=== PATIENT | female | born 1930 | race Hispanic/Latino ===

== ENCOUNTER 2016-06-28 11:22 | Emergency (ER) | payer MEDICARE, BC ==
--- NOTE | 2016-06-28 11:47 | ED PDOC ---
Arrival/HPI - General Time Seen by Provider: 06/28/16 11:26 Historian: Patient - History of Present Illness Narrative History of Present Illness (Text): 06/28/16 11:46 Patient is a 86 year old female with a past medical history that includes hypertension, hypothyroidism, CHF, and anxiety who presents to the emergency department for possible UTI. Patient states he saw her urologist yesterday for dysuria who instructed her to come to the ER today if symptoms did not improve. She reports that she feels burning between her vagina and rectum when urinating x 2 days. Patient reports some nausea and generalized fatigue, which she attributes to not eating today. Denies vomiting, fever, chest pain, shortness of breath, or abdominal pain. She is also requesting to see her psychiatrist, but denies homicidal or suicidal ideation. Time/Duration: < week Symptom Onset: Gradual Symptom Course: Unchanged Modifying Factors (Text): None Associated Symptoms (Text): None Past Medical History - Provider Review Nursing Documentation Reviewed: Yes - Infectious Disease Hx of Infectious Diseases: None - Tetanus Immunization Tetanus Immunization: Unknown - Cardiac Hx Cardiac Disorders: Yes Hx Hypertension: Yes - Pulmonary Hx Respiratory Disorders: Yes Hx Pneumonia: Yes - Neurological Hx Neurological Disorder: Yes Hx Vertigo: Yes - HEENT Hx HEENT Disorder: No - Renal Hx Renal Disorder: No - Endocrine/Metabolic Hx Hypothyroidism: Yes - Hematological/Oncological Hx Blood Disorders: No - Integumentary Hx Dermatological Disorder: No - Musculoskeletal/Rheumatological Hx Musculoskeletal Disorders: No - Gastrointestinal Hx Gastrointestinal Disorders: Yes Hx Diverticulitis: Yes Hx Gastroesophageal Reflux: Yes - Genitourinary/Gynecological Hx Genitourinary Disorders: Yes Hx Incontinence: Yes (STRESS) - Psychiatric Hx Psychophysiologic Disorder: Yes Hx Depression: Yes Hx Substance Use: No - Past Surgical History Past Surgical History: Non-Contributing - Surgical History Other/Comment: benign right breast cyst - Anesthesia Hx Anesthesia: No Hx Anesthesia Reactions: No Hx Malignant Hyperthermia: No - Suicidal Assessment Feels Threatened In Home Enviroment: No Family/Social History - Physician Review Nursing Documentation Reviewed: Yes Family/Social History: Unknown Family HX Smoking Status: Former Smoker Hx Alcohol Use: No Hx Substance Use: No Hx Substance Use Treatment: No Allergies/Home Meds Allergies/Adverse Reactions: Allergies ciprofloxacin [From Cipro] Allergy (Verified 06/28/16 11:55) .unknown ciprofloxacin HCl [From Cipro] Allergy (Verified 06/28/16 11:55) .unknown pneumococcal vaccine Allergy (Verified 06/28/16 11:51) RASH sulfamethoxazole [From Bactrim] Allergy (Verified 06/28/16 11:51) RASH trimethoprim [From Bactrim] Allergy (Verified 06/28/16 11:51) RASH nitrofurantoin Adverse Reaction (Verified 06/28/16 11:51) RASH Penicillins Adverse Reaction (Verified 06/28/16 11:51) SWELLING Home Medications: Home Meds Medication Instructions Recorded Confirmed Furosemide [Lasix] 20 mg PO DAILY 07/03/15 06/28/16 Levothyroxine Sodium [Unithroid] 25 mcg PO DAILY 12/05/15 06/28/16 Pantoprazole Sodium [Protonix] 40 mg PO DAILY 12/05/15 06/28/16 ARIPiprazole [Abilify] 0.5 tab PO HS 06/28/16 06/28/16 Metoprolol Tartrate [Lopressor] 50 mg PO DAILY 06/28/16 06/28/16 Spironolactone [Aldactone] 25 mg PO DAILY 06/28/16 06/28/16 Review of Systems - Review of Systems Constitutional: absent: Fevers Eyes: absent: Vision Changes ENT: absent: Hearing Changes Respiratory: absent: SOB, Cough, Sputum, Wheezing Cardiovascular: absent: Chest Pain, Palpitations, Edema, Calf Pain, GERMAIN, Orthopnea, Syncope Gastrointestinal: Nausea. absent: Abdominal Pain, Constipation, Diarrhea, Vomiting Genitourinary Female: Dysuria. absent: Vaginal Bleeding, Vaginal Discharge Musculoskeletal: absent: Back Pain Skin: absent: Rash Neurological: Dizziness (lightheaded) Endocrine: absent: Diaphoresis Hemo/Lymphatic: absent: Adenopathy Psychiatric: absent: Depression Physical Exam Vital Signs Reviewed: Yes Vital Signs Temp Pulse Resp BP Pulse Ox 06/28/16 11:37 97.9 F 71 18 134/54 L 97 Temperature: Afebrile Blood Pressure: Normal Pulse: Regular Respiratory Rate: Normal Appearance: Positive for: Well-Appearing, Non-Toxic, Comfortable Pain Distress: None Mental Status: Positive for: Alert and Oriented X 3 - Systems Exam Head: Present: Atraumatic, Normocephalic Pupils: Present: PERRL Extroacular Muscles: Present: EOMI Conjunctiva: Present: Normal Mouth: Present: Moist Mucous Membranes Neck: Present: Normal Range of Motion Respiratory/Chest: Present: Clear to Auscultation, Good Air Exchange. No: Respiratory Distress, Accessory Muscle Use Cardiovascular: Present: Regular Rate and Rhythm, Normal S1, S2. No: Murmurs Abdomen: Present: Normal Bowel Sounds. No: Tenderness, Distention, Peritoneal Signs Genitourinary/Pelvic Exam: Present: Normal External Genitalia, Other ( chaperoned by Beryl (tech)). No: Vaginal Discharge, Vaginal Lesions, Odor Back: Present: Normal Inspection Upper Extremity: Present: Normal Inspection. No: Cyanosis, Edema Lower Extremity: Present: Edema (Non-pitting lower extremity edema bilaterally) Neurological: Present: GCS=15, CN II-XII Intact, Speech Normal, Other ( ambulates with walker) Skin: Present: Warm, Dry, Normal Color. No: Rashes Psychiatric: Present: Alert, Oriented x 3, Normal Insight, Normal Concentration Medical Decision Making ED Course and Treatment: Impression: 86 year old female presents with dysuria Differential Diagnosis include but are not limited to: UTI vs yeast infection Plan: -- Labs -- Urine culture/UA -- Admission Prior Visits: Notes and results from previous visits were reviewed. Patient last seen in ED on 03/18/16 for shortness of breath and admitted. Progress Notes: EKG shows NSR at 71 BPM with normal intervals, no ST changes. 06/28/16 13:[address] Givens who agrees the patient does not have a UTI and does not need admission. Patient states she feels better but does not understand her dysuria. Patient reports she is tired because she has not been eating. She is requesting to eat. Will PO challenge and reassess. 06/28/16 16:35 Ucx sent. Patient reports that she feels better and wants to go home and will follow-up with Dr. Gonzalez. She reports that she will use the cream prescribed by Dr. Gonzalez. She also reports that she will follow-up with her psychiatrist as an outpatient. 06/28/16 17:08 Dr. Gonzalez saw patient at bedside and agrees with plan - Lab Interpretations Lab Results: 06/28/16 12:10 06/28/16 12:10 Lab Results 06/28/16 12:48: Urine Color Yellow, Urine Appearance Clear, Urine pH 7.0, Ur Specific [place] 1.010, Urine Protein Negative, Urine Glucose (UA) Negative, Urine Ketones Negative, Urine Blood Negative, Urine Nitrate Negative, Urine Bilirubin Negative, Urine Urobilinogen 0.2, Ur Leukocyte Esterase Trace H, Urine RBC Negative, Urine WBC 0 - 2, Ur Epithelial Cells 4 - 5, Urine Bacteria Trace 06/28/16 12:30: Total Creatine Kinase 59, Troponin I < 0.01 06/28/16 12:10: WBC 8.0 D, RBC 3.88, Hgb 11.4 L, Hct 35.3 L, MCV 91.0, MCH 29.4 , MCHC 32.3, RDW 14.9 H, Plt Count 237, MPV 10.6, Gran % 76.1 H, Lymph % (Auto) 14.1 L, [place] % (Auto) 7.8 H, Eos % (Auto) 1.4 L, Baso % (Auto) 0.6, Gran # 6.08 , Lymph # 1.1 L, [place] # 0.6, Eos # 0.1, Baso # 0.05, pO2 59 H, VBG pH 7.35, VBG pCO2 56.0, VBG HCO3 30.9 H, VBG Total CO2 32.6 H, VBG O2 Sat (Calc) 93.2 H, VBG Base Excess 4.1 H, Glucose 129 H, Lactate 1.4, FiO2 21.0, Sodium 136, Potassium 4.9, Chloride 103.0, Carbon Dioxide 29, Anion Gap 14, BUN 25 H, Creatinine 1.5 H , Est GFR ( Amer) 40, Est GFR (Non-Af Amer) 33, Random Glucose 122 H, Calcium 9.4, Phosphorus 4.4, Magnesium 1.8, Total Bilirubin 0.6, AST 24, ALT 24 , Alkaline Phosphatase 107, Total Protein 7.5, Albumin 3.9, Globulin 3.5, Albumin/Globulin Ratio 1.1, Lipase 107 - EKG Interpretation Interpreted by ED Physician: Yes Type: 12 lead EKG - Medication Orders Current Medication Orders: Discontinued Medications Sodium Chloride (Sodium Chloride 0.9%) 500 mls @ 999 mls/hr IV .Q31M STA Stop: 06/28/16 12:28 Last Admin: 06/28/16 13:15 Dose: 999 MLS/HR eMAR Start Stop Document 06/28/16 13:15 SABINO (Rec: 06/28/16 13:16 [id number] Intravenous Solution Start Date 06/28/16 Start Time 13:15 End Date 06/28/16 End time 13:45 Total Infusion Time 30 - Scribe Statement The provider has reviewed the documentation as recorded by the Elvie Galvan Provider Scribe Attestation: All medical record entries made by the Elvie were at my direction and personally dictated by me. I have reviewed the chart and agree that the record accurately reflects my personal performance of the history, physical exam, medical decision making, and the department course for this patient. I have also personally directed, reviewed, and agree with the discharge instructions and disposition. Disposition/Present on Arrival - Present on Arrival Any Indicators Present on Arrival: No History of DVT/PE: No History of Uncontrolled Diabetes: No Urinary Catheter: No History Surgical Site Infection Following: None - Disposition Have Diagnosis and Disposition been Completed?: Yes Diagnosis: Dysuria Disposition: HOME/ ROUTINE Disposition Time: 13:20 Patient Plan: Discharge Patient Problems: Current Active Problems Problem Status Diagnosed Diastolic congestive heart failure Acute Dysuria Acute Shortness of breath Acute Condition: GOOD Additional Instructions: Follow up with Dr. Gonzalez. Urine culture will result in 2 days. Return to ED if condition worsens. Referrals: PCP,NO [Primary Care Provider] - Follow up with primary
[2016-06-28 11:50] VITALS: BP 134/54; PULSE 71; RESP 18; TEMP 97.9; O2SAT 97; BMI 35.5
[2016-06-28] MEDS ORDERED: Sodium Chloride 0.9% 500 ML IV STA (11:58)
[2016-06-28 12:14] LABS: ADD MANUAL DIFF? NO
[2016-06-28 12:17] LABS: BASO # 0.05 K/mm3 (0.0-2.0); BASO % 0.6 % (0.0-3.0); EOS # 0.1 (0.0-0.7); EOS % 1.4 % (1.5-5.0); GRAN # 6.08 (1.4-6.5); GRAN % 76.1 % (50.0-68.0); HEMATOCRIT 35.3 % (36.0-48.0); LYMPH # 1.1 (1.2-3.4); LYMPH % 14.1 % (22.0-35.0); MEAN CORPUSCULAR HEMOGLOBIN 29.4 pg (25.0-35.0); MEAN CORPUSCULAR HGB CONC 32.3 g/dl (31.0-37.0); MEAN PLATELET VOLUME 10.6 fl (7.0-11.0); MONO # 0.6 (0.1-0.6); MONO % 7.8 % (1.0-6.0); PLATELET COUNT 237 10^3/uL (120.0-450.0); RED CELL DISTRIBUTION WIDTH 14.9 % (11.5-14.5)
[2016-06-28 12:30] LABS: ALB/GLOB RATIO 1.1 (1.1-1.8); BILIRUBIN,TOTAL 0.6 mg/dL (0.2-1.3); CALCIUM 9.4 mg/dL (8.4-10.5); MAGNESIUM 1.8 mg/dL (1.7-2.2); PHOSPHOROUS 4.4 mg/dL (2.5-4.5); POTASSIUM 4.9 mmol/L (3.6-5.0); TOTAL PROTEIN 7.5 g/dL (5.8-8.3)
[2016-06-28 12:32] LABS: VENOUS BLOOD GAS BASE EXCESS 4.1 mmol/L (0.0-2.0); VENOUS BLOOD PH 7.35 (7.32-7.43)
[2016-06-28 13:01] LABS: URINE BILIRUBIN NEGATIVE (NEGATIVE); URINE BLOOD NEGATIVE (NEGATIVE); URINE GLUCOSE (UA) NEGATIVE (NEGATIVE); URINE KETONE NEGATIVE (NEGATIVE); URINE LEUKOCYTE ESTERASE TRACE Leu/uL (NEGATIVE); URINE PROTEIN NEGATIVE mg/dL (<30 mg/dL); URINE UROBILINOGEN 0.2 E.U./dL (<1 E.U./dL)
[2016-06-28 13:04] LABS: URINE APPEARANCE CLEAR (CLEAR); URINE COLOR YELLOW (YELLOW)
[2016-06-28 13:14] LABS: URINE BACTERIA TRACE (NEG); URINE RBC NEGATIVE /hpf (0-2); URINE WBC 0 - 2 /hpf (0-6)
[2016-06-28 14:08] LABS: TROPONIN I < 0.01 ng/mL
--- NOTE | 2016-06-28 17:46 | CARD ---
APPROVED REPORT EKG Measurement Heart [id number] <Conclusion> Normal sinus rhythm Normal ECG
== END 2016-06-28 17:14 | disposition home or self-care (01) ==
LOC: ED 11:22
DX: R30.0 Dysuria (principal); I10 Essential (primary) hypertension; Z87.891 Personal history of nicotine dependence
CPT/HCPCS: 80053; 81001; 82550; 82803; 83690; 83735; 84100; 84484; 85025; 87086; 93005; 99283; J7040

== ENCOUNTER 2016-07-10 12:15 | Inpatient (IN) | payer MEDICARE, BC ==
[2016-07-10 12:21] VITALS: BMI 35.9
[2016-07-10] MEDS ORDERED: Sodium Chloride 0.9% 500 ML IV STA (12:39)
--- NOTE | 2016-07-10 12:45 | ED PDOC ---
Arrival/HPI - General Chief Complaint: GI Problem Time Seen by Provider: 07/10/16 12:17 Historian: Patient - History of Present Illness Narrative History of Present Illness (Text): 07/10/16 12:48 Amairani Jama, an 86 year old female, whose past medical history includes hypothyroidism, congestive heart failure, and hypertension, presents to the emergency room complaining of generalized weakness with a feeling of dizziness and nausea for the past hour. Patient reports she had taken Zofran, but it did not help alleviate her symptoms. She also notes she felt weakness about a week ago. Patient states she felt lightheaded/dizziness as if she were about to pass out. Patient states she had shortness of breath but denies any headache, vomiting, diarrhea, abdominal pain, chest pain, cough, fever or any other complaints at this time. Time/Duration: 1 hour Symptom Onset: Sudden Symptom Course: Unchanged Quality: Other (weakness) Activities at Onset: Rest Modifying Factors (Text): Zofran did not alleviate symptoms Context: Home Associated Symptoms (Text): nausea, shortness of breath Past Medical History - Provider Review Nursing Documentation Reviewed: Yes - Infectious Disease Hx of Infectious Diseases: None - Tetanus Immunization Tetanus Immunization: Unknown - Cardiac Hx Cardiac Disorders: Yes Hx Hypertension: Yes - Pulmonary Hx Respiratory Disorders: Yes Hx Pneumonia: Yes - Neurological Hx Neurological Disorder: Yes Hx Vertigo: Yes - HEENT Hx HEENT Disorder: No - Renal Hx Renal Disorder: No - Endocrine/Metabolic Hx Hypothyroidism: Yes - Hematological/Oncological Hx Blood Disorders: No - Integumentary Hx Dermatological Disorder: No - Musculoskeletal/Rheumatological Hx Musculoskeletal Disorders: No - Gastrointestinal Hx Gastrointestinal Disorders: Yes Hx Diverticulitis: Yes Hx Gastroesophageal Reflux: Yes - Genitourinary/Gynecological Hx Genitourinary Disorders: Yes Hx Incontinence: Yes (STRESS) - Psychiatric Hx Psychophysiologic Disorder: Yes Hx Depression: Yes Hx Substance Use: No - Past Surgical History Past Surgical History: Non-Contributing - Surgical History Other/Comment: benign right breast cyst - Anesthesia Hx Anesthesia: No Hx Anesthesia Reactions: No Hx Malignant Hyperthermia: No - Suicidal Assessment Feels Threatened In Home Enviroment: No Family/Social History - Physician Review Nursing Documentation Reviewed: Yes Family/Social History: No Known Family HX Smoking Status: Former Smoker Hx Alcohol Use: No Hx Substance Use: No Hx Substance Use Treatment: No Allergies/Home Meds Allergies/Adverse Reactions: Allergies ciprofloxacin [From Cipro] Allergy (Verified 07/10/16 12:21) .unknown ciprofloxacin HCl [From Cipro] Allergy (Verified 07/10/16 12:21) .unknown pneumococcal vaccine Allergy (Verified 07/10/16 12:21) RASH sulfamethoxazole [From Bactrim] Allergy (Verified 07/10/16 12:21) RASH trimethoprim [From Bactrim] Allergy (Verified 07/10/16 12:21) RASH nitrofurantoin Adverse Reaction (Verified 07/10/16 12:21) RASH Penicillins Adverse Reaction (Verified 07/10/16 12:21) SWELLING Home Medications: Home Meds Medication Instructions Recorded Confirmed Furosemide [Lasix] 20 mg PO DAILY 07/03/15 07/10/16 Levothyroxine Sodium [Unithroid] 25 mcg PO DAILY 12/05/15 07/10/16 Pantoprazole Sodium [Protonix] 40 mg PO DAILY 12/05/15 07/10/16 ARIPiprazole [Abilify] 0.5 tab PO HS 06/28/16 07/10/16 Metoprolol Tartrate [Lopressor] 50 mg PO DAILY 06/28/16 07/10/16 Spironolactone [Aldactone] 25 mg PO DAILY 06/28/16 07/10/16 Review of Systems - Physician Review All systems were reviewed & negative as marked: Yes - Review of Systems Constitutional: Other (generalized weakness). absent: Fevers Respiratory: SOB. absent: Cough Cardiovascular: Other (near syncope). absent: Chest Pain Gastrointestinal: Nausea. absent: Abdominal Pain, Diarrhea, Vomiting Genitourinary Female: absent: Dysuria Neurological: Dizziness. absent: Headache, Focal Weakness, Speech Changes, Facial Droop, Disequilibrium Endocrine: Normal Physical Exam Vital Signs Reviewed: Yes Vital Signs Temp Pulse Resp BP Pulse Ox 07/10/16 12:21 97.9 F 66 16 153/73 H 99 Temperature: Afebrile Blood Pressure: Hypertensive Pulse: Regular Respiratory Rate: Normal Appearance: Positive for: Well-Appearing, Non-Toxic, Comfortable Pain Distress: None Mental Status: Positive for: Alert and Oriented X 3 Finger Stick Blood Glucose: 107 - Systems Exam Head: Present: Atraumatic, Normocephalic Pupils: Present: PERRL Extroacular Muscles: Present: EOMI Conjunctiva: Present: Normal Mouth: Present: Moist Mucous Membranes Pharnyx: Present: Normal. No: ERYTHEMA, EXUDATE Neck: Present: Normal Range of Motion Respiratory/Chest: Present: Clear to Auscultation, Good Air Exchange. No: Respiratory Distress, Accessory Muscle Use Cardiovascular: Present: Regular Rate and Rhythm, Murmurs, Normal S1, S2, Other (grade 2/6 systolic ) Abdomen: Present: Normal Bowel Sounds. No: Tenderness, Distention, Peritoneal Signs Upper Extremity: Present: Normal Inspection. No: Cyanosis, Edema Lower Extremity: Present: Edema (trace) Neurological: Present: GCS=15, CN II-XII Intact, Speech Normal, Motor Func Grossly Intact, Normal Cerebellar Funct Skin: Present: Warm, Dry, Normal Color. No: Rashes Psychiatric: Present: Alert, Oriented x 3, Normal Insight, Normal Concentration Medical Decision Making ED Course and Treatment: 07/10/16 12:42 Impression: 86 year old female with generalized weakness. Differential Diagnosis included but are not limited to: vertigo vs UTI vs electrolyte abnormality vs cardiogenic etiology for near syncope Plan: -- EKG -- CT head without contrast -- Chest xray -- Labs -- IV fluids -- Reassess and disposition Prior Visits: Notes and results from previous visits were reviewed. Patient reported to the emergency room on 06/28/16 for evaluation of weakness and UTI. Progress Notes: EKG: Ordered, reviewed, and independently interpreted the EKG. Rate : 63 BPM Rhythm : NSR Interpretation : Normal intervals, normal axis, No ST/T changes Comparison : No previous EKG for comparison. 07/10/16 14:30 Labs with mild creatinine elevation c/w baseline and potential UTI. Given history, she will need further observation for near syncope on tele. She is Dr. Leroy's patient, so will place on the hospitalist's service. 07/10/16 14:[address] Burt Cast - will place on the hospitalist service on observation on tele and will start on rocephin for UTI (patient unsure of her PCN allergy and is allergic to other abx). - Lab Interpretations Lab Results: 07/10/16 13:15 07/10/16 13:15 Lab Results 07/10/16 13:15: WBC 7.2, RBC 3.92, Hgb 11.5 L, Hct 35.3 L, MCV 90.1, MCH 29.3, MCHC 32.6, RDW 14.4, Plt Count 242, MPV 10.1, Gran % 65.4, Lymph % (Auto) 19.9 L , [place] % (Auto) 9.9 H, Eos % (Auto) 4.2, Baso % (Auto) 0.6, Gran # 4.72, Lymph # 1.4, [place] # 0.7 H, Eos # 0.3, Baso # 0.04, PT 10.8, INR 1.00, APTT 32.6 H, Sodium 137, Potassium 4.5, Chloride 98, Carbon Dioxide 31, Anion Gap 13, BUN 31 H, Creatinine 1.8 H, Est GFR ( Amer) 32, Est GFR (Non-Af Amer) 27, Random Glucose 102, Calcium 9.7, Magnesium 1.8, Total Bilirubin 0.4, AST 34, ALT 28, Alkaline Phosphatase 116, Lactate Dehydrogenase 538, Total Creatine Kinase 63, Troponin I < 0.01, NT-Pro-B Natriuret Pep 341, Total Protein 7.7, Albumin 4.0, Globulin 3.6, Albumin/Globulin Ratio 1.1, Lipase 132 07/10/16 13:00: Urine Color Yellow, Urine Appearance Clear, Urine pH 6.5, Ur Specific [place] 1.010, Urine Protein Negative, Urine Glucose (UA) Negative, Urine Ketones Negative, Urine Blood Negative, Urine Nitrate Negative, Urine Bilirubin Negative, Urine Urobilinogen 0.2, Ur Leukocyte Esterase Trace H, Urine RBC Negative, Urine WBC 2 - 5, Ur Epithelial Cells 4 - 5, Urine Bacteria Few - RAD Interpretation Radiology Orders: 07/10/16 12:36 CHEST TWO VIEWS (PA/LAT) [RAD] Stat 07/10/16 12:38 HEAD W/O CONTRAST [CT] Stat - EKG Interpretation Interpreted by ED Physician: Yes Type: 12 lead EKG - Medication Orders Current Medication Orders: Discontinued Medications Famotidine (Pepcid) 20 mg IVP STAT STA Stop: 07/10/16 12:41 Last Admin: 07/10/16 13:29 Dose: Not Given Non-Admin Reason: Patient Refused Sodium Chloride (Sodium Chloride 0.9%) 500 mls @ 999 mls/hr IV .Q31M STA Stop: 07/10/16 13:09 Last Admin: 07/10/16 13:21 Dose: 999 MLS/HR eMAR Start Stop Document 07/10/16 13:21 SS (Rec: 07/10/16 13:22 SS [id number]) Intravenous Solution Start Date 07/10/16 Start Time 13:22 End Date 07/10/16 End time 13:52 Total Infusion Time 30 Meclizine HCl (Antivert) 12.5 mg PO STAT STA Stop: 07/10/16 12:41 Last Admin: 07/10/16 13:21 Dose: 12.5 MG Ondansetron HCl (Zofran Inj) 4 mg IVP STAT STA Stop: 07/10/16 12:41 Last Admin: 07/10/16 13:29 Dose: Not Given Non-Admin Reason: Patient Refused - Scribe Statement The provider has reviewed the documentation as recorded by the Scribe Jessu Kruger All medical record entries made by the Scribe were at my direction and personally dictated by me. I have reviewed the chart and agree that the record accurately reflects my personal performance of the history, physical exam, medical decision making, and the department course for this patient. I have also personally directed, reviewed, and agree with the discharge instructions and disposition. Disposition/Present on Arrival - Present on Arrival Any Indicators Present on Arrival: No History of DVT/PE: No History of Uncontrolled Diabetes: No Urinary Catheter: No History of Decub. Ulcer: No History Surgical Site Infection Following: None - Disposition Have Diagnosis and Disposition been Completed?: Yes Diagnosis: Near syncope Disposition: HOSPITALIZED Disposition Time: 14:30 Patient Plan: Observation, Telemetry Patient Problems: Current Active Problems Problem Status Diagnosed Diastolic congestive heart failure Acute Near syncope Acute Shortness of breath Acute Condition: FAIR
[2016-07-10 13:16] LABS: ADD MANUAL DIFF? NO
[2016-07-10 13:21] LABS: BASO # 0.04 K/mm3 (0.0-2.0); BASO % 0.6 % (0.0-3.0); EOS # 0.3 (0.0-0.7); EOS % 4.2 % (1.5-5.0); GRAN # 4.72 (1.4-6.5); GRAN % 65.4 % (50.0-68.0); HEMATOCRIT 35.3 % (36.0-48.0); LYMPH # 1.4 (1.2-3.4); LYMPH % 19.9 % (22.0-35.0); MEAN CELL VOLUME 90.1 fL (80.0-105.0); MEAN CORPUSCULAR HEMOGLOBIN 29.3 pg (25.0-35.0); MEAN CORPUSCULAR HGB CONC 32.6 g/dl (31.0-37.0); MEAN PLATELET VOLUME 10.1 fl (7.0-11.0); MONO # 0.7 (0.1-0.6); MONO % 9.9 % (1.0-6.0); PLATELET COUNT 242 10^3/uL (120.0-450.0); RED CELL DISTRIBUTION WIDTH 14.4 % (11.5-14.5); WHITE BLOOD COUNT 7.2 10^3/ul (4.5-11.0)
[2016-07-10 13:28] LABS: PH,URINE 6.5 (4.7-8.0); URINE BILIRUBIN NEGATIVE (NEGATIVE); URINE BLOOD NEGATIVE (NEGATIVE); URINE GLUCOSE (UA) NEGATIVE (NEGATIVE); URINE KETONE NEGATIVE (NEGATIVE); URINE LEUKOCYTE ESTERASE TRACE Leu/uL (NEGATIVE); URINE PROTEIN NEGATIVE mg/dL (<30 mg/dL); URINE UROBILINOGEN 0.2 E.U./dL (<1 E.U./dL)
[2016-07-10 13:31] LABS: ALB/GLOB RATIO 1.1 (1.1-1.8); ALKALINE PHOSPHATASE 116 U/L (38-133); ALT/SGPT 28 U/L (7-56); AST/SGOT 34 U/L (15-39); BILIRUBIN,TOTAL 0.4 mg/dL (0.2-1.3); BLOOD UREA NITROGEN 31 mg/dL (7-21); CALCIUM 9.7 mg/dL (8.4-10.5); CARBON DIOXIDE 31 mmol/L (21-33); CHLORIDE 98 mmol/L (98-107); GFR AFRICAN-AMERICAN 32; GLUCOSE,RANDOM 102 mg/dL (70-110); LIPASE 132 U/L (23-300); MAGNESIUM 1.8 mg/dL (1.7-2.2); POTASSIUM 4.5 mmol/L (3.6-5.0); SODIUM 137 mmol/L (132-148); TOTAL PROTEIN 7.7 g/dL (5.8-8.3)
[2016-07-10 13:31] LABS: URINE APPEARANCE CLEAR (CLEAR); URINE COLOR YELLOW (YELLOW)
[2016-07-10 13:32] LABS: PARTIAL THROMBOPLASTIN TIME 32.6 Seconds (23.7-30.8)
[2016-07-10 13:39] LABS: URINE BACTERIA FEW (NEG); URINE RBC NEGATIVE /hpf (0-2)
[2016-07-10 13:43] LABS: TROPONIN I < 0.01 ng/mL
--- NOTE | 2016-07-10 13:45 | CT ---
PROCEDURE: CT HEAD WITHOUT CONTRAST. HISTORY: DIZZY GENERALIZED WEAKNESS COMPARISON: 07/10/2016 TECHNIQUE: Axial computed tomography images were obtained through the head/brain without intravenous contrast. Radiation dose: Total exam DLP = 655 mGy-cm. This CT exam was performed using one or more of the following dose reduction techniques: Automated exposure control, adjustment of the mA and/or kV according to patient size, and/or use of iterative reconstruction technique. FINDINGS: HEMORRHAGE: No intracranial hemorrhage. BRAIN: No mass effect or edema. No atrophy or chronic microvascular ischemic changes. VENTRICLES: Unremarkable. No hydrocephalus. CALVARIUM: Unremarkable. PARANASAL SINUSES: Unremarkable as visualized. No significant inflammatory changes. MASTOID AIR CELLS: Unremarkable as visualized. No inflammatory changes. OTHER FINDINGS: None. IMPRESSION: No acute findings
[2016-07-10] MEDS ORDERED: cefTRIAXone 1 gm 100 ML IVPB STA (14:38)
--- NOTE | 2016-07-10 14:55 | RAD ---
HISTORY: generalized weakness COMPARISON: 03/17/2016 TECHNIQUE: Chest PA and lateral FINDINGS: LUNGS: No active pulmonary disease. PLEURA: No significant pleural effusion identified. No pneumothorax apparent. CARDIOVASCULAR: Normal. OSSEOUS STRUCTURES: No significant abnormalities. VISUALIZED UPPER ABDOMEN: Normal. OTHER FINDINGS: None. IMPRESSION: No active disease.
--- NOTE | 2016-07-10 15:22 | CP.PCM.HP ---
<JasonMeg - Last Filed: 07/10/16 15:42> History of Present Illness - History of Present Illness History of Present Illness: Amairani Jama, an 86 year old female, whose past medical history includes hypothyroidism, congestive heart failure, and hypertension, presents to the emergency room complaining of generalized weakness with a feeling of dizziness and nausea for the past hour. Patient reports she had taken Zofran, but it did not help alleviate her symptoms. She also notes she felt weakness about a week ago. Patient states she felt lightheaded/dizziness as if she were about to pass out. Patient states she had shortness of breath but denies any syncope, LOC, dysuria, hematuria, abd pain, headache, vomiting, diarrhea, abdominal pain, chest pain, cough, fever or any other complaints at this time. Pt came to ED on 06/28 for similar symptoms and dysuria. Urine cx from then didn't show any growth. PMD: [place] PMH: hypothyroidism, congestive heart failure, and hypertension Cardio: [place]kind All: Cipro, Pneumovac, Pennicillin, Bactrim, nitrofurantoin Med: Lasix, SYnthroid, Abilify, lopressor, Aldactone SS: Lives at home by herself. Daily activity of living functional. Use walker. Present on Admission - Present on Admission Any Indicators Present on Admission: No Review of Systems - Review of Systems Review of Systems: See HPI - Constitutional Constitutional: Fatigue. absent: Anorexia, Chills, Fever - EENT Eyes: absent: Change in Vision - Respiratory Respiratory: absent: Cough, Hemoptysis - Gastrointestinal Gastrointestinal: Belching. absent: Abdominal Pain Past Patient History - Infectious Disease Hx of Infectious Diseases: None - Tetanus Immunizations Tetanus Immunization: Unknown - Past Social History Smoking Status: Former Smoker - CARDIAC Hx Cardiac Disorders: Yes Hx Hypertension: Yes - PULMONARY Hx Respiratory Disorders: Yes Hx Pneumonia: Yes - NEUROLOGICAL Hx Neurological Disorder: Yes Hx Vertigo: Yes - HEENT Hx HEENT Problems: No - RENAL Hx Chronic Kidney Disease: No - ENDOCRINE/METABOLIC Hx Hypothyroidism: Yes - HEMATOLOGICAL/ONCOLOGICAL Hx Blood Disorders: No - INTEGUMENTARY Hx Dermatological Problems: No - MUSCULOSKELETAL/RHEUMATOLOGICAL Hx Musculoskeletal Disorders: No - GASTROINTESTINAL Hx Gastrointestinal Disorders: Yes Hx Diverticulitis: Yes Hx Gastroesophageal Reflux: Yes - GENITOURINARY/GYNECOLOGICAL Hx Genitourinary Disorders: Yes Hx Incontinence: Yes (STRESS) - PSYCHIATRIC Hx Psychophysiologic Disorder: Yes Hx Depression: Yes Hx Substance Use: No - SURGICAL HISTORY Other/Comment: benign right breast cyst - ANESTHESIA Hx Anesthesia: No Hx Anesthesia Reactions: No Hx Malignant Hyperthermia: No Meds Allergies/Adverse Reactions: Allergies Allergy/AdvReac Type Severity Reaction Status Date / Time ciprofloxacin [From Cipro] Allergy .unknown Verified 07/10/16 12:21 ciprofloxacin HCl Allergy .unknown Verified 07/10/16 12:21 [From Cipro] pneumococcal vaccine Allergy RASH Verified 07/10/16 12:21 sulfamethoxazole Allergy RASH Verified 07/10/16 12:21 [From Bactrim] trimethoprim [From Bactrim] Allergy RASH Verified 07/10/16 12:21 nitrofurantoin AdvReac RASH Verified 07/10/16 12:21 Penicillins AdvReac SWELLING Verified 07/10/16 12:21 Physical Exam - Constitutional Appears: No Acute Distress - Head Exam Head Exam: ATRAUMATIC, NORMAL INSPECTION, NORMOCEPHALIC - Eye Exam Eye Exam: EOMI, Normal appearance, PERRL Pupil Exam: NORMAL ACCOMODATION, PERRL - ENT Exam ENT Exam: Mucous Membranes Moist, Normal Exam - Neck Exam Neck exam: Positive for: Normal Inspection - Respiratory Exam Respiratory Exam: Clear to Auscultation Bilateral, NORMAL BREATHING PATTERN - Cardiovascular Exam Cardiovascular Exam: REGULAR RHYTHM - GI/Abdominal Exam GI & Abdominal Exam: Normal Bowel Sounds, Soft. absent: Distended, Firm, Guarding, Hernia, Tenderness - Exam Exam: NORMAL INSPECTION - Extremities Exam Extremities exam: Positive for: full ROM, normal capillary refill, pedal edema, tenderness, pedal pulses present Additional comments: Non pitting. - Back Exam Back exam: NORMAL INSPECTION - Neurological Exam Neurological exam: Alert, CN II-XII Intact, Normal Gait, Oriented x3, Reflexes Normal - Psychiatric Exam Psychiatric exam: Normal Affect, Normal Mood - Skin Skin Exam: Dry, Intact, Normal Color, Warm Results - Vital Signs Recent Vital Signs: Last Vital Signs Temp 97.9 F 07/10/16 12:21 Pulse 66 07/10/16 12:21 Resp 16 07/10/16 12:21 BP 153/73 H 07/10/16 12:21 Pulse Ox 99 07/10/16 12:21 - Labs Result Diagrams: 07/10/16 13:15 07/10/16 13:15 Labs: Laboratory Results - last 24 hr 07/10/16 07/10/16 13:00 13:15 WBC 7.2 RBC 3.92 Hgb 11.5 L Hct 35.3 L MCV 90.1 MCH 29.3 MCHC 32.6 RDW 14.4 Plt Count 242 MPV 10.1 Gran % 65.4 Lymph % (Auto) 19.9 L [place] % (Auto) 9.9 H Eos % (Auto) 4.2 Baso % (Auto) 0.6 Gran # 4.72 Lymph # 1.4 [place] # 0.7 H Eos # 0.3 Baso # 0.04 PT 10.8 INR 1.00 APTT 32.6 H Sodium 137 Potassium 4.5 Chloride 98 Carbon Dioxide 31 Anion Gap 13 BUN 31 H Creatinine 1.8 H Est GFR ( Amer) 32 Est GFR (Non-Af Amer) 27 Random Glucose 102 Calcium 9.7 Magnesium 1.8 Total Bilirubin 0.4 AST 34 ALT 28 Alkaline Phosphatase 116 Lactate Dehydrogenase 538 Total Creatine Kinase 63 Troponin I < 0.01 NT-Pro-B Natriuret Pep 341 Total Protein 7.7 Albumin 4.0 Globulin 3.6 Albumin/Globulin Ratio 1.1 Lipase 132 Urine Color Yellow Urine Appearance Clear Urine pH 6.5 Ur Specific [place] 1.010 Urine Protein Negative Urine Glucose (UA) Negative Urine Ketones Negative Urine Blood Negative Urine Nitrate Negative Urine Bilirubin Negative Urine Urobilinogen 0.2 Ur Leukocyte Esterase Trace H Urine RBC Negative Urine WBC 2 - 5 Ur Epithelial Cells 4 - 5 Urine Bacteria Few Assessment & Plan - Assessment and Plan (Free Text) Assessment: Near syncope likely 2/2 dehydration -D5 1/2NS @100 -HHD -Cardio consult -Orthostatic BP -Urine sodium, Urine Cr -Cr: 1.8 -US carotid -EKG: NSR UTI -UA: trace LE -Rocephin -Urine cx CHF Echo 01/2016: EF 75% mild LVH -Hold lasix Hypothyroidism -Synthroid HTN -Lopressor -Aldactone DW attending <Burt Cast - Last Filed: 07/11/16 17:56> Results - Vital Signs Recent Vital Signs: Last Vital Signs Temp 97.6 F 07/11/16 06:00 Pulse 62 07/11/16 14:00 Resp 19 07/11/16 06:00 BP 142/46 L 07/11/16 09:54 Pulse Ox 97 07/11/16 06:00 - Labs Result Diagrams: 07/11/16 07:00 07/11/16 07:00 Labs: Laboratory Results - last 24 hr 07/11/16 07:00 WBC 7.0 RBC 3.77 Hgb 11.0 L Hct 34.1 L MCV 90.5 MCH 29.2 MCHC 32.3 RDW 14.6 H Plt Count 228 MPV 9.9 Gran % 55.9 Lymph % (Auto) 29.8 [place] % (Auto) 8.3 H Eos % (Auto) 5.4 H Baso % (Auto) 0.6 Gran # 3.91 Lymph # 2.1 [place] # 0.6 Eos # 0.4 Baso # 0.04 Sodium 139 Potassium 4.5 Chloride 104 Carbon Dioxide 27 Anion Gap 13 BUN 27 H Creatinine 1.6 H Est GFR ( Amer) 37 Est GFR (Non-Af Amer) 31 Random Glucose 105 Calcium 8.7 Total Bilirubin 0.4 AST 25 ALT 25 Alkaline Phosphatase 94 Total Protein 6.4 Albumin 3.3 Globulin 3.1 Albumin/Globulin Ratio 1.1 Procalcitonin 0.05 L Attending/Attestation - Attestation I have personally seen and examined this patient.: Yes I have fully participated in the care of the patient.: Yes I have reviewed all pertinent clinical information: Yes Notes (Text): I have seen and examined the patient at bedside. This is 86 year old female with history of hypothyroidism, congestive heart failure, and hypertension who got admitted for evaluation of generalized weakness, dizziness, nausea and dysuria. She states that she has near syncope like episode. Upon reviewing her blood work her creatinine is slightly elevated from baseline. Will observe patient overnight. Clinically she appears slightly dehydrated. Will start IVF. Will check urine culture and start rocephin empirically. Dr Burt Cast
--- NOTE | 2016-07-10 15:35 | CARD ---
APPROVED REPORT EKG Measurement Heart [id number] <Conclusion> Normal sinus rhythm Septal infarct, age undetermined Abnormal ECG
[2016-07-10] MEDS: Dextrose 5%/0.45% NS 1,000 ML IV SCH (17:12)
[2016-07-10] MEDS: Pantoprazole 20 mg EC Tab PO SCH (17:13)
--- NOTE | 2016-07-10 18:58 | US ---
PROCEDURE: Bilateral carotid artery duplex ultrasound HISTORY: Carotid stenosis PHYSICIAN(S): Hernan Delgado MD. TECHNIQUE: Duplex sonography and color-flow Doppler were used to evaluate the carotid bifurcations and limited segments of the vertebral arteries bilaterally. The exam is somewhat limited by tortuous vessels. FINDINGS: There is mild to moderate diffuse heterogeneous echogenic plaque bilaterally. The peak systolic velocity in the proximal right internal carotid artery is 86 cm/sec. This corresponds to a 20 to 39% proximal right ICA stenosis. Normal systolic velocities are noted in the proximal right external carotid artery. There is antegrade flow in the right vertebral artery. The peak systolic velocity in the proximal left internal carotid artery is 92 cm/sec. This corresponds to a 20 to 39% proximal left ICA stenosis. Normal systolic velocities are noted in the proximal left external carotid artery. There is antegrade flow in the dominant left vertebral artery. IMPRESSION: 1. 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 2. Antegrade flow in both vertebral arteries.
[2016-07-11] MEDS: Dextrose 5%/0.45% NS 1,000 ML IV SCH ×2 (04:28→16:58)
[2016-07-11 07:30] LABS: ADD MANUAL DIFF? NO
[2016-07-11 07:34] LABS: BASO # 0.04 K/mm3 (0.0-2.0); BASO % 0.6 % (0.0-3.0); EOS # 0.4 (0.0-0.7); EOS % 5.4 % (1.5-5.0); GRAN # 3.91 (1.4-6.5); GRAN % 55.9 % (50.0-68.0); HEMATOCRIT 34.1 % (36.0-48.0); LYMPH # 2.1 (1.2-3.4); LYMPH % 29.8 % (22.0-35.0); MEAN CELL VOLUME 90.5 fL (80.0-105.0); MEAN CORPUSCULAR HEMOGLOBIN 29.2 pg (25.0-35.0); MEAN CORPUSCULAR HGB CONC 32.3 g/dl (31.0-37.0); MEAN PLATELET VOLUME 9.9 fl (7.0-11.0); MONO # 0.6 (0.1-0.6); MONO % 8.3 % (1.0-6.0); PLATELET COUNT 228 10^3/uL (120.0-450.0); RED CELL DISTRIBUTION WIDTH 14.6 % (11.5-14.5)
[2016-07-11] MEDS: Pantoprazole 20 mg EC Tab PO SCH ×2 (08:31→17:48)
[2016-07-11 08:54] LABS: ALB/GLOB RATIO 1.1 (1.1-1.8); BILIRUBIN,TOTAL 0.4 mg/dL (0.2-1.3); CALCIUM 8.7 mg/dL (8.4-10.5); POTASSIUM 4.5 mmol/L (3.6-5.0); TOTAL PROTEIN 6.4 g/dL (5.8-8.3)
[2016-07-11] MEDS: Levothyroxine 25 MCG TAB PO SCH (09:54)
[2016-07-11] MEDS: cefTRIAXone 1 gm 100 ML IVPB SCH (09:55)
[2016-07-11] MEDS ORDERED: Dextrose 5%/0.45% NS 1,000 ML IV SCH (10:33)
--- NOTE | 2016-07-11 12:42 | CON ---
DATE: 07/11/2016 CHIEF COMPLAINT: Generalized weakness and lightheadedness. HISTORY OF PRESENT ILLNESS: This is an 86-year-old woman with history of hypothyroidism, congestive heart failure, hypertension, who came to the hospital for generalized weakness, feeling of dizziness in terms of lightheadedness and nausea. She says she felt lightheaded as if she was going to pass ou t, but did not. No history of palpitations, no history of confusion or seizure-like episodes. Curre ntly, she had CT head that showed no acute intracranial abnormality. Carotid Doppler showed 20-39% p roximal ICA stenosis. She had elevated BUN and creatinine. Her blood pressures are currently stable . Orthostatic from lying to standing is questionable, but otherwise is stable, following commands, m oving all extremities without any difficulty. PAST MEDICAL HISTORY: Hypothyroidism, congestive heart failure, hypertension. ALLERGIES: ALLERGIC TO CIPRO, PENICILLIN, BACTRIM, NITROFURANTOIN. HOME MEDICATIONS: Lasix, Synthroid, Abilify, Lopressor, Aldactone. SOCIAL HISTORY: Lives by herself. Daily activity limited functionally, uses a walker at home. REVIEW OF SYSTEMS: A 14-point review of systems is negative except the HPI. PHYSICAL EXAMINATION: VITAL SIGNS: Temperature 97.6, pulse rate of 65, blood pressure 142/46, respiratory rate of 19, and oxygen saturation 97% via room air. GENERAL: The patient is sitting up in bed in no acute distress. HEENT: Atraumatic, normocephalic. PERRLA. Extraocular muscles intact. NECK: Supple, no JVD, no adenopathy noted. LUNGS: Clear to auscultation. No adventitious sounds. HEART: S1, S2, normal rate and rhythm. No murmurs, rubs, or gallops. ABDOMEN: Soft, nontender, nondistended. Bowel sounds are present. EXTREMITIES: No clubbing, no cyanosis. Peripheral pulses 2+ felt bilaterally. NEUROLOGIC: The patient is alert, oriented to person, place, month and year. Speech is fluent witho ut any errors. Poor attention span, slowed thought process. Cranial nerves II-XII are intact. MOTOR: Moves all extremities equally. No pronator drift seen. SENSORY: Light touch, pinprick, proprioception, vibration is intact. DTRs are 2+ throughout and 1 a t the ankles. COORDINATION: [id number] intact. GAIT: Deferred for now. LABORATORIES: Sodium is 139, potassium 4.5, chloride 104, carbon dioxide 27, BUN of 27, creatinine 1 .6, random glucose of 105. ASSESSMENT AND PLAN: This is an 86-year-old woman with history of hypertension, history of congestiv e heart failure, hypothyroidism, who felt generalized weakness and lightheadedness. Her lightheadedn ess/near syncope is likely secondary to dehydration with elevated BUN and creatinine. Carotid Dopple r shows no significant hemodynamic stenosis and has partially negative orthostatics. At this time, w e will recommend outpatient physical therapy and hydration. No further neurological workup needed at this time. Continue with current present medical management. Thank you for this consult. We will sign off. Nam Rosales MD cc: [id number] TT: 07/11/2016 12:41:36 Confirmation # [id number] Dictation # [id number] tn
--- NOTE | 2016-07-11 14:02 | CON ---
DATE: 07/11/2016 REQUESTING PHYSICIAN: Dr. Cast. REASON FOR CONSULTATION: Near syncope. HISTORY OF PRESENT ILLNESS: This is an 86-year-old woman known to us with a history of hypertension who presented to the Emergency Room with complaints of weakness. She felt lightheaded, but did not lose consciousness. She is unaware of any palpitations. She has a history of hypertension, hyperlipidemia as well as hypothyroidism and gastroesophageal reflux disease. She has a history of concentric LVH with normal LV systolic function. Stress test performed last February revealed no evidence of ischemia with a normal ejection fraction. MEDICATIONS: At home include Toprol-XL 50 mg daily, Abilify 1 mg daily, Synthroid 25 mcg daily, Protonix 40 mg daily, Lasix 20 mg every other day. ALLERGIES: None. SOCIAL HISTORY: She is a former smoker. She does not drink. She is and lives alone. FAMILY HISTORY: Unremarkable for premature heart disease. REVIEW OF SYSTEMS: A 10 point review of systems is notable mainly for the problems mentioned above. PHYSICAL EXAMINATION: GENERAL: She is an overweight elderly woman. VITAL SIGNS: Blood pressure is 142/46 with a pulse of 66 in sinus, respirations are 14. She is afebrile. NECK: No JVD. CHEST: A few scattered rhonchi. HEART: PMI displaced laterally. No pathologic gallops noted. ABDOMEN: Soft, obese, nontender with bowel sounds present. EXTREMITIES: No edema. SKIN: Warm and dry. PSYCHIATRIC: Normal mood and affect. NEUROLOGIC: Alert and oriented x 3. No gross motor or sensory deficits appreciable. DIAGNOSTIC DATA: Potassium 4.5, BUN and creatinine are 27 and 1.6, hemoglobin and hematocrit 11.2 and 34.1 with a white count 7.0, platelet count 228,000. BNP is 341. Troponin is negative. Urine culture is reportedly negative. IMPRESSION: 1. Near syncope, possibly due to volume depletion. 2. Chronic renal insufficiency, appears unchanged. 3. Hypertension with normal left ventricular function and mild concentric left ventricular hypertrophy, stable at present. RECOMMENDATIONS: Gentle hydration is appropriate. Diuretic therapy will be withheld. She should be gotten out of bed and ambulated as able. From a cardiac standpoint, no other recommendations appear appropriate at this time. We will be happy to follow along as needed. Bud Jack MD cc: Eddie TT: 07/11/2016 14:01:30 Confirmation # [id number] Dictation # [id number] [id number]
--- NOTE | 2016-07-11 17:24 | CP.PCM.PN ---
<Fariha Barboza - Last Filed: 07/11/16 23:45> Subjective - Date & Time of Evaluation Date of Evaluation: 07/11/16 Time of Evaluation: 07:45 - Subjective Subjective: Hospitalist progress note for Dr. Burt Cast Pt s/e at bedside this AM. NAEO. Patient reported improved strength and resolution of her dizziness, but persistent burning sensation in her perineum. Denies fevers, chills, chest pain, SOB, nausea, vomiting. Objective - Vital Signs/Intake and Output Vital Signs (last 24 hours): Temp Pulse Resp BP Pulse Ox 97.6 F 62 19 142/46 L 97 07/11/16 06:00 07/11/16 14:00 07/11/16 06:00 07/11/16 09:54 07/11/16 06:00 Intake and Output: 07/11/16 07/11/16 06:59 18:59 Intake Total 1320 780 Output Total 500 Balance 820 780 - Medications Medications: Current Medications Aripiprazole (Abilify) 5 mg PO HS [facility] Last Admin: 07/10/16 21:48 Dose: 5 mg Aspirin (Aspirin Chewable) 81 mg PO DAILY [facility] Last Admin: 07/11/16 10:49 Dose: 81 mg Atorvastatin Calcium (Lipitor) 10 mg PO DIN [facility] Ceftriaxone Sodium (Rocephin 1 Gram Ivpb) 100 mls @ 100 mls/hr IVPB DAILY [facility] PRN Reason: Protocol Last Admin: 07/11/16 09:55 Dose: 100 mls/hr Dextrose/Sodium Chloride (Dextrose 5%/0.45% Ns 1000 Ml) 1,000 mls @ 100 mls/hr IV .Q10H [facility] Last Admin: 07/11/16 16:58 Dose: 100 mls/hr Levothyroxine Sodium (Synthroid) 25 mcg PO DAILY [facility] Last Admin: 07/11/16 09:54 Dose: 25 mcg Metoprolol Tartrate (Lopressor) 50 mg PO DAILY [facility] Last Admin: 07/11/16 09:54 Dose: 50 mg Pantoprazole Sodium (Protonix Ec Tab) 20 mg PO 0730,1630 [facility] Last Admin: 07/11/16 08:31 Dose: 20 mg Phenazopyridine HCl (Pyridium) 200 mg PO [facility] Stop: 07/13/16 23:59 Last Admin: 07/11/16 13:44 Dose: 200 mg - Labs Labs: 07/11/16 07:00 07/11/16 07:00 PT 10.8 Seconds (9.9-11.8) 07/10/16 13:15 INR 1.00 (0.93-1.08) 07/10/16 13:15 APTT 32.6 Seconds (23.7-30.8) H 07/10/16 13:15 - Constitutional Appears: Well, Non-toxic, No Acute Distress - Head Exam Head Exam: ATRAUMATIC, NORMOCEPHALIC - Eye Exam Eye Exam: EOMI, Normal appearance. absent: Conjunctival injection, Scleral icterus Pupil Exam: PERRL - ENT Exam ENT Exam: Mucous Membranes Moist, Normal Oropharynx - Respiratory Exam Respiratory Exam: Clear to Ausculation Bilateral, NORMAL BREATHING PATTERN. absent: Accessory Muscle Use, Respiratory Distress - Cardiovascular Exam Cardiovascular Exam: RRR, +S1, +S2 - GI/Abdominal Exam GI & Abdominal Exam: Soft. absent: Distended, Tenderness - Rectal Exam Additional comments: normal external exam: no sign of hemorrhoids, fissures, bleeding or drainage - Exam External exam: NORMAL EXTERNAL EXAM - Extremities Exam Extremities Exam: absent: Calf Tenderness, Pedal Edema, Tenderness - Neurological Exam Neurological Exam: Alert, Awake, Oriented x3 - Psychiatric Exam Psychiatric exam: Anxious, Normal Affect - Skin Skin Exam: Dry, Intact, Normal Color, Warm Assessment and Plan - Assessment and Plan (Free Text) Assessment: 86 year old female with PMH including hypothyroidism, congestive heart failure, and hypertension admitted for generalized weakness, dizziness, nausea and dysuria 1. Near syncope likely 2/2 dehydration dizziness improved orthostatic vitals wnl Carotid US: 20-39% stenoses in BL ICA, antegrade vertebral artery flow Plan -HHD -Cardio consult--appreciate recs -neurology consult--appreciate recs -BUN: 31->27 -Cr: 1.8->1.6 -US carotid -EKG: NSR -PT evaluation 2. UTI -UA: trace LE -urine culture negative -Rocephin -Pyridium 3. CHF Echo 01/2016: EF 75% mild LVH -Hold lasix 4. Hypothyroidism -Synthroid 5. HTN -Lopressor Seen and discussed with Dr. Burt Barboza, PGY1 <Burt Cast - Last Filed: 07/16/16 08:59> Objective - Vital Signs/Intake and Output Vital Signs (last 24 hours): Temp Pulse Resp BP Pulse Ox 97.8 F 85 20 166/66 H 95 07/14/16 07:41 07/14/16 10:02 07/14/16 07:41 07/14/16 10:02 07/14/16 07:41 - Labs Labs: 07/14/16 08:00 07/14/16 09:00 PT 10.8 Seconds (9.9-11.8) 07/10/16 13:15 INR 1.00 (0.93-1.08) 07/10/16 13:15 APTT 32.6 Seconds (23.7-30.8) H 07/10/16 13:15 Attending/Attestation - Attestation I have personally seen and examined this patient.: Yes I have fully participated in the care of the patient.: Yes I have reviewed all pertinent clinical information, including history, physical exam and plan: Yes Notes (Text): I have seen and examined the patient at bedside With resident. This is a 86 year old female with history of hypothyroidism, congestive heart failure, and hypertension who got admitted for evaluation of generalized weakness, dizziness , nausea and dysuria. Cardiology and neurology evaluation appreciated. No orthostatic blood pressure changes.Physical therapy evaluation pending. Acute renal failure improving. She complained of urinary symptoms and is currently on rocphin and pyridium. Urine culture pending. Dr Burt Cast
--- NOTE | 2016-07-11 17:43 | CARD ---
APPROVED REPORT EKG Measurement Heart [id number] <Conclusion> Normal sinus rhythm Septal infarct, age undetermined Abnormal ECG
[2016-07-12] MEDS: Dextrose 5%/0.45% NS 1,000 ML IV SCH (00:24)
--- NOTE | 2016-07-12 08:27 | CP.PCM.PN ---
Subjective - Date & Time of Evaluation Date of Evaluation: 07/12/16 Time of Evaluation: 08:00 - Subjective Subjective: Stable on 3R. She feels better No CP, SOB, Dizziness, lightheadedness. V/S noted. PE; Lungs: clear Cor.: S1S2 Abd.: soft Ext.: no edema Neuro.: alert ECG 07/11: RSR at 60, No acute changes Objective - Vital Signs/Intake and Output Vital Signs (last 24 hours): Temp Pulse Resp BP Pulse Ox 97.9 F 67 19 156/66 H 95 07/12/16 00:30 07/12/16 05:14 07/12/16 00:30 07/12/16 00:30 07/12/16 00:30 Intake and Output: 07/12/16 07/12/16 06:59 18:59 Intake Total 480 120 Output Total 200 Balance 280 120 - Medications Medications: Current Medications Aripiprazole (Abilify) 5 mg PO HS [facility] Last Admin: 07/11/16 22:34 Dose: 5 mg Aspirin (Aspirin Chewable) 81 mg PO DAILY [facility] Last Admin: 07/11/16 10:49 Dose: 81 mg Atorvastatin Calcium (Lipitor) 10 mg PO DIN [facility] Last Admin: 07/11/16 17:52 Dose: Not Given Ceftriaxone Sodium (Rocephin 1 Gram Ivpb) 100 mls @ 100 mls/hr IVPB DAILY [facility] PRN Reason: Protocol Last Admin: 07/11/16 09:55 Dose: 100 mls/hr Dextrose/Sodium Chloride (Dextrose 5%/0.45% Ns 1000 Ml) 1,000 mls @ 100 mls/hr IV .Q10H [facility] Last Admin: 07/12/16 00:24 Dose: 100 mls/hr Levothyroxine Sodium (Synthroid) 25 mcg PO DAILY [facility] Last Admin: 07/11/16 09:54 Dose: 25 mcg Metoprolol Tartrate (Lopressor) 50 mg PO DAILY [facility] Last Admin: 07/11/16 09:54 Dose: 50 mg Pantoprazole Sodium (Protonix Ec Tab) 20 mg PO 0730,1630 [facility] Last Admin: 07/11/16 17:48 Dose: 20 mg Phenazopyridine HCl (Pyridium) 200 mg PO PC [facility] Stop: 07/13/16 23:59 Last Admin: 07/11/16 17:49 Dose: 200 mg - Labs Labs: PT 10.8 Seconds (9.9-11.8) 07/10/16 13:15 INR 1.00 (0.93-1.08) 07/10/16 13:15 APTT 32.6 Seconds (23.7-30.8) H 07/10/16 13:15 Assessment and Plan - Assessment and Plan (Free Text) Plan: Assessment: Weak and Lightheaded Spell HBP HLD Hypothyroid GERD CKD CVD with Darren. 20 - 39% ICA stenoses Former Smoker Limited Mobility and Fall Risk Plan: OOB/PT Check postural V/s If ambulatory w/o symptoms, consider D/C later today. Out-pt f/u. Pt. to call if sxs. recur.
[2016-07-12] MEDS: Pantoprazole 20 mg EC Tab PO SCH ×2 (09:31→17:11)
[2016-07-12] MEDS: Levothyroxine 25 MCG TAB PO SCH (09:32)
[2016-07-12] MEDS: cefTRIAXone 1 gm 100 ML IVPB SCH (09:32)
--- NOTE | 2016-07-12 09:43 | CP.PCM.PN ---
<JasonMeg - Last Filed: 07/12/16 16:02> Subjective - Date & Time of Evaluation Date of Evaluation: 07/12/16 Time of Evaluation: 16:02 - Subjective Subjective: Pt s&e. SIMONE. Denies F/C/N/V/D/CP/SOB. Ambulating w PT. Cardio cleared for DC. Objective - Vital Signs/Intake and Output Vital Signs (last 24 hours): Temp Pulse Resp BP Pulse Ox 97.9 F 70 19 177/66 H 95 07/12/16 00:30 07/12/16 09:31 07/12/16 00:30 07/12/16 09:31 07/12/16 00:30 Intake and Output: 07/12/16 07/12/16 06:59 18:59 Intake Total 480 120 Output Total 200 Balance 280 120 - Medications Medications: Current Medications Aripiprazole (Abilify) 5 mg PO HS [facility] Last Admin: 07/11/16 22:34 Dose: 5 mg Aspirin (Aspirin Chewable) 81 mg PO DAILY [facility] Last Admin: 07/12/16 09:30 Dose: 81 mg Atorvastatin Calcium (Lipitor) 10 mg PO DIN [facility] Last Admin: 07/11/16 17:52 Dose: Not Given Ceftriaxone Sodium (Rocephin 1 Gram Ivpb) 100 mls @ 100 mls/hr IVPB DAILY [facility] PRN Reason: Protocol Last Admin: 07/12/16 09:32 Dose: 100 mls/hr Dextrose/Sodium Chloride (Dextrose 5%/0.45% Ns 1000 Ml) 1,000 mls @ 100 mls/hr IV .Q10H [facility] Last Admin: 07/12/16 00:24 Dose: 100 mls/hr Levothyroxine Sodium (Synthroid) 25 mcg PO DAILY [facility] Last Admin: 07/12/16 09:32 Dose: 25 mcg Metoprolol Tartrate (Lopressor) 50 mg PO DAILY [facility] Last Admin: 07/12/16 09:31 Dose: 50 mg Pantoprazole Sodium (Protonix Ec Tab) 20 mg PO 0730,1630 [facility] Last Admin: 07/12/16 09:31 Dose: 20 mg Phenazopyridine HCl (Pyridium) 200 mg PO PC [facility] Stop: 07/13/16 23:59 Last Admin: 07/12/16 09:32 Dose: 200 mg - Labs Labs: PT 10.8 Seconds (9.9-11.8) 07/10/16 13:15 INR 1.00 (0.93-1.08) 07/10/16 13:15 APTT 32.6 Seconds (23.7-30.8) H 07/10/16 13:15 - Constitutional Appears: No Acute Distress - Head Exam Head Exam: ATRAUMATIC, NORMAL INSPECTION, NORMOCEPHALIC - Eye Exam Eye Exam: EOMI, Normal appearance, PERRL Pupil Exam: NORMAL ACCOMODATION, PERRL - ENT Exam ENT Exam: Mucous Membranes Moist, Normal Exam - Neck Exam Neck Exam: Full ROM, Normal Inspection. absent: Lymphadenopathy - Respiratory Exam Respiratory Exam: Clear to Ausculation Bilateral, NORMAL BREATHING PATTERN - Cardiovascular Exam Cardiovascular Exam: REGULAR RHYTHM, +S1, +S2. absent: Murmur - GI/Abdominal Exam GI & Abdominal Exam: Soft, Normal Bowel Sounds. absent: Tenderness - Rectal Exam Rectal Exam: NORMAL INSPECTION - Exam Exam: Circumcision, NORMAL INSPECTION External exam: NORMAL EXTERNAL EXAM Speculum exam: NORMAL SPECULUM EXAM Bimanual exam: NORMAL BIMANUAL EXAM - Extremities Exam Extremities Exam: Full ROM, Normal Capillary Refill, Normal Inspection. absent : Joint Swelling, Pedal Edema - Back Exam Back Exam: NORMAL INSPECTION - Neurological Exam Neurological Exam: Alert, Awake, CN II-XII Intact, Normal Gait, Oriented x3 - Psychiatric Exam Psychiatric exam: Normal Affect, Normal Mood - Skin Skin Exam: Dry, Intact, Normal Color, Warm Assessment and Plan - Assessment and Plan (Free Text) Assessment: 86 year old female with PMH including hypothyroidism, congestive heart failure, and hypertension admitted for generalized weakness, dizziness, nausea and dysuria 1. Near syncope likely 2/2 dehydration dizziness improved orthostatic vitals wnl Carotid US: 20-39% stenoses in BL ICA, antegrade vertebral artery flow Plan -HHD -Cardio consult--Ok to DC if ambulates -neurology consult--appreciate recs -BUN: 31->27->21 -Cr: 1.8->1.6->1.4 -EKG: NSR -PT evaluation 2. UTI -UA: trace LE -urine culture negative -Rocephin -Pyridium 3. CHF Echo 01/2016: EF 75% mild LVH -Hold lasix 4. Hypothyroidism -Synthroid 5. HTN -Lopressor DC to TCU when bed available <Vince Barth - Last Filed: 07/12/16 17:47> Objective - Vital Signs/Intake and Output Vital Signs (last 24 hours): Temp Pulse Resp BP Pulse Ox 97.6 F 77 21 177/66 H 95 07/12/16 08:00 07/12/16 10:00 07/12/16 08:00 07/12/16 09:31 07/12/16 08:00 Intake and Output: 07/12/16 07/12/16 06:59 18:59 Intake Total 480 120 Output Total 200 Balance 280 120 - Medications Medications: Current Medications Aripiprazole (Abilify) 5 mg PO HS [facility] Last Admin: 07/11/16 22:34 Dose: 5 mg Aspirin (Aspirin Chewable) 81 mg PO DAILY [facility] Last Admin: 07/12/16 09:30 Dose: 81 mg Atorvastatin Calcium (Lipitor) 10 mg PO DIN [facility] Last Admin: 07/12/16 17:11 Dose: 10 mg Docusate Sodium (Colace) 100 mg PO DAILY [facility] Last Admin: 07/12/16 13:19 Dose: 100 mg Hydrocortisone (Anusol-Hc) 0 gm ID BID [facility] Last Admin: 07/12/16 17:10 Dose: 1 applic Ceftriaxone Sodium (Rocephin 1 Gram Ivpb) 100 mls @ 100 mls/hr IVPB DAILY [facility] PRN Reason: Protocol Last Admin: 07/12/16 09:32 Dose: 100 mls/hr Dextrose/Sodium Chloride (Dextrose 5%/0.45% Ns 1000 Ml) 1,000 mls @ 100 mls/hr IV .Q10H [facility] Last Admin: 07/12/16 00:24 Dose: 100 mls/hr Levothyroxine Sodium (Synthroid) 25 mcg PO DAILY [facility] Last Admin: 07/12/16 09:32 Dose: 25 mcg Metoprolol Tartrate (Lopressor) 50 mg PO DAILY [facility] Last Admin: 07/12/16 09:31 Dose: 50 mg Pantoprazole Sodium (Protonix Ec Tab) 20 mg PO 0730,1630 [facility] Last Admin: 07/12/16 17:11 Dose: 20 mg Phenazopyridine HCl (Pyridium) 200 mg PO PC [facility] Stop: 07/13/16 23:59 Last Admin: 07/12/16 17:11 Dose: 200 mg - Labs Labs: 07/12/16 10:45 PT 10.8 Seconds (9.9-11.8) 07/10/16 13:15 INR 1.00 (0.93-1.08) 07/10/16 13:15 APTT 32.6 Seconds (23.7-30.8) H 07/10/16 13:15 Assessment and Plan - Assessment and Plan (Free Text) Assessment: attending note; I have seen and examined the patient at bedside With resident. This is a 86 year old female with history of hypothyroidism, congestive heart failure, and hypertension who got admitted for evaluation of generalized weakness, dizziness, nausea and dysuria. Cardiology and neurology evaluation appreciated. No orthostatic blood pressure changes. Physical therapy evaluation appreciated. Recommending TCU versus [facility]. Acute renal failure; resolving. Increase by mouth intake encourage. Lasix on hold. admitted with urinary symptoms; urine culture is negative. On Rocephin. Transferred to TCU. upon discharge the patient will follow-up with PMD and cardiology Dr. Lambert. Attending/Attestation - Attestation I have personally seen and examined this patient.: Yes I have fully participated in the care of the patient.: Yes I have reviewed all pertinent clinical information, including history, physical exam and plan: Yes
[2016-07-12 11:03] LABS: ALB/GLOB RATIO 1.1 (1.1-1.8); BILIRUBIN,TOTAL 0.5 mg/dL (0.2-1.3); CALCIUM 8.8 mg/dL (8.4-10.5); POTASSIUM 4.1 mmol/L (3.6-5.0); TOTAL PROTEIN 6.9 g/dL (5.8-8.3)
[2016-07-12] MEDS: Hydrocortisone 2.5% Rectal Cream(30 gm) PR SCH ×2 (13:16→17:10)
[2016-07-13] MEDS: Dextrose 5%/0.45% NS 1,000 ML IV SCH (01:21)
[2016-07-13 07:12] LABS: ADD MANUAL DIFF? NO
[2016-07-13 07:18] LABS: BASO # 0.05 K/mm3 (0.0-2.0); BASO % 0.6 % (0.0-3.0); EOS # 0.4 (0.0-0.7); EOS % 4.4 % (1.5-5.0); GRAN # 5.57 (1.4-6.5); GRAN % 65.1 % (50.0-68.0); HEMATOCRIT 34.8 % (36.0-48.0); LYMPH # 1.8 (1.2-3.4); LYMPH % 20.6 % (22.0-35.0); MEAN CELL VOLUME 90.4 fL (80.0-105.0); MEAN CORPUSCULAR HEMOGLOBIN 28.8 pg (25.0-35.0); MEAN CORPUSCULAR HGB CONC 31.9 g/dl (31.0-37.0); MEAN PLATELET VOLUME 10.3 fl (7.0-11.0); MONO # 0.8 (0.1-0.6); MONO % 9.3 % (1.0-6.0); PLATELET COUNT 233 10^3/uL (120.0-450.0); RED CELL DISTRIBUTION WIDTH 14.4 % (11.5-14.5); WHITE BLOOD COUNT 8.6 10^3/ul (4.5-11.0)
[2016-07-13 07:51] LABS: BILIRUBIN,TOTAL 0.5 mg/dL (0.2-1.3); CALCIUM 8.9 mg/dL (8.4-10.5); POTASSIUM 4.3 mmol/L (3.6-5.0); TOTAL PROTEIN 6.8 g/dL (5.8-8.3)
--- NOTE | 2016-07-13 08:11 | CP.PCM.PN ---
Subjective - Date & Time of Evaluation Date of Evaluation: 07/13/16 Time of Evaluation: 08:00 - Subjective Subjective: Stable on 3R. She feels better No CP, SOB, Dizziness, lightheadedness. V/S noted. PE; Lungs: clear Cor.: S1S2 Abd.: soft Ext.: no edema Neuro.: alert I/O = 1390/1200 ECG 07/11: RSR at 60, No acute changes Objective - Vital Signs/Intake and Output Vital Signs (last 24 hours): Temp Pulse Resp BP Pulse Ox 97.6 F 71 20 127/65 96 07/12/16 17:00 07/12/16 17:00 07/12/16 17:00 07/12/16 17:00 07/12/16 17:00 Intake and Output: 07/13/16 07/13/16 06:59 18:59 Intake Total 1270 Output Total 1200 Balance 70 - Medications Medications: Current Medications Acetaminophen (Tylenol 325mg Tab) 650 mg PO Q4H PRN PRN Reason: Pain, Mild (1-3) Aripiprazole (Abilify) 5 mg PO HS [facility] Last Admin: 07/12/16 21:44 Dose: 5 mg Aspirin (Aspirin Chewable) 81 mg PO DAILY [facility] Last Admin: 07/12/16 09:30 Dose: 81 mg Atorvastatin Calcium (Lipitor) 10 mg PO DIN [facility] Last Admin: 07/12/16 17:11 Dose: 10 mg Docusate Sodium (Colace) 100 mg PO DAILY [facility] Last Admin: 07/12/16 13:19 Dose: 100 mg Hydrocortisone (Anusol-Hc) 0 gm NV BID [facility] Last Admin: 07/12/16 17:10 Dose: 1 applic Levothyroxine Sodium (Synthroid) 25 mcg PO DAILY [facility] Last Admin: 07/12/16 09:32 Dose: 25 mcg Metoprolol Tartrate (Lopressor) 50 mg PO DAILY [facility] Last Admin: 07/12/16 09:31 Dose: 50 mg Pantoprazole Sodium (Protonix Ec Tab) 20 mg PO 0730,1630 [facility] Last Admin: 07/12/16 17:11 Dose: 20 mg Phenazopyridine HCl (Pyridium) 200 mg PO PC [facility] Stop: 07/13/16 23:59 Last Admin: 07/12/16 17:11 Dose: 200 mg - Labs Labs: 07/13/16 06:45 07/13/16 06:45 PT 10.8 Seconds (9.9-11.8) 07/10/16 13:15 INR 1.00 (0.93-1.08) 07/10/16 13:15 APTT 32.6 Seconds (23.7-30.8) H 07/10/16 13:15 Assessment and Plan - Assessment and Plan (Free Text) Plan: Assessment: Weak and Lightheaded Spell HBP HLD Hypothyroid GERD CKD CVD with Darren. 20 - 39% ICA stenoses Former Smoker Limited Mobility and Fall Risk Plan: OOB/PT Check postural V/s TCU Eval. Out-pt f/u. Pt. to call if sxs. recur.
--- NOTE | 2016-07-13 08:17 | CON ---
DATE: 07/12/2016 PSYCHIATRIC CONSULTATION HISTORY OF PRESENT ILLNESS: The patient is an 86-year-old white female well- known to me for many decades. I follow her in my office every few months. She has a history of schizoaffective disorder. Apparently, she called 911 because she was feeling very dizzy and weak. The patient felt that she was going to pass out. She came to the Emergency Room. In the Emergency Room, she was evaluated and found to have near syncope with dehydration, possible UTI, possible congestive heart failure, hypothyroidism, and hypertension. PAST HISTORY: She had a psychiatric hospitalization many years ago. She has had a history of a somatoform disorder, making her a difficult patient to evaluate. The patient has a history of hypertension and gastroesophageal reflux disease, and hypothyroidism. PERSONAL HISTORY: within the past 2 months after many years of marriage. She has one son, is and lives in [place], [place]. 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 The patient has no history of substance or alcohol abuse. HOME MEDICINES: She has been maintained on Abilify 2 mg at bedtime for many years. When antipsychotic medicine is reduced, she has an increase in disorganized thinking and severe anxiety. The patient's other current medicines - now she is on Abilify 5 mg at bedtime, Anusol, low-dose aspirin, Lipitor, Lopressor, Protonix, Pyridium, Rocephin IV, and Synthroid. LABORATORY DATA: Her white count is 7000. Hemoglobin is 11.0, platelet count 228,000. Her metabolic profile on admission, her BUN was 31, creatinine 1.8. Estimated GFR was 27. Her BUN now is 21, creatinine 1.4. Estimated GFR of 36. The patient was seen in consultation by a neurologist and order expediter, which I reviewed. Tobacco Sizer feels she had near syncope, chronic renal insufficiency , and hypertension with normal left ventricular function with mild left ventricular hypertrophy, stable at present. Advised gentle hydration. REVIEW OF SYSTEMS: She complains of generalized severe weakness, slight abdominal discomfort. Otherwise, 12 point review of systems is noncontributory. PHYSICAL EXAMINATION: VITAL SIGNS: Blood pressure is 177/66, pulse 70, respirations 18 per minute, and afebrile. PSYCHIATRIC MENTAL STATUS: She is awake, alert, slightly depressed, slightly anxious, thinking generally processes well integrated. Recent memory intact. Fund of knowledge average. Recent and remote memory intact. Judgment fair. No psychotic symptoms. Denies suicidal ideation. IMPRESSION: Chronic schizoaffective disorder. Recent of . She has near syncope. History of congestive failure, history of dehydration, history of gastroesophageal reflux disease, and hypothyroidism. PLAN: We will follow you and monitor her mental status. I would continue Abilify 5 mg at bedtime for now. Minesh Faith MD cc: [id number] TT: 07/12/2016 14:54:31 Confirmation # [id number] Dictation # [id number] MTDD
[2016-07-13] MEDS: Hydrocortisone 2.5% Rectal Cream(30 gm) PR SCH ×2 (09:54→17:15)
[2016-07-13] MEDS: Pantoprazole 20 mg EC Tab PO SCH ×2 (09:57→17:16)
[2016-07-13] MEDS: Levothyroxine 25 MCG TAB PO SCH (09:57)
--- NOTE | 2016-07-13 12:18 | CP.PCM.PN ---
<Fariha Barboza - Last Filed: 07/13/16 12:18> Subjective - Date & Time of Evaluation Date of Evaluation: 07/13/16 Time of Evaluation: 07:45 - Subjective Subjective: Hospitalist progress note for Dr. Barth Pt s/e at bedside this AM. NAEO. Patient complains of headache but no other complaints or concerns. Denies nausea, vomiting, dysuria, chest pain, dizziness , SOB, fevers, and chills. Objective - Vital Signs/Intake and Output Vital Signs (last 24 hours): Temp Pulse Resp BP Pulse Ox 97.9 F 67 18 155/57 H 94 L 07/13/16 06:00 07/13/16 09:56 07/13/16 06:00 07/13/16 09:56 07/13/16 06:00 Intake and Output: 07/13/16 07/13/16 06:59 18:59 Intake Total 1270 Output Total 1200 Balance 70 - Medications Medications: Current Medications Acetaminophen (Tylenol 325mg Tab) 650 mg PO Q4H PRN PRN Reason: Pain, Mild (1-3) Last Admin: 07/13/16 08:00 Dose: 650 mg Aripiprazole (Abilify) 5 mg PO HS [facility] Last Admin: 07/12/16 21:44 Dose: 5 mg Aspirin (Aspirin Chewable) 81 mg PO DAILY [facility] Last Admin: 07/13/16 09:54 Dose: 81 mg Atorvastatin Calcium (Lipitor) 10 mg PO DIN [facility] Last Admin: 07/12/16 17:11 Dose: 10 mg Docusate Sodium (Colace) 100 mg PO DAILY [facility] Last Admin: 07/13/16 09:54 Dose: 100 mg Hydrocortisone (Anusol-Hc) 0 gm [place] BID [facility] Last Admin: 07/13/16 09:54 Dose: 1 applic Levothyroxine Sodium (Synthroid) 25 mcg PO DAILY [facility] Last Admin: 07/13/16 09:57 Dose: 25 mcg Metoprolol Tartrate (Lopressor) 50 mg PO DAILY [facility] Last Admin: 07/13/16 09:56 Dose: Not Given Pantoprazole Sodium (Protonix Ec Tab) 20 mg PO 0730,1630 [facility] Last Admin: 07/13/16 09:57 Dose: 20 mg Phenazopyridine HCl (Pyridium) 200 mg PO PC [facility] Stop: 07/13/16 23:59 Last Admin: 07/13/16 09:57 Dose: 200 mg - Labs Labs: 07/13/16 06:45 07/13/16 06:45 PT 10.8 Seconds (9.9-11.8) 07/10/16 13:15 INR 1.00 (0.93-1.08) 07/10/16 13:15 APTT 32.6 Seconds (23.7-30.8) H 07/10/16 13:15 - Constitutional Appears: Well, Non-toxic, No Acute Distress - Head Exam Head Exam: ATRAUMATIC, NORMOCEPHALIC - Eye Exam Eye Exam: Normal appearance. absent: Conjunctival injection, Scleral icterus - ENT Exam ENT Exam: Mucous Membranes Moist, Normal Oropharynx - Respiratory Exam Respiratory Exam: Clear to Ausculation Bilateral, NORMAL BREATHING PATTERN. absent: Accessory Muscle Use, Respiratory Distress - Cardiovascular Exam Cardiovascular Exam: RRR, +S1, +S2. absent: Murmur - GI/Abdominal Exam GI & Abdominal Exam: Soft. absent: Distended, Tenderness - Extremities Exam Extremities Exam: Pedal Edema (1+ non-pitting edema BL). absent: Calf Tenderness, Tenderness - Neurological Exam Neurological Exam: Alert, Awake, Oriented x3 - Psychiatric Exam Psychiatric exam: Normal Affect, Normal Mood - Skin Skin Exam: Dry, Intact, Normal Color, Warm Assessment and Plan - Assessment and Plan (Free Text) Assessment: 86 year old female with PMH including hypothyroidism, congestive heart failure, and hypertension admitted for generalized weakness, dizziness, nausea and dysuria 1. Near syncope likely 2/2 dehydration dizziness improved orthostatic vitals wnl Carotid US: 20-39% stenoses in BL ICA, antegrade vertebral artery flow Tolerating PO intake Plan -HHD -Cardio consult--Ok to DC if ambulates -neurology consult--appreciate recs -BUN: 23 -Cr: 1.3 -EKG: NSR -PT evaluation -D/C fluids 2. UTI -UA: trace LE -urine culture negative plan -D/C Rocephin -Pyridium 3. CHF Echo 01/2016: EF 75% mild LVH -Hold lasix -D/C fluids 4. Hypothyroidism -Synthroid 5. HTN BP well controlled Plan -Lopressor 6. Headache -tylenol PRN for headache DC to TCU for PT for deconditioning tomorrow when bed available Pt seen and examined with Dr. Tab Barboza, PGY1 <Vince Barth - Last Filed: 07/13/16 15:06> Objective - Vital Signs/Intake and Output Vital Signs (last 24 hours): Temp Pulse Resp BP Pulse Ox 97.9 F 67 18 155/57 H 94 L 07/13/16 06:00 07/13/16 09:56 07/13/16 06:00 07/13/16 09:56 07/13/16 06:00 Intake and Output: 07/13/16 07/13/16 06:59 18:59 Intake Total 1270 920 Output Total 1200 Balance 70 920 - Medications Medications: Current Medications Acetaminophen (Tylenol 325mg Tab) 650 mg PO Q4H PRN PRN Reason: Pain, Mild (1-3) Last Admin: 07/13/16 08:00 Dose: 650 mg Aripiprazole (Abilify) 5 mg PO HS [facility] Last Admin: 07/12/16 21:44 Dose: 5 mg Aspirin (Aspirin Chewable) 81 mg PO DAILY [facility] Last Admin: 07/13/16 09:54 Dose: 81 mg Atorvastatin Calcium (Lipitor) 10 mg PO DIN [facility] Last Admin: 07/12/16 17:11 Dose: 10 mg Docusate Sodium (Colace) 100 mg PO DAILY [facility] Last Admin: 07/13/16 09:54 Dose: 100 mg Hydrocortisone (Anusol-Hc) 0 gm [place] BID [facility] Last Admin: 07/13/16 09:54 Dose: 1 applic Levothyroxine Sodium (Synthroid) 25 mcg PO DAILY [facility] Last Admin: 07/13/16 09:57 Dose: 25 mcg Metoprolol Tartrate (Lopressor) 50 mg PO DAILY [facility] Last Admin: 07/13/16 09:56 Dose: Not Given Pantoprazole Sodium (Protonix Ec Tab) 20 mg PO 0730,1630 [facility] Last Admin: 07/13/16 09:57 Dose: 20 mg Phenazopyridine HCl (Pyridium) 200 mg PO PC [facility] Stop: 07/13/16 23:59 Last Admin: 07/13/16 13:39 Dose: 200 mg - Labs Labs: 07/13/16 06:45 07/13/16 06:45 PT 10.8 Seconds (9.9-11.8) 07/10/16 13:15 INR 1.00 (0.93-1.08) 07/10/16 13:15 APTT 32.6 Seconds (23.7-30.8) H 07/10/16 13:15 Assessment and Plan - Assessment and Plan (Free Text) Assessment: attending note; I have seen and examined the patient at bedside With resident. This is a 86 year old female with history of hypothyroidism, congestive heart failure, and hypertension who got admitted for evaluation of generalized weakness, dizziness, nausea and dysuria. Cardiology and neurology evaluation appreciated. No orthostatic blood pressure changes. Physical therapy evaluation appreciated. Recommending TCU versus [facility]. Acute renal failure; resolved. Increase by mouth intake encourage. admitted with urinary symptoms; urine culture is negative. Rocephin stopped. Transferred to TCU tomorrow. upon discharge the patient will follow-up with PMD and cardiology Dr. Lambert. Attending/Attestation - Attestation I have personally seen and examined this patient.: Yes I have fully participated in the care of the patient.: Yes I have reviewed all pertinent clinical information, including history, physical exam and plan: Yes
--- NOTE | 2016-07-13 18:45 | PN ---
DATE: 07/13/2016 HISTORY OF PRESENT ILLNESS: The patient is an 86-year-old female who is currently being treated on t medical surgical floor for near syncope for renal insufficiency and general debility and weakness. She has GERD. 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 She has a long history of psychiatric problems for many years. Recently her after ma ny years of marriage in a long term. CURRENT MENTAL STATUS: Today she is awake, she is alert. She is, however, somewhat despondent. Aff ect is somewhat flat. She is oriented x 3. She recognizes me. Appears depressed, but denies being depressed. CURRENT MEDICATIONS: Include Abilify 5 mg at bedtime, chewable aspirin, Colace, Lipitor, Lopressor, Protonix, Pyridium, and Synthroid. The patient is aware that she will be transferred to transitional care unit. She says she is sleepin g reasonably well, but she feels very weak. CURRENT LABORATORY DATA: Her metabolic profile is normal except for BUN of 23, creatinine 1.3. Bina mated GFR 39. VITAL SIGNS: Her blood pressure is 155/57, pulse 67, respirations 18 per minute. She is afebrile. O2 saturation 94%. IMPRESSION: The patient is weak, debilitated, long history of schizoaffective disorder, falls, near syncope. She has a history of chronic kidney disease, history of cerebrovascular disease. PLAN: I will lower Abilify to 2.5 mg at bedtime. We will get B12, folate and vitamin D levels and w ill continue to monitor mental status. We will follow on transitional care if she is going to be tra nsferred there. Minesh Faith MD cc: [id number] TT: 07/13/2016 18:45:02 Confirmation # [id number] Dictation # [id number] santino
[2016-07-14 07:42] VITALS: RESP 20; TEMP 97.8; O2SAT 95
[2016-07-14] MEDS: Pantoprazole 20 mg EC Tab PO SCH (08:08)
[2016-07-14 09:03] LABS: HEMATOCRIT 33.3 % (36.0-48.0); MEAN CELL VOLUME 90.5 fL (80.0-105.0); MEAN CORPUSCULAR HEMOGLOBIN 29.3 pg (25.0-35.0); MEAN CORPUSCULAR HGB CONC 32.4 g/dl (31.0-37.0); MEAN PLATELET VOLUME 10.4 fl (7.0-11.0); RED CELL DISTRIBUTION WIDTH 14.3 % (11.5-14.5); WHITE BLOOD COUNT 7.6 10^3/ul (4.5-11.0)
[2016-07-14 09:47] LABS: ALB/GLOB RATIO 1.1 (1.1-1.8); BILIRUBIN,TOTAL 0.6 mg/dL (0.2-1.3); CALCIUM 9.3 mg/dL (8.4-10.5); TOTAL PROTEIN 6.8 g/dL (5.8-8.3)
[2016-07-14] MEDS: Hydrocortisone 2.5% Rectal Cream(30 gm) PR SCH (09:58)
[2016-07-14] MEDS: Levothyroxine 25 MCG TAB PO SCH (10:02)
[2016-07-14 10:05] VITALS: BP 166/66; PULSE 85
--- NOTE | 2016-07-14 10:50 | CP.PCM.DIS ---
<Jacqueline Ball - Last Filed: 07/14/16 10:46> Provider - Provider Date of Admission: 07/11/16 15:57 Attending physician: Vince Barth MD Primary care physician: Dr. Barth Consults: Neurology- Dr. Rosales Cardio: Dr. egan Psych: Dr. Faith Time Spent in preparation of Discharge (in minutes): 45 Diagnosis - Discharge Diagnosis (1) Shortness of breath Status: Acute (2) Hypertension Status: Chronic (3) Hypothyroid Status: Chronic (4) CHF (congestive heart failure) Status: Chronic (5) Light-headed Status: Acute Hospital Course - Lab Results Lab Results: Most Recent Lab Values WBC 7.6 10^3/ul (4.5-11.0) 07/14/16 08:00 RBC 3.68 10^6/uL (3.5-6.1) 07/14/16 08:00 Hgb 10.8 gm/dL (12.0-16.0) L 07/14/16 08:00 Hct 33.3 % (36.0-48.0) L 07/14/16 08:00 MCV 90.5 fL (80.0-105.0) 07/14/16 08:00 MCH 29.3 pg (25.0-35.0) 07/14/16 08:00 MCHC 32.4 g/dl (31.0-37.0) 07/14/16 08:00 RDW 14.3 % (11.5-14.5) 07/14/16 08:00 Plt Count 229 10^3/uL (120.0-450.0) 07/14/16 08:00 MPV 10.4 fl (7.0-11.0) 07/14/16 08:00 Gran % 65.1 % (50.0-68.0) 07/13/16 06:45 Lymph % (Auto) 20.6 % (22.0-35.0) L 07/13/16 06:45 [place] % (Auto) 9.3 % (1.0-6.0) H 07/13/16 06:45 Eos % (Auto) 4.4 % (1.5-5.0) 07/13/16 06:45 Baso % (Auto) 0.6 % (0.0-3.0) 07/13/16 06:45 Gran # 5.57 (1.4-6.5) 07/13/16 06:45 Lymph # 1.8 (1.2-3.4) 07/13/16 06:45 [place] # 0.8 (0.1-0.6) H 07/13/16 06:45 Eos # 0.4 (0.0-0.7) 07/13/16 06:45 Baso # 0.05 K/mm3 (0.0-2.0) 07/13/16 06:45 PT 10.8 Seconds (9.9-11.8) 07/10/16 13:15 INR 1.00 (0.93-1.08) 07/10/16 13:15 APTT 32.6 Seconds (23.7-30.8) H 07/10/16 13:15 Sodium 138 mmol/L (132-148) 07/14/16 09:00 Potassium 4.0 mmol/L (3.6-5.0) 07/14/16 09:00 Chloride 103 mmol/L (98-107) 07/14/16 09:00 Carbon Dioxide 24 mmol/L (21-33) 07/14/16 09:00 Anion Gap 15 (10-20) 07/14/16 09:00 BUN 22 mg/dL (7-21) H 07/14/16 09:00 Creatinine 1.3 mg/dL (0.5-1.4) 07/14/16 09:00 Est GFR ( Amer) 47 07/14/16 09:00 Est GFR (Non-Af Amer) 39 07/14/16 09:00 Random Glucose 163 mg/dL (70-110) H 07/14/16 09:00 Calcium 9.3 mg/dL (8.4-10.5) 07/14/16 09:00 Magnesium 1.8 mg/dL (1.7-2.2) 07/10/16 13:15 Total Bilirubin 0.6 mg/dL (0.2-1.3) 07/14/16 09:00 AST 24 U/L (15-39) 07/14/16 09:00 ALT 23 U/L (7-56) 07/14/16 09:00 Alkaline Phosphatase 95 U/L (38-133) 07/14/16 09:00 Lactate Dehydrogenase 538 U/L (333-699) 07/10/16 13:15 Total Creatine Kinase 63 U/L (35-230) 07/10/16 13:15 Troponin I < 0.01 ng/mL 07/10/16 13:15 NT-Pro-B Natriuret Pep 341 pg/mL (0-450) 07/10/16 13:15 Total Protein 6.8 g/dL (5.8-8.3) 07/14/16 09:00 Albumin 3.6 g/dL (3.0-4.8) 07/14/16 09:00 Globulin 3.3 gm/dL 07/14/16 09:00 Albumin/Globulin Ratio 1.1 (1.1-1.8) 07/14/16 09:00 Lipase 132 U/L (23-300) 07/10/16 13:15 Procalcitonin 0.05 NG/ML (0.19-0.49) L 07/11/16 07:00 Urine Color Yellow (YELLOW) 07/10/16 13:00 Urine Appearance Clear (CLEAR) 07/10/16 13:00 Urine pH 6.5 (4.7-8.0) 07/10/16 13:00 Ur Specific [place] 1.010 (1.005-1.035) 07/10/16 13:00 Urine Protein Negative mg/dL (<30 mg/dL) 07/10/16 13:00 Urine Glucose (UA) Negative mg/dL (NEGATIVE) 07/10/16 13:00 Urine Ketones Negative mg/dL (NEGATIVE) 07/10/16 13:00 Urine Blood Negative (NEGATIVE) 07/10/16 13:00 Urine Nitrate Negative (NEGATIVE) 07/10/16 13:00 Urine Bilirubin Negative (NEGATIVE) 07/10/16 13:00 Urine Urobilinogen 0.2 E.U./dL (<1 E.U./dL) 07/10/16 13:00 Ur Leukocyte Esterase Trace [place]/uL (NEGATIVE) H 07/10/16 13:00 Urine RBC Negative /hpf (0-2) 07/10/16 13:00 Urine WBC 2 - 5 /hpf (0-6) 07/10/16 13:00 Ur Epithelial Cells 4 - 5 /hpf (0-5) 07/10/16 13:00 Urine Bacteria Few (NEG) 07/10/16 13:00 - Hospital Course Hospital Course: Amairani Jama, an 86 year old female, whose past medical history includes hypothyroidism, congestive heart failure, and hypertension, presents to the emergency room complaining of generalized weakness with a feeling of dizziness and nausea for the past hour. Patient reports she had taken Zofran, but it did not help alleviate her symptoms. She also notes she felt weakness about a week ago. Patient states she felt lightheaded/dizziness as if she were about to pass out. Patient states she had shortness of breath but denies any syncope, LOC, dysuria, hematuria, abd pain, headache, vomiting, diarrhea, abdominal pain, chest pain, cough, fever or any other complaints at this time. Pt came to ED on 06/28 for similar symptoms and dysuria. Urine cx from then didn't show any growth. On admission, CT of head was negative. EKG showed NSR with questionable septal infarct with underterminant age. Repeat EKG showed no changes. Troponin was negative. CXR on admission showed no active disease. Carotid US showed bilateral proximal ICA stenosis 20-39%. Neurology was consulted and stated that lightheadedness is likely due to dehydration. Cardiology was also consulted and stated dehydration as the culprit for the patient's lightheadedness. Psych was also consulted and stated that patient likely has chronic schizoaffective d/o. Patient was started on Abilify. Patient also c/o of vaginal irritation without any discharge. Patient given one dose of Diflucan. Patient's lightheadedness resolved. Patient is transferred to TCU for further rehabilitation. - Date & Time of H&P Date of H&P: 07/14/16 Time of H&P: 10:50 Discharge Exam - Head Exam Head Exam: ATRAUMATIC, NORMOCEPHALIC - Eye Exam Eye Exam: EOMI Pupil Exam: PERRL - ENT Exam ENT Exam: Mucous Membranes Moist - Respiratory Exam Respiratory Exam: Clear to PA & Lateral. absent: Rales, Rhonchi, Wheezes - Cardiovascular Exam Cardiovascular Exam: REGULAR RHYTHM, +S1, +S2. absent: Diastolic murmur, Gallop , Rubs, Systolic Murmur - GI/Abdominal Exam GI & Abdominal Exam: Normal Bowel Sounds, Soft, Unremarkable. absent: Distended , Firm, Tenderness - Exam Additional comments: no vaginal discharge. Vaginal exam done with Dr. Barth and nurse in room - Neurological Exam Neurological exam: Alert, Oriented x3 - Psychiatric Exam Psychiatric exam: Normal Affect, Normal Mood - Skin Skin Exam: Dry, Intact, Normal Color, Warm Discharge Plan - Follow Up Plan Condition: FAIR Disposition: REHAB FACILITY/REHAB UNIT Instructions: Syncope (DC) Additional Instructions: Discharged to Transitional Care Unit for additional physical therapy. Please use call hernandez for assistance. Thank you for choosing [facility] for your healthcare needs. <Vince Barth - Last Filed: 07/14/16 13:29> Provider - Provider Date of Admission: 07/11/16 15:57 Attending physician: Vince Barth MD Time Spent in preparation of Discharge (in minutes): 35 Hospital Course - Lab Results Lab Results: Most Recent Lab Values WBC 7.6 10^3/ul (4.5-11.0) 07/14/16 08:00 RBC 3.68 10^6/uL (3.5-6.1) 07/14/16 08:00 Hgb 10.8 gm/dL (12.0-16.0) L 07/14/16 08:00 Hct 33.3 % (36.0-48.0) L 07/14/16 08:00 MCV 90.5 fL (80.0-105.0) 07/14/16 08:00 MCH 29.3 pg (25.0-35.0) 07/14/16 08:00 MCHC 32.4 g/dl (31.0-37.0) 07/14/16 08:00 RDW 14.3 % (11.5-14.5) 07/14/16 08:00 Plt Count 229 10^3/uL (120.0-450.0) 07/14/16 08:00 MPV 10.4 fl (7.0-11.0) 07/14/16 08:00 Gran % 65.1 % (50.0-68.0) 07/13/16 06:45 Lymph % (Auto) 20.6 % (22.0-35.0) L 07/13/16 06:45 [place] % (Auto) 9.3 % (1.0-6.0) H 07/13/16 06:45 Eos % (Auto) 4.4 % (1.5-5.0) 07/13/16 06:45 Baso % (Auto) 0.6 % (0.0-3.0) 07/13/16 06:45 Gran # 5.57 (1.4-6.5) 07/13/16 06:45 Lymph # 1.8 (1.2-3.4) 07/13/16 06:45 [place] # 0.8 (0.1-0.6) H 07/13/16 06:45 Eos # 0.4 (0.0-0.7) 07/13/16 06:45 Baso # 0.05 K/mm3 (0.0-2.0) 07/13/16 06:45 PT 10.8 Seconds (9.9-11.8) 07/10/16 13:15 INR 1.00 (0.93-1.08) 07/10/16 13:15 APTT 32.6 Seconds (23.7-30.8) H 07/10/16 13:15 Sodium 138 mmol/L (132-148) 07/14/16 09:00 Potassium 4.0 mmol/L (3.6-5.0) 07/14/16 09:00 Chloride 103 mmol/L (98-107) 07/14/16 09:00 Carbon Dioxide 24 mmol/L (21-33) 07/14/16 09:00 Anion Gap 15 (10-20) 07/14/16 09:00 BUN 22 mg/dL (7-21) H 07/14/16 09:00 Creatinine 1.3 mg/dL (0.5-1.4) 07/14/16 09:00 Est GFR ( Amer) 47 07/14/16 09:00 Est GFR (Non-Af Amer) 39 07/14/16 09:00 Random Glucose 163 mg/dL (70-110) H 07/14/16 09:00 Calcium 9.3 mg/dL (8.4-10.5) 07/14/16 09:00 Magnesium 1.8 mg/dL (1.7-2.2) 07/10/16 13:15 Total Bilirubin 0.6 mg/dL (0.2-1.3) 07/14/16 09:00 AST 24 U/L (15-39) 07/14/16 09:00 ALT 23 U/L (7-56) 07/14/16 09:00 Alkaline Phosphatase 95 U/L (38-133) 07/14/16 09:00 Lactate Dehydrogenase 538 U/L (333-699) 07/10/16 13:15 Total Creatine Kinase 63 U/L (35-230) 07/10/16 13:15 Troponin I < 0.01 ng/mL 07/10/16 13:15 NT-Pro-B Natriuret Pep 341 pg/mL (0-450) 07/10/16 13:15 Total Protein 6.8 g/dL (5.8-8.3) 07/14/16 09:00 Albumin 3.6 g/dL (3.0-4.8) 07/14/16 09:00 Globulin 3.3 gm/dL 07/14/16 09:00 Albumin/Globulin Ratio 1.1 (1.1-1.8) 07/14/16 09:00 Lipase 132 U/L (23-300) 07/10/16 13:15 Vitamin B12 631 pg/mL (239-931) 07/14/16 06:59 25-OH Vitamin D Total 25.8 NG/ML (30.0-100.0) L 07/14/16 06:57 Procalcitonin 0.05 NG/ML (0.19-0.49) L 07/11/16 07:00 Urine Color Yellow (YELLOW) 07/10/16 13:00 Urine Appearance Clear (CLEAR) 07/10/16 13:00 Urine pH 6.5 (4.7-8.0) 07/10/16 13:00 Ur Specific [place] 1.010 (1.005-1.035) 07/10/16 13:00 Urine Protein Negative mg/dL (<30 mg/dL) 07/10/16 13:00 Urine Glucose (UA) Negative mg/dL (NEGATIVE) 07/10/16 13:00 Urine Ketones Negative mg/dL (NEGATIVE) 07/10/16 13:00 Urine Blood Negative (NEGATIVE) 07/10/16 13:00 Urine Nitrate Negative (NEGATIVE) 07/10/16 13:00 Urine Bilirubin Negative (NEGATIVE) 07/10/16 13:00 Urine Urobilinogen 0.2 E.U./dL (<1 E.U./dL) 07/10/16 13:00 Ur Leukocyte Esterase Trace [place]/uL (NEGATIVE) H 07/10/16 13:00 Urine RBC Negative /hpf (0-2) 07/10/16 13:00 Urine WBC 2 - 5 /hpf (0-6) 07/10/16 13:00 Ur Epithelial Cells 4 - 5 /hpf (0-5) 07/10/16 13:00 Urine Bacteria Few (NEG) 07/10/16 13:00 - Hospital Course Hospital Course: attending note; I have seen and examined the patient at bedside With resident. This is a 86 year old female with history of hypothyroidism, congestive heart failure, and hypertension who got admitted for evaluation of generalized weakness, dizziness, nausea and dysuria. currently all symptoms resolved. Cardiology and neurology evaluation appreciated. Physical therapy evaluation appreciated. Recommending TCU versus [facility]. admitted with urinary symptoms; urine culture is negative. Rocephin stopped. vaginal candidiasis; on dose of by mouth Diflucan given. Transferred to TCU today. upon discharge the patient will follow-up with PMD and cardiology Dr. Egan. Diagnosis; Gait instability Hypertension Hypothyroidism
--- NOTE | 2016-07-19 10:50 | PQF RENAL ---
07/19/16 Dr. Barth, Patient came in with dehydration and also had acute renal failure. Was acute renal failure due to the dehydration? Thank you. Clarification of your documentation is requested to better reflect the severity of illness and intensity of treatment of your patient. Indicators present [] Oliguria/anuria [] Edema/weight gain [] Hyponatremia [] Confusion/mental status changes [x] Increased Blood Urea Nitrogen/Creatinine [] Increased Potassium/Decreased potassium [] Anemia (male <13.5, female <12.0) [] Proteinuria [] Metabolic Acidosis OR Alkalosis [x] Hypotension/shock [x] Decreased GFR [] Other: [] Location in the medical record that reflects the above clinical findings: PHYSICIAN'S RESPONSE Based on your medical judgment of the clinical indicators outlined above, are you treating this patient for a known or suspected: [] Acute Renal Failure [] Acute Kidney Injury [] Azotemia/prerenal azotemia [] Chronic kidney disease Stage I [] Stage II [] Stage III [] Stage IV [] [] Other condition/diagnosis:[] [] If Unable to Determine, please check the box, sign and date. Present On Admission (POA) Indicator: [] Present at the time of admission [] Not present at the time of admission [] Clinically Undetermined In responding to this query, please exercise your independent professional judgment. The fact that a question is asked does not imply that any particular answer is desired or expected. Thank you for your clarification on this documentation. If you have any questions please call:[ ] * Thank you, [ ] window assembler Chronic Kidney Disease Stages *[employer]* Stage I GFR >90 Stage II GFR 60-89 Stage III GFR 30-59 Stage IV GFR 15-29 Stage V~~~~~~~~~~ GFR <15~~~~~~~~~~~~~ MTDD
== END 2016-07-14 12:57 | DRG 683 ==
LOC: ED 12:15 → ERH 17:53 → 3RNO 19:22 → OBSVTOIN 07-11 15:57
PROVIDERS: ADMIT Hospitalist; ATTEND Internal Medicine
DX: N17.9 Acute kidney failure, unspecified (principal); I13.0 Hypertensive heart and chronic kidney disease with heart failure and stage 1 through stage 4 chronic kidney disease, or unspecified chronic kidney disease; N39.0 Urinary tract infection, site not specified; K57.92 Diverticulitis of intestine, part unspecified, without perforation or abscess without bleeding; I50.9 Heart failure, unspecified; I65.23 Occlusion and stenosis of bilateral carotid arteries; B37.3 Candidiasis of vulva and vagina; E86.0 Dehydration; F25.9 Schizoaffective disorder, unspecified; E03.9 Hypothyroidism, unspecified; E78.5 Hyperlipidemia, unspecified; F41.9 Anxiety disorder, unspecified; N18.9 Chronic kidney disease, unspecified; N89.8 Other specified noninflammatory disorders of vagina; K21.9 Gastro-esophageal reflux disease without esophagitis; I67.9 Cerebrovascular disease, unspecified; Z79.899 Other long term (current) drug therapy; Z87.01 Personal history of pneumonia (recurrent); Z87.891 Personal history of nicotine dependence; Z91.81 History of falling; Z88.1 Allergy status to other antibiotic agents; Z88.0 Allergy status to penicillin; Z88.2 Allergy status to sulfonamides; Z88.7 Allergy status to serum and vaccine; Z88.8 Allergy status to other drugs, medicaments and biological substances; N39.3 Stress incontinence (female) (male); F32.89 Other specified depressive episodes; R26.81 Unsteadiness on feet; F45.9 Somatoform disorder, unspecified; R53.81 Other malaise; R51 Headache

== ENCOUNTER 2016-07-14 13:08 | Inpatient (IN) | payer OTHER, BC ==
[2016-07-14 16:14] VITALS: BMI 36.5
[2016-07-14] MEDS: Hydrocortisone 2.5% Rectal Cream(30 gm) PR SCH (17:14)
[2016-07-15] MEDS: Levothyroxine 25 MCG TAB PO SCH (05:57)
[2016-07-15] MEDS: Pantoprazole 40 mg EC Tab PO SCH (05:57)
[2016-07-15] MEDS ORDERED: Pantoprazole 20 mg EC Tab PO SCH (06:00)
--- NOTE | 2016-07-15 07:35 | CP.PCM.PN ---
Subjective - Date & Time of Evaluation Date of Evaluation: 07/15/16 Time of Evaluation: 07:00 - Subjective Subjective: Stable on TCU now. She feels OK. No CP, SOB, Dizziness V/S noted PE: Lungs: clear Cor.: S1S2 Abd.: soft Ext.: no edema Neuro.: alert Objective - Vital Signs/Intake and Output Vital Signs (last 24 hours): Temp Pulse Resp BP Pulse Ox 98.1 F 76 18 177/60 H 95 07/14/16 16:05 07/15/16 06:45 07/14/16 16:05 07/15/16 06:45 07/14/16 15:53 - Medications Medications: Current Medications Acetaminophen (Tylenol 325mg Tab) 650 mg PO Q4H PRN; Protocol PRN Reason: Pain, Mild (1-3) Aripiprazole (Abilify) 2.5 mg PO HS GALA PRN Reason: Protocol Last Admin: 07/14/16 21:40 Dose: 2.5 mg Aspirin (Aspirin Chewable) 81 mg PO 0800 GALA PRN Reason: Protocol Atorvastatin Calcium (Lipitor) 10 mg PO HS GALA PRN Reason: Protocol Last Admin: 07/14/16 21:39 Dose: 10 mg Docusate Sodium (Colace) 100 mg PO TID GALA PRN Reason: Protocol Last Admin: 07/14/16 17:13 Dose: Not Given Hydrocortisone (Anusol-Hc) 1 gm DC BID GALA PRN Reason: Protocol Last Admin: 07/14/16 17:14 Dose: 1 applic Levothyroxine Sodium (Synthroid) 25 mcg PO 0600 GALA PRN Reason: Protocol Last Admin: 07/15/16 05:57 Dose: 25 mcg Metoprolol Tartrate (Lopressor) 50 mg PO BID GALA PRN Reason: Protocol Last Admin: 07/15/16 06:45 Dose: 50 mg Pantoprazole Sodium (Protonix Ec Tab) 40 mg PO 0600 GALA PRN Reason: Protocol Last Admin: 07/15/16 05:57 Dose: 40 mg Sertraline HCl (Zoloft) 25 mg PO DAILY GALA PRN Reason: Protocol Assessment and Plan - Assessment and Plan (Free Text) Plan: Assessment: Weakness/lightheadedness HBP HLD GERD CKD CVD: Bilat. 20 - 39% ICA stenoses Former Smoker Limited Mobility and Fall Risk Plan: PT/Rehab efforts Check Postural V/S
[2016-07-15] MEDS: Hydrocortisone 2.5% Rectal Cream(30 gm) PR SCH ×2 (10:31→17:53)
--- NOTE | 2016-07-15 11:08 | CP.PCM.HP ---
<Jacqueline Ball - Last Filed: 07/15/16 11:03> History of Present Illness - History of Present Illness History of Present Illness: cc: transfer to to TCU 86 year old female with past medical history of hypothyroidism, CHF and HTN is transferred to TCU from [facility] floor. Patient was admitted to hospital for near syncopal episode secondary to dehydration. On admission to hospital, CT of head was negative. EKG showed NSR with questionable septal infarct with underterminant age. Repeat EKG showed no changes. Troponin was negative. CXR on admission showed no active disease. Carotid US showed bilateral proximal ICA stenosis 20-39%. Neurology was consulted and stated that lightheadedness is likely due to dehydration. Cardiology was also consulted and stated dehydration as the culprit for the patient's lightheadedness. Psych was also consulted and stated that patient likely has chronic schizoaffective d/o. Patient was started on Abilify. Patient also c/o of vaginal irritation without any discharge. Patient given one dose of Diflucan. Patient's lightheadedness resolved. PMD: [place] PMH: hypothyroidism, congestive heart failure, and hypertension Cardio: Elkind All: Cipro, Pneumovac, Pennicillin, Bactrim, nitrofurantoin Med: Lasix, SYnthroid, Abilify, lopressor, Aldactone SS: Lives at home by herself. Daily activity of living functional. Use walker. Present on Admission - Present on Admission Any Indicators Present on Admission: No Review of Systems - Constitutional Constitutional: absent: Chills, Fever - EENT Eyes: absent: Change in Vision, Other Visual Disturbances Nose/Mouth/Throat: absent: Nasal Congestion, Nasal Discharge - Cardiovascular Cardiovascular: absent: Chest Pain, Dyspnea on Exertion, Edema - Respiratory Respiratory: absent: Cough, Dyspnea, Wheezing - Gastrointestinal Gastrointestinal: absent: Abdominal Pain, Bloating, Constipation, Diarrhea, Nausea, Vomiting - Genitourinary Genitourinary: absent: Dysuria, Urinary Frequency - Musculoskeletal Musculoskeletal: absent: Back Pain, Deformity - Integumentary Integumentary: absent: Lesions, Rash - Psychiatric Psychiatric: absent: Anxiety, Depression Past Patient History - Infectious Disease Hx of Infectious Diseases: None - Tetanus Immunizations Tetanus Immunization: Unknown - Past Social History Smoking Status: Never Smoked - CARDIAC Hx Cardiac Disorders: Yes Hx Congestive Heart Failure: Yes Hx Hypertension: Yes - PULMONARY Hx Respiratory Disorders: Yes Hx Pneumonia: Yes - NEUROLOGICAL Hx Neurological Disorder: Yes Hx Dizziness: Yes (vertigo) - HEENT Hx HEENT Problems: (venetie ira) - RENAL Hx Chronic Kidney Disease: No - ENDOCRINE/METABOLIC Hx Hypothyroidism: Yes - HEMATOLOGICAL/ONCOLOGICAL Hx Anemia: Yes 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unknown Verified 07/14/16 14:10 ciprofloxacin HCl Allergy .unknown Verified 07/14/16 14:10 [From Cipro] pneumococcal vaccine Allergy RASH Verified 07/14/16 14:10 sulfamethoxazole Allergy RASH Verified 07/14/16 14:10 [From Bactrim] trimethoprim [From Bactrim] Allergy RASH Verified 07/14/16 14:10 nitrofurantoin AdvReac RASH Verified 07/14/16 14:10 Penicillins AdvReac SWELLING Verified 07/14/16 14:10 Physical Exam - Constitutional Appears: Non-toxic, No Acute Distress - Head Exam Head Exam: ATRAUMATIC - Eye Exam Eye Exam: EOMI - ENT Exam ENT Exam: Mucous Membranes Moist - Respiratory Exam Respiratory Exam: Clear to Auscultation Bilateral. absent: Rales, Rhonchi, Wheezes - Cardiovascular Exam Cardiovascular Exam: REGULAR RHYTHM, +S1, +S2. absent: Diastolic murmur, Gallop , Rubs, Systolic Murmur - GI/Abdominal Exam GI & Abdominal Exam: Normal Bowel Sounds, Soft. absent: Distended, Firm, Guarding, Hernia, Tenderness - Extremities Exam Extremities exam: Negative for: pedal edema, tenderness - Neurological Exam Neurological exam: Alert, Oriented x3 - Psychiatric Exam Psychiatric exam: Normal Affect, Normal Mood - Skin Skin Exam: Dry, Intact, Normal Color, Warm Results - Vital Signs Recent Vital Signs: Last Vital Signs Temp 98.1 F 07/14/16 16:05 Pulse 76 07/15/16 06:45 Resp 18 07/14/16 16:05 BP 177/60 H 07/15/16 06:45 Pulse Ox 95 07/14/16 15:53 Assessment & Plan - Assessment and Plan (Free Text) Assessment: 86 year old female with PMH including hypothyroidism, congestive heart failure, and hypertension is admitted to TCU for further rehabilitation after hospital admission for near syncopal episode secondary to dehydration. 1. Near syncope likely 2/2 dehydration - Resolved - Cardio consult--Ok to DC if ambulates - Physical therapy 2. HTN - lopressor - aldactone 50 mg po qd 3. CHF - Echo 01/2016: EF 75% mild LVH - aldactone - Asrpirin qd 4. Hypothyroidism -Synthroid 5. Headache -tylenol PRN for headache 6. Schizoaffective disorder - Abilify - Zoloft - Psych consulted Prophylaxis -Protonix Pt seen and examined with Dr. Barth - Date & Time Date: 07/15/16 Time: 11:10 <Vince Barth - Last Filed: 07/15/16 13:45> Results - Vital Signs Recent Vital Signs: Last Vital Signs Temp 98.1 F 07/14/16 16:05 Pulse 76 07/15/16 06:45 Resp 18 07/14/16 16:05 BP 177/60 H 07/15/16 06:45 Pulse Ox 95 07/14/16 15:53 Assessment & Plan - Assessment and Plan (Free Text) Assessment: attending note; I have seen and examined the patient at bedside With resident in TCU. transfer to TCU yesterday for gait training. This is a 86 year old female with history of hypothyroidism, congestive heart failure, and hypertension who got admitted for evaluation of generalized weakness, dizziness, nausea and dysuria. currently all symptoms resolved. Cardiology evaluation appreciated. hypertension; metoprolol dosage increased. Aldactone added. Monitor closely. Continue physical therapy. upon discharge the patient will follow-up with PMD and cardiology Dr. Lambert. Attending/Attestation - Attestation I have personally seen and examined this patient.: Yes I have fully participated in the care of the patient.: Yes I have reviewed all pertinent clinical information: Yes
[2016-07-16] MEDS: Levothyroxine 25 MCG TAB PO SCH (06:23)
[2016-07-16] MEDS: Pantoprazole 40 mg EC Tab PO SCH (06:23)
--- NOTE | 2016-07-16 08:00 | CP.PCM.PN ---
Subjective - Date & Time of Evaluation Date of Evaluation: 07/16/16 Time of Evaluation: 07:00 - Subjective Subjective: Stable on TCU now. She feels OK. No CP, SOB, Dizziness V/S noted PE: Lungs: clear Cor.: S1S2 Abd.: soft Ext.: no edema Neuro.: alert Objective - Vital Signs/Intake and Output Vital Signs (last 24 hours): Temp Pulse Resp BP Pulse Ox 97.9 F 70 18 112/46 L 94 L 07/15/16 16:00 07/15/16 18:12 07/15/16 16:00 07/15/16 18:12 07/15/16 16:00 - Medications Medications: Current Medications Acetaminophen (Tylenol 325mg Tab) 650 mg PO Q4H PRN; Protocol PRN Reason: Pain, Mild (1-3) Aripiprazole (Abilify) 2.5 mg PO HS GALA PRN Reason: Protocol Last Admin: 07/15/16 21:30 Dose: 2.5 mg Aspirin (Aspirin Chewable) 81 mg PO 0800 GALA PRN Reason: Protocol Last Admin: 07/15/16 08:17 Dose: 81 mg Atorvastatin Calcium (Lipitor) 10 mg PO HS GALA PRN Reason: Protocol Last Admin: 07/15/16 21:31 Dose: 10 mg Docusate Sodium (Colace) 100 mg PO TID GALA PRN Reason: Protocol Last Admin: 07/15/16 17:53 Dose: Not Given Hydrocortisone (Anusol-Hc) 1 gm [place] BID GALA PRN Reason: Protocol Last Admin: 07/15/16 17:53 Dose: 1 applic Levothyroxine Sodium (Synthroid) 25 mcg PO 0600 GALA PRN Reason: Protocol Last Admin: 07/16/16 06:23 Dose: 25 mcg Metoprolol Tartrate (Lopressor) 50 mg PO BID GALA PRN Reason: Protocol Last Admin: 07/15/16 18:12 Dose: Not Given Pantoprazole Sodium (Protonix Ec Tab) 40 mg PO 0600 GALA PRN Reason: Protocol Last Admin: 07/16/16 06:23 Dose: 40 mg Sertraline HCl (Zoloft) 25 mg PO DAILY GALA PRN Reason: Protocol Last Admin: 07/15/16 10:30 Dose: 25 mg Spironolactone (Aldactone) 25 mg PO DAILY GALA Last Admin: 07/15/16 12:46 Dose: 25 mg Assessment and Plan - Assessment and Plan (Free Text) Plan: Assessment: Weakness/lightheadedness HBP HLD GERD CKD CVD: Bilat. 20 - 39% ICA stenoses Former Smoker Limited Mobility and Fall Risk Plan: PT/Rehab efforts Check Postural V/S
[2016-07-16] MEDS: Hydrocortisone 2.5% Rectal Cream(30 gm) PR SCH ×2 (09:02→17:15)
--- NOTE | 2016-07-16 19:38 | CON ---
DATE: 07/16/2016 HISTORY OF PRESENT ILLNESS: This is an 86-year-old female with past medical history of hypothyroidis m, CHF, hypertension. Transferred to [facility] from the medical floor. The patient came to hospital with a near syncopal episode. Head CAT scan was negative. Transferred to [facility]. The patient is sitting c omfortably and doing physical therapy. PAST MEDICAL HISTORY: Hypothyroidism, congestive heart failure, hypertension. ALLERGIES: CIPRO, PENICILLIN, BACTRIM, NITROFURANTOIN. MEDICATIONS: Synthroid, Abilify, Lopressor, Aldactone. PHYSICAL EXAMINATION: HEENT: Normocephalic, atraumatic. NECK: Supple. NEUROLOGIC: Alert, awake, oriented x 3. No aphasia. Cranial nerves II through XII were tested. Pu pils reactive. EOMs intact. Visual [place] full. No facial asymmetry. Tongue midline. MOTOR: Moves all the extremities equally. Tone normal. REFLEXES: Deep tendon reflexes 1+. Both plantars are downgoing. SENSORY: Appears intact. CEREBELLAR GAIT: Deferred. IMPRESSION: Syncope. Continue physical therapy. Will follow up. Tom Rosales MD cc: [id number] TT: 07/16/2016 19:37:30 Confirmation # [id number] Dictation # [id number] [email or web address]
[2016-07-17 07:47] LABS: ADD MANUAL DIFF? NO
[2016-07-17 07:54] LABS: BASO # 0.03 K/mm3 (0.0-2.0); BASO % 0.3 % (0.0-3.0); EOS # 0.4 (0.0-0.7); EOS % 4.3 % (1.5-5.0); GRAN # 5.63 (1.4-6.5); GRAN % 65.4 % (50.0-68.0); HEMATOCRIT 32.7 % (36.0-48.0); LYMPH # 1.8 (1.2-3.4); LYMPH % 21.4 % (22.0-35.0); MEAN CELL VOLUME 90.3 fL (80.0-105.0); MEAN CORPUSCULAR HGB CONC 32.1 g/dl (31.0-37.0); MEAN PLATELET VOLUME 10.6 fl (7.0-11.0); MONO # 0.7 (0.1-0.6); MONO % 8.6 % (1.0-6.0); PLATELET COUNT 224 10^3/uL (120.0-450.0); RED CELL DISTRIBUTION WIDTH 14.3 % (11.5-14.5); WHITE BLOOD COUNT 8.6 10^3/ul (4.5-11.0)
--- NOTE | 2016-07-17 08:05 | CON ---
DATE: 07/16/2016 HISTORY OF PRESENT ILLNESS: The patient is an 86-year-old female currently now on the transitional c are unit. She is being treated for debilitation and weakness. She has a history of psychiatric prob lems including schizoaffective disorder and somatoform pain disorder. The patient is currently on th e transitional care unit after being admitted to the medical surgical floor for near syncope and dehy dration. PAST MEDICAL HISTORY: Hypertension, history of congestive heart failure, hypothyroidism and she has a history of chronic kidney disease. PERSONAL HISTORY: She has been a in recent months. She lives alone. She has a son who is mar ried with his family living in [place], [place]. No history of alcohol or substance abuse. The parris martinez has been under psychiatric care for many years, and I have known her for many decades. CURRENT MEDICATIONS: Include Abilify 2.5 mg at bedtime, Aldactone, Anusol, Colace, Lipitor, Lopresso r, Protonix, Synthroid, Zoloft 25 mg p.o. daily. CURRENT LABORATORY DATA: The patient's most recent white count of 7600, hemoglobin 10.8 and platelet count 229,000. Her most recent metabolic profile reveals her sodium, potassium chloride, CO2 and an ion gap were normal. BUN 22, creatinine 1.3, estimated GFR 39. Other abnormal findings included a r andom glucose of 163. She has a total iron level of 12 mcg/dL. She has iron saturation of 4%, which is low. Her vitamin D level is 25.8. Her urinalysis reveals a trace of leukocyte esterase. REVIEW OF SYSTEMS: Complains of general weakness and achiness all over her joints. Otherwise, 12 p oint review of systems noncontributory. PHYSICAL EXAMINATION: VITAL SIGNS: Blood pressure this morning was 128/52, that was her mean. Her sitting blood pressure was 141/53. Pulse 62, afebrile with O2 saturation 97%. PSYCHIATRIC MENTAL STATUS: The patient is awake and alert. She claims that she feels somewhat weak. She is oriented x 3, somewhat depressed. No suicidal ideation or psychotic symptoms at this time. IMPRESSION: Chronic schizoaffective disorder. She has chronic kidney disease, near syncope. She moulton s a history of hypertension, gastroesophageal reflux disease, cerebrovascular disease with mild inter nal carotid artery stenosis, debilitation, and gait dysfunction. PLAN: Continue to monitor her mental status. Will reevaluate soon. Minesh Faith MD cc: [id number] TT: 07/16/2016 21:49:10 Confirmation # [id number] Dictation # [id number] dn
[2016-07-17 08:18] LABS: CALCIUM 9.1 mg/dL (8.4-10.5); POTASSIUM 4.5 mmol/L (3.6-5.0)
[2016-07-17] MEDS: Hydrocortisone 2.5% Rectal Cream(30 gm) PR SCH ×2 (10:33→18:34)
--- NOTE | 2016-07-17 11:09 | CP.PCM.PN ---
<Finesse Awad - Last Filed: 07/17/16 11:03> Subjective - Date & Time of Evaluation Date of Evaluation: 07/17/16 Time of Evaluation: 07:50 - Subjective Subjective: Hospitalist progress note: Pt seen and examined at bedside. No acute events over nihgt. She states that she is currently feeling a little weak but states that she is doing well with PT. no other complaints at this time. Denies any headaches, dizziness, f/c, cp, sob, abd pain, n/v/d or urinary changes. Objective - Vital Signs/Intake and Output Vital Signs (last 24 hours): Temp Pulse Resp BP Pulse Ox 97.6 F 62 18 124/60 97 07/16/16 16:02 07/16/16 16:02 07/16/16 16:02 07/16/16 17:15 07/16/16 16:02 Intake and Output: 07/17/16 07/17/16 06:59 18:59 Intake Total 520 Balance 520 - Medications Medications: Current Medications Acetaminophen (Tylenol 325mg Tab) 650 mg PO Q4H PRN; Protocol PRN Reason: Pain, Mild (1-3) Aripiprazole (Abilify) 2.5 mg PO HS [facility] PRN Reason: Protocol Last Admin: 07/16/16 21:14 Dose: 2.5 mg Aspirin (Aspirin Chewable) 81 mg PO 0800 [facility] PRN Reason: Protocol Last Admin: 07/17/16 07:55 Dose: 81 mg Atorvastatin Calcium (Lipitor) 10 mg PO HS [facility] PRN Reason: Protocol Last Admin: 07/16/16 21:14 Dose: 10 mg Docusate Sodium (Colace) 100 mg PO TID [facility] PRN Reason: Protocol Last Admin: 07/17/16 10:33 Dose: 100 mg Hydrocortisone (Anusol-Hc) 1 gm SD BID [facility] PRN Reason: Protocol Last Admin: 07/17/16 10:33 Dose: 1 applic Levothyroxine Sodium (Synthroid) 25 mcg PO 0600 [facility] PRN Reason: Protocol Last Admin: 07/16/16 06:23 Dose: 25 mcg Metoprolol Tartrate (Lopressor) 50 mg PO BID [facility] PRN Reason: Protocol Last Admin: 07/17/16 10:34 Dose: Not Given Pantoprazole Sodium (Protonix Ec Tab) 40 mg PO 0600 [facility] PRN Reason: Protocol Last Admin: 07/16/16 06:23 Dose: 40 mg Sertraline HCl (Zoloft) 25 mg PO DAILY [facility] PRN Reason: Protocol Last Admin: 07/17/16 10:35 Dose: 25 mg Spironolactone (Aldactone) 25 mg PO DAILY [facility] Last Admin: 07/17/16 10:32 Dose: 25 mg - Labs Labs: 07/17/16 07:00 07/17/16 07:00 - Constitutional Appears: No Acute Distress - Head Exam Head Exam: ATRAUMATIC, NORMAL INSPECTION, NORMOCEPHALIC - Eye Exam Eye Exam: EOMI, Normal appearance, PERRL Pupil Exam: NORMAL ACCOMODATION, PERRL - ENT Exam ENT Exam: Mucous Membranes Moist, Normal Exam - Neck Exam Neck Exam: Full ROM, Normal Inspection. absent: Lymphadenopathy - Respiratory Exam Respiratory Exam: Clear to Ausculation Bilateral, NORMAL BREATHING PATTERN. absent: Rales, Wheezes - Cardiovascular Exam Cardiovascular Exam: REGULAR RHYTHM, RRR, +S1, +S2. absent: Murmur - GI/Abdominal Exam GI & Abdominal Exam: Soft, Normal Bowel Sounds. absent: Distended, Tenderness - Extremities Exam Extremities Exam: Full ROM, Normal Capillary Refill, Normal Inspection. absent : Joint Swelling, Pedal Edema - Back Exam Back Exam: NORMAL INSPECTION - Neurological Exam Neurological Exam: Alert, Awake, Oriented x3 - Psychiatric Exam Psychiatric exam: Normal Affect, Normal Mood - Skin Skin Exam: Abrasion Assessment and Plan - Assessment and Plan (Free Text) Assessment: 86 year old female with PMH including hypothyroidism, congestive heart failure, and hypertension is admitted to TCU for further rehabilitation after hospital admission for near syncopal episode secondary to dehydration. 1. Near syncope 2/2 dehydration - now resolved - Cardio consult--rec PT , checking postural V/S 2. HTN - Cont lopressor, and aldactone 25 mg po qd 3. CHF - Echo 01/2016: EF 75% mild LVH - aldactone - Aspirin 4. Hypothyroidism -Synthroid 5. Schizoaffective disorder - Cont Abilify, and Zoloft - Psych consulted 6. GI Prophylaxis -Protonix Case and plan was seen, reviewed, and discussed in detail with Dr Cast. <Burt Cast - Last Filed: 07/17/16 16:59> Objective - Vital Signs/Intake and Output Vital Signs (last 24 hours): Temp Pulse Resp BP Pulse Ox 98.4 F 71 15 151/60 H 94 L 07/17/16 16:00 07/17/16 16:00 07/17/16 16:00 07/17/16 16:00 07/17/16 16:00 Intake and Output: 07/17/16 07/17/16 06:59 18:59 Intake Total 520 Balance 520 - Medications Medications: Current Medications Acetaminophen (Tylenol 325mg Tab) 650 mg PO Q4H PRN; Protocol PRN Reason: Pain, Mild (1-3) Aripiprazole (Abilify) 2.5 mg PO HS [facility] PRN Reason: Protocol Last Admin: 07/16/16 21:14 Dose: 2.5 mg Aspirin (Aspirin Chewable) 81 mg PO 0800 [facility] PRN Reason: Protocol Last Admin: 07/17/16 07:55 Dose: 81 mg Atorvastatin Calcium (Lipitor) 10 mg PO HS [facility] PRN Reason: Protocol Last Admin: 07/16/16 21:14 Dose: 10 mg Docusate Sodium (Colace) 100 mg PO TID [facility] PRN Reason: Protocol Last Admin: 07/17/16 14:45 Dose: 100 mg Hydrocortisone (Anusol-Hc) 1 gm SD BID [facility] PRN Reason: Protocol Last Admin: 07/17/16 10:33 Dose: 1 applic Levothyroxine Sodium (Synthroid) 25 mcg PO 0600 [facility] PRN Reason: Protocol Last Admin: 07/16/16 06:23 Dose: 25 mcg Metoprolol Tartrate (Lopressor) 50 mg PO BID [facility] PRN Reason: Protocol Last Admin: 07/17/16 10:34 Dose: Not Given Pantoprazole Sodium (Protonix Ec Tab) 40 mg PO 0600 [facility] PRN Reason: Protocol Last Admin: 07/16/16 06:23 Dose: 40 mg Sertraline HCl (Zoloft) 25 mg PO DAILY [facility] PRN Reason: Protocol Last Admin: 07/17/16 10:35 Dose: 25 mg Spironolactone (Aldactone) 25 mg PO DAILY [facility] Last Admin: 07/17/16 10:32 Dose: 25 mg - Labs Labs: 07/17/16 07:00 07/17/16 07:00 Attending/Attestation - Attestation I have personally seen and examined this patient.: Yes I have fully participated in the care of the patient.: Yes I have reviewed all pertinent clinical information, including history, physical exam and plan: Yes Notes (Text): I have seen and examined the patient at bedside with the resident in TCU. Agree with the above note. This is a 86 year old female with history of hypothyroidism, congestive heart failure, and hypertension who got admitted for evaluation of generalized weakness, dizziness, nausea and dysuria which has been resolved. She has been participating in PT and today complains that she felt weak overall after having breakfast. Also requesting to be sent home this week. Patient was explained that its better for her to stay for atleast few days so that she can participate in physical therapy and gets strength training. Upon discharge the patient will follow-up with PMD and cardiology Dr. Lambert. Dr Burt Cast
--- NOTE | 2016-07-17 15:57 | PN ---
DATE: 07/17/2016 The patient is an 86-year-old white female well known to me for many years. Currently being treated on the transitional care unit for debilitation due to recent medical admission for near syncopal epis ode and also for a recent congestive heart failure. Currently her mental status reveals that she is awake, alert, coherent, lucid, oriented x 3, aware of her surroundings. Mood seems more upbeat than previously. She is cooperating well with physical th erapy today. She slept well last night. No adverse effects from any psychotropic medication. CURRENT PSYCHOTROPIC MEDICATIONS: Include Abilify 2.5 mg at bedtime. Aldactone, Anusol suppositorie s, chewable 81 mg aspirin, Lipitor, Protonix and Zoloft 25 mg daily. VITAL SIGNS: Stable. Blood pressure 154/80, pulse 72, respirations 20 per minute, afebrile, O2 satu ration 97%. IMPRESSION: History of schizoaffective disorder, history of hypertension, hyperlipidemia, gastroesop hageal reflux disease, chronic kidney disease, internal carotid artery stenosis, former smoker, debil itation, gait dysfunction. PLAN: Continue above psychotropic medicine. Minesh Faith MD cc: [id number] TT: 07/17/2016 15:57:13 Confirmation # [id number] Dictation # [id number] mn
[2016-07-18] MEDS: Levothyroxine 25 MCG TAB PO SCH (05:55)
[2016-07-18] MEDS: Pantoprazole 40 mg EC Tab PO SCH (05:55)
[2016-07-18] MEDS: Hydrocortisone 2.5% Rectal Cream(30 gm) PR SCH (10:55)
--- NOTE | 2016-07-18 18:02 | PN ---
DATE: 07/18/2016 HISTORY OF PRESENT ILLNESS: The patient is an 86-year-old white female currently being treated on [facility] transitional care unit after having been treated on the medical surgical department. She was treat ed for and evaluated for a syncopal episode, generalized weakness. The patient is currently receivin g physical therapy on the transitional care unit. The patient has a history of hypothyroidism, conge stive heart failure, chronic kidney disease, renal insufficiency. The patient also has a history of schizoaffective disorder which I have treated her for, for many years. CURRENT MEDICATIONS: Include Abilify 2.5 mg at bedtime, Aldactone, 81 mg aspirin, Colace, Lipitor, m etoprolol, Synthroid, and sertraline 25 mg daily. MENTAL STATUS: She is awake, alert, coherent, lucid, oriented x 3. No evidence of any psychotic sym ptoms, suicidal ideation. She complains of still being slightly weak but is eager to go home. Recen t memory is intact. Fund of knowledge is average. VITAL SIGNS: Blood pressure 144/54, pulse 59, respirations 18 per minute, afebrile. O2 saturation 9 5%. IMPRESSION: Status post syncopal episode, dehydration, chronic kidney disease, history of congestive heart failure, history of schizoaffective disorder. PLAN: We will continue to monitor her mental status. We will maintain her on Abilify and sertraline . Minesh Faith MD cc: [id number] TT: 07/18/2016 18:01:54 Confirmation # [id number] Dictation # [id number] [email or web address]
[2016-07-19] MEDS: Pantoprazole 40 mg EC Tab PO SCH ×2 (06:33→07:44)
[2016-07-19] MEDS: Levothyroxine 25 MCG TAB PO SCH ×2 (06:34→07:44)
[2016-07-19] MEDS: Hydrocortisone 2.5% Rectal Cream(30 gm) PR SCH ×3 (07:43→17:01)
[2016-07-19 09:30] LABS: ADD MANUAL DIFF? NO
[2016-07-19 09:34] LABS: BASO # 0.05 K/mm3 (0.0-2.0); BASO % 0.6 % (0.0-3.0); EOS # 0.4 (0.0-0.7); EOS % 4.3 % (1.5-5.0); GRAN # 6.09 (1.4-6.5); GRAN % 67.6 % (50.0-68.0); HEMATOCRIT 34.4 % (36.0-48.0); LYMPH # 1.8 (1.2-3.4); MEAN CELL VOLUME 90.5 fL (80.0-105.0); MEAN CORPUSCULAR HEMOGLOBIN 29.2 pg (25.0-35.0); MEAN CORPUSCULAR HGB CONC 32.3 g/dl (31.0-37.0); MEAN PLATELET VOLUME 10.2 fl (7.0-11.0); MONO # 0.7 (0.1-0.6); MONO % 7.5 % (1.0-6.0); PLATELET COUNT 242 10^3/uL (120.0-450.0); RED CELL DISTRIBUTION WIDTH 14.2 % (11.5-14.5)
[2016-07-19 09:45] LABS: ALB/GLOB RATIO 1.1 (1.1-1.8); BILIRUBIN,TOTAL 0.6 mg/dL (0.2-1.3); CALCIUM 9.4 mg/dL (8.4-10.5); POTASSIUM 4.3 mmol/L (3.6-5.0); TOTAL PROTEIN 7.4 g/dL (5.8-8.3)
--- NOTE | 2016-07-19 12:59 | CP.PCM.PN ---
<Finesse Awad - Last Filed: 07/19/16 12:56> Subjective - Date & Time of Evaluation Date of Evaluation: 07/19/16 Time of Evaluation: 07:00 - Subjective Subjective: Hospitalist progress note: Pt seen and examined at bedside. No acute events over night. She states that she is currently feeling well. No other complaints at this time. Denies any headaches, dizziness, f/c, cp, sob, abd pain, n/v/d or urinary changes. Objective - Vital Signs/Intake and Output Vital Signs (last 24 hours): Temp Pulse Resp BP Pulse Ox 98.3 F 86 18 138/54 L 96 07/19/16 10:00 07/19/16 10:00 07/19/16 10:00 07/19/16 10:00 07/19/16 10:00 - Medications Medications: Current Medications Acetaminophen (Tylenol 325mg Tab) 650 mg PO Q4H PRN; Protocol PRN Reason: Pain, Mild (1-3) Aripiprazole (Abilify) 2.5 mg PO HS [facility] PRN Reason: Protocol Last Admin: 07/18/16 22:21 Dose: 2.5 mg Aspirin (Aspirin Chewable) 81 mg PO 0800 [facility] PRN Reason: Protocol Last Admin: 07/19/16 08:40 Dose: 81 mg Atorvastatin Calcium (Lipitor) 10 mg PO HS [facility] PRN Reason: Protocol Last Admin: 07/18/16 22:21 Dose: 10 mg Docusate Sodium (Colace) 100 mg PO TID [facility] PRN Reason: Protocol Last Admin: 07/19/16 09:54 Dose: 100 mg Hydrocortisone (Anusol-Hc) 1 gm IA BID [facility] PRN Reason: Protocol Last Admin: 07/19/16 11:15 Dose: Not Given Levothyroxine Sodium (Synthroid) 25 mcg PO 0600 [facility] PRN Reason: Protocol Last Admin: 07/19/16 07:44 Dose: Not Given Metoprolol Tartrate (Lopressor) 50 mg PO BID [facility] PRN Reason: Protocol Last Admin: 07/19/16 11:25 Dose: 50 mg Pantoprazole Sodium (Protonix Ec Tab) 40 mg PO 0600 [facility] PRN Reason: Protocol Last Admin: 07/19/16 07:44 Dose: Not Given Sertraline HCl (Zoloft) 25 mg PO DAILY [facility] PRN Reason: Protocol Last Admin: 07/19/16 09:54 Dose: 25 mg Spironolactone (Aldactone) 25 mg PO DAILY [facility] Last Admin: 07/19/16 09:54 Dose: 25 mg - Labs Labs: 07/19/16 09:29 07/19/16 09:29 - Constitutional Appears: No Acute Distress - Head Exam Head Exam: ATRAUMATIC, NORMAL INSPECTION, NORMOCEPHALIC - Eye Exam Eye Exam: EOMI, Normal appearance, PERRL Pupil Exam: NORMAL ACCOMODATION, PERRL - ENT Exam ENT Exam: Mucous Membranes Moist, Normal Exam - Neck Exam Neck Exam: Full ROM, Normal Inspection. absent: Lymphadenopathy - Respiratory Exam Respiratory Exam: Clear to Ausculation Bilateral. absent: Rales, Wheezes - Cardiovascular Exam Cardiovascular Exam: REGULAR RHYTHM, RRR, +S1, +S2 - GI/Abdominal Exam GI & Abdominal Exam: Soft. absent: Distended, Tenderness - Extremities Exam Extremities Exam: Full ROM, Normal Capillary Refill, Normal Inspection. absent : Joint Swelling, Pedal Edema - Back Exam Back Exam: NORMAL INSPECTION - Neurological Exam Neurological Exam: Alert, Awake, Oriented x3 - Psychiatric Exam Psychiatric exam: Normal Affect, Normal Mood - Skin Skin Exam: Dry, Intact, Normal Color, Warm Assessment and Plan - Assessment and Plan (Free Text) Assessment: 86 year old female with PMH including hypothyroidism, congestive heart failure, and hypertension is admitted to TCU for further rehabilitation after hospital admission for near syncopal episode secondary to dehydration now in TCU for rehab. 1. Near syncope 2/2 dehydration - now resolved - Cardio consult--rec PT , checking postural V/S 2. HTN - Cont lopressor, - aldactone 25 mg po qd placed on Hold due to inc in creatinine of 1.8 3. CHF - Echo 01/2016: EF 75% mild LVH - aldactone on hold - Aspirin 4. Hypothyroidism -Synthroid 5. Schizoaffective disorder - Cont Abilify, and Zoloft - Psych consulted 6. GI Prophylaxis -Protonix Dispo- Possible d/c to home tomorrow Case and plan was seen, reviewed, and discussed in detail with Dr Cast. <Burt Cast - Last Filed: 07/19/16 16:55> Objective - Vital Signs/Intake and Output Vital Signs (last 24 hours): Temp Pulse Resp BP Pulse Ox 98 F 62 18 133/61 96 07/19/16 16:00 07/19/16 16:00 07/19/16 16:00 07/19/16 16:00 07/19/16 16:00 - Medications Medications: Current Medications Acetaminophen (Tylenol 325mg Tab) 650 mg PO Q4H PRN; Protocol PRN Reason: Pain, Mild (1-3) Aripiprazole (Abilify) 2.5 mg PO HS [facility] PRN Reason: Protocol Last Admin: 07/18/16 22:21 Dose: 2.5 mg Aspirin (Aspirin Chewable) 81 mg PO 0800 [facility] PRN Reason: Protocol Last Admin: 07/19/16 08:40 Dose: 81 mg Atorvastatin Calcium (Lipitor) 10 mg PO HS [facility] PRN Reason: Protocol Last Admin: 07/18/16 22:21 Dose: 10 mg Docusate Sodium (Colace) 100 mg PO TID [facility] PRN Reason: Protocol Last Admin: 07/19/16 14:05 Dose: Not Given Hydrocortisone (Anusol-Hc) 1 gm IA BID [facility] PRN Reason: Protocol Last Admin: 07/19/16 11:15 Dose: Not Given Levothyroxine Sodium (Synthroid) 25 mcg PO 0600 [facility] PRN Reason: Protocol Last Admin: 07/19/16 07:44 Dose: Not Given Metoprolol Tartrate (Lopressor) 50 mg PO BID [facility] PRN Reason: Protocol Last Admin: 07/19/16 11:25 Dose: 50 mg Pantoprazole Sodium (Protonix Ec Tab) 40 mg PO 0600 [facility] PRN Reason: Protocol Last Admin: 07/19/16 07:44 Dose: Not Given Sertraline HCl (Zoloft) 25 mg PO DAILY [facility] PRN Reason: Protocol Last Admin: 07/19/16 09:54 Dose: 25 mg Spironolactone (Aldactone) 25 mg PO DAILY [facility] Last Admin: 07/19/16 09:54 Dose: 25 mg - Labs Labs: 07/19/16 09:29 07/19/16 09:29 Attending/Attestation - Attestation I have personally seen and examined this patient.: Yes I have fully participated in the care of the patient.: Yes I have reviewed all pertinent clinical information, including history, physical exam and plan: Yes Notes (Text): I have seen and examined the patient at bedside with the resident in TCU. Agree with the above note. This is a 86 year old female with history of hypothyroidism, congestive heart failure, CKD and hypertension who got admitted for evaluation of generalized weakness, dizziness, nausea and dysuria which has been resolved. She has been participating in PT. Denies any complaints today and wants to go home tomorrow. Creatinine noted to be 1.8 today. Will hold aldactone today. Upon discharge the patient will follow-up with PMD , Dr Ivory chemical educator and cardiology Dr. Lambert. Dr Burt Cast
--- NOTE | 2016-07-19 14:32 | PN ---
DATE: 07/19/2016 HISTORY OF PRESENT ILLNESS: The patient is an 86-year-old female, currently being treated on the [facility] care unit due to debilitation secondary to recent medical treatment for near syncope, renal insufficiency, dehydration and congestive heart failure. She also has been under care for many year s for schizoaffective disorder. The patient has recently lost her after 50+ years of marriag e. The patient's mental status reveals she is awake, alert, coherent, lucid, oriented x 3, mildly de pressed, eager for discharge. Discussed the ability to care for herself and eating on a regular basi s so she does not become dehydrated. The patient states she understands this and understands the ser iousness of not keeping up with hydration and adequate nutrition. CURRENT MEDICATIONS: Include Abilify 2.5 mg at bedtime, Aldactone, Anusol-HC, low dose aspirin, Cola ce, Lipitor, Lopressor, Protonix, Synthroid and Zoloft 25 mg daily. The patient is eager for discharge. She has no new laboratory data to report. VITAL SIGNS: Blood pressure is 138/54, pulse is 86, respirations 18 per minute, afebrile. REVIEW OF SYSTEMS: She complains of slight weakness, but no other specific contributory factors in 1 2-point review of systems. IMPRESSION: Status post renal insufficiency, dehydration. The patient has a history of schizoaffect nesha disorder which is stable, recent of . She has hyperlipidemia, history of hypothyroi dism, gait dysfunction. PLAN: Continue to monitor mental status and review psychotropic medicines. Minesh Faith MD cc: [id number] TT: 07/19/2016 14:32:22 Confirmation # [id number] Dictation # [id number] [email or web address]
[2016-07-20] MEDS: Levothyroxine 25 MCG TAB PO SCH (06:16)
[2016-07-20] MEDS: Pantoprazole 40 mg EC Tab PO SCH (06:16)
[2016-07-20 09:34] LABS: ALB/GLOB RATIO 1.2 (1.1-1.8); BILIRUBIN,TOTAL 0.4 mg/dL (0.2-1.3); CALCIUM 9.5 mg/dL (8.4-10.5); POTASSIUM 4.6 mmol/L (3.6-5.0); TOTAL PROTEIN 7.5 g/dL (5.8-8.3)
[2016-07-20] MEDS: Hydrocortisone 2.5% Rectal Cream(30 gm) PR SCH (10:18)
[2016-07-20 10:22] VITALS: BP 138/62; PULSE 82
[2016-07-20 10:54] VITALS: RESP 19; TEMP 97.7; O2SAT 99
--- NOTE | 2016-07-20 13:18 | CP.PCM.DIS ---
<Finesse Awad - Last Filed: 07/20/16 13:12> Provider - Provider Date of Admission: 07/14/16 13:08 Attending physician: Burt Cast MD Consults: Cardiology, psychiatry, neuro Time Spent in preparation of Discharge (in minutes): 45 Hospital Course - Lab Results Lab Results: Most Recent Lab Values WBC 9.0 10^3/ul (4.5-11.0) 07/19/16 09: RBC 3.80 10^6/uL (3.5-6.1) 07/19/16 09:29 Hgb 11.1 gm/dL (12.0-16.0) L 07/19/16 09:29 Hct 34.4 % (36.0-48.0) L 07/19/16 09:29 MCV 90.5 fL (80.0-105.0) 07/19/16 09: MCH 29.2 pg (25.0-35.0) 07/19/16 09: MCHC 32.3 g/dl (31.0-37.0) 07/19/16 09: RDW 14.2 % (11.5-14.5) 07/19/16 09:29 Plt Count 242 10^3/uL (120.0-450.0) 07/19/16 09:29 MPV 10.2 fl (7.0-11.0) 07/19/16 09:29 Gran % 67.6 % (50.0-68.0) 07/19/16 09:29 Lymph % (Auto) 20.0 % (22.0-35.0) L 07/19/16 09:29 [place] % (Auto) 7.5 % (1.0-6.0) H 07/19/16 09:29 Eos % (Auto) 4.3 % (1.5-5.0) 07/19/16 09: Baso % (Auto) 0.6 % (0.0-3.0) 07/19/16 09:29 Gran # 6.09 (1.4-6.5) 07/19/16 09:29 Lymph # 1.8 (1.2-3.4) 07/19/16 09:29 [place] # 0.7 (0.1-0.6) H 07/19/16 09:29 Eos # 0.4 (0.0-0.7) 07/19/16 09:29 Baso # 0.05 K/mm3 (0.0-2.0) 07/19/16 09:29 Sodium 138 mmol/L (132-148) 07/20/16 09:00 Potassium 4.6 mmol/L (3.6-5.0) 07/20/16 09:00 Chloride 104 mmol/L (95-110) 07/20/16 09:00 Carbon Dioxide 21 mmol/L (21-33) 07/20/16 09:00 Anion Gap 18 (10-20) 07/20/16 09:00 BUN 31 mg/dL (7-21) H 07/20/16 09:00 Creatinine 1.7 mg/dL (0.5-1.4) H 07/20/16 09:00 Est GFR ( Amer) 35 07/20/16 09:00 Est GFR (Non-Af Amer) 29 07/20/16 09:00 Random Glucose 121 mg/dL (70-110) H 07/20/16 09:00 Calcium 9.5 mg/dL (8.4-10.5) 07/20/16 09:00 Total Bilirubin 0.4 mg/dL (0.2-1.3) 07/20/16 09:00 AST 25 U/L (15-39) 07/20/16 09:00 ALT 23 U/L (7-56) 07/20/16 09:00 Alkaline Phosphatase 111 U/L (38-133) 07/20/16 09:00 Total Protein 7.5 g/dL (5.8-8.3) 07/20/16 09:00 Albumin 4.1 g/dL (3.0-4.8) 07/20/16 09:00 Globulin 3.5 gm/dL 07/20/16 09:00 Albumin/Globulin Ratio 1.2 (1.1-1.8) 07/20/16 09:00 - Hospital Course Hospital Course: 86 female with pmh of hypothyroidism, CHF and HTN was admitted to hospital for generalized weakness with a feeling of dizziness and nausea x 1 hour. In the ED the basic lab work was done. EKG showed NSR with questionable septal infarct with un determinant age. Repeat EKG showed no changes. Troponin was neg. CXR on admission showed no active disease. CT head was negative. She was admitted for near syncopal episode secondary to dehydration. Carotid US showed bilateral proximal ICA stenosis 20-39%. Neurology was consulted and stated that lightheadedness is likely due to dehydration. Cardiology was also consulted and stated dehydration is likely the cause of patient's lightheadedness. Psych was also consulted and stated that patient likely has chronic schizoaffective d/ o and was started on Abilify. Patient's lightheadedness resolved. She was transferred to the TCU for further rehab and deconditioning. Today pt states that she is dong well. No complaints. Denies any Gil, dizziness, f/c, sob, cp, abd pain, n/v/d, urinary or bm changes. Dx Near syncopy / dehydration / weakness Discharge Exam - Head Exam Head Exam: ATRAUMATIC, NORMAL INSPECTION, NORMOCEPHALIC - Eye Exam Eye Exam: EOMI, Normal appearance, PERRL Pupil Exam: NORMAL ACCOMODATION, PERRL - ENT Exam ENT Exam: Mucous Membranes Moist - Respiratory Exam Respiratory Exam: Clear to PA & Lateral, NORMAL BREATHING PATTERN. absent: Rales, Rhonchi, Wheezes - Cardiovascular Exam Cardiovascular Exam: REGULAR RHYTHM, RRR, +S1, +S2 - GI/Abdominal Exam GI & Abdominal Exam: Soft. absent: Distended, Tenderness - Neurological Exam Neurological exam: Alert, Oriented x3, Reflexes Normal - Psychiatric Exam Psychiatric exam: Normal Affect, Normal Mood - Skin Skin Exam: Dry, Intact, Normal Color, Warm Discharge Plan - Discharge Medications Prescriptions: Nystatin [Mycostatin Oint] 1 unit TP PRN PRN #1 tube PRN Reason: Rash - Follow Up Plan Condition: GOOD Disposition: HOME/ ROUTINE Instructions: Fall Prevention for Older Adults (GEN), Weakness (GEN), Near Syncope (ED) Additional Instructions: Follow up with your primary doctor with in 1 week. Follow up with your cardiology with in the next few weeks. If any of your symptoms re occur return to the closest ED. Please take your medication as prescribed. Referrals: Minesh Faith MD [Staff Provider] - Bud Jack MD [Staff Provider] - Nam Rosales MD [Staff Provider] - <Cast,Irfana B - Last Filed: 07/20/16 15:54> Provider - Provider Date of Admission: 07/14/16 13:08 Attending physician: Burt Cast MD Hospital Course - Lab Results Lab Results: Most Recent Lab Values WBC 9.0 10^3/ul (4.5-11.0) 07/19/16 09:29 RBC 3.80 10^6/uL (3.5-6.1) 07/19/16 09: Hgb 11.1 gm/dL (12.0-16.0) L 07/19/16 09:29 Hct 34.4 % (36.0-48.0) L 07/19/16 09: MCV 90.5 fL (80.0-105.0) 07/19/16 09: MCH 29.2 pg (25.0-35.0) 07/19/16 09: MCHC 32.3 g/dl (31.0-37.0) 07/19/16 09: RDW 14.2 % (11.5-14.5) 07/19/16 09: Plt Count 242 10^3/uL (120.0-450.0) 07/19/16 09: MPV 10.2 fl (7.0-11.0) 07/19/16 09: Gran % 67.6 % (50.0-68.0) 07/19/16 09:29 Lymph % (Auto) 20.0 % (22.0-35.0) L 07/19/16 09:29 [place] % (Auto) 7.5 % (1.0-6.0) H 07/19/16 09:29 Eos % (Auto) 4.3 % (1.5-5.0) 07/19/16 09: Baso % (Auto) 0.6 % (0.0-3.0) 07/19/16 09: Gran # 6.09 (1.4-6.5) 07/19/16 09:29 Lymph # 1.8 (1.2-3.4) 07/19/16 09:29 [place] # 0.7 (0.1-0.6) H 07/19/16 09:29 Eos # 0.4 (0.0-0.7) 07/19/16 09:29 Baso # 0.05 K/mm3 (0.0-2.0) 07/19/16 09:29 Sodium 138 mmol/L (132-148) 07/20/16 09:00 Potassium 4.6 mmol/L (3.6-5.0) 07/20/16 09:00 Chloride 104 mmol/L (95-110) 07/20/16 09:00 Carbon Dioxide 21 mmol/L (21-33) 07/20/16 09:00 Anion Gap 18 (10-20) 07/20/16 09:00 BUN 31 mg/dL (7-21) H 07/20/16 09:00 Creatinine 1.7 mg/dL (0.5-1.4) H 07/20/16 09:00 Est GFR ( Amer) 35 07/20/16 09:00 Est GFR (Non-Af Amer) 29 07/20/16 09:00 Random Glucose 121 mg/dL (70-110) H 07/20/16 09:00 Calcium 9.5 mg/dL (8.4-10.5) 07/20/16 09:00 Total Bilirubin 0.4 mg/dL (0.2-1.3) 07/20/16 09:00 AST 25 U/L (15-39) 07/20/16 09:00 ALT 23 U/L (7-56) 07/20/16 09:00 Alkaline Phosphatase 111 U/L (38-133) 07/20/16 09:00 Total Protein 7.5 g/dL (5.8-8.3) 07/20/16 09:00 Albumin 4.1 g/dL (3.0-4.8) 07/20/16 09:00 Globulin 3.5 gm/dL 07/20/16 09:00 Albumin/Globulin Ratio 1.2 (1.1-1.8) 07/20/16 09:00 Attending/Attestation - Attestation I have personally seen and examined this patient.: Yes I have fully participated in the care of the patient.: Yes I have reviewed all pertinent clinical information, including history, physical exam and plan: Yes Notes (Text): I have seen and examined the patient at bedside with the resident in TCU. Agree with the above note. This is a 86 year old female with history of hypothyroidism, congestive heart failure, CKD and hypertension who got admitted for evaluation of generalized weakness, dizziness, nausea and dysuria which has been resolved. She has been participating in PT. Denies any complaints today and wants to go home tomorrow. Creatinine noted to be 1.[address] Goodson. Plan to discontinue aldactone. Upon discharge the patient will follow-up with PMD , Dr Ivory flow worker and cardiology Dr. Lambert. Dr Burt Cast
== END 2016-07-20 14:24 | disposition home or self-care (01) | DRG 945 ==
LOC: TRCU 13:08
PROVIDERS: ADMIT Internal Medicine; ATTEND Hospitalist
PROC: F07Z9FZ Gait Training/Functional Ambulation Treatment using Assistive, Adaptive, Supportive or Protective Equipment (ICD-10-PCS; principal; 2016-07-16)
PROC: F07L6YZ Therapeutic Exercise Treatment of Musculoskeletal System - Lower Back / Lower Extremity using Other Equipment (ICD-10-PCS; 2016-07-16)
PROC: F07Z8FZ Transfer Training Treatment using Assistive, Adaptive, Supportive or Protective Equipment (ICD-10-PCS; 2016-07-16)
PROC: F08Z1ZZ Dressing Techniques Treatment (ICD-10-PCS; 2016-07-18)
DX: R53.1 Weakness (principal); R53.81 Other malaise; R26.89 Other abnormalities of gait and mobility; E86.0 Dehydration; I13.0 Hypertensive heart and chronic kidney disease with heart failure and stage 1 through stage 4 chronic kidney disease, or unspecified chronic kidney disease; I50.9 Heart failure, unspecified; N18.9 Chronic kidney disease, unspecified; R55 Syncope and collapse; E03.9 Hypothyroidism, unspecified; F25.9 Schizoaffective disorder, unspecified; I65.23 Occlusion and stenosis of bilateral carotid arteries; K21.9 Gastro-esophageal reflux disease without esophagitis; E78.5 Hyperlipidemia, unspecified; Z87.891 Personal history of nicotine dependence; Z88.2 Allergy status to sulfonamides; Z88.0 Allergy status to penicillin

== ENCOUNTER 2016-11-20 14:21 | Inpatient (IN) | payer MEDICARE, BC ==
[2016-11-20 14:44] VITALS: BMI 39.2
--- NOTE | 2016-11-20 15:15 | ED PDOC ---
Arrival/HPI - General Chief Complaint: Dizziness/Lightheaded Time Seen by Provider: 11/20/16 14:29 Historian: Patient - History of Present Illness Narrative History of Present Illness (Text): 11/20/16 15:12 86 yo female with h/o CHF, HTN, CKD, Hypothyroidism presents to the ED c/o weakness and lightheadedness since yesterday. States she's been progressively getting worse and she can barely stand up. She tried to stand up and felt so lightheaded she almost passed out. She denies any fever, chills or bodyaches. No chest pain or shortness of breathe. She went to the [facility] Urgent care center today and they told her could possibly have a UTI but she's not sure if they gave her antibiotics. She was told she also had herpes zoster to her left thigh and prescribed Famcyclovir but she didn't want to take it because it would harm her kidneys she thought. She said she noticed a vesicle x1 on his left leg for several days that is painful to touch. PMD: Dr. Leroy but now goes to Dr. Smith Past Medical History - Provider Review Nursing Documentation Reviewed: Yes - Infectious Disease Hx of Infectious Diseases: None - Tetanus Immunization Tetanus Immunization: Unknown - Cardiac Hx Cardiac Disorders: Yes Hx Congestive Heart Failure: Yes Hx Hypertension: Yes - Pulmonary Hx Respiratory Disorders: Yes Hx Pneumonia: Yes - Neurological Hx Neurological Disorder: Yes Hx Dizziness: Yes (vertigo) - HEENT Hx HEENT Disorder: Yes (cahto) - Renal Hx Renal Disorder: No - Endocrine/Metabolic Hx Hypothyroidism: Yes - Hematological/Oncological Hx Cancer: Yes (basal cell left nicolasa 12/2013) - Integumentary Hx Dermatological Disorder: Yes Hx Basal Cell Carcinoma: Yes - Musculoskeletal/Rheumatological Hx Arthritis: Yes - Gastrointestinal Hx Gastrointestinal Disorders: No - Genitourinary/Gynecological Hx Genitourinary Disorders: Yes Hx Incontinence: Yes (STRESS) - Psychiatric Hx Psychophysiologic Disorder: Yes Hx Anxiety: Yes Hx Depression: Yes Hx Substance Use: No - Past Surgical History Past Surgical History: Non-Contributing - Surgical History Other/Comment: benign right breast cyst - Anesthesia Hx Anesthesia: No Hx Anesthesia Reactions: No Hx Malignant Hyperthermia: No - Suicidal Assessment Feels Threatened In Home Enviroment: No Family/Social History - Physician Review Nursing Documentation Reviewed: Yes Family/Social History: No Known Family HX Smoking Status: Never Smoked Hx Alcohol Use: No Hx Substance Use: No Hx Substance Use Treatment: No Allergies/Home Meds Allergies/Adverse Reactions: Allergies ciprofloxacin [From Cipro] Allergy (Verified 07/14/16 14:10) .unknown ciprofloxacin HCl [From Cipro] Allergy (Verified 07/14/16 14:10) .unknown pneumococcal vaccine Allergy (Verified 07/14/16 14:10) RASH sulfamethoxazole [From Bactrim] Allergy (Verified 07/14/16 14:10) RASH trimethoprim [From Bactrim] Allergy (Verified 07/14/16 14:10) RASH nitrofurantoin Adverse Reaction (Verified 07/14/16 14:10) RASH Penicillins Adverse Reaction (Verified 07/14/16 14:10) SWELLING Home Medications: Home Meds Medication Instructions Recorded Confirmed Levothyroxine Sodium [Unithroid] 25 mcg PO DAILY 12/05/15 11/20/16 Famciclovir [Famvir] 1 tab PO Q8H 11/20/16 11/20/16 Furosemide [Lasix] 1 tab PO DAILY 11/20/16 11/20/16 Metoprolol Succinate [Toprol XL] 1 tab PO DAILY 11/20/16 11/20/16 Review of Systems - Physician Review All systems were reviewed & negative as marked: Yes - Review of Systems Constitutional: Normal. absent: Fevers Eyes: Normal ENT: Normal Respiratory: Normal. absent: SOB Cardiovascular: Normal. absent: Chest Pain Gastrointestinal: Normal Genitourinary Female: Normal Musculoskeletal: Normal Skin: Normal Neurological: Other (weakness, lightheaded) Endocrine: Normal Hemo/Lymphatic: Normal Psychiatric: Normal Physical Exam Vital Signs Reviewed: Yes Vital Signs Temp Pulse Resp BP Pulse Ox 11/20/16 15:59 71 18 138/65 99 11/20/16 14:30 97.9 F 76 19 142/63 99 Temperature: Afebrile Blood Pressure: Normal Pulse: Regular Respiratory Rate: Normal Appearance: Positive for: Well-Appearing, Non-Toxic, Comfortable Pain Distress: None Mental Status: Positive for: Alert and Oriented X 3 - Systems Exam Head: Present: Atraumatic, Normocephalic Pupils: Present: PERRL Extroacular Muscles: Present: EOMI Conjunctiva: Present: Normal Mouth: Present: Moist Mucous Membranes Neck: Present: Normal Range of Motion Respiratory/Chest: Present: Clear to Auscultation, Good Air Exchange. No: Respiratory Distress, Accessory Muscle Use Cardiovascular: Present: Regular Rate and Rhythm, Normal S1, S2. No: Murmurs Abdomen: Present: Normal Bowel Sounds. No: Tenderness, Distention, Peritoneal Signs Back: Present: Normal Inspection Upper Extremity: Present: Normal Inspection. No: Cyanosis, Edema Lower Extremity: Present: Normal Inspection. No: Edema Neurological: Present: GCS=15, CN II-XII Intact, Speech Normal Skin: Present: Warm, Dry, Normal Color, Other (3mm vesicle x1 on left thigh that is tender to touch. No erythema.). No: Rashes Psychiatric: Present: Alert, Oriented x 3, Normal Insight, Normal Concentration Medical Decision Making ED Course and Treatment: 11/20/16 15:18 86 yo female with weakness and lightheadedness r/o ACS vs Electrolyte abnormalities vs UTI/Infection -- Labs -- EKG -- CXR -- Orthostatics -- Finger stick 11/20/16 17:13 Patients labs reviewed. UA negative for UTI, only trace blood. CXR reviewed. Patient having difficulty ambulating. She feel lightheadedness when I stand her up and very weak. I discussed the case with Dr. Sanchez who admit for Dr. Smith and he will take her on his service. - Lab Interpretations Lab Results: 11/20/16 13:50 11/20/16 13:50 Lab Results 11/20/16 15:56: Urine Color Yellow, Urine Appearance Clear, Urine pH 7.5, Ur Specific [place] 1.010, Urine Protein Negative, Urine Glucose (UA) Negative, Urine Ketones Negative, Urine Blood Moderate H, Urine Nitrate Negative, Urine Bilirubin Negative, Urine Urobilinogen 0.2, Ur Leukocyte Esterase Negative, Urine RBC 2 - 5, Urine WBC 0 - 2, Ur Epithelial Cells 0 - 2 11/20/16 13:50: Sodium 137, Potassium 4.9, Chloride 97 L, Carbon Dioxide 31, Anion Gap 14, BUN 27 H, Creatinine 1.5 H, Est GFR ( Amer) 40, Est GFR ( Non-Af Amer) 33, Random Glucose 90, Calcium 9.4, Magnesium 1.9, Total Bilirubin 0.4, AST 40 H, ALT 33, Alkaline Phosphatase 118, Lactate Dehydrogenase 661, Total Creatine Kinase 141, Troponin I < 0.01, NT-Pro-B Natriuret Pep 526 H, Total Protein 7.5, Albumin 4.2, Globulin 3.3, Albumin/Globulin Ratio 1.3 11/20/16 13:50: PT 10.7, INR 0.99, APTT 32.9 H 11/20/16 13:50: WBC 8.3, RBC 3.90, Hgb 11.5 L, Hct 34.8 L, MCV 89.2, MCH 29.5, MCHC 33.0, RDW 14.2, Plt Count 223, MPV 10.0, Gran % 71.5 H, Lymph % (Auto) 19.3 L, [place] % (Auto) 7.4 H, Eos % (Auto) 1.3 L, Baso % (Auto) 0.5, Gran # 5.96 , Lymph # 1.6, [place] # 0.6, Eos # 0.1, Baso # 0.04 - RAD Interpretation Radiology Orders: 11/20/16 15:01 CHEST PORTABLE [RAD] Stat - EKG Interpretation Interpreted by ED Physician: Yes (NSR at 68 bpm with PVCs, no ST elevations, nl intervals) Comparison: Com.w/previous EKG Disposition/Present on Arrival - Present on Arrival Any Indicators Present on Arrival: No History of DVT/PE: No History of Uncontrolled Diabetes: No Urinary Catheter: No History of Decub. Ulcer: No History Surgical Site Infection Following: None - Disposition Have Diagnosis and Disposition been Completed?: Yes Diagnosis: Weakness, Near syncope Disposition: HOSPITALIZED Disposition Time: 17:14 Patient Plan: Observation Condition: FAIR Discharge Instructions (ExitCare): Weakness (ED) Referrals: Padmini Smith MD [Primary Care Provider] - Follow up with primary Forms: [employer] (Tongan)
--- NOTE | 2016-11-20 15:25 | RAD ---
HISTORY: near syncope COMPARISON: 07/10/2016. FINDINGS: LUNGS: The lungs are well inflated. There is left lower lobe atelectasis. No focal consolidation. PLEURA: No significant pleural effusion identified, no pneumothorax apparent. CARDIOVASCULAR: Normal. OSSEOUS STRUCTURES: There is an S-shaped scoliosis in the thoracolumbar spine. VISUALIZED UPPER ABDOMEN: Normal. OTHER FINDINGS: None. IMPRESSION: Left lower lobe atelectasis. No acute findings.
[2016-11-20 16:13] LABS: PH,URINE 7.5 (4.7-8.0); URINE BILIRUBIN NEGATIVE (NEGATIVE); URINE BLOOD MODERATE (NEGATIVE); URINE GLUCOSE (UA) NEGATIVE (NEGATIVE); URINE KETONE NEGATIVE (NEGATIVE); URINE LEUKOCYTE ESTERASE NEGATIVE Leu/uL (NEGATIVE); URINE PROTEIN NEGATIVE mg/dL (<30 mg/dL); URINE UROBILINOGEN 0.2 E.U./dL (<1 E.U./dL)
[2016-11-20 16:14] LABS: URINE APPEARANCE CLEAR (CLEAR); URINE COLOR YELLOW (YELLOW)
[2016-11-20 16:18] LABS: BASO # 0.04 K/mm3 (0.0-2.0); BASO % 0.5 % (0.0-3.0); EOS # 0.1 (0.0-0.7); EOS % 1.3 % (1.5-5.0); GRAN # 5.96 (1.4-6.5); GRAN % 71.5 % (50.0-68.0); HEMATOCRIT 34.8 % (36.0-48.0); LYMPH # 1.6 (1.2-3.4); LYMPH % 19.3 % (22.0-35.0); MEAN CELL VOLUME 89.2 fl (80.0-105.0); MEAN CORPUSCULAR HEMOGLOBIN 29.5 pg (25.0-35.0); MONO # 0.6 (0.1-0.6); MONO % 7.4 % (1.0-6.0); RED CELL DISTRIBUTION WIDTH 14.2 % (11.5-14.5); WHITE BLOOD COUNT 8.3 10^3/ul (4.5-11.0)
[2016-11-20 16:23] LABS: ALB/GLOB RATIO 1.3 (1.1-1.8); ALKALINE PHOSPHATASE 118 U/L (38-133); ALT/SGPT 33 U/L (7-56); AST/SGOT 40 U/L (15-39); BILIRUBIN,TOTAL 0.4 mg/dL (0.2-1.3); BLOOD UREA NITROGEN 27 mg/dL (7-21); CALCIUM 9.4 mg/dL (8.4-10.5); CARBON DIOXIDE 31 mmol/L (21-33); CHLORIDE 97 mmol/L (98-107); GFR AFRICAN-AMERICAN 40; GLUCOSE,RANDOM 90 mg/dL (70-110); MAGNESIUM 1.9 mg/dL (1.7-2.2); POTASSIUM 4.9 mmol/L (3.6-5.0); SODIUM 137 mmol/L (132-148); TOTAL PROTEIN 7.5 g/dL (5.8-8.3)
[2016-11-20 16:25] LABS: URINE EPITHELIAL CELLS 0 - 2 /hpf (0-5); URINE WBC 0 - 2 /hpf (0-6)
[2016-11-20 16:27] LABS: INR 0.99 (0.93-1.08); PARTIAL THROMBOPLASTIN TIME 32.9 Seconds (23.7-30.8)
[2016-11-20 16:36] LABS: TROPONIN I < 0.01 ng/mL
--- NOTE | 2016-11-20 18:52 | CARD ---
APPROVED REPORT EKG Measurement Heart [id number] <Conclusion> Sinus rhythm with frequent premature ventricular complexes Otherwise normal ECG
[2016-11-21] MEDS ORDERED: Acyclovir 500 MG in Sodium Chloride 0.9% 100 ML IV SCH (06:00)
[2016-11-21] MEDS: Levothyroxine 25 MCG TAB PO SCH (08:47)
[2016-11-21] MEDS ORDERED: Sodium Chloride 0.9% 1,000 ML IV SCH (09:45)
[2016-11-21] MEDS: Metoprolol Succinate 50 mg XL Tab PO SCH (10:30)
[2016-11-21] MEDS: Enoxaparin 30 mg Syringe SC SCH (10:50)
[2016-11-21 12:11] LABS: CALCIUM 9.2 mg/dL (8.4-10.5); POTASSIUM 4.7 mmol/L (3.6-5.0)
--- NOTE | 2016-11-21 12:23 | CP.PCM.CON ---
History of Present Illness - History of Present Illness History of Present Illness: 86 year old female with PMH of chronic CHF, HTN, chronic renal failure, hypothyroidism, obesity with BMI 39 came in to [facility] because of weakness and lightheadedness since a day prior to admission, to a point where she felt she was going to pass out. She went to the urgent care center and was told she may have a UTI, as well as possible herpes zoster on the left thigh. She was prescribed antibiotic and antiviral medications but she did not take those. She states that she had the left thigh small vesicular lesion for about a week now and it was larger previously. She self-medicated with Neosporin and bacitracin and she has noticed some improvement. She had not had shingles in the past, and she states that she received the shingles vaccine 4 years ago from her primary care doctor. She also did not note any spread of the lesion and it remained a solitary lesion. She denies fever or chills, no dysuria , no nausea or vomiting, no chest pain, no SOB, no headache or dizziness, no abdominal pain, no diarrhea. Infectious Diseases consult is requested to further evaluate and manage. Review of Systems - Review of Systems All systems: reviewed and no additional remarkable complaints except (as per HPI ) Past Patient History - Infectious Disease Hx of Infectious Diseases: None - Tetanus Immunizations Tetanus Immunization: Unknown - Past Social History Smoking Status: Never Smoked - CARDIAC Hx Cardiac Disorders: Yes Hx Congestive Heart Failure: Yes Hx Hypertension: Yes - PULMONARY Hx Respiratory Disorders: Yes Hx Pneumonia: Yes - NEUROLOGICAL Hx Neurological Disorder: Yes Hx Dizziness: Yes (vertigo) - HEENT Hx HEENT Problems: Yes ([place]) - RENAL Hx Chronic Kidney Disease: No - ENDOCRINE/METABOLIC Hx Endocrine Disorders: Yes Hx Hypothyroidism: Yes - HEMATOLOGICAL/ONCOLOGICAL Hx Blood Disorders: Yes Hx Cancer: Yes (basal cell left nicolas[place] 12/2013) Other/Comment: LEFT THIGH WITH ONE SMALL VESICLE -HERPES ZOSTER 11-20-16 - INTEGUMENTARY Hx Dermatological Problems: Yes Hx Basil Cell: Yes (LEFT ARM 2013) Other/Comment: ONE SMALL VESICLE TO LEFT THIGH-HERPES ZOSTER 11-20-16 - MUSCULOSKELETAL/RHEUMATOLOGICAL Hx Musculoskeletal Disorders: Yes Hx Arthritis: Yes Hx Falls: Yes Hx Unsteady Gait: Yes (WALKER) - GASTROINTESTINAL Hx Gastrointestinal Disorders: Yes (OBESE) - GENITOURINARY/GYNECOLOGICAL Hx Genitourinary Disorders: Yes Hx Incontinence: Yes (STRESS) - PSYCHIATRIC Hx Psychophysiologic Disorder: Yes Hx Anxiety: Yes Hx Depression: Yes Hx Substance Use: No - SURGICAL HISTORY Hx Surgeries: Yes Other/Comment: benign right breast cyst - ANESTHESIA Hx Anesthesia: No Hx Anesthesia Reactions: No Hx Malignant Hyperthermia: No Meds Allergies/Adverse Reactions: Allergies Allergy/AdvReac Type Severity Reaction Status Date / Time ciprofloxacin [From Cipro] Allergy .unknown Verified 11/20/16 20:55 ciprofloxacin HCl Allergy .unknown Verified 11/20/16 20:55 [From Cipro] pneumococcal vaccine Allergy RASH Verified 11/20/16 20:55 sulfamethoxazole Allergy RASH Verified 11/20/16 20:55 [From Bactrim] trimethoprim [From Bactrim] Allergy RASH Verified 11/20/16 20:55 nitrofurantoin AdvReac RASH Verified 11/20/16 20:55 Penicillins AdvReac SWELLING Verified 11/20/16 20:55 - Medications Medications: Current Medications Acetaminophen (Tylenol 325mg Tab) 650 mg PO Q4H PRN PRN Reason: Pain, Mild (1-3) Aripiprazole (Abilify) 2.5 mg PO HS GALA Acyclovir 500 mg/ Sodium (Chloride) 100 mls @ 100 mls/hr IV Q8 GALA PRN Reason: Protocol Stop: 11/28/16 06:01 Last Admin: 11/21/16 06:11 Dose: 100 mls/hr Levothyroxine Sodium (Synthroid) 25 mcg PO ACB GALA Metoprolol Succinate (Toprol Xl) 50 mg PO DAILY GALA Physical Exam - Constitutional Appears: Non-toxic, No Acute Distress - Head Exam Head Exam: NORMAL INSPECTION - ENT Exam ENT Exam: Mucous Membranes Moist - Neck Exam Neck exam: Negative for: Lymphadenopathy, Meningismus - Respiratory Exam Respiratory Exam: Decreased Breath Sounds - Cardiovascular Exam Cardiovascular Exam: +S1, +S2 - GI/Abdominal Exam GI & Abdominal Exam: Soft. absent: Tenderness - Extremities Exam Additional comments: left thigh with one solitary lesion which is papular, no surrounding erythema and no other skin lesion noted in the area; mild tenderness noted, no pus, bleeding or discharge noted Results - Vital Signs Recent Vital Signs: Last Vital Signs Temp 97.9 F 11/20/16 22:48 Pulse 68 11/20/16 22:48 Resp 18 11/20/16 22:48 BP 135/61 11/20/16 22:48 Pulse Ox 99 11/20/16 17:38 - Labs Result Diagrams: 11/20/16 13:50 11/20/16 13:50 Assessment & Plan - Assessment and Plan (Free Text) Plan: Assessment Solitary papular /papulovesicular lesion probably skin and skin structure infection, unlikely Herpes-Zoster chronic CHF HTN chronic renal failure hypothyroidism obesity with BMI 39 Plan Will order Bactroban ointment; will d/c Acyclovir and isolation will monitor clinically
[2016-11-21 16:56] VITALS: O2SAT 99
--- NOTE | 2016-11-21 23:57 | HP ---
DATE OF EVALUATION: 11/21/2016 ADMISSION NOTE HISTORY OF PRESENT ILLNESS: Ms. Bales is an 86-year-old female presented to the ED with extreme fatigue, weakness and inability to walk. She felt lightheaded. Denies any shortness of breath. She has a history of hypertension and congestive cardiac failure. She also has chronic kidney disease. She also reported one single vesicle on the left thigh for several days. Congestive heart failure has been under control with cardiac medications. Renal functions have been stable in recent past. She has also history of vertigo in the past. History of basal cell carcinoma in the past, no evidence of recurrence. PAST MEDICAL HISTORY: Hypertension, CHF, dizziness, chronic kidney disease stage III, history of basal cell carcinoma, anxiety, depression. PAST SURGICAL HISTORY: Right benign breast cyst. FAMILY HISTORY: Noncontributory. PERSONAL HISTORY: Nonsmoker, no history of alcohol abuse. ALLERGIES: PENICILLIN, CIPROFLOXACIN, BACTRIM, NITROFURANTOIN. HOME MEDICATION: Levothyroxine, famciclovir, Lasix, metoprolol. REVIEW OF SYSTEMS: As per HPI. Rest of 12 point review of system reviewed negative. PHYSICAL EXAMINATION GENERAL: Comfortable in bed in no acute distress. VITAL SIGNS: Temperature 97.9, heart rate is 76 per minute, respiratory 19 per minute, blood pressure 140/60, pulse ox is 99% on room air. HEENT: Head atraumatic, normocephalic. Oral mucosa moist. NECK: Supple. CHEST: Air entry present and equal bilateral. No added sound. CARDIOVASCULAR: Exam within normal limits. ABDOMEN: Soft, nontender. No hepatosplenomegaly. EXTREMITIES: No edema. Left thigh small single vesicular lesion present. No edema, no pus discharge. LABORATORY DATA: Hemoglobin 11.5, hematocrit 34.8, platelet count 223, white count 8.3. Sodium 137, potassium 4.9, creatinine 1.5, glucose 90. ASSESSMENT AND PLAN: 1. Near syncope. 2. Mild anemia. 3. Granulocytosis. 4. Hypertension. 5. Chronic kidney disease. 6. Single vesicular lesion, left thigh. PLAN: Admission to the hospital. IV fluid 60 mL an hour, hold Lasix. Mild dehydration. Infectious disease consultation to rule out shingles. Levothyroxine 75 mcg daily. Metoprolol 50 mg daily. Zofran 4 mg IV q. 6 hours p.r.n. Kaci Hawk MD [facility] # [id number]
[2016-11-22] MEDS ORDERED: Pantoprazole 40 mg EC Tab PO SCH (06:00)
--- NOTE | 2016-11-22 06:26 | CP.PCM.PN ---
Subjective - Date & Time of Evaluation Date of Evaluation: 11/22/16 Time of Evaluation: 06:42 - Subjective Subjective: Patient was seen at bedside. Nurse called and told that her BP is 170/58,HR 68/min and she is asymptomatic. She has little heaviness in the head. She has no other complaints. Denies dizziness, chest pain, sob, paraesthesia, weakness. This 86 year old woman was admitted with fatigue , weakness and inability to walk. Has PMH of HTN, CHF, dizziness, CKD stage III, basal cell carcinoma, anxiety, depression. Objective - Vital Signs/Intake and Output Vital Signs (last 24 hours): Temp Pulse Resp BP Pulse Ox 97.6 F 62 18 120/60 99 11/21/16 16:00 11/22/16 02:00 11/21/16 16:00 11/21/16 16:00 11/21/16 16:00 Intake and Output: 11/21/16 11/22/16 18:59 06:59 Intake Total 800 660 Output Total 200 600 Balance 600 60 - Medications Medications: Current Medications Acetaminophen (Tylenol 325mg Tab) 650 mg PO Q4H PRN PRN Reason: Pain, Mild (1-3) Aripiprazole (Abilify) 2.5 mg PO HS [facility] Last Admin: 11/21/16 21:13 Dose: 2.5 mg Enoxaparin Sodium (Lovenox) 30 mg SC DAILY [facility] PRN Reason: Protocol Last Admin: 11/21/16 10:50 Dose: 30 mg Furosemide (Lasix) 20 mg PO DAILY [facility] Last Admin: 11/21/16 10:55 Dose: 20 mg Levothyroxine Sodium (Synthroid) 25 mcg PO ACB [facility] Last Admin: 11/21/16 08:47 Dose: 25 mcg Metoprolol Succinate (Toprol Xl) 50 mg PO DAILY [facility] Last Admin: 11/21/16 10:30 Dose: 50 mg Mupirocin (Bactroban Ointment) 0 gm TOP BID [facility] Ondansetron HCl (Zofran Inj) 4 mg IVP Q6H PRN PRN Reason: Nausea/Vomiting Pantoprazole Sodium (Protonix Ec Tab) 40 mg PO 0600 [facility] - Labs Labs: 11/21/16 11:30 PT 10.7 Seconds (9.9-11.8) 11/20/16 13:50 INR 0.99 (0.93-1.08) 11/20/16 13:50 APTT 32.9 Seconds (23.7-30.8) H 11/20/16 13:50 - Constitutional Appears: Well, No Acute Distress - Head Exam Head Exam: ATRAUMATIC, NORMAL INSPECTION, NORMOCEPHALIC - Eye Exam Eye Exam: Normal appearance - ENT Exam ENT Exam: Normal External Ear Exam - Neck Exam Neck Exam: Normal Inspection - Respiratory Exam Respiratory Exam: NORMAL BREATHING PATTERN - Cardiovascular Exam Cardiovascular Exam: absent: JVD - GI/Abdominal Exam GI & Abdominal Exam: absent: Distended - Rectal Exam Rectal Exam: Deferred - Exam Additional comments: Deferred. - Extremities Exam Extremities Exam: Normal Inspection - Back Exam Back Exam: NORMAL INSPECTION - Neurological Exam Neurological Exam: Alert, Awake - Psychiatric Exam Psychiatric exam: Normal Affect, Normal Mood - Skin Skin Exam: Normal Color Assessment and Plan - Assessment and Plan (Free Text) Assessment: Elevated blood pressure reading. Hypertension. CHF. Dizziness. CKD stage III Anxiety. Depression. Plan: Give lasix 20 mg PO now instead of giving it at 10:00 AM. Lopressor 50 mg po now instead of at 10 AM. Continue present management.
[2016-11-22] MEDS: Metoprolol Succinate 50 mg XL Tab PO SCH ×2 (06:36→10:58)
[2016-11-22 06:39] VITALS: BP 170/58; PULSE 67
[2016-11-22 07:44] LABS: BASO # 0.04 K/mm3 (0.0-2.0); BASO % 0.5 % (0.0-3.0); EOS # 0.2 (0.0-0.7); EOS % 2.8 % (1.5-5.0); GRAN # 4.79 (1.4-6.5); GRAN % 63.2 % (50.0-68.0); HEMATOCRIT 33.7 % (36.0-48.0); LYMPH # 1.9 (1.2-3.4); LYMPH % 25.2 % (22.0-35.0); MEAN CELL VOLUME 90.6 fl (80.0-105.0); MEAN CORPUSCULAR HEMOGLOBIN 28.5 pg (25.0-35.0); MEAN CORPUSCULAR HGB CONC 31.5 g/dl (31.0-37.0); MEAN PLATELET VOLUME 10.6 fl (7.0-11.0); MONO # 0.6 (0.1-0.6); MONO % 8.3 % (1.0-6.0); RED CELL DISTRIBUTION WIDTH 14.4 % (11.5-14.5); WHITE BLOOD COUNT 7.6 10^3/ul (4.5-11.0)
[2016-11-22 07:55] LABS: ALB/GLOB RATIO 1.3 (1.1-1.8); BILIRUBIN,TOTAL 0.3 mg/dL (0.2-1.3); POTASSIUM 4.2 mmol/L (3.6-5.0); TOTAL PROTEIN 6.2 g/dL (5.8-8.3)
[2016-11-22 08:01] LABS: IRON 31 ug/dL (45-180)
--- NOTE | 2016-11-22 08:09 | CON ---
DATE: PSYCHIATRIC CONSULTATION HISTORY OF PRESENT ILLNESS: The patient is an 86-year-old female who came to the emergency room due to extreme difficulty walking, she still extremely weak, she has gone to a local clinic who thought she might have herpes zoster. The patient has been on psychiatric care for several decades, I found her every few months in my office. She has been on treated with low dose of Abilify 2 mg per day at that time. She also has a history of somatization. PAST MEDICAL HISTORY: Includes; chronic kidney disease, she also has history of morbid obesity, she has hypothyroidism, and history of hypertension. Many years ago had Psychiatric hospitamizion for Schizoaffective disorder. PERSONAL HISTORY: She has been a for the last year and a half. She has been and lived with her for many years prior to being living in a alf. She has one son with whom she has close contact and his family. The patient has had numerous friends over the years. She was in a condominium in [place]. The patient has no history of alcohol or substance abuse. REVIEW OF SYSTEMS: The patient is extremely oblique, she claims with extreme difficulty walking and she points to a one recent "rash" on her left leg. She also complains of joint pain in her knees. Rest of 12-point review noncontributory. PHYSICAL EXAMINATION: VITAL SIGNS: Blood pressure 157/56, pulse 68, afebrile, respirations 19 per minute. Afebrile. PSYCHIATRIC: Mental status: She is awake, alert, and coherent. Mood is euthymic. She has no hallucinations or other psychotic symptoms. Her memory and insight were all intact. She is oriented x3. Seems that she is very happy to see me. Denies any suicidal ideation, or any evidence of extreme anxiety or depression. CURRENT LABORATORY DATA: White count is 8300, hemoglobin is 12.5, platelet count 223,000. Metabolic profile on admission; sodium 137, potassium 4.9, chloride 97, CO2 of 31, anion gap of 10, BUN 27, creatinine 1.5, estimated GFR 33, calcium 9.4, magnesium and total bilirubin were normal. AST 40, ALT 33, alkaline phosphatase, LDH, total creatine kinase were all normal. Troponin 1 level is less than 0.01, BNP of 526, albumin and globulin are normal. Urinalysis with a moderate amount of blood; however negative for urinary leukocyte esterase. CURRENT MEDICATIONS: Include Lovenox 30 mg daily, Protonix, Synthroid, Toprol 50 mg daily, and also she is prescribed Abilify 2.5 mg at bedtime, and Bactroban ointment topical t.i.d. IMPRESSION: The patient has schizoaffective disorder, she has chronic kidney disease, she has gait dysfunction, obesity, hypothyroidism, and history of hypertension. PLAN: We will continue with Abilify 2.5 mg at bedtime. We will continue to monitor mental status and we will follow as an outpatient. Minesh Faith MD MTDD
[2016-11-22 08:31] VITALS: RESP 20; TEMP 97.9
[2016-11-22] MEDS: Levothyroxine 25 MCG TAB PO SCH (08:40)
[2016-11-22] MEDS: Enoxaparin 30 mg Syringe SC SCH (10:00)
--- NOTE | 2016-11-28 23:24 | DS ---
DATE OF DISCHARGE: 11/22/2016 DISCHARGE DIAGNOSES: 1. Shingles, left thigh, ruled out. 2. Weakness. 3. Syncope. 4. Fatigue. 5. Severe iron deficiency. 6. Coronary artery disease. 7. History of congestive heart failure. 8. Hypertension. HOSPITAL COURSE: The patient was admitted for suspicion of shingles on the left thigh. She also has extreme fatigue and weakness. ID consult was sought. She did not have shingles that was a single papillary lesion, which was very nonspecific. She was evaluated for fatigue, found to have severe iron deficiency. She received 1 dose of IV iron 200 mg during hospitalization. She is being discharged in stable condition. PHYSICAL EXAMINATION ON DISCHARGE: GENERAL: Comfortable in bed in no acute distress. VITAL SIGNS: Temperature 98.7, heart rate is 80 per minute, respiratory 20 per minute, pulse ox 98% on room air. HEENT: Normal. CHEST: Air entry present equal bilateral. No added sound. CARDIOVASCULAR: S1 and S2 normal. No murmur and no gallop. ABDOMEN: Soft, nontender. No hepatosplenomegaly. EXTREMITIES: No edema. Left thigh shingles, no vesicular lesion present, not consistent with herpes, no surrounding erythema. CONDITION ON DISCHARGE: Stable. DISCHARGE DISPOSITION: Home. DISCHARGE MEDICATIONS: Continue home medications. Tylenol 650 q. 4 hours p.r.n., Lasix 20 mg daily, Synthroid 25 mcg daily, Toprol 50 mg daily, Protonix 40 mg daily. She will be scheduled for IV iron as outpatient. Time spent in preparing discharge and coordinating care 50 minutes. Kaci Hawk MD
== END 2016-11-22 13:47 | disposition home or self-care (01) | DRG 312 ==
LOC: ED 14:21 → ERH 17:08 → 3RSO 22:56 → OBSVTOIN 11-21 15:40 → INTOOBSV 11-22 10:15 → OBSVTOIN 11-22 10:15
PROVIDERS: ADMIT Internal Medicine Nephrology; ATTEND Internal Medicine Nephrology
DX: R55 Syncope and collapse (principal); E86.0 Dehydration; I13.0 Hypertensive heart and chronic kidney disease with heart failure and stage 1 through stage 4 chronic kidney disease, or unspecified chronic kidney disease; N18.3 Chronic kidney disease, stage 3 (moderate); I50.9 Heart failure, unspecified; D64.9 Anemia, unspecified; F41.9 Anxiety disorder, unspecified; F32.9 Major depressive disorder, single episode, unspecified; F25.9 Schizoaffective disorder, unspecified; E03.9 Hypothyroidism, unspecified; R26.2 Difficulty in walking, not elsewhere classified; R42 Dizziness and giddiness; E66.9 Obesity, unspecified; Z68.39 Body mass index [BMI] 39.0-39.9, adult; Z85.828 Personal history of other malignant neoplasm of skin; Z88.0 Allergy status to penicillin; Z88.2 Allergy status to sulfonamides

== ENCOUNTER 2016-12-07 14:31 | Inpatient (IN) | payer MEDICARE, BC ==
[2016-12-07 14:36] VITALS: BMI 37.8
[2016-12-07] MEDS ORDERED: Sodium Chloride 0.9% 500 ML IV STA (15:26)
--- NOTE | 2016-12-07 15:37 | ED PDOC ---
Arrival/HPI - General Chief Complaint: Dizziness/Lightheaded Time Seen by Provider: 12/07/16 14:54 Historian: Patient - History of Present Illness Narrative History of Present Illness (Text): 12/07/16 15:41 86 yo female with h/o CHF, HTN, CKD, Hypothyroidism presents to the ED c/o several day h/o generalized weakness, lightheadedness, nausea and abdominal bloating, despite having a normal bowel today. Patient states that she was newly diagnosed with anemia and is getting iron infusions, last was 4 days ago. Otherwise: (-) dizziness, (-) headache, (-) chest pain, (-) SOB, (-) abdominal pain, (-) back pain, (-) rash, (-) URI symptoms, (-) vomiting, (-) diarrhea, (- ) fever, (-) melena, (-) hematochezia. Has no history of prior abdominal surgery. PMD Black Past Medical History - Provider Review Nursing Documentation Reviewed: Yes - Infectious Disease Hx of Infectious Diseases: None - Tetanus Immunization Tetanus Immunization: Unknown - Reproductive Menopause: Yes - Cardiac Hx Cardiac Disorders: Yes Hx Congestive Heart Failure: Yes Hx Hypertension: Yes - Pulmonary Hx Respiratory Disorders: Yes Hx Pneumonia: Yes - Neurological Hx Neurological Disorder: Yes Hx Dizziness: Yes (vertigo) - HEENT Hx HEENT Disorder: Yes (venetie ira) - Renal Hx Renal Disorder: No - Endocrine/Metabolic Hx Hypothyroidism: Yes - Hematological/Oncological Hx Blood Disorders: Yes Hx Cancer: Yes (basal cell left nicolasa 12/2013) Other/Comment: LEFT THIGH WITH ONE SMALL VESICLE -HERPES ZOSTER 11-20-16 - Integumentary Hx Dermatological Disorder: Yes Hx Basal Cell Carcinoma: Yes (LEFT ARM 2013) Other/Comment: ONE SMALL VESICLE TO LEFT THIGH-HERPES ZOSTER 11-20-16 - Musculoskeletal/Rheumatological Hx Arthritis: Yes - Gastrointestinal Hx Gastrointestinal Disorders: Yes (OBESE) - Genitourinary/Gynecological Hx Genitourinary Disorders: Yes Hx Incontinence: Yes (STRESS) - Psychiatric Hx Psychophysiologic Disorder: Yes Hx Anxiety: Yes Hx Depression: Yes Hx Substance Use: No - Past Surgical History Past Surgical History: Non-Contributing - Surgical History Other/Comment: benign right breast cyst - Anesthesia Hx Anesthesia: No Hx Anesthesia Reactions: No Hx Malignant Hyperthermia: No - Suicidal Assessment Feels Threatened In Home Enviroment: No Family/Social History - Physician Review Nursing Documentation Reviewed: Yes Family/Social History: No Known Family HX Smoking Status: Never Smoked Hx Alcohol Use: No Hx Substance Use: No Hx Substance Use Treatment: No Allergies/Home Meds Allergies/Adverse Reactions: Allergies ciprofloxacin [From Cipro] Allergy (Verified 11/20/16 20:55) .unknown ciprofloxacin HCl [From Cipro] Allergy (Verified 11/20/16 20:55) .unknown pneumococcal vaccine Allergy (Verified 11/20/16 20:55) RASH sulfamethoxazole [From Bactrim] Allergy (Verified 11/20/16 20:55) RASH trimethoprim [From Bactrim] Allergy (Verified 11/20/16 20:55) RASH nitrofurantoin Adverse Reaction (Verified 11/20/16 20:55) RASH Penicillins Adverse Reaction (Verified 11/20/16 20:55) SWELLING Home Medications: Home Meds Medication Instructions Recorded Confirmed Levothyroxine Sodium [Unithroid] 25 mcg PO DAILY 12/05/15 12/07/16 Furosemide [Lasix] 1 tab PO DAILY 11/20/16 12/07/16 Metoprolol Succinate [Toprol XL] 1 tab PO DAILY 11/20/16 12/07/16 Review of Systems - Review of Systems Constitutional: Normal, Fatigue. absent: Weight Change, Fevers Respiratory: Normal. absent: SOB, Cough, Sputum Cardiovascular: Normal. absent: Chest Pain, Palpitations, Edema Gastrointestinal: Normal, Nausea. absent: Abdominal Pain, Stool Changes, Vomiting, Appetite Changes Musculoskeletal: Normal. absent: Arthralgias, Back Pain, Neck Pain Skin: Normal, Skin Lesions (prior skin lesion in the L thigh). absent: Rash, Pruritis Neurological: Normal. absent: Headache, Dizziness, Focal Weakness Physical Exam - Physical Exam Narrative Physical Exam (Text): 12/07/16 15:39 GENERAL APPEARANCE: Patient is awake, alert, oriented x 3, in no acute distress. SKIN: Warm, dry; (-) cyanosis. EYES: (-) conjunctival pallor, (-) scleral icterus. ENMT: Mucous membranes dry. NECK: (-) tenderness, (-) stiffness, (-) lymphadenopathy. CHEST AND RESPIRATORY: (-) rales, (-) rhonchi, (-) wheezes; breath sounds equal bilaterally. HEART AND CARDIOVASCULAR: (-) irregularity; (-) murmur, (-) gallop. ABDOMEN AND GI: (-) distention. Bowel sounds active; (-) tenderness (-) guarding, (-) rebound, (-) palpable masses, (-) CVA tenderness. GENITALIA : normal, (-) rashes, (-) d/c. RECTAL : (-) tenderness, (+) brown colored stool, (-) hemorrhoids, (-) stool impaction, guiaic (-). Female EMT, Beryl, was present during the entire exam. EXTREMITIES: (-) deformity, (-) edema, (+) distal pulses. NEURO AND PSYCH: Mental status as above; (-) focal findings. Vital Signs Temp Pulse Resp BP Pulse Ox 12/07/16 19:25 60 18 147/117 H 98 12/07/16 14:31 97.8 F 63 18 185/82 H 99 Medical Decision Making ED Course and Treatment: 12/07/16 15:32 86 yo female with h/o CHF, HTN, CKD, Hypothyroidism presents to the ED c/o generalized weakness, lightheadedness, nausea and abdominal bloating. Previous medical records reviewed, patient was recently kept for observation on 11/21/16 for weakness and near syncope. Plan: -- Labs -- IV fluids -- Urinalysis -- EKG -- CXR -- AXR -- Pepcid / Zofran -- Reassess and disposition EKG: SR w/ occasional PVCs at 70 bpm, (-) acute ST changes, as read by GASTON CXR: NAD, as read by GASTON AXR : no air fluid levels, however images are underpenetrated, as read by GASTON Orthostatics : sitting BP 159/63 P 78 standing BP 156/63 P 63 Lab results reviewed : hgb is stable at 11.2, BUN is 29, possible dehydration as creat is wnl, BNP is stable at 518, compared to prior labs, UA is negative for infection. On re-evaluation, patient reports that she feels well, denies any headache, dizziness, CP, SOB, nausea or abdominal pain. Diagnostic results d/w the patient in great detail. Patient states that she is hungry and thirsty, given cracker and juice. Repeat exam is unchanged, lungs clear, cardiac RRR, abdomen remains soft, no distention, no tenderness, repeat neuro shows no focal findings. Patient tolerated juice and crackers in the ED, still states that she feels well and has no other complaints at this time. Patient attempted to get up and out of bed, had little assistance and attempted to walk in the ED with her walker, however was only able to take a few steps. She states that she feels too weak to stand and feels lightheaded, but not dizzy with no vertigo. She further adds that she lives alone and uses her walker at home to move around. Call placed to Dr. Phillips and case was discussed in great detail. Considering her recent admission for weakness and near syncope, current complaints and the fact that the patient lives alone, decision was made to admit the patient for PT evaluation and possible fall risk. Patient notified of plan for admission to the hospital, which she agrees with. - Lab Interpretations Lab Results: 12/07/16 15:40 12/07/16 15:40 Lab Results 12/07/16 16:30: Urine Color Yellow, Urine Appearance Clear, Urine pH 8.0, Ur Specific [place] 1.010, Urine Protein Negative, Urine Glucose (UA) Negative, Urine Ketones Negative, Urine Blood Negative, Urine Nitrate Negative, Urine Bilirubin Negative, Urine Urobilinogen 0.2, Ur Leukocyte Esterase Negative 12/07/16 15:40: TSH 3rd Generation 2.52 12/07/16 15:40: Sodium 135, Potassium 4.6, Chloride 98, Carbon Dioxide 29, Anion Gap 13, BUN 29 H, Creatinine 1.2, Est GFR ( Amer) 52, Est GFR (Non- Af Amer) 43, Random Glucose 94, Calcium 9.4, Total Bilirubin 0.6, AST 31, ALT 27 , Alkaline Phosphatase 112, Troponin I < 0.01, NT-Pro-B Natriuret Pep 518 H, Total Protein 7.3, Albumin 4.0, Globulin 3.2, Albumin/Globulin Ratio 1.3, Lipase 92 12/07/16 15:40: WBC 8.7, RBC 3.85, Hgb 11.2 L, Hct 34.7 L, MCV 90.1, MCH 29.1, MCHC 32.3, RDW 14.6 H, Plt Count 227, MPV 10.7, Gran % 69.0 H, Lymph % (Auto) 21.9 L, Drew % (Auto) 7.2 H, Eos % (Auto) 1.6, Baso % (Auto) 0.3, Gran # 5.97, Lymph # 1.9, Drew # 0.6, Eos # 0.1, Baso # 0.03 I have reviewed the lab results: Yes - RAD Interpretation Radiology Orders: 12/07/16 15:26 ABD 2 VIEWS (FLAT/UP OR DECUB) [RAD] Stat 12/07/16 15:28 CHEST TWO VIEWS (PA/LAT) [RAD] Stat - Medication Orders Current Medication Orders: Discontinued Medications Aripiprazole (Abilify) 2.5 mg PO HS [facility] Last Admin: 12/07/16 22:59 Dose: 2.5 mg Re-Assess: Reassess Psych Meds Document 12/07/16 23:59 SD (Rec: 12/08/16 06:45 SD [id number]) Reassess Psych Med Effective Famotidine (Pepcid) 20 mg IVP STAT [facility] Stop: 12/07/16 15:27 Last Admin: 12/07/16 16:10 Dose: 20 mg Furosemide (Lasix) 20 mg PO DAILY [facility] Last Admin: 12/08/16 09:19 Dose: 20 mg Sodium Chloride (Sodium Chloride 0.9%) 500 mls @ 1,000 mls/hr IV .Q30M [facility] Stop: 12/07/16 15:55 Last Admin: 12/07/16 16:10 Dose: 1,000 mls/hr Levothyroxine Sodium (Synthroid) 25 mcg PO DAILY [facility] Last Admin: 12/08/16 09:19 Dose: 25 mcg Metoprolol Succinate (Toprol Xl) 50 mg PO DAILY [facility] Last Admin: 12/08/16 09:20 Dose: 50 mg Ondansetron HCl (Zofran Inj) 4 mg IVP STAT [facility] Stop: 12/07/16 15:27 Last Admin: 12/07/16 16:10 Dose: 4 mg Pantoprazole Sodium (Protonix Ec Tab) 40 mg PO 0600 [facility] Last Admin: 12/08/16 06:45 Dose: 40 mg - PA / INSURANCE CLAIMS SPECIALIST / Resident Statement /DO has reviewed & agrees with the documentation as recorded. Disposition/Present on Arrival - Present on Arrival Any Indicators Present on Arrival: No History of DVT/PE: No History of Uncontrolled Diabetes: No Urinary Catheter: No History of Decub. Ulcer: No History Surgical Site Infection Following: None - Disposition Have Diagnosis and Disposition been Completed?: Yes Diagnosis: Weakness, Light-headed Disposition: HOSPITALIZED Disposition Time: 19:00 Patient Plan: Admission Condition: STABLE
[2016-12-07 16:08] LABS: BASO # 0.03 K/mm3 (0.0-2.0); BASO % 0.3 % (0.0-3.0); EOS # 0.1 (0.0-0.7); EOS % 1.6 % (1.5-5.0); GRAN # 5.97 (1.4-6.5); HEMATOCRIT 34.7 % (36.0-48.0); LYMPH # 1.9 (1.2-3.4); LYMPH % 21.9 % (22.0-35.0); MEAN CELL VOLUME 90.1 fl (80.0-105.0); MEAN CORPUSCULAR HEMOGLOBIN 29.1 pg (25.0-35.0); MEAN CORPUSCULAR HGB CONC 32.3 g/dl (31.0-37.0); MEAN PLATELET VOLUME 10.7 fl (7.0-11.0); MONO # 0.6 (0.1-0.6); MONO % 7.2 % (1.0-6.0); RED CELL DISTRIBUTION WIDTH 14.6 % (11.5-14.5); WHITE BLOOD COUNT 8.7 10^3/ul (4.5-11.0)
[2016-12-07 16:19] LABS: ALB/GLOB RATIO 1.3 (1.1-1.8); ALKALINE PHOSPHATASE 112 U/L (38-126); ALT/SGPT 27 U/L (7-56); AST/SGOT 31 U/L (14-36); BILIRUBIN,TOTAL 0.6 mg/dL (0.2-1.3); BLOOD UREA NITROGEN 29 mg/dL (7-21); CALCIUM 9.4 mg/dL (8.4-10.5); CARBON DIOXIDE 29 mmol/L (21-33); CHLORIDE 98 mmol/L (95-110); GFR AFRICAN-AMERICAN 52; GLUCOSE,RANDOM 94 mg/dL (70-110); LIPASE 92 U/L (23-300); POTASSIUM 4.6 mmol/L (3.6-5.0); SODIUM 135 mmol/L (132-148); TOTAL PROTEIN 7.3 g/dL (5.8-8.3)
[2016-12-07 16:46] LABS: URINE BILIRUBIN NEGATIVE (NEGATIVE); URINE BLOOD NEGATIVE (NEGATIVE); URINE GLUCOSE (UA) NEGATIVE (NEGATIVE); URINE KETONE NEGATIVE (NEGATIVE); URINE LEUKOCYTE ESTERASE NEGATIVE Leu/uL (NEGATIVE); URINE PROTEIN NEGATIVE mg/dL (<30 mg/dL); URINE UROBILINOGEN 0.2 E.U./dL (<1 E.U./dL)
[2016-12-07 16:48] LABS: TROPONIN I < 0.01 ng/mL
[2016-12-07 16:48] LABS: URINE APPEARANCE CLEAR (CLEAR); URINE COLOR YELLOW (YELLOW)
[2016-12-08 00:45] VITALS: RESP 20
[2016-12-08] MEDS ORDERED: Pantoprazole 40 mg EC Tab PO SCH (06:00)
[2016-12-08 09:12] VITALS: BP 143/75; TEMP 97.9; O2SAT 96
[2016-12-08] MEDS ORDERED: Levothyroxine 25 MCG TAB PO SCH (10:00)
[2016-12-08] MEDS ORDERED: Metoprolol Succinate 50 mg XL Tab PO SCH (10:00)
--- NOTE | 2016-12-08 13:23 | CARD ---
APPROVED REPORT EKG Measurement Heart [id number] <Conclusion> Sinus rhythm with occasional premature ventricular complexes Otherwise normal ECG
[2016-12-08 14:21] VITALS: PULSE 62
--- NOTE | 2016-12-08 17:15 | RAD ---
HISTORY: nausea, bloating COMPARISON: Comparison chest 11/20/2016 TECHNIQUE: Chest PA and lateral FINDINGS: LUNGS: Poor inspiration with low lung volumes and mild crowded bronchovascular markings. Central pulmonary vasculature appears slightly congested which may also be due to poor inspiration however mild chronic compensated pulmonary edema/ CHF not excluded. PLEURA: No significant pleural effusion identified. No pneumothorax apparent. CARDIOVASCULAR: Cardiomegaly. OSSEOUS STRUCTURES: Multilevel degenerative spondylosis. Moderate levoscoliosis centered in the mid thoracic region. VISUALIZED UPPER ABDOMEN: Normal. OTHER FINDINGS: None. IMPRESSION: Poor inspiration with low lung volumes and mild crowded bronchovascular markings. Central pulmonary vasculature appears slightly congested which may also be due to poor inspiration however mild chronic compensated pulmonary edema/ CHF not excluded.
--- NOTE | 2016-12-09 01:53 | HP ---
HISTORY OF PRESENT ILLNESS: The patient is 86 years old, patient of Dr. Phillips. She came to emergency room because of feeling weak, drained, lightheaded and felt light dizzy. The patient lives by herself, she got scared, she called ambulance and she was brought to emergency room. The patient states she was recently admitted and was told she is anemic. She is getting IV iron by Dr. Hawk, and she is scheduled to have infusion on this coming Saturday. Denies any nausea or vomiting. No diarrhea. PAST MEDICAL HISTORY: Significant for: 1. Hypertension. 2. Hypothyroidism. 3. Chronic kidney disease. 4. Chronic dizziness. 5. History of basal cell carcinoma. 6. Anxiety disorder. SURGICAL HISTORY: Significant for right breast benign cyst that she has biopsy done and never got any other treatment. FAMILY HISTORY: Not contributory. PERSONAL HISTORY: She is single, lives by herself. She denies smoking, drinking or alcohol use. ALLERGIES: SHE IS ALLERGIC TO: 1. PENICILLIN. 2. CIPRO. 3. BACTRIM. 4. NITROFURANTOIN. MEDICATION AT HOME: The patient is on Protonix 40 daily, Lasix 40 mg daily, metoprolol 50 mg daily, levothyroxine 25 mcg daily, Abilify 2.5 at bedtime. REVIEW OF SYSTEMS: The patient has generalized weakness. By the time I saw the patient, she was feeling well. The patient still probably has blood pressure high; that is why, she was not feeling well. She was feeling dizzy and lightheaded and currently, she feels well and she wants to go home. PHYSICAL EXAMINATION GENERAL: She is awake, alert, oriented, communicative and answers appropriately. VITAL SIGNS: She is afebrile, pulse 62, respirations 20, blood pressure 143/75. LUNGS: Bilateral good air flow. No rhonchi or crackle. HEART: S1 and S2 audible. No murmur. ABDOMEN: Soft, nontender. No rebound. No guarding. NEUROLOGICALLY: She is awake and alert, communicative. LABORATORY EXAM: WBC is 8.7, hemoglobin 11.2, hematocrit 34.7, platelet 227. Chemistry: Sodium 135, potassium 4.6, chloride 98, CO2 of 29, BUN 29, creatinine 1.2. Blood sugar of 94. Urinalysis is unremarkable. ASSESSMENT: 1. Uncontrolled hypertension. 2. Dizziness and lightheaded along with generalized weakness. 3. Hypothyroidism. 4. History of depression. 5. Iron-deficiency anemia. PLAN: The patient is clinically stable, will be discharged home today. She will follow with Dr. Hawk on coming Saturday. Kayli Corona MD
--- NOTE | 2016-12-09 11:03 | RAD ---
HISTORY: nausea, bloating COMPARISON: No prior. FINDINGS: BOWEL: Limited study likely due to some combination of large body habitus as well as underpenetration however possibility of ascites cannot be excluded. There appears be a paucity of bowel gas as well. No gross free air seen under the diaphragmatic surfaces BONES: Degenerative spondylosis of the visualized lower thoracic and lumbar spine with moderate levoscoliosis centered at the mid thoracic region. OTHER FINDINGS: Heart appears enlarged. IMPRESSION: Limited study. No evidence of free air seen under the diaphragmatic surfaces. There is a relative paucity of bowel gas however no evidence to suggest acute mechanical bowel obstruction. .
== END 2016-12-08 14:26 | disposition home or self-care (01) | DRG 149 ==
LOC: ED 14:31 → ERH 19:23 → 3RNO 21:23
PROVIDERS: ADMIT Internal Medicine Nephrology; ATTEND Internal Medicine Nephrology
DX: R42 Dizziness and giddiness (principal); I13.0 Hypertensive heart and chronic kidney disease with heart failure and stage 1 through stage 4 chronic kidney disease, or unspecified chronic kidney disease; I50.9 Heart failure, unspecified; R55 Syncope and collapse; E03.9 Hypothyroidism, unspecified; D50.9 Iron deficiency anemia, unspecified; N18.9 Chronic kidney disease, unspecified; Z85.828 Personal history of other malignant neoplasm of skin; Z87.01 Personal history of pneumonia (recurrent); Z86.19 Personal history of other infectious and parasitic diseases; M19.90 Unspecified osteoarthritis, unspecified site; N39.3 Stress incontinence (female) (male); E66.9 Obesity, unspecified; F41.9 Anxiety disorder, unspecified; F32.89 Other specified depressive episodes; Z88.1 Allergy status to other antibiotic agents; Z88.3 Allergy status to other anti-infective agents; Z88.0 Allergy status to penicillin; Z88.2 Allergy status to sulfonamides; Z88.7 Allergy status to serum and vaccine; Z68.37 Body mass index [BMI] 37.0-37.9, adult

== ENCOUNTER 2017-05-18 11:24 | Emergency (ER) | payer MEDICARE, BC ==
[2017-05-18 11:29] VITALS: BMI 39.2
[2017-05-18 11:31] VITALS: BP 150/76; PULSE 72; RESP 18; O2SAT 95
[2017-05-18 11:34] VITALS: TEMP 97.8
--- NOTE | 2017-05-18 12:28 | RAD ---
PROCEDURE: Left Wrist Radiographs. HISTORY: injury, pain COMPARISON: None. FINDINGS: BONES: There is no acute displaced fracture or bone destruction. Bone alignment is normal. There is diffuse bone demineralization. JOINTS: Normal. No dislocation. SOFT TISSUES: Normal. OTHER FINDINGS: None. IMPRESSION: No acute fracture or dislocation.
--- NOTE | 2017-05-18 12:29 | RAD ---
PROCEDURE: Left Hand Radiographs. HISTORY: injury, pain COMPARISON: None. FINDINGS: BONES: There is no acute displaced fracture or bone destruction. Bone alignment is normal. There is diffuse bone demineralization. 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 There is moderate degenerative osteoarthritis in the scaphotrapezium joint. There is mild degenerative osteoarthrosis in the interphalangeal joints. SOFT TISSUES: Normal. OTHER FINDINGS: None. IMPRESSION: No acute fracture or dislocation.
--- NOTE | 2017-05-18 12:33 | ED PDOC ---
Arrival/HPI - General Chief Complaint: Finger,Hand,&Wrist Time Seen by Provider: 05/18/17 11:58 Historian: Patient, Family - History of Present Illness Narrative History of Present Illness (Text): 05/18/17 12:24 87yr old female presents today with left hand and wrist pain s/p injury yesterday. pt states a book fell onto her left hand/wrist yesterday. pt states she has pain along the palm worse with movement. pt c/o pain with rom of wrist into the hand. denies numbness, weakness, tingling in the extremity. pt states she took tylenol for pain. no fever/chills. denies any other complaints. Past Medical History - Provider Review Nursing Documentation Reviewed: Yes - Travel History Have you recently traveled outside [place] w/in the past 3 mons?: No - Infectious Disease Hx of Infectious Diseases: None - Tetanus Immunization Tetanus Immunization: Unknown - Cardiac Hx Cardiac Disorders: Yes Hx Congestive Heart Failure: Yes Hx Hypertension: Yes - Pulmonary Hx Respiratory Disorders: Yes Hx Pneumonia: Yes - Neurological Hx Neurological Disorder: Yes Hx Dizziness: Yes (vertigo) - HEENT Hx HEENT Disorder: Yes ([place]) - Renal Hx Renal Disorder: No - Endocrine/Metabolic Hx Hypothyroidism: Yes - Hematological/Oncological Hx Blood Disorders: Yes Hx Cancer: Yes (basal cell left [place]olas[place] 12/2013) Other/Comment: LEFT THIGH WITH ONE SMALL VESICLE -HERPES ZOSTER 11-20-16 - Integumentary Hx Dermatological Disorder: Yes Hx Basal Cell Carcinoma: Yes (LEFT ARM 2013) Other/Comment: ONE SMALL VESICLE TO LEFT THIGH-HERPES ZOSTER 11-20-16 - Musculoskeletal/Rheumatological Hx Arthritis: Yes - Gastrointestinal Hx Gastrointestinal Disorders: Yes (OBESE) - Genitourinary/Gynecological Hx Genitourinary Disorders: Yes Hx Incontinence: Yes (STRESS) - Psychiatric Hx Psychophysiologic Disorder: Yes Hx Anxiety: Yes Hx Depression: Yes Hx Substance Use: No - Past Surgical History Past Surgical History: Non-Contributing - Surgical History Other/Comment: benign right breast cyst - Anesthesia Hx Anesthesia: No Hx Anesthesia Reactions: No Hx Malignant Hyperthermia: No - Suicidal Assessment Feels Threatened In Home Enviroment: No Family/Social History - Physician Review Nursing Documentation Reviewed: Yes Family/Social History: Unknown Family HX Smoking Status: Never Smoked Hx Alcohol Use: No Hx Substance Use: No Hx Substance Use Treatment: No Allergies/Home Meds Allergies/Adverse Reactions: Allergies ciprofloxacin [From Cipro] Allergy (Verified 05/18/17 11:29) .unknown ciprofloxacin HCl [From Cipro] Allergy (Verified 05/18/17 11:29) RASH pneumococcal vaccine Allergy (Verified 05/18/17 11:29) RASH sulfamethoxazole [From Bactrim] Allergy (Verified 05/18/17 11:29) RASH trimethoprim [From Bactrim] Allergy (Verified 05/18/17 11:29) RASH nitrofurantoin Adverse Reaction (Verified 05/18/17 11:29) RASH Penicillins Adverse Reaction (Verified 05/18/17 11:29) SWELLING Home Medications: Home Meds Medication Instructions Recorded Confirmed Levothyroxine Sodium [Unithroid] 25 mcg PO DAILY 12/05/15 05/18/17 Furosemide [Lasix] 20 mg PO DAILY 11/20/16 05/18/17 Metoprolol Succinate [Toprol XL] 50 mg PO DAILY 11/20/16 05/18/17 ARIPiprazole [Abilify] 2.5 mg PO QOTHERDAY 01/01/17 05/18/17 Review of Systems - Review of Systems Constitutional: absent: Fatigue, Fevers Respiratory: absent: SOB, Cough Cardiovascular: absent: Chest Pain, Palpitations Gastrointestinal: absent: Abdominal Pain, Nausea, Vomiting Musculoskeletal: Arthralgias Skin: absent: Rash, Pruritis Neurological: absent: Headache, Dizziness Physical Exam Vital Signs Reviewed: Yes Vital Signs Temp Pulse Resp BP Pulse Ox 05/18/17 11:31 97.8 F 72 18 150/76 95 05/18/17 11:30 73 F L 72 18 150/76 95 Temperature: Afebrile Blood Pressure: Normal Pulse: Regular Respiratory Rate: Normal Appearance: Positive for: Well-Appearing, Non-Toxic, Comfortable Pain Distress: None Mental Status: Positive for: Alert and Oriented X 3 - Systems Exam Head: Present: Atraumatic Neck: Present: Normal Range of Motion Respiratory/Chest: Present: Clear to Auscultation, Good Air Exchange. No: Respiratory Distress, Accessory Muscle Use Cardiovascular: Present: Regular Rate and Rhythm, Normal S1, S2. No: Murmurs Upper Extremity: Present: Normal ROM, NORMAL PULSES, Tenderness (left wrist; + ttp over volar aspect of proximal palm, + edema, no erythema; + ttp volar aspect of wrist; no snuff box tenderness. ), Swelling, Neurovascularly Intact, Capillary Refill < 2s. No: Erythema, Deformity Neurological: Present: GCS=15, Speech Normal Skin: Present: Warm, Dry, Normal Color Psychiatric: Present: Alert, Oriented x 3 Medical Decision Making ED Course and Treatment: 05/18/17 12:47 Patient nontoxic well-appearing in no distress with stable vital signs X-rays of the left hand: no fracture xrays of the left wrist; no fracture as read by the radiologist. tylenol PO Patient placed in velcro volar splint case discussed with dr. bonilla; he will see the patient in the office on saturday; pt is to call the office to schedule appointment for saturday. copy of xrays given to patient. I discussed all results with patient and her son. pt was advised to followup with the orthopedist for the next 2 days. Return if symptoms worsen persist or new symptoms develop Impression: wrist injury, hand injury tylenol every 4 hours as needed for pain Rest, ice, compression, elevation Followup with the orthopedist within the next 2 days; call dr. bonilla on saturday at 10am to schedule appointment for saturday. Followup with primary care physician within the next 2 days Return if any other concerning symptoms develop - RAD Interpretation Radiology Orders: 05/18/17 11:58 HAND LEFT 3 VIEWS ROUTINE [RAD] Stat WRIST, LEFT 3 VIEWS [RAD] Stat Disposition/Present on Arrival - Present on Arrival Any Indicators Present on Arrival: No History of DVT/PE: No History of Uncontrolled Diabetes: No Urinary Catheter: No History of Decub. Ulcer: No History Surgical Site Infection Following: None - Disposition Have Diagnosis and Disposition been Completed?: Yes Diagnosis: Wrist pain, Hand pain Disposition: HOME/ ROUTINE Disposition Time: 12:51 Patient Plan: Discharge Condition: GOOD Discharge Instructions (ExitCare): Common Wrist Injuries (DC) Additional Instructions: tylenol every 4 hours as needed for pain Rest, ice, compression, elevation Use wrist splint Followup with the orthopedist within the next 2 days; call dr. bonilla on saturday at 10am to schedule appointment for saturday. Followup with primary care physician within the next 2 days Return if any other concerning symptoms develop Referrals: Padmini Smith MD [Primary Care Provider] - Follow up with primary Pastor Bonilla, [Staff Provider] - Follow up with primary
== END 2017-05-18 13:01 | disposition home or self-care (01) ==
LOC: ED 11:24
DX: M25.532 Pain in left wrist (principal); M79.642 Pain in left hand

== ENCOUNTER 2017-06-01 00:17 | Inpatient (IN) | payer MEDICARE, BC ==
[2017-06-01 00:17] VITALS: BMI 39.2
--- NOTE | 2017-06-01 01:20 | ED PDOC ---
Arrival/HPI - General Historian: Patient - History of Present Illness Time/Duration: Prior to Arrival, 1-3 hours Symptom Onset: Sudden Symptom Course: Improving <Riley Kinney - Last Filed: 06/01/17 05:38> <Robert Diallo DO - Last Filed: 06/01/17 06:25> - General Chief Complaint: Shortness Of Breath Time Seen by Provider: 06/01/17 00:39 - History of Present Illness Narrative History of Present Illness (Text): 06/01/17 01:15 86F w/ pmhx significant for CHF, HTN, CKD, Hypothyroidism presents to [facility] [place] ED w/ shortness of breath for 1 day. Patient has wakes up in the middle of the night trying to catch her breath. Patient also states occasional dizziness at rest. Admits to drinking minimal fluids throughout the day; states she is thirsty. Of note: patient gets iron infusions at Dr. Eason's office. Did not go over the last week and a half. BL LE swelling present, says it is less swelling than normal Currently denies: Fevers, chills, chest pain, Nausea, vomiting, diarrhea, changes in bowel/bladder habits, headaches, changes in vision, numbness/ tingling in extremities (Riley Kinney) Past Medical History - Provider Review Nursing Documentation Reviewed: Yes - Travel History Have you recently traveled outside [place] w/in the past 3 mons?: No - Past History Past History: Non-Contributing - Infectious Disease Hx of Infectious Diseases: None - Tetanus Immunization Tetanus Immunization: Unknown - Cardiac Hx Cardiac Disorders: Yes Hx Congestive Heart Failure: Yes Hx Hypertension: Yes - Pulmonary Hx Respiratory Disorders: Yes Hx Pneumonia: Yes - Neurological Hx Neurological Disorder: Yes Hx Dizziness: Yes (vertigo) - HEENT Hx HEENT Disorder: Yes ([place]) - Renal Hx Renal Disorder: No - Endocrine/Metabolic Hx Hypothyroidism: Yes - Hematological/Oncological Hx Blood Disorders: Yes Hx Cancer: Yes (basal cell left [place]olas[place] 12/2013) Other/Comment: LEFT THIGH WITH ONE SMALL VESICLE -HERPES ZOSTER 11-20-16 - Integumentary Hx Dermatological Disorder: Yes Hx Basal Cell Carcinoma: Yes (LEFT ARM 2013) Other/Comment: ONE SMALL VESICLE TO LEFT THIGH-HERPES ZOSTER 11-20-16 - Musculoskeletal/Rheumatological Hx Arthritis: Yes - Gastrointestinal Hx Gastrointestinal Disorders: Yes (OBESE) - Genitourinary/Gynecological Hx Genitourinary Disorders: Yes Hx Incontinence: Yes (STRESS) - Psychiatric Hx Psychophysiologic Disorder: Yes Hx Anxiety: Yes Hx Depression: Yes Hx Substance Use: No - Past Surgical History Past Surgical History: Non-Contributing - Surgical History Other/Comment: benign right breast cyst - Anesthesia Hx Anesthesia: No Hx Anesthesia Reactions: No Hx Malignant Hyperthermia: No - Suicidal Assessment Feels Threatened In Home Enviroment: No <Riley Kinney - Last Filed: 06/01/17 05:38> Family/Social History - Physician Review Nursing Documentation Reviewed: Yes Family/Social History: Other (non-contributory) Smoking Status: Never Smoked Hx Alcohol Use: No Hx Substance Use: No Hx Substance Use Treatment: No <Riley Kinney - Last Filed: 06/01/17 05:38> Allergies/Home Meds <Riley Kinney - Last Filed: 06/01/17 05:38> <Robert Diallo DO - Last Filed: 06/01/17 06:25> Allergies/Adverse Reactions: Allergies ciprofloxacin [From Cipro] Allergy (Verified 05/18/17 11:29) .unknown ciprofloxacin HCl [From Cipro] Allergy (Verified 05/18/17 11:29) RASH pneumococcal vaccine Allergy (Verified 05/18/17 11:29) RASH sulfamethoxazole [From Bactrim] Allergy (Verified 05/18/17 11:29) RASH trimethoprim [From Bactrim] Allergy (Verified 05/18/17 11:29) RASH nitrofurantoin Adverse Reaction (Verified 05/18/17 11:29) RASH Penicillins Adverse Reaction (Verified 05/18/17 11:29) SWELLING Home Medications: Home Meds Medication Instructions Recorded Confirmed Levothyroxine Sodium [Unithroid] 25 mcg PO DAILY 12/05/15 06/01/17 Furosemide [Lasix] 20 mg PO DAILY 11/20/16 06/01/17 Metoprolol Succinate [Toprol XL] 50 mg PO DAILY 11/20/16 06/01/17 ARIPiprazole [Abilify] 2.5 mg PO QOTHERDAY 01/01/17 06/01/17 Review of Systems - Physician Review All systems were reviewed & negative as marked: Yes - Review of Systems Constitutional: Fatigue. absent: Weight Change, Fevers, Night Sweats Eyes: absent: Vision Changes, Photophobia, Eye Pain ENT: absent: Hearing Changes, Tinnitus Respiratory: SOB. absent: Cough, Sputum, Wheezing Cardiovascular: Edema. absent: Chest Pain, Palpitations, Calf Pain Gastrointestinal: absent: Abdominal Pain, Stool Changes, Constipation Genitourinary Female: absent: Dysuria, Frequency, Hematuria Musculoskeletal: absent: Arthralgias, Back Pain, Neck Pain Skin: absent: Rash, Pruritis, Skin Lesions Neurological: Dizziness. absent: Headache, Focal Weakness Psychiatric: Anxiety <Riley Kinney - Last Filed: 06/01/17 05:38> Physical Exam Vital Signs Reviewed: Yes Temperature: Afebrile Blood Pressure: Hypertensive Pulse: Regular Respiratory Rate: Normal Appearance: Positive for: Well-Appearing, Non-Toxic, Comfortable Pain Distress: None Mental Status: Positive for: Alert and Oriented X 3 - Systems Exam Head: Present: Atraumatic Pupils: Present: PERRL Extroacular Muscles: Present: EOMI Conjunctiva: Present: Normal Mouth: Present: Moist Mucous Membranes Respiratory/Chest: Present: Clear to Auscultation, Good Air Exchange, Rales (LLL ). No: Respiratory Distress, Accessory Muscle Use Cardiovascular: Present: Regular Rate and Rhythm, Normal S1, S2. No: Murmurs Abdomen: No: Tenderness, Distention, Peritoneal Signs Upper Extremity: Present: Normal Inspection, NORMAL PULSES. No: Edema Lower Extremity: Present: Edema. No: Normal Inspection, CALF TENDERNESS Neurological: Present: GCS=15, Speech Normal Skin: Present: Warm, Normal Color Psychiatric: Present: Alert, Oriented x 3 <Riley Kinney - Last Filed: 06/01/17 05:38> Vital Signs Temp Pulse Resp BP Pulse Ox 06/01/17 04:09 183/80 H 06/01/17 04:00 82 17 183/83 H 97 06/01/17 00:33 98.2 F 86 18 187/94 H 99 06/01/17 00:17 20 Medical Decision Making - RAD Interpretation News Specialist: ED Physician - EKG Interpretation Type: 12 lead EKG Comparison: Different from prev. EKG <Riley Kinney - Last Filed: 06/01/17 05:38> <Robert Diallo DO - Last Filed: 06/01/17 06:25> ED Course and Treatment: 06/01/17 01:24 - CBC/CMP/BNP/Mag - Cardiac enzymes - CXR/EKG - UA Trop and BNP elevated 0.28 1000 respectively - will start on Aspirin and Lovenox - Lasix (Riley Kinney) - Lab Interpretations Narrative Lab Interpretation (Text): 06/01/17 02:55 Trop-I 0.28 Pro-BNP- 1000 (Riley Kinney) Lab Results: 06/01/17 02:00 06/01/17 02:00 Lab Results 06/01/17 02:00: Sodium 138, Potassium 4.4, Chloride 102, Carbon Dioxide 30, Anion Gap 11, BUN 37 H, Creatinine 1.2, Est GFR ( Amer) 52, Est GFR (Non- Af Amer) 43, Random Glucose 106, Calcium 9.8, Magnesium 2.0, Total Bilirubin 0.5 , AST 32, ALT 30, Alkaline Phosphatase 101, Lactate Dehydrogenase 605, Total Creatine Kinase 88, Troponin I 0.28 H* D, NT-Pro-B Natriuret Pep 1040 H, Total Protein 7.2, Albumin 3.9, Globulin 3.3, Albumin/Globulin Ratio 1.2 06/01/17 02:00: WBC 7.8, RBC 3.83, Hgb 11.5 L, Hct 35.4 L, MCV 92.4, MCH 30.0, MCHC 32.5, RDW 13.7, Plt Count 202, MPV 10.3, Gran % 66.4, Lymph % (Auto) 21.7 L , C[place] % (Auto) 8.0 H, Eos % (Auto) 3.5, Baso % (Auto) 0.4, Gran # 5.17, Lymph # (Auto) 1.7, Cuming # (Auto) 0.6, Eos # (Auto) 0.3, Baso # (Auto) 0.03 - RAD Interpretation Narrative RAD Interpretations (Text): 06/01/17 05:38 CXR- Cardiomegaly, slight increase in fluid pulm congestion (Riley Kinney) Radiology Orders: 06/01/17 01:08 CHEST PORTABLE [RAD] Stat - EKG Interpretation EKG Interpretation (Text): 06/01/17 03:08 NSR w/ one PVC Septal infarct (Riley Kinney) - Medication Orders Current Medication Orders: Discontinued Medications Aspirin (Aspirin) 325 mg PO STAT STA Stop: 06/01/17 03:03 Last Admin: 06/01/17 03:35 Dose: 325 mg Enoxaparin Sodium (Lovenox) 90 mg SC STAT STA PRN Reason: Protocol Stop: 06/01/17 03:03 Last Admin: 06/01/17 03:35 Dose: 90 mg Subcutaneous Administrations Document 06/01/17 03:35 IT (Rec: 06/01/17 03:35 IT [id number]) Injection Site MAR Injection Site Right Abdomen Charges for Administration # of Subcutaneous Administrations 1 Furosemide (Lasix) 40 mg IVP STAT STA Stop: 06/01/17 03:55 Last Admin: 06/01/17 04:09 Dose: 40 mg MAR Blood Pressure Document 06/01/17 04:09 IT (Rec: 06/01/17 04:10 IT [id number]) Blood Pressure Blood Pressure (100/60-150/90) 183/80 IVP Administration Document 06/01/17 04:09 IT (Rec: 06/01/17 04:10 IT [id number]) Charges for Administration # of IVP Administrations 1 - PA / COVERING MACHINE OPERATOR / Resident Statement DONY has reviewed & agrees with the documentation as recorded. DONY has examined the patient and agrees with the treatment plan. <Riley Kinney - Last Filed: 06/01/17 05:38> - PA / COVERING MACHINE OPERATOR / Resident Statement DONY has reviewed & agrees with the documentation as recorded. DONY has examined the patient and agrees with the treatment plan. <Robert Diallo DO - Last Filed: 06/01/17 06:25> Disposition/Present on Arrival - Present on Arrival Any Indicators Present on Arrival: No History of DVT/PE: No History of Uncontrolled Diabetes: No Urinary Catheter: No History of Decub. Ulcer: No History Surgical Site Infection Following: None - Disposition Have Diagnosis and Disposition been Completed?: Yes Disposition Time: 03:15 Patient Plan: Telemetry <Riley Kinney - Last Filed: 06/01/17 05:38> - Disposition Disposition Time: 02:50 <Robert Diallo DO - Last Filed: 06/01/17 06:25> - Disposition Diagnosis: NSTEMI (non-ST elevated myocardial infarction), CHF (congestive heart failure) Disposition: HOSPITALIZED Patient Problems: Current Active Problems Problem Status Onset CHF (congestive heart failure) Chronic NSTEMI (non-ST elevated myocardial infarction) Acute Condition: FAIR
[2017-06-01 02:09] LABS: BASO # 0.03 K/mm3 (0.0-2.0); BASO % 0.4 % (0.0-3.0); EOS # 0.3 (0.0-0.7); EOS % 3.5 % (1.5-5.0); GRAN # 5.17 (1.4-6.5); GRAN % 66.4 % (50.0-68.0); HEMOGLOBIN 11.5 g/dL (12.0-16.0); LYMPH # 1.7 (1.2-3.4); LYMPH % 21.7 % (22.0-35.0); MEAN CELL VOLUME 92.4 fl (80.0-105.0); MEAN CORPUSCULAR HGB CONC 32.5 g/dl (31.0-37.0); MEAN PLATELET VOLUME 10.3 fl (7.0-11.0); MONO # 0.6 (0.1-0.6); RBC 3.83 10^6/uL (3.5-6.1); RED CELL DISTRIBUTION WIDTH 13.7 % (11.5-14.5); WHITE BLOOD COUNT 7.8 10^3/ul (4.5-11.0)
[2017-06-01 02:24] LABS: ALB/GLOB RATIO 1.2 (1.1-1.8); ALBUMIN 3.9 g/dL (3.0-4.8); CALCIUM 9.8 mg/dL (8.4-10.5)
[2017-06-01 02:43] LABS: TROPONIN I 0.28 ng/mL
[2017-06-01] MEDS ORDERED: Enoxaparin 100 mg Syringe SC STA (03:02)
[2017-06-01] MEDS: Levothyroxine 25 MCG TAB PO SCH (07:57)
[2017-06-01] MEDS: Pantoprazole 40 mg EC Tab PO SCH (07:57)
--- NOTE | 2017-06-01 09:55 | RAD ---
HISTORY: Shortness of breath. COMPARISON: 12/07/2016 FINDINGS: LUNGS: Pulmonary vascular congestion without focal infiltrate. PLEURA: No significant pleural effusion identified, no pneumothorax apparent. CARDIOVASCULAR: Cardiomegaly/mild CHF. OSSEOUS STRUCTURES: No significant abnormalities. VISUALIZED UPPER ABDOMEN: Normal. OTHER FINDINGS: None. IMPRESSION: Cardiomegaly, CHF similar findings identified 12/07/2016.
--- NOTE | 2017-06-01 10:36 | CON ---
DATE: 06/01/2017 REQUESTING PHYSICIAN: Wil Phillips MD. REASON FOR CONSULTATION: Dyspnea, dizziness. HISTORY: This is an 87-year-old woman, known to me from outpatient evaluation as well as multiple prior admissions for dizziness, who presented to the emergency room with complaints of increasing dyspnea, nasal congestion and lightheadedness. She states that she felt fairly lightheaded on and off for several days. She was seen by Dr. Smith, who advised that she reduce her diuretic dose to every other day dosing for now. She became somewhat short of breath and noted nasal congestion yesterday, became concerned, called the emergency room squad. She was brought to the emergency room and admitted. She denied any chest pain. Initial troponin was borderline elevated and the BMP was elevated as well. She has a history of chronic vertigo as well as hypertension, hyperlipidemia. Prior echocardiograms have revealed concentric LVH with normal LV systolic function. Her last stress test in 2015 revealed no evidence of ischemia with a normal ejection fraction. Her past history is notable also for chronic obesity, hypothyroidism and gastroesophageal reflux disease. CURRENT MEDICATIONS: Include Abilify 2.5 mg b.i.d., Lasix 20 mg every other day, Protonix 40 mg daily, Synthroid 25 mcg daily and Toprol-XL 50 mg daily. ALLERGIES: SHE HAS REPORTEDLY HAD A REACTION TO CIPROFLOXACIN AND PNEUMOCOCCAL VACCINE IN THE PAST. SHE HAS ALSO HAD REACTIONS TO SULFAS AND PENICILLIN. SOCIAL HISTORY: She does not smoke or drink. She is . Lives alone. FAMILY HISTORY: Both parents are from age-related illness. There is no family history of premature heart disease. Ten-point review of systems is notable mainly for the problems as above. PHYSICAL EXAMINATION: GENERAL: She is a very elderly woman, who appears somewhat anxious, but otherwise in no distress. VITAL SIGNS: Her blood pressure is 160/96 with pulse of 76 and sinus, respirations are 16. She is afebrile. HEENT: Head normocephalic, atraumatic. NECK: Supple. No JVD noted. CHEST: Bilateral scattered rhonchi heard. Diminished breath sounds are noted at the bases. HEART: Reveals the PMI to be displaced laterally with a soft systolic murmur at the left sternal border. ABDOMEN: Soft, obese, nontender. Normoactive bowel sounds. EXTREMITIES: Bilateral lip edema is present. SKIN: Warm and dry. PSYCHIATRIC: Mild anxiety, otherwise normal mood and affect. NEUROLOGIC: Alert and oriented x3. No gross motor or sensory is appreciable. DIAGNOSTIC DATA: Chest x-ray reveals a borderline cardiac silhouette enlargement with mildly increased perihilar vascular markings. Potassium is 4.4, BUN and creatinine 37 and 1.2. Hemoglobin and hematocrit 11.5 and 35.4 with a white count of 7.8, platelet count is 202,000. Troponin is 0.28 with a BNP of 1040. Electrocardiogram reveals sinus rhythm with PVC and nonspecific ST-T abnormalities. IMPRESSION: 1. Dyspnea, may be secondary to mildly decompensated congestive heart failure, likely acute diastolic. 2. Elevated troponin in the absence of acute EKG changes or chest pain. Clinical significance is unclear. 3. Dizziness, appears chronic. 4. Rest of problems as noted. RECOMMENDATIONS: Her current medications will continue for now. Aspirin therapy will be added as well. Additional antihypertensive therapy may be necessary. An echocardiogram will be obtained to evaluate for wall motion abnormalities. Serial enzymes and electrocardiogram will be planned as well. In general, conservative management appears most appropriate while she has evidence of further decompensation. Thank you for this consultation. We will be happy to follow her through the hospital course. Bud Jack MD
[2017-06-01] MEDS: Metoprolol Succinate 50 mg XL Tab PO SCH (11:12)
--- NOTE | 2017-06-01 16:49 | CARD ---
APPROVED REPORT EKG Measurement Heart [id number] <Conclusion> Sinus rhythm with occasional premature ventricular complexes Septal infarct, age undetermined Abnormal ECG
--- NOTE | 2017-06-01 20:15 | HP ---
DATE OF EXAM: 06/01/2017 HISTORY OF PRESENT ILLNESS: Ms. Jama is an 87-year-old female, presented to the ED with left-sided chest pain and shortness of breath. she has history of hypertension, congestive cardiac failure, chronic kidney disease, also history of iron deficiency anemia, status post IV iron infusion last year. She also has history of bilateral leg swelling. She also felt weak and dizzy. No fever. No chills. No rigors. Blood pressure controlled on current medication. She has hypothyroidism. Thyroid functions have been in normal range. PAST MEDICAL HISTORY: Hypertension, hypothyroidism, congestive cardiac failure, chronic kidney disease, history of vertigo, history of basal cell carcinoma in left arm, history of herpes, arthritis, osteoarthritis. PAST SURGICAL HISTORY: Benign right breast cyst excision. FAMILY HISTORY: Noncontributory. ALLERGIES: ALLERGIC TO CIPROFLOXACIN, PNEUMOCOCCAL VACCINE, SULFA, PENICILLIN. HOME MEDICATION: Synthroid 25 mcg daily, metoprolol 50 mg daily, Abilify 2.5 mg every other day. REVIEW OF SYSTEMS: As per HPI. Rest of 12-point review of systems reviewed negative. PHYSICAL EXAMINATION: GENERAL: Comfortable in bed, in no acute distress. VITAL SIGNS: Temperature is 98.7, heart rate 86 per minute, respiratory rate 20 per minute, blood pressure 180/90, . HEENT: Normal. NECK: No lymphadenopathy. CHEST: Air entry present and equal bilateral. No added sounds. CARDIOVASCULAR: S1, S2 normal. No murmur. No gallop. ABDOMEN: Soft, nontender. No hepatosplenomegaly. EXTREMITIES: No edema. SKIN: No petechia. No rash. SPINE: Nontender. LABORATORY DATA: White count 7.8, hemoglobin 11.5, hematocrit 35.4, platelet count 202. Sodium 138, potassium 4.4, BUN 37, creatinine 1.2, glucose 106. Troponin elevated at 0.28, BNP elevated at 1040. Chest x-ray showed cardiomegaly, slight pulmonary congestion. EKG normal sinus rhythm with occasional PVC, old septal infarct. ASSESSMENT: 1. Congestive heart failure. 2. Non-ST segment elevation myocardial infarction. 3. History of iron deficiency anemia. 4. Hypothyroidism. 5. Hypertension. PLAN: She will be admitted to tele-monitoring. Received IV Lasix in the ER. We will continue beta-trino 50 mg Toprol daily, Synthroid 25 mcg daily, aspirin 81 mg daily, Abilify 1 mg p.o. at bedtime, Protonix 40 mg daily. Cardiology consultation with Dr. Jack requested. Hemoglobin and hematocrit have been stable. Renal function normal. We will monitor serial troponin levels. Echocardiogram ordered. Kaci Hawk MD [email or web address]
--- NOTE | 2017-06-02 05:27 | CARD ---
APPROVED REPORT EXAM: Two-dimensional and M-mode echocardiogram with Doppler and color Doppler. INDICATION 2D DIMENSIONS IVSd1.3 (0.7-1.1cm)LVDd4.3 (3.9-5.9cm) PWd1.2 (0.7-1.1cm)LVDs2.6 (2.5-4.0cm) FS (%) 38.7 %LVEF (%)69.3 (>50%) M-Mode DIMENSIONS Left Atrium (MM)4.00 (2.5-4.0cm)Aortic Root2.40 (2.2-3.7cm) Aortic Cusp Exc.1.60 (1.5-2.0cm) Aortic Valve AoV Peak Ycckakns592.0cm/Ronen Peak GR.13mmHgAI P 1/2 [id number] Mitral Valve MV E Tkyvuotr34.7cm/sMV A Xfouexin473.0cm/sE/A ratio0.8 TDI Lateral E' Peak V6.88cm/sMedial E' Peak V4.92cm/sE/Lateral E'14.2 E/Medial E'19.9 Tricuspid Valve TR Peak Sukhrqxk420hq/sRAP [id number] Peak Gr.35mmHg [id number] LEFT VENTRICLE The left ventricle is normal size. There is mild concentric left ventricular hypertrophy. The left ventricular function is normal. The left ventricular ejection fraction is within the normal range. There is normal LV segmental wall motion. RIGHT VENTRICLE The right ventricle is normal size. The right ventricular systolic function is normal. ATRIA The left atrium is mildly dilated. The interatrial septum is intact with no evidence for an atrial septal defect. AORTIC VALVE The aortic valve is mildly sclerotic. There is mild aortic regurgitation. There is no aortic valvular stenosis. MITRAL VALVE Mitral annular calcification is mild. Mitral regurgitation is mild. TRICUSPID VALVE The tricuspid valve is normal in structure. There is mild tricuspid regurgitation. PULMONIC VALVE The pulmonary valve is normal in structure. GREAT VESSELS The aortic root is normal in size. The IVC is normal in size and collapses >50% with inspiration. PERICARDIAL EFFUSION There is no pleural effusion. There is no pericardial effusion. <Conclusion> Dilated LA. Normal LV size and systolic function. Mild concentric LVH. Mild MR and TR. Mild AI.
[2017-06-02] MEDS: Levothyroxine 25 MCG TAB PO SCH (05:50)
[2017-06-02] MEDS: Pantoprazole 40 mg EC Tab PO SCH (05:50)
[2017-06-02] MEDS: Metoprolol Succinate 50 mg XL Tab PO SCH ×2 (05:51→09:30)
[2017-06-02] MEDS ORDERED: Levothyroxine 25 MCG TAB PO SCH (06:00)
[2017-06-02] MEDS ORDERED: Pantoprazole 40 mg EC Tab PO SCH (06:00)
--- NOTE | 2017-06-02 08:55 | PN ---
DATE: 06/02/2017 SUBJECTIVE: This patient is seen lying in bed on Telemetry. She states she feels better. She denies any chest pain and dizziness is improved. Her blood pressure has been elevated. Troponin was elevated as well with repeat pending. Her current medications include Abilify 1 mg at bedtime, aspirin once daily, Lasix 20 mg daily, Protonix 40 mg daily, Synthroid, and metoprolol XL 50 mg daily. OBJECTIVE GENERAL: She is a very elderly woman who appears comfortable at present time. VITAL SIGNS: Blood pressure is 186/86 with a pulse of 66 and sinus respirations 14. She is afebrile. HEENT: No JVD. CHEST: Clear to auscultation and percussion. HEART: PMI displaced laterally with soft systolic murmur at left sternal border. ABDOMEN: Soft, nontender. Normoactive bowel sounds. EXTREMITIES: Trace ankle edema. DIAGNOSTIC DATA: Echocardiogram was performed revealing a dilated left atrium with normal LV size, systolic function, mild concentric LVH. Mild mitral, tricuspid and aortic insufficiency are noted. Morning blood work is pending. Troponin range from 0.28 to 0.27 to 0.22, repeat is pending this morning. IMPRESSION 1. Dyspnea likely secondary to mildly decompensated diastolic heart failure. 2. Elevated troponin, repeat pending. 3. Chronic vertigo. 4. Hypertension, poorly controlled. 5. History of anxiety. RECOMMENDATIONS: Clonidine as-needed will be added for blood pressure control. Followup troponin is pending. Repeat electrocardiogram is reviewed this morning as well. The rest for medications should continue unchanged. If her troponin curves suggest acute injury, further evaluation with stress testing would be reasonable at this time. We will continue to follow and make further recommendations as appropriate. Bud Jack MD
[2017-06-02] MEDS ORDERED: ARIPIPRAZOLE 2 MG PO SCH (22:00)
[2017-06-02] MEDS: ARIPIPRAZOLE 2 MG PO SCH (22:30)
--- NOTE | 2017-06-02 23:03 | CARD ---
APPROVED REPORT EKG Measurement Heart [id number] <Conclusion> Normal sinus rhythm Septal infarct, age undetermined Abnormal ECG
--- NOTE | 2017-06-02 23:23 | PN ---
DATE: 06/02/2017 SUBJECTIVE: She is comfortable in bed, in no acute distress. Denies any chest pain. No shortness of breath. No dizziness. She is very anxious about being in the hospital. She stated that she lives alone by herself and she needs services of visiting nurse at home. She is afraid that she might fall in the house and nobody might ever knew. She sees Dr. Faith as an outpatient, but she is requesting a consult with Dr. Faith because of anxiety. She claims her anxiety is out of control and might cause her further problems when she goes back home. She was evaluated by Cardiology, Dr. Jack, for elevated troponin. Currently, conservative management is recommended. Echocardiogram pending. REVIEW OF SYSTEMS: As per HPI. Rest of 12-point review of systems reviewed and negative. OBJECTIVE: GENERAL: Comfortable in bed, in no acute distress. VITAL SIGNS: Blood pressure 180/80, heart rate 66 per minute, respiratory rate per minute, pulse ox is 98% on room air. HEENT: Normal. Oral mucosa moist. NECK: No lymphadenopathy. CHEST: Air entry present and equal bilaterally. No added sounds. CARDIOVASCULAR: S1 and S2 normal. No murmur, no gallop. ABDOMEN: Soft, nontender. No hepatosplenomegaly. EXTREMITIES: 1+ edema. CENTRAL NERVOUS SYSTEM: Alert and oriented x3. No focal sensory or motor deficit. SKIN: No petechiae. No rash. LABORATORY DATA: Repeat troponin declining, 0.27, 0.22 and 0.13. White count 7.8, hemoglobin 11.5, hematocrit 35.4, platelets 202. Creatinine 1.2. MEDICATIONS: Xanax 0.25 q. 6 hours p.r.n., aspirin 81 mg daily, Catapres 0.1 mg p.o. q. 6 hours p.r.n., Lasix 20 mg daily, Synthroid 25 mcg daily, Cozaar 50 mg daily, metoprolol 50 mg p.o. daily, Protonix 40 mg daily. ASSESSMENT AND PLAN: 1. Non-ST elevation myocardial infarction. 2. Congestive heart failure. 3. Hypertension. 4. Anxiety. 5. Iron-deficiency anemia. She is very anxious today. I suggested Xanax to her, which she agreed. We will try Xanax p.r.n. 0.25 mg q. 6 p.r.n. for anxiety. We will get Dr. Faith's consult from the Psych. Dr. Jack's note reviewed. Troponin declining. Echocardiogram pending. Catapres added to the blood pressure medication for elevated blood pressure. Hemoglobin and hematocrit stable. Renal function within normal limits. Electrolytes normal. Encourage out of bed ambulation. We will consult [employer] to assist the home care needs. Kaci Hawk MD
[2017-06-03] MEDS: Pantoprazole 40 mg EC Tab PO SCH (05:51)
[2017-06-03] MEDS: Levothyroxine 25 MCG TAB PO SCH (05:51)
--- NOTE | 2017-06-03 08:51 | CP.PCM.PN ---
Subjective - Date & Time of Evaluation Date of Evaluation: 06/03/17 Time of Evaluation: 07:00 - Subjective Subjective: Stable on 2R. She feels better but weak. No amb. yet. No CP or SOB at rest V/S noted. RSR PE: Lungs: clear Cor.: S1S2 Abd.: soft Ext. trace edema Neuro.: alert I/O= 1080/750 Labs noted: trops. 0.28, 0.27, 0.22, 0.13 ECG 06/02: RSR, ASMI, old, No acute changes Echo: NL LV with mild LVH, Mild AI, MR, TR Objective - Vital Signs/Intake and Output Vital Signs (last 24 hours): Temp Pulse Resp BP Pulse Ox 97.9 F 75 20 163/64 H 95 06/03/17 06:00 06/03/17 06:00 06/03/17 06:00 06/03/17 06:00 06/03/17 06:00 Intake and Output: 06/03/17 06/03/17 06:59 18:59 Intake Total 300 Output Total 400 Balance -100 - Medications Medications: Current Medications Alprazolam (Xanax) 0.25 mg PO Q6 PRN; Protocol PRN Reason: Anxiety Stop: 06/09/17 18:01 Last Admin: 06/02/17 13:07 Dose: 0.25 mg Aspirin (Ecotrin) 81 mg PO DAILY [facility] Last Admin: 06/02/17 09:24 Dose: 81 mg Clonidine HCl (Catapres) 0.1 mg PO Q6H PRN PRN Reason: Other Enoxaparin Sodium (Lovenox) 40 mg SC DAILY [facility] PRN Reason: Protocol Furosemide (Lasix) 20 mg PO DAILY [facility] Last Admin: 06/02/17 09:24 Dose: 20 mg Home Med (Home Med) 1 unit PO HS [facility] Last Admin: 06/02/17 22:30 Dose: 1 unit Levothyroxine Sodium (Synthroid) 25 mcg PO 0600 [facility] Last Admin: 06/03/17 05:51 Dose: 25 mcg Losartan Potassium (Cozaar) 50 mg PO DAILY [facility] Last Admin: 06/02/17 09:23 Dose: 50 mg Metoprolol Succinate (Toprol Xl) 50 mg PO DAILY [facility] Last Admin: 06/02/17 09:30 Dose: Not Given Pantoprazole Sodium (Protonix Ec Tab) 40 mg PO 0600 [facility] Last Admin: 06/03/17 05:51 Dose: 40 mg Assessment and Plan - Assessment and Plan (Free Text) Assessment: Dyspnea + trops, doubt acute [place] HBP Hypothyroidism OA Anxiety H/O breast cyst Vertigo GERD Plan: OOB/PT/Rehab TCU Evaluation Continue current cardiac meds. If recurrent symptoms: consider out-pt nuclear stress testing.
[2017-06-03] MEDS ORDERED: Enoxaparin 40 mg Syringe SC SCH (10:00)
[2017-06-03] MEDS: Metoprolol Succinate 50 mg XL Tab PO SCH (10:13)
--- NOTE | 2017-06-03 10:50 | PN ---
DATE: SUBJECTIVE: The patient has no complaints of any chest pain, no shortness of breath, no headaches. PHYSICAL EXAMINATION VITAL SIGNS: Temperature is 98.5, pulse of 80, blood pressure is 137/61, respirations 20. GENERAL: The patient is lying in bed, flat, comfortable. HEENT: No oral lesion. Anicteric sclerae. Moist mucosa. NECK: No JVD, adenopathy, or thyromegaly. CARDIOVASCULAR: S1 and S2, regular. No murmurs, rubs, or gallops. LUNGS: Clear to auscultation bilaterally. No wheeze, rales, or rhonchi. ABDOMEN: Bowel sounds are positive. Soft, nontender and nondistended. EXTREMITIES: No cyanosis, clubbing or edema. DATA: Echo shows dilated left atrium, normal LV size and systolic function. ASSESSMENT 1. Acute congestive heart failure secondary to history of diastolic dysfunction. 2. Vertigo. 3. Hypertension. 4. Anxiety. 5. Non-ST elevation myocardial infarction. PLAN: The patient is currently comfortable. She is on losartan for hypertension. The patient is on Lasix for her congestive heart failure. She is on Synthroid for hypothyroidism. She is receiving Xanax for her anxiety. She is on a heart-healthy diet. her discharge plan. I will get Physical Therapy to evaluate the patient as well as . Wil Phillips MD
[2017-06-03] MEDS: ARIPIPRAZOLE 2 MG PO SCH (21:32)
[2017-06-04] MEDS: Levothyroxine 25 MCG TAB PO SCH (05:11)
[2017-06-04] MEDS: Pantoprazole 40 mg EC Tab PO SCH (05:11)
[2017-06-04 06:13] VITALS: O2SAT 93
--- NOTE | 2017-06-04 08:59 | CP.PCM.PN ---
Subjective - Date & Time of Evaluation Date of Evaluation: 06/04/17 Time of Evaluation: 07:00 - Subjective Subjective: Stable on 2R. She feels better but weak. Not much amb. yet, just to the BR. No CP or SOB at rest V/S noted. RSR PE: Lungs: clear Cor.: S1S2 Abd.: soft Ext. trace edema Neuro.: alert Labs 06/01, noted: trops. 0.28, 0.27, 0.22, 0.13 ECG 06/02: RSR, ASMI, old, No acute changes Echo: NL LV with mild LVH, Mild AI, MR, TR Objective - Vital Signs/Intake and Output Vital Signs (last 24 hours): Temp Pulse Resp BP Pulse Ox 98.0 F 77 20 141/66 93 L 06/04/17 06:00 06/04/17 06:00 06/04/17 06:00 06/04/17 06:00 06/04/17 06:00 Intake and Output: 06/04/17 06/04/17 06:59 18:59 Intake Total 240 Balance 240 - Medications Medications: Current Medications Alprazolam (Xanax) 0.25 mg PO Q6 PRN; Protocol PRN Reason: Anxiety Stop: 06/09/17 18:01 Last Admin: 06/02/17 13:07 Dose: 0.25 mg Aspirin (Ecotrin) 81 mg PO DAILY [facility] Last Admin: 06/03/17 10:11 Dose: 81 mg Clonidine HCl (Catapres) 0.1 mg PO Q6H PRN PRN Reason: Other Enoxaparin Sodium (Lovenox) 30 mg SC DAILY [facility] PRN Reason: Protocol Furosemide (Lasix) 20 mg PO DAILY [facility] Last Admin: 06/03/17 10:13 Dose: 20 mg Home Med (Home Med) 1 unit PO HS [facility] Last Admin: 06/03/17 21:32 Dose: 1 unit Levothyroxine Sodium (Synthroid) 25 mcg PO 0600 [facility] Last Admin: 06/04/17 05:11 Dose: 25 mcg Losartan Potassium (Cozaar) 50 mg PO DAILY [facility] Last Admin: 06/03/17 10:11 Dose: 50 mg Metoprolol Succinate (Toprol Xl) 50 mg PO DAILY [facility] Last Admin: 06/03/17 10:13 Dose: 50 mg Pantoprazole Sodium (Protonix Ec Tab) 40 mg PO 0600 [facility] Last Admin: 06/04/17 05:11 Dose: 40 mg Assessment and Plan - Assessment and Plan (Free Text) Assessment: Dyspnea CHF/DD + trops, doubt acute [place] HBP Hypothyroidism OA Anxiety H/O breast cyst Vertigo GERD Plan: OOB/PT/Rehab TCU Evaluation Continue current cardiac meds. If recurrent symptoms: consider out-pt nuclear stress testing.
[2017-06-04] MEDS: Metoprolol Succinate 50 mg XL Tab PO SCH (09:16)
[2017-06-04] MEDS ORDERED: Enoxaparin 30 mg Syringe SC SCH (10:00)
[2017-06-04 18:15] VITALS: BP 128/60; PULSE 62; RESP 16; TEMP 98.7
--- NOTE | 2017-06-04 22:37 | CON ---
DATE: 06/04/2017 REQUESTING PHYSICIAN: Wil Phillips MD. REASON FOR CONSULTATION: I have been asked to see this 87-year-old female who was admitted to the hospital on 06/01/2017 for shortness of breath, left-sided chest pain, and congestive heart failure. The patient states that she has felt better since her hospitalization and after receiving diuretics. She currently denies any shortness of breath or chest pain. I have been asked to see this patient for GERD. The patient has had chronic GERD in the past, on pantoprazole. She admits to occasional eructation and belching. She denies any constipation or rectal bleeding. PAST MEDICAL HISTORY: Notable for congestive heart failure, chronic kidney disease, hypothyroidism, hypertension, DJD, vertigo, chronic anemia, and localized anal cancer. PAST SURGICAL HISTORY: Notable for: 1. Removal of right breast lesion. 2. Excision of anal cancer. SOCIAL HISTORY: She denies cigarette smoking or alcohol use. FAMILY HISTORY: Noncontributory. ALLERGIES: SHE IS ALLERGIC TO CIPROFLOXACIN, SULFA, PNEUMOCOCCAL VACCINE, PENICILLIN. REVIEW OF SYSTEMS: A 14-point review of systems is notable for shortness of breath, chest pain, and GERD. MEDICATIONS AT HOME: Include Synthroid 25 mcg once a day, metoprolol 50 mg once a day, Abilify 2.5 mg every other day, and pantoprazole 40 mg once a day. PHYSICAL EXAMINATION: GENERAL: Elderly female lying in bed, in no acute distress. VITAL SIGNS: Reveal temperature of 98, blood pressure 152/63, heart rate of 75. HEENT: Reveals sclerae to be white. Conjunctivae pink. NECK: Supple. CHEST: Reveals scattered rhonchi throughout of both lung [place]. HEART: Reveals regular rate and rhythm. ABDOMEN: Soft, nontender. No mass. EXTREMITIES: Show no edema. LABORATORY DATA: Reveals white blood cell count 7.8, hemoglobin 11.5. Chemistries reveal BUN 37, creatinine 1.2. Troponin is elevated at 0.28. BNP is 1040. AST, ALT, and alkaline phosphatase were all normal. IMPRESSION: 1. Congestive heart failure. 2. Chronic renal insufficiency. 3. Gastroesophageal reflux disease. 4. Chronic anemia. RECOMMENDATIONS: 1. We will continue pantoprazole. 2. We will follow the patient up as an outpatient for an elective endoscopy once her congestive heart failure has resolved. Bj Mckee MD
--- NOTE | 2017-06-05 02:02 | CON ---
DATE: HISTORY OF PRESENT ILLNESS: An 87-year-old pleasant woman seen at bedside complaining of bilateral lower leg swelling as well as painful elongated fungal nail plates, which she is unable to take care. PAST MEDICAL HISTORY: Patient's medical history is significant for hypothyroidism, gastroesophageal reflux disease, morbid obesity and peripheral arterial disease. ALLERGIES: PATIENT IS ALLERGIC TO CIPRO, SULFA AND PENICILLIN WELL THE PNEUMOCOCCAL VACCINE. CURRENT MEDICATIONS: Include Toprol, Synthroid, Lasix, Abilify and Protonix. SOCIAL HISTORY: Patient is . Lives alone. She has no history of alcohol abuse or illicit drug use and never used tobacco products. FAMILY HISTORY: Unremarkable. OBJECTIVE: VITAL SIGNS: Temperature 98.6, pulse rate of 76, blood pressure 168/62, respiratory rate of 18. EXTREMITIES: Nonpalpable posterior tibial pulse and weakly palpable dorsalis pedis pulse noted bilaterally. +2 nonpitting lower extremity edema. Both lower extremities present with thin, shiny, discolored skin. There are no interdigital macerations. All nail plates are noted to be elongated, discolored, dystrophic with severe subungual fungal debris. Patient is able to detect 5.07 g monofilament wire testing bilaterally. There are no open lesions noted on either of her legs. There are no clinical signs of acute bacterial infection. Patient has hyperkeratotic lesions at the IPJ, plantarly, of both great toes. LABORATORY DATA: Laboratory findings reveal white count of 7.8, hemoglobin 11.5, hematocrit of 35.4, platelet count of 202. ASSESSMENT: Peripheral arterial disease, painful onychomycosis, painful hyperkeratosis. PLAN: Patient was educated on the pedal risks associated with peripheral vascular disease and pedal soft treatment. Excisional debridement was performed on all nail plates and hyperkeratotic lesions. Patient was instructed that light compression stockings would help with her lower extremity edema. Patient was told to follow up at the office every 3 months for at-risk routine foot care. Patient will be seen and followed as needed. Ho Ball DPM
--- NOTE | 2017-06-05 05:21 | CON ---
PSYCHIATRIC CONSULTATION DATE: HISTORY OF PRESENT ILLNESS: Patient is an 87-year-old white female, who came to the emergency room with severe shortness of breath and chest discomfort. I reviewed the chart, spoke with the patient at length. Patient is also feeling quite weak. She has been under psychiatric care with me for many years. Patient has a history of schizoaffective disorder. PAST MEDICAL HISTORY: Also includes hypertension, hypothyroidism, osteoarthritis, obesity, GERD, chronic kidney disease. Patient had psychiatric hospitalization many years ago for acute psychosis. PERSONAL HISTORY: She lives alone. She has one son. She has been for the past year and a half. She has many friend support and family support. CURRENT LABORATORY DATA: She had an echocardiogram that showed mild atrial insufficiency, mitral regurgitation and tricuspid regurgitation with mild LVH. Her laboratory data showed a white count of 7800, hemoglobin 11.5. Her metabolic profile on admission was essentially normal except for a BUN of 37,creatinine 1.2, estimated GFR 43, elevated troponin level ranging from 0.13 to 0.28, BNP of 1040. Patient had a most recent electrocardiogram revealing normal sinus rhythm with a possible septal infarct. Patient had a chest x-ray which revealed cardiomegaly and mild congestive heart failure. CURRENT MEDICATIONS: Include Catapres, Cozaar, Ecotrin. She is on home medication which is aripiprazole 2 mg p.o. at bedtime. She is also taking Lasix, Lovenox, Protonix, levothyroxine, Toprol-XL, Xanax 0.25 mg q. 6 h. p.r.n. for anxiety. Patient had a consultation from a head athletic trainer/strength coach who points out to congestive heart failure and doubts acute [place]. REVIEW OF SYSTEMS: She complains of extreme weakness to her legs. She complains of weight gain and slight shortness of breath. Other 12-point review noncontributory. PHYSICAL EXAMINATION: VITAL SIGNS: Blood pressure 128/60, pulse 62, respirations 16 per minute. She is afebrile. PSYCHIATRIC: Mental status: She is awake, alert, coherent, oriented x3. Affect is slightly flat, but otherwise no cognitive impairment. Recent and remote memory intact. No hallucinations, depression, or suicidal ideation. IMPRESSION: Patient has acute-onset congestive heart failure. She has chronic kidney disease, chronic schizoaffective disorder in remission. She has a history of hypertension. She has a history of hypothyroidism. PLAN: I would continue currently Abilify 1 mg at bedtime with Xanax 0.25 mg q. 6 h. p.r.n. for anxiety, and we will reevaluate p.r.n. Minesh Faith MD
--- NOTE | 2017-06-05 15:19 | DS ---
HISTORY OF PRESENT ILLNESS: Patient is an 87-year-old female who came into the hospital with complaints of shortness of breath. The patient states that her breathing is better. She has no complaints of any headaches or dizziness. She had acute CHF that was secondary to diastolic dysfunction that is now better and improved. She is going to the transitional care unit for rehab. PHYSICAL EXAMINATION: VITAL SIGNS: Temperature is 98.6, pulse of 76, blood pressure 168/62, respirations 18. GENERAL: The patient is lying in bed, flat, comfortable. HEENT: No oral lesion. Anicteric sclerae. Moist mucosa. NECK: No JVD, adenopathy, or thyromegaly. CARDIOVASCULAR: S1 and S2, regular. No murmurs, rubs, or gallops. LUNGS: Clear to auscultation bilaterally. No wheeze, rales, or rhonchi. ABDOMEN: Bowel sounds are positive, soft, nontender and nondistended. EXTREMITIES: No cyanosis, clubbing, or edema. ASSESSMENT: 1. Acute congestive heart failure secondary to diastolic dysfunction. 2. Vertigo. 3. Hypertension. 4. Anxiety. 5. Non-ST elevation myocardial infarction. PLAN: The patient is currently comfortable. She is going to continue with her diuretic therapy. She has been followed by Dr. Lambert. The patient is on aspirin. She is on losartan Synthroid for hypothyroidism. She is on Xanax as needed. She is on heart-healthy diet. . Wil Phillips MD
== END 2017-06-04 20:31 | DRG 280 ==
LOC: ED 00:17 → ERH 03:03 → 2RNO 04:36
PROVIDERS: ADMIT Internal Medicine Nephrology; ATTEND Internal Medicine Nephrology
PROC: 0HBRXZZ Excision of Toe Nail, External Approach (ICD-10-PCS; principal; 2017-06-04)
PROC: 0HBRXZZ Excision of Toe Nail, External Approach (ICD-10-PCS; 2017-06-04)
DX: I21.4 Non-ST elevation (NSTEMI) myocardial infarction (principal); I50.33 Acute on chronic diastolic (congestive) heart failure; I13.0 Hypertensive heart and chronic kidney disease with heart failure and stage 1 through stage 4 chronic kidney disease, or unspecified chronic kidney disease; N18.9 Chronic kidney disease, unspecified; F25.9 Schizoaffective disorder, unspecified; D50.9 Iron deficiency anemia, unspecified; E03.9 Hypothyroidism, unspecified; F41.9 Anxiety disorder, unspecified; R42 Dizziness and giddiness; K21.9 Gastro-esophageal reflux disease without esophagitis; I73.9 Peripheral vascular disease, unspecified; B35.1 Tinea unguium; L85.9 Epidermal thickening, unspecified; M19.90 Unspecified osteoarthritis, unspecified site; E66.01 Morbid (severe) obesity due to excess calories; Z85.048 Personal history of other malignant neoplasm of rectum, rectosigmoid junction, and anus; Z68.39 Body mass index [BMI] 39.0-39.9, adult; Z88.7 Allergy status to serum and vaccine; Z88.1 Allergy status to other antibiotic agents; Z88.2 Allergy status to sulfonamides; Z88.0 Allergy status to penicillin

== ENCOUNTER 2017-06-04 19:53 | Inpatient (IN) | payer OTHER, BC ==
[2017-06-04 20:37] VITALS: BMI 37.8
[2017-06-04] MEDS ORDERED: Home Med 1 UNIT PO SCH (22:00)
[2017-06-04] MEDS: ARIPIPRAZOLE 2 MG PO SCH (22:14)
[2017-06-05] MEDS ORDERED: Influenza Vaccine 60 mcg/0.5 mL SYR (4YR UP) IM ONE (01:13)
[2017-06-05] MEDS: Enoxaparin 30 mg Syringe SC SCH (05:38)
[2017-06-05] MEDS: Levothyroxine 25 MCG TAB PO SCH (05:38)
[2017-06-05] MEDS: Pantoprazole 40 mg EC Tab PO SCH (05:38)
[2017-06-05] MEDS: Metoprolol Succinate 50 mg XL Tab PO SCH (08:02)
[2017-06-05] MEDS ORDERED: Enoxaparin 30 mg Syringe SC SCH (10:00)
[2017-06-05] MEDS: ARIPIPRAZOLE 2 MG PO SCH (21:44)
--- NOTE | 2017-06-05 23:20 | PN ---
DATE: 06/05/2017 SUBJECTIVE: The patient is seen sitting in a chair in Transitional Care Unit. She states she felt some anxiety and dyspnea earlier today. She did some ambulation yesterday and appears to have better mobility. She denies any chest pain at present. CURRENT MEDICATIONS: Include clonidine p.r.n., Cozaar, Ecotrin, Lasix 20 mg daily, Lovenox, Protonix, Synthroid, Toprol-XL. OBJECTIVE: GENERAL: She is a very elderly woman, who appears comfortable at rest. VITAL SIGNS: Her blood pressure 132/60 with pulse of 72, respirations are 14. HEENT: No JVD. CHEST: Few scattered rhonchi. HEART: PMI in normal position. Soft systolic murmur is heard in the lower left sternal border. ABDOMEN: Soft, obese, nontender. Normoactive bowel sounds. EXTREMITIES: No edema. DIAGNOSTIC DATA: No blood work pending from this morning. IMPRESSION: 1. Recent dyspnea, possible mildly decompensated congestive heart failure, diastolic, clinically improved. 2. Anxiety disorder. 3. Unsteady gait. RECOMMENDATIONS: Current medications should continue. If she has recurrent chest pain, an outpatient stress test will be planned; however, medical therapy appears most reasonable at this time. She was encouraged to increase her activity and participation in rehabilitation here. We will be happy to follow as needed. Bud Jack MD
--- NOTE | 2017-06-06 01:17 | PN ---
DATE: 06/05/2017 SUBJECTIVE: The patient has no complaints of any chest pain, no shortness of breath, no headaches, no dizziness. PHYSICAL EXAMINATION VITAL SIGNS: Temperature is 98 , pulse is 76, blood pressure is 133/57, respirations 18. GENERAL: The patient is lying in bed, flat, comfortable. HEENT: No oral lesion. Anicteric sclerae. Moist mucosa. NECK: No JVD, adenopathy, or thyromegaly. CARDIOVASCULAR: S1 and S2, regular. No murmurs, rubs, or gallops. LUNGS: Clear to auscultation bilaterally. No wheeze, rales, or rhonchi. ABDOMEN: Bowel sounds are positive, soft, nontender and nondistended. EXTREMITIES: No cyanosis, clubbing or edema. ASSESSMENT: 1. Acute congestive heart failure secondary to systolic dysfunction, resolved. 2. Vertigo, improved. 3. Hypertension. 4. Anxiety. 5. Non-ST elevation, resolved. PLAN: The patient is currently comfortable. She is on clonidine for her hypertension. She is going to continue losartan for hypertension. The patient is on Lasix daily. She is on Lovenox for DVT prophylaxis. She is on Synthroid for hypothyroidism. The patient is on Xanax as needed. She is on a heart-healthy diet. Wil Phillips MD
[2017-06-06] MEDS: Pantoprazole 40 mg EC Tab PO SCH (05:33)
[2017-06-06] MEDS: Levothyroxine 25 MCG TAB PO SCH (05:33)
[2017-06-06] MEDS: Enoxaparin 30 mg Syringe SC SCH (05:33)
[2017-06-06] MEDS: Metoprolol Succinate 50 mg XL Tab PO SCH (08:31)
--- NOTE | 2017-06-06 16:53 | PN ---
DATE: 06/06/2017 SUBJECTIVE: The patient has no complaints of any chest pain. No shortness of breath. No headaches or dizziness. PHYSICAL EXAMINATION: VITAL SIGNS: Temperature is 97.8, pulse is 72, blood pressure is 139/67, respirations 18. GENERAL: The patient is lying in bed, flat, comfortable. HEENT: No oral lesion. Anicteric sclerae. Moist mucosa. NECK: No JVD, adenopathy, or thyromegaly. CARDIOVASCULAR: S1 and S2, regular. No murmurs, rubs, or gallops. LUNGS: Clear to auscultation bilaterally. No wheeze, rales, or rhonchi. ABDOMEN: Bowel sounds are positive, soft, nontender and nondistended. EXTREMITIES: No cyanosis, clubbing or edema. ASSESSMENT: 1. Acute congestive heart failure secondary to systolic dysfunction, resolved. 2. Hypertension. 3. Anxiety. 4. Kvd-DJ-waxvsfsff myocardial infarction. PLAN: The patient is currently comfortable. She is going to be on losartan for hypertension. The patient is on aspirin daily. She is going to be continued on her Lovenox. She is on Synthroid for hypothyroidism. She is on Xanax for anxiety. She is on a heart-healthy diet. She is doing well with physical therapy, ambulating. She is being followed by Cardiology. Wil Phillips MD
[2017-06-06] MEDS: ARIPIPRAZOLE 2 MG PO SCH (21:47)
[2017-06-07] MEDS: Levothyroxine 25 MCG TAB PO SCH (05:27)
[2017-06-07] MEDS: Pantoprazole 40 mg EC Tab PO SCH (05:27)
[2017-06-07] MEDS: Enoxaparin 30 mg Syringe SC SCH (05:27)
[2017-06-07] MEDS: Metoprolol Succinate 50 mg XL Tab PO SCH (08:22)
[2017-06-07] MEDS: ARIPIPRAZOLE 2 MG PO SCH (21:23)
[2017-06-08] MEDS: Levothyroxine 25 MCG TAB PO SCH (05:48)
[2017-06-08] MEDS: Enoxaparin 30 mg Syringe SC SCH (05:48)
[2017-06-08] MEDS: Pantoprazole 40 mg EC Tab PO SCH (05:48)
[2017-06-08] MEDS: Metoprolol Succinate 50 mg XL Tab PO SCH (08:29)
[2017-06-08] MEDS: ARIPIPRAZOLE 2 MG PO SCH (21:38)
[2017-06-09] MEDS ORDERED: Benzocaine/Menthol (Cepacol) Lozenge MT PRN (02:18)
[2017-06-09] MEDS: Levothyroxine 25 MCG TAB PO SCH (06:25)
[2017-06-09] MEDS: Pantoprazole 40 mg EC Tab PO SCH (06:25)
[2017-06-09] MEDS: Enoxaparin 30 mg Syringe SC SCH (06:25)
[2017-06-09] MEDS: Metoprolol Succinate 50 mg XL Tab PO SCH (08:09)
[2017-06-09] MEDS: Promethazine 6.25 MG/5 ML CUP PO PRN ×2 (17:17→21:12)
--- NOTE | 2017-06-09 17:43 | PN ---
DATE: 06/09/2017 SUBJECTIVE: The patient has no complaints of any chest pain. No shortness of breath. No headaches. PHYSICAL EXAMINATION: VITAL SIGNS: Temperature is 97.4, pulse of 80, blood pressure 144/58, respirations 18. GENERAL: The patient is lying in bed, flat, comfortable. HEENT: No oral lesion. Anicteric sclerae. Moist mucosa. NECK: No JVD, adenopathy, or thyromegaly. CARDIOVASCULAR: S1 and S2, regular. No murmurs, rubs, or gallops. LUNGS: Clear to auscultation bilaterally. No wheeze, rales, or rhonchi. ABDOMEN: Bowel sounds are positive, soft, nontender and nondistended. EXTREMITIES: No cyanosis, clubbing or edema. ASSESSMENT: 1. Acute congestive heart failure secondary to systolic dysfunction. 2. Hypertension. 3. Anxiety. 4. Lje-IX-ttolsoenu myocardial infarction. 5. Gait dysfunction. PLAN: The patient is currently comfortable. She is on clonidine for hypertension. I will discontinue as that is p.r.n. Patient is on losartan for hypertension. She is on Lovenox for DVT prophylaxis. She is ambulating well. I will discontinue that. She is on Synthroid for hypothyroidism. She is on Xanax as needed. She is on heart-healthy diet. Wil Phillips MD
[2017-06-09] MEDS: ARIPIPRAZOLE 2 MG PO SCH (21:12)
[2017-06-10] MEDS: Promethazine 6.25 MG/5 ML CUP PO PRN ×3 (01:15→14:21)
[2017-06-10] MEDS: Levothyroxine 25 MCG TAB PO SCH (05:02)
[2017-06-10] MEDS: Pantoprazole 40 mg EC Tab PO SCH (05:02)
[2017-06-10] MEDS: Metoprolol Succinate 50 mg XL Tab PO SCH (08:44)
[2017-06-10 18:13] VITALS: O2SAT 95
[2017-06-10] MEDS: ARIPIPRAZOLE 2 MG PO SCH (21:14)
[2017-06-11] MEDS: Levothyroxine 25 MCG TAB PO SCH (05:45)
[2017-06-11] MEDS: Pantoprazole 40 mg EC Tab PO SCH (05:45)
[2017-06-11] MEDS: Promethazine 6.25 MG/5 ML CUP PO PRN (05:46)
[2017-06-11] MEDS: Metoprolol Succinate 50 mg XL Tab PO SCH (07:55)
[2017-06-11 09:42] VITALS: BP 113/54
[2017-06-11 13:19] VITALS: PULSE 76; RESP 20; TEMP 98.1
--- NOTE | 2017-06-11 19:03 | PN ---
SUBJECTIVE: This is an 87-year-old female who had come to the Transitional Care Unit for rehabilitation. She was having difficulty in ambulating, walking as well as she did before. The patient initially came into the hospital because of the acute CHF. The patient is seen by Cardiology. She currently feels well. She has no complaints of any chest pain. No shortness of breath. No headaches. No dizziness. PHYSICAL EXAMINATION: VITAL SIGNS: Temperature is 97.9, pulse is 68, blood pressure is 124/50, respirations 18, O2 saturation 95%. GENERAL: The patient is lying in bed, flat, comfortable. HEENT: No oral lesion. Anicteric sclerae. Moist mucosa. NECK: No JVD, adenopathy, or thyromegaly. CARDIOVASCULAR: S1 and S2, regular. No murmurs, rubs, or gallops. LUNGS: Clear to auscultation bilaterally. No wheeze, rales, or rhonchi. ABDOMEN: Bowel sounds are positive, soft, nontender and nondistended. EXTREMITIES: No cyanosis, clubbing or edema. ASSESSMENT: 1. Acute congestive heart failure secondary to systolic dysfunction. 2. Hypertension. 3. Anxiety. 4. Ouq-GW-ujhwlttcz myocardial infarction. 5. Gait dysfunction. PLAN: The patient is currently on Cozaar which at this point we will continue. She is on aspirin daily. She is on Lasix. She is going to continue with Synthroid for hypothyroidism. She is on Xanax as needed. She is on a heart-healthy diet. Wil Phillips MD
== END 2017-06-11 14:29 | disposition home or self-care (01) | DRG 280 ==
LOC: TRCU 19:53
PROVIDERS: ADMIT Internal Medicine Nephrology; ATTEND Internal Medicine Nephrology
PROC: F07Z9FZ Gait Training/Functional Ambulation Treatment using Assistive, Adaptive, Supportive or Protective Equipment (ICD-10-PCS; principal; 2017-06-05)
PROC: F07M6ZZ Therapeutic Exercise Treatment of Musculoskeletal System - Whole Body (ICD-10-PCS; 2017-06-05)
PROC: F08Z1ZZ Dressing Techniques Treatment (ICD-10-PCS; 2017-06-05)
PROC: F08Z2ZZ Grooming/Personal Hygiene Treatment (ICD-10-PCS; 2017-06-05)
PROC: F08Z0ZZ Bathing/Showering Techniques Treatment (ICD-10-PCS; 2017-06-05)
PROC: F08Z4ZZ Home Management Treatment (ICD-10-PCS; 2017-06-05)
DX: I21.4 Non-ST elevation (NSTEMI) myocardial infarction (principal); I50.21 Acute systolic (congestive) heart failure; I13.0 Hypertensive heart and chronic kidney disease with heart failure and stage 1 through stage 4 chronic kidney disease, or unspecified chronic kidney disease; N18.9 Chronic kidney disease, unspecified; F41.9 Anxiety disorder, unspecified; E03.9 Hypothyroidism, unspecified; D50.9 Iron deficiency anemia, unspecified; Z85.828 Personal history of other malignant neoplasm of skin; M19.90 Unspecified osteoarthritis, unspecified site; Z88.1 Allergy status to other antibiotic agents; Z88.0 Allergy status to penicillin; Z88.2 Allergy status to sulfonamides; Z88.7 Allergy status to serum and vaccine; R26.81 Unsteadiness on feet; R42 Dizziness and giddiness; Z79.82 Long term (current) use of aspirin

== ENCOUNTER 2017-07-09 04:17 | Inpatient (IN) | payer MEDICARE, BC ==
[2017-07-09] MEDS ORDERED: Albuterol 0.083% Inhal Sol (2.5 mg/3 mL) UD INH STA (04:30)
--- NOTE | 2017-07-09 04:54 | ED PDOC ---
Arrival/HPI - General Chief Complaint: Shortness Of Breath Time Seen by Provider: 07/09/17 04:29 Historian: Patient - History of Present Illness Narrative History of Present Illness (Text): 07/09/17 04:48 87 year old female, whose past medical history includes CHF, Hypertension, CKD, and Hypothyroidism, presents to the emergency department complaining of waking up and not be able to breath 1- 1 1/2 hours ago. Patient states she took a water pill which did not work. Patient denies any fever, chills, chest pain, abdominal pain, nausea, vomiting, diarrhea, urinary symptoms, back pain, neck pain, headache, dizziness, or any other complaints. Time/Duration: 1-3 hours Symptom Onset: Sudden Symptom Course: Unchanged Activities at Onset: Light Context: Home Past Medical History - Provider Review Nursing Documentation Reviewed: Yes - Past History Past History: Non-Contributing - Infectious Disease Hx of Infectious Diseases: None - Tetanus Immunization Tetanus Immunization: Unknown - Cardiac Hx Cardiac Disorders: Yes Hx Congestive Heart Failure: Yes Hx Hypertension: Yes - Pulmonary Hx Respiratory Disorders: Yes Hx Pneumonia: Yes - Neurological Hx Neurological Disorder: Yes Hx Dizziness: Yes (vertigo) - HEENT Hx [place] Disorder: [place] - Renal Hx Renal Disorder: No - Endocrine/Metabolic Hx Hypothyroidism: Yes - Hematological/Oncological Hx Blood Disorders: Yes Hx Cancer: Yes (basal cell left [place] 12/2013) Other/Comment: LEFT THIGH WITH ONE SMALL VESICLE -HERPES ZOSTER 11-20-16 - Integumentary Hx Dermatological Disorder: Yes Hx Basal Cell Carcinoma: Yes (LEFT ARM 2013) Other/Comment: ONE SMALL VESICLE TO LEFT THIGH-HERPES ZOSTER 11-20-16 - Musculoskeletal/Rheumatological Hx Falls: No - Gastrointestinal Hx Gastrointestinal Disorders: Yes ([place]) - Genitourinary/Gynecological Hx Genitourinary Disorders: Yes - Psychiatric Hx Psychophysiologic Disorder: Yes Hx Anxiety: Yes Hx Depression: Yes Hx Substance Use: No - Past Surgical History Past Surgical History: Non-Contributing - Surgical History Other/Comment: benign right breast cyst - Anesthesia Hx Anesthesia: No Hx Anesthesia Reactions: No Hx Malignant Hyperthermia: No - Suicidal Assessment Feels Threatened In Home Enviroment: No Family/Social History - Physician Review Nursing Documentation Reviewed: Yes Family/Social History: No Known Family HX Smoking Status: Never Smoked Hx Alcohol Use: No Hx Substance Use: No Hx Substance Use Treatment: No Allergies/Home Meds Allergies/Adverse Reactions: Allergies ciprofloxacin [From Cipro] Allergy (Verified 07/09/17 04:27) .unknown ciprofloxacin HCl [From Cipro] Allergy (Verified 07/09/17 04:27) RASH pneumococcal vaccine Allergy (Verified 07/09/17 04:27) RASH sulfamethoxazole [From Bactrim] Allergy (Verified 07/09/17 04:27) RASH trimethoprim [From Bactrim] Allergy (Verified 07/09/17 04:27) RASH nitrofurantoin Adverse Reaction (Verified 07/09/17 04:27) RASH Penicillins Adverse Reaction (Verified 07/09/17 04:27) SWELLING Home Medications: Home Meds Medication Instructions Recorded Confirmed Levothyroxine Sodium [Unithroid] 25 mcg PO DAILY 12/05/15 06/04/17 Furosemide [Lasix] 20 mg PO DAILY 11/20/16 06/04/17 Metoprolol Succinate [Toprol XL] 50 mg PO DAILY 11/20/16 06/04/17 ARIPiprazole [Abilify] 1 mg PO HS 01/01/17 06/04/17 Review of Systems - Physician Review All systems were reviewed & negative as marked: Yes - Review of Systems Constitutional: absent: Fevers, Other (Chills) Respiratory: SOB Cardiovascular: absent: Chest Pain Gastrointestinal: absent: Abdominal Pain, Diarrhea, Nausea, Vomiting Genitourinary Female: absent: Dysuria, Frequency, Hematuria Musculoskeletal: absent: Back Pain, Neck Pain Neurological: absent: Headache, Dizziness Physical Exam Vital Signs Reviewed: Yes Vital Signs BP 07/09/17 06:20 158/105 H Appearance: Positive for: Well-Appearing Pain Distress: None Mental Status: Positive for: Alert and Oriented X 3 - Systems Exam Head: Present: Atraumatic, Normocephalic Pupils: Present: PERRL Extroacular Muscles: Present: EOMI Conjunctiva: Present: Normal Mouth: Present: Moist Mucous Membranes Neck: Present: JVD Respiratory/Chest: Present: Rales (Ralse bilaterally ). No: Respiratory Distress, Accessory Muscle Use Cardiovascular: Present: Regular Rate and Rhythm, Normal S1, S2. No: Murmurs Abdomen: No: Tenderness, Distention, Peritoneal Signs Back: Present: Normal Inspection Upper Extremity: Present: Normal Inspection. No: Cyanosis, Edema Lower Extremity: Present: Edema (Pitting edema bialterally ) Neurological: Present: GCS=15, CN II-XII Intact, Speech Normal Skin: Present: Warm, Dry, Normal Color. No: Rashes Psychiatric: Present: Alert, Oriented x 3, Normal Insight, Normal Concentration Medical Decision Making ED Course and Treatment: 07/09/17 04:58 Impression: 87 year old female presents complaining of shortness of breath 1 - 1 1/2 hours ago. Plan: -- VBG -- Labs -- Chest X-Ray -- EKG -- Albuterol -- Blood Culture, Urine Culture -- Urinalysis -- Reassess and disposition Prior Visits: Notes and results from previous visits were reviewed. On 06/01/17 patient came in complaining of shortness of breath that began 1 hour ago. Patient was discharged admitted. Progress Notes: 07/09/17 06:07 CXR Impression: As read by me, CHF 07/09/17 06:[address] Fortune who is aware and agrees with the plan. Accepts patient into his service with Consult Dr. Bud Jack 07/09/17 06:10 EKG: Ordered, reviewed, and independently interpreted the EKG. Rate : 72 BPM Rhythm : NSR Interpretation : Old septal infarct Comparison : No previous EKG for comparison. - Lab Interpretations Lab Results: 07/09/17 04:42 07/09/17 04:42 Lab Results 07/09/17 04:42: Sodium 140, Chloride 99, Potassium 4.3, Carbon Dioxide 30, Anion Gap 15, BUN 37 H, Creatinine 1.3 H, Est GFR ( Amer) 47, Est GFR ( Non-Af Amer) 39, Random Glucose 110, Calcium 9.8, Total Bilirubin 0.3, AST 27, ALT 26, Alkaline Phosphatase 122, Lactate Dehydrogenase 561, Total Creatine Kinase 60, Troponin I < 0.01 D, Total Protein 7.5, Albumin 4.3, Globulin 3.2, Albumin/Globulin Ratio 1.3 07/09/17 04:42: pO2 114 H, VBG pH 7.41, VBG pCO2 51.0, VBG HCO3 32.3 H, VBG Total CO2 33.9 H, VBG O2 Sat (Calc) 99.4 H, VBG Base Excess 6.3 H, VBG Potassium 4.3, Sodium 137.0, Chloride 103.0, Glucose 111 H, Lactate 0.9, FiO2 21.0, Venous Blood Potassium 4.3 07/09/17 04:42: PT 11.8, INR 1.03 07/09/17 04:42: WBC 9.7 D, RBC 4.09, Hgb 11.8 L, Hct 36.8, MCV 90.0, MCH 28.9, MCHC 32.1, RDW 14.0, Plt Count 208, MPV 10.7, Gran % 68.3 H, Lymph % (Auto) 19.4 L, [place] % (Auto) 7.8 H, Eos % (Auto) 4.2, Baso % (Auto) 0.3, Gran # 6.63 H , Lymph # (Auto) 1.9, [place] # (Auto) 0.8 H, Eos # (Auto) 0.4, Baso # (Auto) 0.03 I have reviewed the lab results: Yes - RAD Interpretation Radiology Orders: 07/09/17 04:30 CHEST PORTABLE [RAD] Stat - EKG Interpretation Interpreted by ED Physician: Yes Type: 12 lead EKG - Medication Orders Current Medication Orders: Levothyroxine Sodium (Synthroid) 25 mcg PO 0600 GALA Metoprolol Succinate (Toprol Xl) 50 mg PO DAILY GALA Discontinued Medications Albuterol Sulfate (Albuterol 0.083% Inhal Archana (2.5 Mg/3 Ml) Ud) 7.5 mg INH STAT STA Stop: 07/09/17 04:31 Last Admin: 07/09/17 06:18 Dose: 7.5 mg Furosemide (Lasix) 40 mg IVP STAT STA Stop: 07/09/17 05:31 Last Admin: 07/09/17 06:20 Dose: 40 mg MAR Blood Pressure Document 07/09/17 06:20 SS (Rec: 07/09/17 06:21 SS [id number] Blood Pressure Blood Pressure (100/60-150/90) 158/105 IVP Administration Document 07/09/17 06:20 SS (Rec: 07/09/17 06:21 SS [id number] Charges for Administration # of IVP Administrations 1 - Scribe Statement The provider has reviewed the documentation as recorded by the Elvie Cates Provider Scribe Attestation: All medical record entries made by the Scribe were at my direction and personally dictated by me. I have reviewed the chart and agree that the record accurately reflects my personal performance of the history, physical exam, medical decision making, and the department course for this patient. I have also personally directed, reviewed, and agree with the discharge instructions and disposition. Disposition/Present on Arrival - Present on Arrival History of DVT/PE: No History of Uncontrolled Diabetes: No Urinary Catheter: No History of Decub. Ulcer: No History Surgical Site Infection Following: None - Disposition
[2017-07-09 05:15] LABS: BASO # 0.03 K/mm3 (0.0-2.0); BASO % 0.3 % (0.0-3.0); EOS # 0.4 (0.0-0.7); EOS % 4.2 % (1.5-5.0); GRAN # 6.63 (1.4-6.5); GRAN % 68.3 % (50.0-68.0); HEMOGLOBIN 11.8 g/dL (12.0-16.0); LYMPH # 1.9 (1.2-3.4); LYMPH % 19.4 % (22.0-35.0); MEAN CORPUSCULAR HEMOGLOBIN 28.9 pg (25.0-35.0); MEAN CORPUSCULAR HGB CONC 32.1 g/dl (31.0-37.0); MEAN PLATELET VOLUME 10.7 fl (7.0-11.0); MONO # 0.8 (0.1-0.6); MONO % 7.8 % (1.0-6.0); RBC 4.09 10^6/uL (3.5-6.1); WHITE BLOOD COUNT 9.7 10^3/ul (4.5-11.0)
[2017-07-09 05:22] LABS: ALB/GLOB RATIO 1.3 (1.1-1.8); ALBUMIN 4.3 g/dL (3.0-4.8); ALT/SGPT 26 U/L (7-56); AST/SGOT 27 U/L (14-36); BLOOD UREA NITROGEN 37 mg/dL (7-21); CALCIUM 9.8 mg/dL (8.4-10.5); GFR AFRICAN-AMERICAN 47; GFR NON-AFRICAN AMERICAN 39
[2017-07-09 05:34] LABS: TROPONIN I < 0.01 ng/mL
[2017-07-09 05:49] LABS: VENOUS BLOOD GAS BASE EXCESS 6.3 mmol/L (0.0-2.0); VENOUS BLOOD GAS PO2 114 mm/Hg (30-55); VENOUS BLOOD PH 7.41 (7.32-7.43)
[2017-07-09 05:55] LABS: INR 1.03 (0.93-1.08); PROTHROMBIN TIME 11.8 SECONDS (9.4-12.5)
[2017-07-09 06:25] LABS: PH,URINE 7.5 (4.7-8.0); URINE BILIRUBIN NEGATIVE (NEGATIVE); URINE BLOOD NEGATIVE (NEGATIVE); URINE GLUCOSE (UA) NEGATIVE (NEGATIVE); URINE LEUKOCYTE ESTERASE TRACE Leu/uL (NEGATIVE); URINE PROTEIN NEGATIVE mg/dL (<30 mg/dL); URINE UROBILINOGEN 0.2 E.U./dL (<1 E.U./dL)
[2017-07-09 06:26] LABS: URINE APPEARANCE CLEAR (CLEAR); URINE COLOR YELLOW (YELLOW)
[2017-07-09 06:47] LABS: URINE EPITHELIAL CELLS 0 - 2 /hpf (0-5); URINE RBC 0 - 2 /hpf (0-2); URINE WBC 0 - 2 /hpf (0-6)
[2017-07-09] MEDS: Levothyroxine 25 MCG TAB PO SCH (07:25)
--- NOTE | 2017-07-09 08:36 | RAD ---
HISTORY: Dyspnea COMPARISON: 06/01/2017. FINDINGS: LUNGS: The lungs are well inflated and clear. PLEURA: No significant pleural effusion identified, no pneumothorax apparent. CARDIOVASCULAR: Normal. OSSEOUS STRUCTURES: No significant abnormalities. VISUALIZED UPPER ABDOMEN: Normal. OTHER FINDINGS: None. IMPRESSION: No active pulmonary disease.
[2017-07-09] MEDS: Metoprolol Succinate 50 mg XL Tab PO SCH (10:03)
--- NOTE | 2017-07-09 12:21 | CP.PCM.HP ---
<Satish Mayes - Last Filed: 07/09/17 12:27> History of Present Illness - History of Present Illness History of Present Illness: History and physical for Dr. Phillips 87 year old female with past medical history of HTN, hyperthyroidism, CHF, CKD, and osteoarthritis presents with 3 day history of shortness of breath. Patient admits to orthopnea over the last several days. She spoke to her production supply equipment tender who recommended she double the amount of Lasix she was using at home. Patient states this did not help. This morning patient woke up from her sleep due to her shortness of breath. At this time, she decided to come to the hospital for her symptoms. Patient also admits to small rash under her left breast. Denies chest pain, nausea, vomiting, diarrhea, fever, chills, dysuria, changes in vision, changes in hearing. PMH: hypothyroidism, congestive heart failure, and hypertension Allergies: Ciprofloaxcin, Pneumovac, Pennicillin, Bactrim, nitrofurantoin Meds: Reviewed, as per MAR Social hx: Denies alcohol, tobacco, or illicit drug use Family hx: Noncontributory Present on Admission - Present on Admission Any Indicators Present on Admission: No Review of Systems - Review of Systems Review of Systems: 12 point ROS as per HPI, otherwise negative Past Patient History - Infectious Disease Hx of Infectious Diseases: None - Tetanus Immunizations Tetanus Immunization: Unknown - Past Social History Smoking Status: Never Smoked - CARDIAC Hx Cardiac Disorders: Yes Hx Congestive Heart Failure: Yes Hx Hypertension: Yes - PULMONARY Hx Respiratory Disorders: Yes Hx Pneumonia: Yes - NEUROLOGICAL Hx Neurological Disorder: Yes Hx Dizziness: Yes (vertigo) - HEENT Hx HEENT Problems: Yes ([place]) - RENAL Hx Chronic Kidney Disease: No - ENDOCRINE/METABOLIC Hx Hypothyroidism: Yes - HEMATOLOGICAL/ONCOLOGICAL Hx Blood Disorders: Yes Hx Cancer: Yes (basal cell left [place] 12/2013) Other/Comment: LEFT THIGH WITH ONE SMALL VESICLE -HERPES ZOSTER 11-20-16 - INTEGUMENTARY Hx Dermatological Problems: Yes Hx Basil Cell: Yes (LEFT ARM 2013) Other/Comment: ONE SMALL VESICLE TO LEFT THIGH-HERPES ZOSTER 11-20-16 - MUSCULOSKELETAL/RHEUMATOLOGICAL Hx Falls: No - GASTROINTESTINAL Hx Gastrointestinal Disorders: Yes ([place]) - GENITOURINARY/GYNECOLOGICAL Hx Genitourinary Disorders: Yes - PSYCHIATRIC Hx Psychophysiologic Disorder: Yes Hx Anxiety: Yes Hx Depression: Yes Hx Substance Use: No - SURGICAL HISTORY Other/Comment: benign right breast cyst - ANESTHESIA Hx Anesthesia: No Hx Anesthesia Reactions: No Hx Malignant Hyperthermia: No Meds Allergies/Adverse Reactions: Allergies Allergy/AdvReac Type Severity Reaction Status Date / Time ciprofloxacin [From Cipro] Allergy .unknown Verified 07/09/17 04:27 ciprofloxacin HCl Allergy RASH Verified 07/09/17 04:27 [From Cipro] pneumococcal vaccine Allergy RASH Verified 07/09/17 04:27 sulfamethoxazole Allergy RASH Verified 07/09/17 04:27 [From Bactrim] trimethoprim [From Bactrim] Allergy RASH Verified 07/09/17 04:27 nitrofurantoin AdvReac RASH Verified 07/09/17 04:27 Penicillins AdvReac SWELLING Verified 07/09/17 04:27 Physical Exam - Constitutional Appears: Non-toxic, No Acute Distress - Head Exam Head Exam: ATRAUMATIC, NORMAL INSPECTION, NORMOCEPHALIC - ENT Exam ENT Exam: Mucous Membranes Moist, Normal Exam - Respiratory Exam Respiratory Exam: Rales (b/l lower lung [place]), NORMAL BREATHING PATTERN. absent: Rhonchi, Wheezes - Cardiovascular Exam Cardiovascular Exam: RRR, +S1, +S2 Additional comments: rash under left breast - GI/Abdominal Exam GI & Abdominal Exam: Normal Bowel Sounds, Soft. absent: Tenderness - Extremities Exam Extremities exam: Positive for: pedal edema. Negative for: calf tenderness - Neurological Exam Neurological exam: Alert, CN II-XII Intact, Oriented x3 - Psychiatric Exam Psychiatric exam: Normal Affect, Normal Mood - Skin Skin Exam: Intact, Normal Color, Warm Results - Vital Signs Recent Vital Signs: Last Vital Signs Temp 97 F L 07/09/17 09:05 Pulse 75 07/09/17 10:03 Resp 20 07/09/17 09:05 BP 144/57 L 07/09/17 10:03 Pulse Ox 97 07/09/17 09:05 - Labs Result Diagrams: 07/09/17 04:42 07/09/17 04:42 Labs: Laboratory Results - last 24 hr 07/09/17 06:14 Urine Color Yellow Urine Appearance Clear Urine pH 7.5 Ur Specific [place] 1.010 Urine Protein Negative Urine Glucose (UA) Negative Urine Ketones Negative Urine Blood Negative Urine Nitrate Negative Urine Bilirubin Negative Urine Urobilinogen 0.2 Ur Leukocyte Esterase Trace H Urine RBC 0 - 2 Urine WBC 0 - 2 Ur Epithelial Cells 0 - 2 Assessment & Plan - Assessment and Plan (Free Text) Plan: 1. CHF exacerbation 2. ELIZABETH 3. Intertrigo 4. CKD 5. Hypothyroidism 6. Hypertension 7. Obesity 87 year old female presenting with CHF exacerbation. Patient was started on IV diuretics as per cardiology. Will increase daily Lasix in addition to extra dose of lasix today. Patient will be continued on home medications of Toprol and Levothyroxine. Patient will have troponins trended and BNP ordered as per cardiology. Will obtain physical therapy evaluation for patient. Will add Nystatin for fungal infection of left breast. Continue to monitor labs daily. Patient will be reevaluated in AM. Sugey, PGY-2 <Wil Phillips S - Last Filed: 07/09/17 19:35> Results - Vital Signs Recent Vital Signs: Last Vital Signs Temp 97 F L 07/09/17 13:32 Pulse 96 H 07/09/17 13:32 Resp 20 07/09/17 13:32 BP 138/56 L 07/09/17 18:24 Pulse Ox 97 07/09/17 09:05 - Labs Result Diagrams: 07/09/17 04:42 07/09/17 04:42 Labs: Laboratory Results - last 24 hr 07/09/17 06:14 Urine Color Yellow Urine Appearance Clear Urine pH 7.5 Ur Specific [place] 1.010 Urine Protein Negative Urine Glucose (UA) Negative Urine Ketones Negative Urine Blood Negative Urine Nitrate Negative Urine Bilirubin Negative Urine Urobilinogen 0.2 Ur Leukocyte Esterase Trace H Urine RBC 0 - 2 Urine WBC 0 - 2 Ur Epithelial Cells 0 - 2 Assessment & Plan - Assessment and Plan (Free Text) Plan: Pt seen and examined. Reviewed the note of the medical scientific officer. Labs reviewed. Meds reviewed.CHF is due to diastolic dysfunction. Will give IV Lasix. pt with CKD. May not have ELIZABETH. Will get cardiology evaluation.
[2017-07-09] MEDS: Nystatin-Triamcinolone Cream(30 gm) TOP SCH ×2 (14:17→18:36)
[2017-07-09 14:23] VITALS: BMI 38.1
--- NOTE | 2017-07-09 16:09 | CON ---
DATE: 07/09/2017 INDICATIONS: Shortness of breath. 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 There was no chest pain. There was orthopnea. There was no syncope, presyncope, lightheadedness, dizziness, palpitations. There is chronic edema. There was no fever, chills, cough, sputum production, hemoptysis, abdominal pain, nausea, vomiting, diarrhea, constipation, or melena. PAST MEDICAL HISTORY: Notable for prior admissions for shortness of breath. She has hypertension, hyperlipidemia. Echocardiography in May revealed normal left ventricular function with mild concentric LVH, mild mitral regurgitation, tricuspid regurgitation and aortic insufficiency. ADDITIONAL PAST MEDICAL HISTORY: Includes hypothyroidism, obesity, GERD, and vertigo. MEDICATIONS: At the time of admission included Abilify, Lasix, Phenergan, Protonix, metoprolol, levothyroxine. ALLERGIES: SHE NOTES ALLERGIES TO SEVERAL MEDICATIONS INCLUDING CIPRO, BACTRIM, NITROFURANTOIN, PENICILLIN. SOCIAL HISTORY: She lives at home. She is ambulatory. She does not smoke. She does not drink. She is a retired teacher. REVIEW OF SYSTEMS: Ten-point review of systems, otherwise unremarkable. FAMILY HISTORY: Unremarkable. PHYSICAL EXAMINATION: GENERAL: She is a well-developed woman, lying on a stretcher in the emergency room, in no acute distress. VITAL SIGNS: Notable for sinus rhythm. Blood pressure 158/105, respirations 20, O2 sat 97% on nasal cannula. HEENT: Reveals no neck vein distention, thyromegaly, carotid bruits. Mucous membranes moist. Conjunctivae pink. NECK: Supple. LUNGS: Lung [place], scattered rhonchi. HEART: Reveals normal first and second heart sounds. There is a soft systolic murmur along the left sternal border. ABDOMEN: Soft. Bowel sounds present. No mass, organomegaly, tenderness, rebound or guarding. No CVA tenderness. No palpable abdominal aortic aneurysm. EXTREMITIES: Reveal no cyanosis or clubbing. There was chronic nonpitting edema of lower extremities. NEUROLOGIC: Awake, alert, and oriented. PSYCHIATRIC: Normal as to mood and affect. SKIN: Warm and dry. No rash or cellulitis. LABORATORY DATA AND IMAGING: Chest x-ray is a portable study, it is not red yet. It is unremarkable to my interpretation. EKG is not available. Apparently, atrial sinus rhythm with an old anteroseptal myocardial infarction, I will review it in the system. White count, normal; platelet count, normal. Hemoglobin 11.8, hematocrit 36.8. PT/INR unremarkable. Blood gases are noted. Electrolytes: BUN and creatinine unremarkable. BUN 37, creatinine 1.3. LFTs unremarkable. CK is 60. Troponin is less than 0.01. Urinalysis is unremarkable. IMPRESSION: Amairani Jama is an 87-year-old woman with admissions for shortness of breath in the past admitted now shortness of breath during the night, which got worse. There was no chest pain. She is hypertensive. PLAN: I will review her EKG. She got a dose of IV Lasix. She feels more comfortable. I will continue metoprolol and Synthroid. Albuterol is ordered. She will be on telemetry. She could be out of bed to chair. We will monitor her I's and O's and check stool for occult blood. I will review her old records and echocardiogram. I will repeat troponin level and EKG in the morning. I will follow along with you. I will make additional recommendations based on her clinical course. Bradford Lambert MD MTDD
[2017-07-09] MEDS ORDERED: Albuterol-Ipratrop 3 mg / 0.5 (3 ml) UD IH PRN (21:05)
--- NOTE | 2017-07-09 21:33 | CARD ---
APPROVED REPORT EKG Measurement Heart [id number] <Conclusion> Normal sinus rhythm Septal infarct, age undetermined Abnormal ECG
[2017-07-10] MEDS: Levothyroxine 25 MCG TAB PO SCH (05:25)
[2017-07-10 07:18] LABS: BLOOD UREA NITROGEN 38 mg/dL (7-21); CALCIUM 9.3 mg/dL (8.4-10.5); GFR AFRICAN-AMERICAN 40; GFR NON-AFRICAN AMERICAN 33
[2017-07-10 07:21] LABS: TROPONIN I < 0.01 ng/mL
[2017-07-10] MEDS: Albuterol-Ipratrop 3 mg / 0.5 (3 ml) UD IH SCH ×2 (07:51→20:18)
[2017-07-10] MEDS: Metoprolol Succinate 50 mg XL Tab PO SCH (09:22)
[2017-07-10] MEDS: Nystatin-Triamcinolone Cream(30 gm) TOP SCH ×2 (09:24→18:07)
--- NOTE | 2017-07-10 09:54 | PQF RENAL ---
This form is a permanent part of the medical record Dr. Mayes, You completed H&P on this patient noting CKD and ELIZABETH as diagnoses. CKD requires more specificity. Please specify stage of CKD present in this patient. Also ELIZABETH listed as a diagnosis in H&P but attending notes "may not have ELIZABETH". please clarify. Patient has CKD, stage 3. She also is at baseline creatinine, with no ELIZABETH. Clarification of your documentation is requested to better reflect the severity of illness and intensity of treatment of your patient. Indicators present [] Oliguria/anuria [] Edema/weight gain [] Hyponatremia [] Confusion/mental status changes [] Increased Blood Urea Nitrogen/Creatinine [] Increased Potassium/Decreased potassium [] Anemia (male <13.5, female <12.0) [] Proteinuria [] Metabolic Acidosis OR Alkalosis [] Hypotension/shock [] Decreased GFR [] Other: [] Location in the medical record that reflects the above clinical findings: PHYSICIAN'S RESPONSE Based on your medical judgment of the clinical indicators outlined above, are you treating this patient for a known or suspected: [] Acute Renal Failure [] Acute Kidney Injury [] Azotemia/prerenal azotemia [] Chronic kidney disease Stage I [] Stage II [] Stage III [] Stage IV [] [] Other condition/diagnosis:[] [] If Unable to Determine, please check the box, sign and date. Present On Admission (POA) Indicator: [] Present at the time of admission [] Not present at the time of admission [] Clinically Undetermined In responding to this query, please exercise your independent professional judgment. The fact that a question is asked does not imply that any particular answer is desired or expected. Thank you for your clarification on this documentation. If you have any questions please call:[ ] * Thank you, [ ]Manuel Roman [facility] #[id number] (please call me if you have any questions) internet ecommerce specialist Chronic Kidney Disease Stages *[employer]* Stage I GFR >90 Stage II GFR 60-89 Stage III GFR 30-59 Stage IV GFR 15-29 Stage V~~~~~~~~~~ GFR <15~~~~~~~~~~~~~ MTDD
[2017-07-10] MEDS ORDERED: Enoxaparin 30 mg Syringe SC SCH (10:00)
--- NOTE | 2017-07-10 10:24 | CP.PCM.PN ---
<Satish Mayes - Last Filed: 07/10/17 10:16> Subjective - Date & Time of Evaluation Date of Evaluation: 07/10/17 Time of Evaluation: 10:17 - Subjective Subjective: Patient seen and examined at bedside. Patient states breathing improved from previous day. Patient also notes improvement in lower extremity edema. Denies chest pain, shortness of breath, nausea, vomiting, diarrhea, fever, chills. Objective - Vital Signs/Intake and Output Vital Signs (last 24 hours): Temp Pulse Resp BP Pulse Ox 97.5 F L 65 20 147/62 99 07/10/17 08:37 07/10/17 09:22 07/10/17 08:37 07/10/17 09:29 07/10/17 08:37 Intake and Output: 07/10/17 07/10/17 06:59 18:59 Intake Total 660 Balance 660 - Medications Medications: Current Medications Albuterol/Ipratropium (Duoneb 3 Mg/0.5 Mg (3 Ml) Ud) 3 ml IH Q6 PRN PRN Reason: Shortness of Breath Last Admin: 07/09/17 21:30 Dose: 3 ml Albuterol/Ipratropium (Duoneb 3 Mg/0.5 Mg (3 Ml) Ud) 3 ml IH BIDRESP [facility] Last Admin: 07/10/17 07:51 Dose: 3 ml Alprazolam (Xanax) 0.25 mg PO BID PRN; Protocol PRN Reason: Anxiety Stop: 07/17/17 10:01 Last Admin: 07/10/17 09:36 Dose: 0.25 mg Enoxaparin Sodium (Lovenox) 30 mg SC DAILY [facility] PRN Reason: Protocol Last Admin: 07/10/17 09:21 Dose: 30 mg Furosemide (Lasix) 40 mg IVP DAILY [facility] Last Admin: 07/10/17 09:29 Dose: 20 mg Home Med (Home Med) 0 unit PO HS [facility] Levothyroxine Sodium (Synthroid) 25 mcg PO 0600 [facility] Last Admin: 07/10/17 05:25 Dose: 25 mcg Metoprolol Succinate (Toprol Xl) 50 mg PO DAILY [facility] Last Admin: 07/10/17 09:22 Dose: 50 mg Nystatin/Triamcinolone Acetonide (Nystatin/Triamcinolone Cream) 1 ea TOP BID [facility] Last Admin: 07/10/17 09:24 Dose: 1 appful - Labs Labs: 07/10/17 06:40 PT 11.8 SECONDS (9.4-12.5) 07/09/17 04:42 INR 1.03 (0.93-1.08) 07/09/17 04:42 - Constitutional Appears: Non-toxic, No Acute Distress - Head Exam Head Exam: ATRAUMATIC, NORMAL INSPECTION, NORMOCEPHALIC - ENT Exam ENT Exam: Mucous Membranes Moist - Respiratory Exam Respiratory Exam: Clear to Ausculation Bilateral, NORMAL BREATHING PATTERN. absent: Rales, Rhonchi, Wheezes - Cardiovascular Exam Cardiovascular Exam: RRR, +S1, +S2 - GI/Abdominal Exam GI & Abdominal Exam: Soft, Normal Bowel Sounds. absent: Tenderness - Extremities Exam Extremities Exam: Pedal Edema (Trace b/l) - Neurological Exam Neurological Exam: Alert, Awake, Oriented x3 - Psychiatric Exam Psychiatric exam: Normal Affect, Normal Mood - Skin Skin Exam: Intact, Normal Color, Warm Assessment and Plan - Assessment and Plan (Free Text) Plan: 1. CHF exacerbation secondary to diastolic dysfunction 2. Intertrigo under left breast 3. CKD, stage 3 4. Hypothyroidism 5. Hypertension 6. Obesity Patient is improving with CHF exacerbation secondary to diastolic dysfunction. Patient will continue on IV lasix at this time. Will continue to aim for overall negative fluid balance. Patient will also have Xanax added prn for anxiety. She remains with stable creatinine at this time. She will continue with Nystatin topically for rash under left breast. Patient will continue current medications and be evaluated for TCU. Sugey, PGY-2 <Wil Phillips S - Last Filed: 07/10/17 13:47> Objective - Vital Signs/Intake and Output Vital Signs (last 24 hours): Temp Pulse Resp BP Pulse Ox 97.5 F L 65 20 147/62 99 07/10/17 08:37 07/10/17 09:22 07/10/17 08:37 07/10/17 09:29 07/10/17 08:37 Intake and Output: 07/10/17 07/10/17 06:59 18:59 Intake Total 660 240 Balance 660 240 - Medications Medications: Current Medications Albuterol/Ipratropium (Duoneb 3 Mg/0.5 Mg (3 Ml) Ud) 3 ml IH Q6 PRN PRN Reason: Shortness of Breath Last Admin: 07/09/17 21:30 Dose: 3 ml Albuterol/Ipratropium (Duoneb 3 Mg/0.5 Mg (3 Ml) Ud) 3 ml IH BIDRESP [facility] Last Admin: 07/10/17 07:51 Dose: 3 ml Alprazolam (Xanax) 0.25 mg PO BID PRN; Protocol PRN Reason: Anxiety Stop: 07/17/17 10:01 Last Admin: 07/10/17 09:36 Dose: 0.25 mg Enoxaparin Sodium (Lovenox) 30 mg SC DAILY [facility] PRN Reason: Protocol Last Admin: 07/10/17 09:21 Dose: 30 mg Furosemide (Lasix) 40 mg IVP DAILY [facility] Last Admin: 07/10/17 09:29 Dose: 20 mg Home Med (Home Med) 0 unit PO HS [facility] Levothyroxine Sodium (Synthroid) 25 mcg PO 0600 [facility] Last Admin: 07/10/17 05:25 Dose: 25 mcg Metoprolol Succinate (Toprol Xl) 50 mg PO DAILY [facility] Last Admin: 07/10/17 09:22 Dose: 50 mg Nystatin/Triamcinolone Acetonide (Nystatin/Triamcinolone Cream) 1 ea TOP BID [facility] Last Admin: 07/10/17 09:24 Dose: 1 appful - Labs Labs: 07/10/17 06:40 PT 11.8 SECONDS (9.4-12.5) 07/09/17 04:42 INR 1.03 (0.93-1.08) 07/09/17 04:42 Assessment and Plan - Assessment and Plan (Free Text) Plan: Pt seen and examined by me. The note was reviewed and I agree with it. Labs and medications were reviewed my me. The pt states she is feeling better. Will continue with IV lasix. She was put on Duoneb treatments as well for her SOB. She is interested in going to TCU. I will get an evaluation done.
--- NOTE | 2017-07-10 12:37 | CON ---
DATE: 07/10/2017 PULMONARY CONSULTATION REASON FOR CONSULTATION: Shortness of breath. REFERRING PHYSICIAN: Wil Phillips MD HISTORY OF PRESENT ILLNESS: The patient is an 87-year-old female, with past medical history significant for hypertension, congestive heart failure, chronic kidney disease, thyroid disease, osteoarthritis, who presented to [facility] yesterday with increasing shortness of breath at rest, and dyspnea on exertion upon awakening. The patient stated that she awoke approximately 3:00 a.m. Soon after, she became very short of breath. The patient also stated to a mild cough. In the emergency room, the patient was diagnosed with mild congestive heart failure. She was thus admitted for additional evaluation. Again, as above, the patient did awake from sleep yesterday with acute shortness of breath. She was particularly short of breath when lying flat (positive orthopnea). Fortunately, she appears much improved this morning, and is quite comfortable. The patient does state to a mild cough with no sputum production. There is no history of chest pain, coughing up of blood, or chest pain - made worse with deep respirations. There is no history of temperatures, chills or infectious exposure. There is no history of night sweats, weight loss or appetite change prior to the above events. There is no history of leg or calf pains. However, the patient does state that her legs have been more swollen over the past 3 days. No history of syncope or diaphoresis. No history of recent travel or trauma. REVIEW OF SYSTEMS: No history of nausea, vomiting or diarrhea. No acute urinary symptoms. No new neurologic or musculoskeletal complaints. Rest of the review of systems is negative. ALLERGIES: CIPROFLOXACIN, BACTRIM, PENICILLINS AND NITROFURANTOIN. SOCIAL HISTORY: Negative for tobacco and negative for alcohol. FAMILY HISTORY: No inheritable diseases. HOME MEDICATIONS: Include pantoprazole, Toprol, levothyroxine, Lasix, Abilify. PHYSICAL EXAMINATION GENERAL: The patient appears comfortable this morning. She is not short of breath at rest. VITAL SIGNS: Temperature is 97.5, pulse 65, respirations 18, blood pressure 147/62. Oxygen saturation on nasal cannula is 99%. HEENT: Normocephalic and atraumatic. No JVD. CARDIOVASCULAR: Systolic ejection murmur at the lower left sternal border. Positive S3 gallop. LUNGS: Minimal crackles at the bases. Minimal bilateral rhonchi. No wheezing. EXTREMITIES: Positive for edema. No cyanosis, no clubbing. Calves are nontender to palpation. GI: Abdomen is soft, nontender and nondistended. Bowel sounds are positive. SKIN: No acute rash. NEUROLOGIC: Limited at the present time. PERTINENT LABORATORY DATA: Chest x-ray was done yesterday and reviewed. There is a mild increase in pulmonary vascular congestion. CBC: White count 9.7, hemoglobin 11.8, hematocrit 36.8, platelets of 208,000. Complete metabolic profile: Chloride 97, carbon dioxide 35, BUN 38, creatinine 1.5. Rest of the metabolic profile is within normal limits. IMPRESSION: 1. Acute mild congestive heart failure. 2. Acute mild bronchitis. 3. Chronic kidney disease. 4. Mild anemia. PLAN: I did discuss the case with the patient at length. I have also reviewed the chart at length. Apparently, upon awakening yesterday at approximately 3:00 a.m. in the morning, the patient experienced shortness of breath. As above, she was particularly short of breath when lying flat (positive orthopnea). In addition, she also presented with a mild cough. In the emergency room, she was noted to be in mild congestive heart failure and thus admitted. I did review the chest x-ray as above. The chest x-ray does show some mild pulmonary vascular congestion. The patient has been seen by Cardiology. Input by Dr. Lambert is noted. The patient is on Lasix. On physical exam, there is mild bronchospasm noted. However, there is no significant alveolar-arterial gradient. I will continue with the current nebulizer treatments for now. The patient does state to feeling much better this morning and is clinically improved. Additional pulmonary intervention will be based on the clinical status of the patient. I will discuss the above with Dr. Phillips. Thank you very much for this pulmonary consultation. German Lombardi MD MTDAlycia
--- NOTE | 2017-07-10 13:43 | PN ---
DATE: 07/10/2017 SUBJECTIVE: The patient is seen sitting in chair on remote telemetry. She is comfortable at the present time. She states that she feels slightly jittery following a bronchodilator treatment. Her dyspnea is improved. CURRENT MEDICATIONS: Include DuoNeb inhaler, Lasix 40 mg IV daily, Lovenox, Synthroid, Toprol-XL 50 mg daily and Xanax p.r.n. OBJECTIVE: GENERAL: She is a very elderly woman, appears comfortable at the present time. VITAL SIGNS: Her blood pressure is 146/60 with a pulse of 66 and sinus, respirations are 16. She is afebrile. HEENT: No JVD. CHEST: Bilateral scattered rhonchi heard. HEART: PMI displaced laterally with systolic murmur at the left sternal border. ABDOMEN: Soft, nontender and normoactive bowel sounds. EXTREMITIES: No edema. DIAGNOSTIC DATA: Potassium 3.9, BUN and creatinine 30 and 1.5. Troponin is negative. IMPRESSION: 1. Mildly decompensated congestive heart failure, [id number], predominantly diastolic, clinically improved. 2. Chronic obstructive pulmonary disease exacerbation. RECOMMENDATIONS: Her current medications can continue for now. Lasix can be switched to oral administration in the morning. Sodium and fluid restriction were advised. Continue beta-trino therapy is advised as well. We will be happy to follow along as needed. Bud Jack MD
[2017-07-10 20:38] VITALS: TEMP 97.6
[2017-07-10] MEDS ORDERED: ARIPIPRAZOLE 2 MG PO SCH (22:00)
[2017-07-10] MEDS ORDERED: ARIPIPRAZOLE PO SCH (22:00)
--- NOTE | 2017-07-10 22:23 | CARD ---
APPROVED REPORT EKG Measurement Heart [id number] <Conclusion> Normal sinus rhythm Septal infarct, age undetermined Abnormal ECG
[2017-07-11] MEDS: Levothyroxine 25 MCG TAB PO SCH (06:38)
[2017-07-11] MEDS: Albuterol-Ipratrop 3 mg / 0.5 (3 ml) UD IH SCH (07:54)
--- NOTE | 2017-07-11 08:09 | CP.PCM.PN ---
Subjective - Date & Time of Evaluation Date of Evaluation: 07/11/17 Time of Evaluation: 07:00 - Subjective Subjective: Stable on 3R. She feels better. No CP or SOB. V/S noted. PE: Lungs: clear Cor.: S1S2 Abd.: soft Ext.: no edema Neuro.: alert Labs 07/10 noted: Cr.= 1.5, K+= 3.9 Urine: + GPC BC X2 NG at 48 hrs. ECG 07/10: RSR, septal infarct. No change Objective - Vital Signs/Intake and Output Vital Signs (last 24 hours): Temp Pulse Resp BP Pulse Ox 97.6 F 65 20 123/54 L 98 07/10/17 21:00 07/11/17 06:00 07/10/17 21:00 07/10/17 21:00 07/10/17 21:00 Intake and Output: 07/11/17 07/11/17 06:59 18:59 Intake Total 480 Balance 480 - Medications Medications: Current Medications Albuterol/Ipratropium (Duoneb 3 Mg/0.5 Mg (3 Ml) Ud) 3 ml IH Q6 PRN PRN Reason: Shortness of Breath Last Admin: 07/09/17 21:30 Dose: 3 ml Albuterol/Ipratropium (Duoneb 3 Mg/0.5 Mg (3 Ml) Ud) 3 ml IH BIDRESP [facility] Last Admin: 07/11/17 07:54 Dose: Not Given Alprazolam (Xanax) 0.25 mg PO BID PRN; Protocol PRN Reason: Anxiety Stop: 07/17/17 10:01 Last Admin: 07/10/17 09:36 Dose: 0.25 mg Enoxaparin Sodium (Lovenox) 30 mg SC DAILY [facility] PRN Reason: Protocol Last Admin: 07/10/17 09:21 Dose: 30 mg Furosemide (Lasix) 40 mg IVP DAILY [facility] Last Admin: 07/10/17 09:29 Dose: 20 mg Home Med (Home Med) 0.5 unit PO HS [facility] Last Admin: 07/10/17 21:44 Dose: 0.5 unit Levothyroxine Sodium (Synthroid) 25 mcg PO 0600 [facility] Last Admin: 07/11/17 06:38 Dose: 25 mcg Metoprolol Succinate (Toprol Xl) 50 mg PO DAILY [facility] Last Admin: 07/10/17 09:22 Dose: 50 mg Nystatin/Triamcinolone Acetonide (Nystatin/Triamcinolone Cream) 1 ea TOP BID [facility] Last Admin: 07/10/17 18:07 Dose: Not Given - Labs Labs: 07/10/17 06:40 PT 11.8 SECONDS (9.4-12.5) 07/09/17 04:42 INR 1.03 (0.93-1.08) 07/09/17 04:42 Assessment and Plan - Assessment and Plan (Free Text) Assessment: Dyspnea HBP HLD Hypothyroidism GERD Vertigo Echo: Nl LV, Mild AI, MR and TR Plan: OOB ad andrew Home soon with out-pt f/u. Lasix 40 daily and metoprolol 50 daily.
--- NOTE | 2017-07-11 08:40 | PN ---
DATE: 07/11/2017 PULMONARY NOTE SUBJECTIVE: The patient appears very comfortable this morning. She is not short of breath at rest. PHYSICAL EXAMINATION: VITAL SIGNS: Temperature is 97.6, pulse 65, respirations 18, last blood pressure recorded 123/54. Oxygen saturation on room air is 98%. HEENT: Normocephalic, atraumatic. NECK: No JVD. CARDIOVASCULAR: Systolic ejection murmur at the lower left sternal border. Questionable S3 gallop. LUNGS: Less crackles at the bases. No rhonchi or wheezing this morning. EXTREMITIES: Less edema. No cyanosis, no clubbing. Calves are nontender to palpation. GI: Abdomen is soft, nontender, nondistended. Bowel sounds are positive. SKIN: No acute rash. NEUROLOGIC: Exam limited at the present time. IMPRESSION: 1. Acute mild congestive heart failure. 2. Acute mild bronchitis. 3. Chronic kidney disease. 4. Mild anemia. PLAN: Patient appears very comfortable this morning. She is not short of breath at rest. She does state to feeling much better overall. I did discuss the case with the night nurse at length. The night nurse stated that the patient had a very good night. On physical exam, there is certainly less bronchospasm noted. In addition, the oxygen saturation on room air is now 98%. I will continue with the current pulmonary medications for now. I would continue with the treatment for congestive heart failure as per Cardiology. Input by Dr. Jack is noted. The patient remains on intravenous Lasix. The clinical status of the patient is certainly improved-compared to the initial presentation. I will discuss the above with Dr. Phillips. German Lombardi MD [email or web address]
[2017-07-11 08:42] VITALS: BP 132/51; PULSE 72; RESP 18; O2SAT 100
--- NOTE | 2017-07-11 12:43 | CP.PCM.DIS ---
<Satish Mayes - Last Filed: 07/11/17 12:39> Provider - Provider Date of Admission: 07/09/17 06:00 Attending physician: Wil Phillips MD Primary care physician: Padmini Smith MD Consults: Cardio - Petra Lombardi Time Spent in preparation of Discharge (in minutes): 45 Diagnosis - Discharge Diagnosis (1) Diastolic congestive heart failure Status: Chronic (2) Shortness of breath Status: Resolved (3) Hypertension Status: Chronic (4) Hypothyroid Status: Chronic Hospital Course - Lab Results Lab Results: Micro Results 07/09/17 06:14 Urine,Clean Catch Urine Culture - Final Gram Positive Cocci Most Recent Lab Values WBC 9.7 10^3/ul (4.5-11.0) D 07/09/17 04:42 RBC 4.09 10^6/uL (3.5-6.1) 07/09/17 04:42 Hgb 11.8 g/dL (12.0-16.0) L 07/09/17 04:42 Hct 36.8 % (36.0-48.0) 07/09/17 04:42 MCV 90.0 fl (80.0-105.0) 07/09/17 04:42 MCH 28.9 pg (25.0-35.0) 07/09/17 04:42 MCHC 32.1 g/dl (31.0-37.0) 07/09/17 04:42 RDW 14.0 % (11.5-14.5) 07/09/17 04:42 Plt Count 208 10^3/uL (120.0-450.0) 07/09/17 04:42 MPV 10.7 fl (7.0-11.0) 07/09/17 04:42 Gran % 68.3 % (50.0-68.0) H 07/09/17 04:42 Lymph % (Auto) 19.4 % (22.0-35.0) L 07/09/17 04:42 [place] % (Auto) 7.8 % (1.0-6.0) H 07/09/17 04:42 Eos % (Auto) 4.2 % (1.5-5.0) 07/09/17 04:42 Baso % (Auto) 0.3 % (0.0-3.0) 07/09/17 04:42 Gran # 6.63 (1.4-6.5) H 07/09/17 04:42 Lymph # (Auto) 1.9 (1.2-3.4) 07/09/17 04:42 [place] # (Auto) 0.8 (0.1-0.6) H 07/09/17 04:42 Eos # (Auto) 0.4 (0.0-0.7) 07/09/17 04:42 Baso # (Auto) 0.03 K/mm3 (0.0-2.0) 07/09/17 04:42 PT 11.8 SECONDS (9.4-12.5) 07/09/17 04:42 INR 1.03 (0.93-1.08) 07/09/17 04:42 pO2 114 mm/Hg (30-55) H 07/09/17 04:42 VBG pH 7.41 (7.32-7.43) 07/09/17 04:42 VBG pCO2 51.0 (40-60) 07/09/17 04:42 VBG HCO3 32.3 mmol/l (21-28) H 07/09/17 04:42 VBG Total CO2 33.9 mmol.L (22-28) H 07/09/17 04:42 VBG O2 Sat (Calc) 99.4 % (40-65) H 07/09/17 04:42 VBG Base Excess 6.3 mmol/L (0.0-2.0) H 07/09/17 04:42 VBG Potassium 4.3 mmol/L (3.6-5.2) 07/09/17 04:42 Sodium 137.0 mmol/L (132-148) 07/09/17 04:42 Chloride 103.0 mmol/L (98-107) 07/09/17 04:42 Glucose 111 mg/dl (65-105) H 07/09/17 04:42 Lactate 0.9 mmol/L (0.7-2.1) 07/09/17 04:42 FiO2 21.0 % 07/09/17 04:42 Sodium 141 mmol/L (132-148) 07/10/17 06:40 Potassium 3.9 mmol/L (3.6-5.0) 07/10/17 06:40 Chloride 97 mmol/L (98-107) L 07/10/17 06:40 Carbon Dioxide 35 mmol/L (21-33) H 07/10/17 06:40 Anion Gap 12 (10-20) 07/10/17 06:40 BUN 38 mg/dL (7-21) H 07/10/17 06:40 Creatinine 1.5 mg/dl (0.7-1.2) H 07/10/17 06:40 Est GFR ( Amer) 40 07/10/17 06:40 Est GFR (Non-Af Amer) 33 07/10/17 06:40 Random Glucose 90 mg/dL (70-110) 07/10/17 06:40 Calcium 9.3 mg/dL (8.4-10.5) 07/10/17 06:40 Total Bilirubin 0.3 mg/dL (0.2-1.3) 07/09/17 04:42 AST 27 U/L (14-36) 07/09/17 04:42 ALT 26 U/L (7-56) 07/09/17 04:42 Alkaline Phosphatase 122 U/L (38-126) 07/09/17 04:42 Lactate Dehydrogenase 561 U/L (333-699) 07/09/17 04:42 Total Creatine Kinase 60 U/L (35-230) 07/09/17 04:42 Troponin I < 0.01 ng/mL 07/10/17 06:40 Total Protein 7.5 g/dL (5.8-8.3) 07/09/17 04:42 Albumin 4.3 g/dL (3.0-4.8) 07/09/17 04:42 Globulin 3.2 gm/dL 07/09/17 04:42 Albumin/Globulin Ratio 1.3 (1.1-1.8) 07/09/17 04:42 Venous Blood Potassium 4.3 mmol/L (3.6-5.2) 07/09/17 04:42 Urine Color Yellow (YELLOW) 07/09/17 06:14 Urine Appearance Clear (CLEAR) 07/09/17 06:14 Urine pH 7.5 (4.7-8.0) 07/09/17 06:14 Ur Specific [place] 1.010 (1.005-1.035) 07/09/17 06:14 Urine Protein Negative mg/dL (<30 mg/dL) 07/09/17 06:14 Urine Glucose (UA) Negative mg/dL (NEGATIVE) 07/09/17 06:14 Urine Ketones Negative mg/dL (NEGATIVE) 07/09/17 06:14 Urine Blood Negative (NEGATIVE) 07/09/17 06:14 Urine Nitrate Negative (NEGATIVE) 07/09/17 06:14 Urine Bilirubin Negative (NEGATIVE) 07/09/17 06:14 Urine Urobilinogen 0.2 E.U./dL (<1 E.U./dL) 07/09/17 06:14 Ur Leukocyte Esterase Trace Idania/uL (NEGATIVE) H 07/09/17 06:14 Urine RBC 0 - 2 /hpf (0-2) 07/09/17 06:14 Urine WBC 0 - 2 /hpf (0-6) 07/09/17 06:14 Ur Epithelial Cells 0 - 2 /hpf (0-5) 07/09/17 06:14 - Hospital Course Hospital Course: 87 year old female with past medical history of HTN, hyperthyroidism, CHF, CKD, and osteoarthritis admitted with CHF exacerbation secondary to diastolic heart failure. Patient was diuresed with IV lasix 40 mg daily. Patient's respiratory status improved each day. Patient seen by physical therapy who recommended home with services. Upon discharge, patient was told to double her home dose of Lasix to 40 mg daily. Patient will follow up with PMD within the next week. Discharge Exam - Head Exam Head Exam: ATRAUMATIC, NORMAL INSPECTION, NORMOCEPHALIC - ENT Exam ENT Exam: Mucous Membranes Moist, Normal Exam - Respiratory Exam Respiratory Exam: NORMAL BREATHING PATTERN, UNREMARKABLE - Cardiovascular Exam Cardiovascular Exam: RRR, +S1, +S2 - GI/Abdominal Exam GI & Abdominal Exam: Normal Bowel Sounds, Soft. absent: Tenderness - Extremities Exam Extremities exam: pedal edema (Trace b/l) - Neurological Exam Neurological exam: Alert, CN II-XII Intact, Oriented x3 - Psychiatric Exam Psychiatric exam: Normal Affect, Normal Mood - Skin Skin Exam: Intact, Normal Color, Warm Discharge Plan - Follow Up Plan Condition: GOOD Disposition: HOME/ ROUTINE Instructions: Heart Failure, Adult (DC), Anxiety, Adult (DC) Additional Instructions: PATIENT TO FOLLOW UP WITH PRIMARY CARE PHYSICIAN IN ONE WEEK. TAKE ALL MEDICATIONS PRESCRIBED. ANY NEW ONSET OF SYMPTOMS SUCH SHORTNESS OF BREATH, FEVER, CHEST PAIN, BLEEDING, REPORT BACK TO THE ER IMMEDIATELY. Referrals: Padmini Smith MD [Primary Care Provider] - <Wil Phillips - Last Filed: 07/11/17 17:07> Provider - Provider Date of Admission: 07/09/17 06:00 Attending physician: Wil Phillisp MD Primary care physician: Padmini Smith MD Hospital Course - Lab Results Lab Results: Micro Results 07/09/17 06:14 Urine,Clean Catch Urine Culture - Final Gram Positive Cocci Most Recent Lab Values WBC 9.7 10^3/ul (4.5-11.0) D 07/09/17 04:42 RBC 4.09 10^6/uL (3.5-6.1) 07/09/17 04:42 Hgb 11.8 g/dL (12.0-16.0) L 07/09/17 04:42 Hct 36.8 % (36.0-48.0) 07/09/17 04:42 MCV 90.0 fl (80.0-105.0) 07/09/17 04:42 MCH 28.9 pg (25.0-35.0) 07/09/17 04:42 MCHC 32.1 g/dl (31.0-37.0) 07/09/17 04:42 RDW 14.0 % (11.5-14.5) 07/09/17 04:42 Plt Count 208 10^3/uL (120.0-450.0) 07/09/17 04:42 MPV 10.7 fl (7.0-11.0) 07/09/17 04:42 Gran % 68.3 % (50.0-68.0) H 07/09/17 04:42 Lymph % (Auto) 19.4 % (22.0-35.0) L 07/09/17 04:42 [place]imes % (Auto) 7.8 % (1.0-6.0) H 07/09/17 04:42 Eos % (Auto) 4.2 % (1.5-5.0) 07/09/17 04:42 Baso % (Auto) 0.3 % (0.0-3.0) 07/09/17 04:42 Gran # 6.63 (1.4-6.5) H 07/09/17 04:42 Lymph # (Auto) 1.9 (1.2-3.4) 07/09/17 04:42 [place] # (Auto) 0.8 (0.1-0.6) H 07/09/17 04:42 Eos # (Auto) 0.4 (0.0-0.7) 07/09/17 04:42 Baso # (Auto) 0.03 K/mm3 (0.0-2.0) 07/09/17 04:42 PT 11.8 SECONDS (9.4-12.5) 07/09/17 04:42 INR 1.03 (0.93-1.08) 07/09/17 04:42 pO2 114 mm/Hg (30-55) H 07/09/17 04:42 VBG pH 7.41 (7.32-7.43) 07/09/17 04:42 VBG pCO2 51.0 (40-60) 07/09/17 04:42 VBG HCO3 32.3 mmol/l (21-28) H 07/09/17 04:42 VBG Total CO2 33.9 mmol.L (22-28) H 07/09/17 04:42 VBG O2 Sat (Calc) 99.4 % (40-65) H 07/09/17 04:42 VBG Base Excess 6.3 mmol/L (0.0-2.0) H 07/09/17 04:42 VBG Potassium 4.3 mmol/L (3.6-5.2) 07/09/17 04:42 Sodium 137.0 mmol/L (132-148) 07/09/17 04:42 Chloride 103.0 mmol/L (98-107) 07/09/17 04:42 Glucose 111 mg/dl (65-105) H 07/09/17 04:42 Lactate 0.9 mmol/L (0.7-2.1) 07/09/17 04:42 FiO2 21.0 % 07/09/17 04:42 Sodium 141 mmol/L (132-148) 07/10/17 06:40 Potassium 3.9 mmol/L (3.6-5.0) 07/10/17 06:40 Chloride 97 mmol/L (98-107) L 07/10/17 06:40 Carbon Dioxide 35 mmol/L (21-33) H 07/10/17 06:40 Anion Gap 12 (10-20) 07/10/17 06:40 BUN 38 mg/dL (7-21) H 07/10/17 06:40 Creatinine 1.5 mg/dl (0.7-1.2) H 07/10/17 06:40 Est GFR ( Amer) 40 07/10/17 06:40 Est GFR (Non-Af Amer) 33 07/10/17 06:40 Random Glucose 90 mg/dL (70-110) 07/10/17 06:40 Calcium 9.3 mg/dL (8.4-10.5) 07/10/17 06:40 Total Bilirubin 0.3 mg/dL (0.2-1.3) 07/09/17 04:42 AST 27 U/L (14-36) 07/09/17 04:42 ALT 26 U/L (7-56) 07/09/17 04:42 Alkaline Phosphatase 122 U/L (38-126) 07/09/17 04:42 Lactate Dehydrogenase 561 U/L (333-699) 07/09/17 04:42 Total Creatine Kinase 60 U/L (35-230) 07/09/17 04:42 Troponin I < 0.01 ng/mL 07/10/17 06:40 Total Protein 7.5 g/dL (5.8-8.3) 07/09/17 04:42 Albumin 4.3 g/dL (3.0-4.8) 07/09/17 04:42 Globulin 3.2 gm/dL 07/09/17 04:42 Albumin/Globulin Ratio 1.3 (1.1-1.8) 07/09/17 04:42 Venous Blood Potassium 4.3 mmol/L (3.6-5.2) 07/09/17 04:42 Urine Color Yellow (YELLOW) 07/09/17 06:14 Urine Appearance Clear (CLEAR) 07/09/17 06:14 Urine pH 7.5 (4.7-8.0) 07/09/17 06:14 Ur Specific [place] 1.010 (1.005-1.035) 07/09/17 06:14 Urine Protein Negative mg/dL (<30 mg/dL) 07/09/17 06:14 Urine Glucose (UA) Negative mg/dL (NEGATIVE) 07/09/17 06:14 Urine Ketones Negative mg/dL (NEGATIVE) 07/09/17 06:14 Urine Blood Negative (NEGATIVE) 07/09/17 06:14 Urine Nitrate Negative (NEGATIVE) 07/09/17 06:14 Urine Bilirubin Negative (NEGATIVE) 07/09/17 06:14 Urine Urobilinogen 0.2 E.U./dL (<1 E.U./dL) 07/09/17 06:14 Ur Leukocyte Esterase Trace Idania/uL (NEGATIVE) H 07/09/17 06:14 Urine RBC 0 - 2 /hpf (0-2) 07/09/17 06:14 Urine WBC 0 - 2 /hpf (0-6) 07/09/17 06:14 Ur Epithelial Cells 0 - 2 /hpf (0-5) 07/09/17 06:14 - Hospital Course Hospital Course: Pt was seen as examined. The note of the [facility] has been reviewed. Labs reviewed. Medications have been reviewed. Pt to be discharged home.
--- NOTE | 2017-07-11 15:59 | IP.NPCORE ---
Heart Failure Core Measure - Heart Failure Ejection Fraction: 40 % or Greater ELIZABET Inhibitor Prescribed: No Contraindication/Reason for not providing: ef greater that 40% Beta-Ana Prescribed: Metoprolol Succinate Angiotensin II Receptor Ana Prescribed: No Contraindication/Reason for not providing: not indicated, diastolic chf AnticoagulationTherapy for Atrial Fibrillation/Atrialflutter: No Contraindication/Reason for not providing: no afib Aldosterone Antagonist Prescribed: No Contraindication/Reason for not providing: not systolic chf Hydralazine Nitrate Prescribed: No Contraindication/Reason for not providing: receiving lasix at home Implantable Cardioverter Defibrillator Therapy: No Contraindication/Reason for not providing: ef greater than 40% Cardiac Resynchronization Therapy Prescribed: No Contraindication/Reason for not providing: not indicated for diastolic chf - Follow up Will be discharged to: Home Follow Up Date (must be within 7 days from discharge): 07/15/17 Follow Up Time: 09:00
== END 2017-07-11 08:23 | disposition home health service (06) | DRG 291 ==
LOC: ED 04:17 → ERH 06:00 → 3RSO 09:24
PROVIDERS: ADMIT Internal Medicine Nephrology; ATTEND Internal Medicine Nephrology
DX: I13.0 Hypertensive heart and chronic kidney disease with heart failure and stage 1 through stage 4 chronic kidney disease, or unspecified chronic kidney disease (principal); I50.33 Acute on chronic diastolic (congestive) heart failure; J44.1 Chronic obstructive pulmonary disease with (acute) exacerbation; N18.3 Chronic kidney disease, stage 3 (moderate); L30.4 Erythema intertrigo; I08.3 Combined rheumatic disorders of mitral, aortic and tricuspid valves; K21.9 Gastro-esophageal reflux disease without esophagitis; E03.9 Hypothyroidism, unspecified; R42 Dizziness and giddiness; D64.9 Anemia, unspecified; M19.90 Unspecified osteoarthritis, unspecified site; F41.9 Anxiety disorder, unspecified; E78.5 Hyperlipidemia, unspecified; E66.9 Obesity, unspecified; Z68.38 Body mass index [BMI] 38.0-38.9, adult; I25.2 Old myocardial infarction; Z85.828 Personal history of other malignant neoplasm of skin

== ENCOUNTER 2017-07-15 07:49 | Inpatient (IN) | payer MEDICARE, BC ==
[2017-07-15 07:49] VITALS: BMI 38.1
--- NOTE | 2017-07-15 08:23 | ED PDOC ---
Arrival/HPI - General Chief Complaint: Dizziness/Lightheaded Time Seen by Provider: 07/15/17 07:52 Historian: Patient - History of Present Illness Narrative History of Present Illness (Text): you were treated in the ED today for hx of HTN, CKD, OA, CHF with recent discharged for CHF 07/11/17 and now having difficulty breathing with dizziness/ lightheadedness but otherwise without any nausea/vomiting/headache/chest pain/ abdomen pain/numbness/tingling/loss of limb function/pain with urination/travel/ prior blood clots/cancer. 07/15/17 08:20 Time/Duration: 24 hours Symptom Onset: Gradual Symptom Course: Unchanged Quality: Other (no pain) Activities at Onset: Rest Context: Sitting Past Medical History - Provider Review Nursing Documentation Reviewed: Yes - Travel History Have you recently traveled outside [place] w/in the past 3 mons?: No - Past History Past History: Non-Contributing - Infectious Disease Hx of Infectious Diseases: None - Tetanus Immunization Tetanus Immunization: Unknown - Cardiac Hx Cardiac Disorders: Yes Hx Congestive Heart Failure: Yes Hx Hypertension: Yes - Pulmonary Hx Respiratory Disorders: Yes Hx Pneumonia: Yes - Neurological Hx Neurological Disorder: Yes Hx Dizziness: Yes (vertigo) - HEENT Hx HEENT Disorder: Yes ([place]) - Renal Hx Renal Disorder: No - Endocrine/Metabolic Hx Hypothyroidism: Yes - Hematological/Oncological Hx Blood Disorders: Yes Hx Cancer: Yes (basal cell left [place] 12/2013) Other/Comment: LEFT THIGH WITH ONE SMALL VESICLE -HERPES ZOSTER 11-20-16 - Integumentary Hx Dermatological Disorder: Yes Hx Basal Cell Carcinoma: Yes (LEFT ARM 2013) Other/Comment: ONE SMALL VESICLE TO LEFT THIGH-HERPES ZOSTER 11-20-16 - Musculoskeletal/Rheumatological Hx Falls: No - Gastrointestinal Hx Gastrointestinal Disorders: Yes (OBESE) - Genitourinary/Gynecological Hx Genitourinary Disorders: Yes - Psychiatric Hx Psychophysiologic Disorder: Yes Hx Anxiety: Yes Hx Depression: Yes Hx Substance Use: No - Past Surgical History Past Surgical History: Non-Contributing - Surgical History Other/Comment: benign right breast cyst - Anesthesia Hx Anesthesia: No Hx Anesthesia Reactions: No Hx Malignant Hyperthermia: No - Suicidal Assessment Feels Threatened In Home Enviroment: No Family/Social History - Physician Review Nursing Documentation Reviewed: Yes Family/Social History: No Known Family HX Smoking Status: Never Smoked Hx Alcohol Use: No Hx Substance Use: No Hx Substance Use Treatment: No Allergies/Home Meds Allergies/Adverse Reactions: Allergies ciprofloxacin [From Cipro] Allergy (Verified 07/09/17 04:27) .unknown ciprofloxacin HCl [From Cipro] Allergy (Verified 07/09/17 04:27) RASH pneumococcal vaccine Allergy (Verified 07/09/17 04:27) RASH sulfamethoxazole [From Bactrim] Allergy (Verified 07/09/17 04:27) RASH trimethoprim [From Bactrim] Allergy (Verified 07/09/17 04:27) RASH nitrofurantoin Adverse Reaction (Verified 07/09/17 04:27) RASH Penicillins Adverse Reaction (Verified 07/09/17 04:27) SWELLING Home Medications: Home Meds Medication Instructions Recorded Confirmed Levothyroxine Sodium [Unithroid] 25 mcg PO DAILY 12/05/15 07/15/17 Furosemide [Lasix] 20 mg PO DAILY 11/20/16 07/15/17 ARIPiprazole [Abilify] 1 mg PO HS 01/01/17 07/15/17 Review of Systems - Review of Systems Constitutional: Normal Eyes: Normal ENT: Normal Respiratory: SOB Cardiovascular: Normal Gastrointestinal: Normal Genitourinary Female: Normal Musculoskeletal: Normal Skin: Normal Neurological: Dizziness Endocrine: Normal Hemo/Lymphatic: Normal Psychiatric: Normal Physical Exam Vital Signs Reviewed: Yes Vital Signs Pulse Resp BP Pulse Ox 07/15/17 10:12 16 131/54 L 99 07/15/17 08:07 165/69 H 07/15/17 08:02 64 18 100 Temperature: Afebrile Blood Pressure: Hypertensive Pulse: Regular Respiratory Rate: Normal Appearance: Positive for: Well-Appearing, Non-Toxic, Comfortable Pain Distress: None Mental Status: Positive for: Alert and Oriented X 3 - Systems Exam Head: Present: Atraumatic, Normocephalic Pupils: Present: PERRL Extroacular Muscles: Present: EOMI Conjunctiva: Present: Normal Ears: Present: Normal Mouth: Present: Moist Mucous Membranes Pharnyx: Present: Normal Nose (External): Present: Atraumatic Nose (Internal): Present: Normal Inspection Neck: Present: Normal Range of Motion Respiratory/Chest: Present: Clear to Auscultation, Good Air Exchange Cardiovascular: Present: Regular Rate and Rhythm Abdomen: No: Tenderness, Distention, Normal Bowel Sounds, Peritoneal Signs, Rebound, Guarding, McBurney's Point Tender, Rovsing's Sign Present, Hernias, Feeding Tubes, Ostomy Tubes, Mass/Organomegaly, Scars, Other Back: Present: Normal Inspection Upper Extremity: Present: Normal Inspection Lower Extremity: Present: Edema, Other (no b/l calf tenderness and otherwise warm/sensation/pink) Neurological: Present: GCS=15, CN II-XII Intact, Speech Normal, Motor Func Grossly Intact Skin: Present: Warm, Normal Color Psychiatric: Present: Alert, Oriented x 3, Normal Insight, Normal Concentration Medical Decision Making ED Course and Treatment: ou were treated in the ED today for hx of HTN, CKD, OA, CHF with recent discharged for CHF 07/11/17 and now having difficulty breathing with dizziness/ lightheadedness but otherwise without any nausea/vomiting/headache/chest pain/ abdomen pain/numbness/tingling/loss of limb function/pain with urination/travel/ prior blood clots/cancer. You were otherwise breathing easily, talking easily, good strength/sensation, walking easily, clear lungs, no abdomen tenderness, mild lower extremity edema without calf tenderness and otherwise warm/sensation/ pink positive, no fever temp 97.8, stable heart rate 64, stable breathing rate 18, excellent oxygen level 100% room air, elevated blood pressure 165/69 which we recommend repeat in 2-3 days primary care office to determine further treatment, you have blood tests no infection count 8, stable blood level hemoglobin 12/platelets 215, stable chemistry, mildly elevated bun 55 slightly increased from prior 38, mildly elevated creatinine 1.6 similar to prior 1.5, elevated Liver Alklaline Phosphatase 131, elevated magnesium 2.3, heart blood test 0.02, heart failure test 346 in range, urine test trace leukocytes and no clear sign of infection as you have no pain with urination, radiology chest xray no active disease, CT head no acute, ECG normal sinus rhythm, observation done in the ED with improvement. Report Date : 07/15/2017 09:25:24 Procedure: Chest xray Dictator : Pastor Ruggiero MD IMPRESSION: No active disease. CT head no acute. 07/15/17 11:07 d/w Dr. Phillips and will admit for observation for sob. Reassessment Condition: Re-examined, Improved - Lab Interpretations Lab Results: 07/15/17 08:20 07/15/17 08:20 Lab Results 07/15/17 08:20: Sodium 140, Potassium 4.5, Chloride 97 L, Carbon Dioxide 31, Anion Gap 16, BUN 55 H, Creatinine 1.6 H, Est GFR ( Amer) 37, Est GFR ( Non-Af Amer) 31, Random Glucose 91, Calcium 9.8, Magnesium 2.3 H, Total Bilirubin 0.3, AST 33, ALT 30, Alkaline Phosphatase 131 H, Lactate Dehydrogenase 684, Total Creatine Kinase 58, Troponin I 0.02 D, NT-Pro-B Natriuret Pep 346, Total Protein 7.5, Albumin 4.4, Globulin 3.1, Albumin/ Globulin Ratio 1.4 07/15/17 08:20: Urine Color Yellow, Urine Appearance Clear, Urine pH 7.0, Ur Specific [place] 1.010, Urine Protein Negative, Urine Glucose (UA) Negative, Urine Ketones Negative, Urine Blood Negative, Urine Nitrate Negative, Urine Bilirubin Negative, Urine Urobilinogen 0.2, Ur Leukocyte Esterase Small H, Urine RBC 0 - 2, Urine WBC 5 - 10, Ur Epithelial Cells 6 - 8, Amorphous Sediment Few, Urine Bacteria Mod 07/15/17 08:20: PT 12.0, INR 1.04, APTT 31.9 07/15/17 08:20: WBC 8.5, RBC 4.11, Hgb 12.0, Hct 36.8, MCV 89.5, MCH 29.2, MCHC 32.6, RDW 13.8, Plt Count 215, MPV 10.7, Gran % 60.2, Lymph % (Auto) 24.6, [place] % (Auto) 10.0 H, Eos % (Auto) 4.7, Baso % (Auto) 0.5, Gran # 5.11, Lymph # (Auto ) 2.1, [place] # (Auto) 0.9 H, Eos # (Auto) 0.4, Baso # (Auto) 0.04 I have reviewed the lab results: Yes - RAD Interpretation Radiology Orders: 07/15/17 08:06 CHEST PORTABLE [RAD] Stat 07/15/17 10:27 HEAD W/O CONTRAST [CT] Stat Utility Lineman: ED Physician - Medication Orders Current Medication Orders: Furosemide (Lasix) 40 mg PO BID [facility] Home Med (Home Med) 0 unit PO HS [facility] Levothyroxine Sodium (Synthroid) 25 mcg PO DAILY [facility] Metoprolol Succinate (Toprol Xl) 50 mg PO DAILY [facility] Pantoprazole Sodium (Protonix Ec Tab) 40 mg PO 0600 [facility] Disposition/Present on Arrival - Present on Arrival Any Indicators Present on Arrival: No History of DVT/PE: No History of Uncontrolled Diabetes: No Urinary Catheter: No History of Decub. Ulcer: No History Surgical Site Infection Following: None - Disposition Have Diagnosis and Disposition been Completed?: Yes Diagnosis: SOB (shortness of breath), Dizziness Disposition: HOSPITALIZED Disposition Time: 11:08 Patient Plan: Observation Condition: IMPROVED Forms: [employer] (Korean)
[2017-07-15 08:43] LABS: URINE BILIRUBIN NEGATIVE (NEGATIVE); URINE BLOOD NEGATIVE (NEGATIVE); URINE GLUCOSE (UA) NEGATIVE (NEGATIVE); URINE LEUKOCYTE ESTERASE SMALL Leu/uL (NEGATIVE); URINE PROTEIN NEGATIVE mg/dL (<30 mg/dL); URINE UROBILINOGEN 0.2 E.U./dL (<1 E.U./dL)
[2017-07-15 08:44] LABS: BASO # 0.04 K/mm3 (0.0-2.0); BASO % 0.5 % (0.0-3.0); EOS # 0.4 (0.0-0.7); EOS % 4.7 % (1.5-5.0); GRAN # 5.11 (1.4-6.5); GRAN % 60.2 % (50.0-68.0); LYMPH # 2.1 (1.2-3.4); LYMPH % 24.6 % (22.0-35.0); MEAN CELL VOLUME 89.5 fl (80.0-105.0); MEAN CORPUSCULAR HEMOGLOBIN 29.2 pg (25.0-35.0); MEAN CORPUSCULAR HGB CONC 32.6 g/dl (31.0-37.0); MEAN PLATELET VOLUME 10.7 fl (7.0-11.0); MONO # 0.9 (0.1-0.6); RBC 4.11 10^6/uL (3.5-6.1); RED CELL DISTRIBUTION WIDTH 13.8 % (11.5-14.5); URINE APPEARANCE CLEAR (CLEAR); URINE COLOR YELLOW (YELLOW); WHITE BLOOD COUNT 8.5 10^3/ul (4.5-11.0)
[2017-07-15 08:51] LABS: INR 1.04 (0.93-1.08); PARTIAL THROMBOPLASTIN TIME 31.9 Seconds (25.1-36.5)
[2017-07-15 09:02] LABS: ALB/GLOB RATIO 1.4 (1.1-1.8); ALBUMIN 4.4 g/dL (3.0-4.8); CALCIUM 9.8 mg/dL (8.4-10.5); TROPONIN I 0.02 ng/mL
[2017-07-15 09:04] LABS: URINE RBC 0 - 2 /hpf (0-2)
[2017-07-15 09:05] LABS: URINE AMORPHOUS SEDIMENT FEW; URINE BACTERIA MOD (NEG)
--- NOTE | 2017-07-15 09:26 | RAD ---
HISTORY: 87yoF, sob COMPARISON: 07/09/2017 FINDINGS: LUNGS: No active pulmonary disease. PLEURA: No significant pleural effusion identified, no pneumothorax apparent. CARDIOVASCULAR: Normal. OSSEOUS STRUCTURES: Scoliosis in the upper thoracic spine convex to the left VISUALIZED UPPER ABDOMEN: Normal. OTHER FINDINGS: None. IMPRESSION: No active disease.
--- NOTE | 2017-07-15 11:04 | CT ---
PROCEDURE: CT HEAD WITHOUT CONTRAST. HISTORY: 87yoF dizziness. COMPARISON: None available. TECHNIQUE: Axial computed tomography images were obtained through the head/brain without intravenous contrast. Radiation dose: Total exam DLP = 881 mGy-cm. This CT exam was performed using one or more of the following dose reduction techniques: Automated exposure control, adjustment of the mA and/or kV according to patient size, and/or use of iterative reconstruction technique. FINDINGS: HEMORRHAGE: No intracranial hemorrhage. BRAIN: No mass effect or edema. No atrophy or chronic microvascular ischemic changes. VENTRICLES: Unremarkable. No hydrocephalus. CALVARIUM: Unremarkable. PARANASAL SINUSES: Unremarkable as visualized. No significant inflammatory changes. MASTOID AIR CELLS: Unremarkable as visualized. No inflammatory changes. OTHER FINDINGS: None. IMPRESSION: No acute findings
--- NOTE | 2017-07-15 11:31 | CARD ---
APPROVED REPORT EKG Measurement Heart [id number] <Conclusion> Normal sinus rhythm Septal infarct, age undetermined Abnormal ECG
[2017-07-15] MEDS: Levothyroxine 25 MCG TAB PO SCH (12:48)
[2017-07-15] MEDS: Metoprolol Succinate 50 mg XL Tab PO SCH (12:48)
[2017-07-15] MEDS: ARIPIPRAZOLE 2 MG PO SCH (22:01)
[2017-07-16] MEDS: Pantoprazole 40 mg EC Tab PO SCH (05:23)
[2017-07-16] MEDS: Levothyroxine 25 MCG TAB PO SCH (11:14)
[2017-07-16] MEDS: Metoprolol Succinate 50 mg XL Tab PO SCH (11:14)
--- NOTE | 2017-07-16 14:41 | HP ---
HISTORY OF PRESENT ILLNESS: This is an 87-year-old female, who is coming to the hospital, complaining of dizziness. She says that she felt like she may pass out. She denies any chest pain. She states that she did have some mild shortness of breath. She denies any weakness in the arms or the legs. No abdominal pain or back pain. No dysuria or frequency. No nocturia. REVIEW OF SYSTEMS: All other review of symptoms are within normal limits except what was mentioned. ALLERGIES: TO CIPRO PNEUMONIA, BACTRIM, NITROFURANTOIN AND PENICILLIN. MEDICATIONS: Levothyroxine, Lasix, Abilify. PAST MEDICAL HISTORY: Hypothyroidism, CHF secondary to diastolic dysfunction, hypertension. SOCIAL HISTORY: She denies smoking, drinking alcohol. FAMILY HISTORY: Noncontributory. PHYSICAL EXAMINATION: VITAL SIGNS: Temperature is 97.5, pulse of 62, blood pressure 125/65, respirations 19, O2 saturation 99%. Height is 4 feet 11, weight is 184 pounds. GENERAL: The patient lying in bed, uncomfortable, and in no acute distress. HEENT: Atraumatic and normocephalic. Anicteric sclerae. Moist mucosa. [place] conjunctivae. No oral lesions. NECK: No JVD, anterior and posterior adenopathy, thyromegaly, or bruits. CARDIOVASCULAR: S1 and S2 regular. No murmur, rubs, or gallop. LUNGS: Clear to auscultation bilaterally. No wheezes, rales, or rhonchi. ABDOMEN: Bowel sounds are positive. Soft, nontender and nondistended. No hepatosplenomegaly. No rebound and no guarding. EXTREMITIES: No cyanosis, clubbing, or edema. NEUROLOGIC: No facial asymmetry. Tongue is midline. No uvula deviation. Power is 5/5 upper extremity and lower extremity. Sensation intact in upper extremity and lower extremity. PSYCHIATRIC: She is awake, alert and oriented x3. No anxiety or depression. She has normal affect. GENITOURINARY: No CVA tenderness. VASCULAR: 2+ pulses in the carotid pulses and pedal pulses. SKIN: No erythema or nodules SPINE: Shows normal curvature. LABORATORY DATA: Have been reviewed. White count of 8.5, hemoglobin 12. INR is 1.0. Sodium 140, potassium is 4.5, creatinine is 1.6. Urine shows blood is negative, nitrites negative, bilirubin is negative. Chest x-ray done, shows no active disease. Head CT done, shows no active disease. ASSESSMENT: 1. Dizziness. 2. Congestive heart failure secondary to diastolic dysfunction, stable, chronic. 3. Chronic kidney disease, stage 3. 4. Hypothyroidism. 5. Hypertension. 6. Obesity with a body mass index of 37. PLAN: The patient is currently comfortable. She is admitted to the hospital because of dizziness. She gets short of breath when she exerts herself, I think she is deconditioned. She was offered rehab on her last admission, but she refused. She is agreeable to go to TCU if she is accepted. Her EKG shows sinus rhythm. The patient has a normal chest x-ray. Her proBNP is normal at 346. I do not believe that she has acute CHF. She is going to continue with Lasix twice a day. She is on Synthroid for hypothyroidism. She is on metoprolol. This will be continued as well. She is going to be on a heart-healthy diet. The patient is going to be seen by Dr. Lambert. She is going to get physical therapy as well. If she gets accepted to the Transitional Care Unit, she will be discharged there. Wil Phillips MD
--- NOTE | 2017-07-16 19:27 | CON ---
DATE: 07/16/2017 INDICATIONS: Shortness of breath. HISTORY OF PRESENT ILLNESS: This is an 87-year-old woman, known to me, admitted through the emergency room yesterday because of increased shortness of breath and dizziness which occurred during the day yesterday. The symptoms have improved this morning, she is resting comfortably in bed without dizziness or vertigo. There is no chest pain or shortness of breath. There was no orthopnea, PND, syncope, palpitations, edema, claudication, fever, chills, cough, sputum production, hemoptysis, abdominal pain, nausea, vomiting, diarrhea, constipation, or melena. PAST MEDICAL HISTORY: Notable for recent admission to [facility] for shortness of breath. She underwent evaluation. An echocardiogram revealed normal LV function. There was mild AI, MR and TR on that study. There is a history of hypertension, hyperlipidemia, hypothyroidism, GERD and vertigo. There is no history of rheumatic fever, myocardial infarction, angina, stroke, TIA or gout. MEDICATIONS AT THE TIME OF ADMISSION: Include Abilify, Lasix, Protonix, metoprolol, and thyroid replacement. ALLERGIES: SHE NOTES ALLERGIES TO CIPRO, PNEUMOCOCCAL VACCINE, BACTRIM, NITROFURANTOIN, PENICILLIN. SOCIAL HISTORY: She lives at home. She is ambulatory with limited mobility. She does not smoke. She does not drink. FAMILY HISTORY: Noncontributory. REVIEW OF SYSTEMS: A 10-point review of systems otherwise unremarkable except as noted above. PHYSICAL EXAMINATION GENERAL: She is a well-developed elderly woman, lying in bed on telemetry, in no acute distress. VITAL SIGNS: Notable for sinus rhythm 56 to 71 beats per minute, she is afebrile, blood pressure 145/65, respirations 16 to 19, and O2 sat 96% to 99% on room air. HEENT: Reveals no neck vein distention, thyromegaly or carotid bruits. Mucus membranes are moist. Conjunctivae are pink. NECK: Supple. LUNG: Lung [place], scattered rhonchi, no wheezing. HEART: Revealed normal first and second heart sounds. There is a soft systolic murmur along the left sternal border. ABDOMEN: Soft. Bowel sounds present. No mass, organomegaly, tenderness, rebound, guarding, CVA tenderness. No palpable abdominal aortic aneurysm. EXTREMITIES: Revealed no cyanosis, clubbing, or edema. NEUROLOGIC: Awake, alert, and oriented. SKIN: Warm and dry. No rash or cellulitis. LABORATORY AND IMAGING: Chest x-ray reveals no active disease. CT scan of the head reveals no acute findings. EKG demonstrates regular sinus rhythm at 64 beats per minute, septal infarct, no change from previous EKG. CBC is unremarkable. PT, INR, and PTT unremarkable. Electrolytes unremarkable. BUN 55, creatinine 1.6, magnesium 2.3, LFTs unremarkable, CK 58, troponin 0.02, BNP 346. Urinalysis is noted. IMPRESSION AND PLAN: Amairani Jama is an 87-year-old woman admitted with shortness of breath, dizziness and weakness, symptoms similar to her prior admission about a month ago. She is on telemetry. She is getting Lasix, Protonix, Synthroid and metoprolol. She can be out of bed to chair. She is getting physical therapy. micro[employer] services supervisor should evaluate her with regard to her home situation. TCU evaluation is underway. We will check postural vital signs. She can be out of bed to chair. I will review her prior echocardiogram. I will follow along with you. I will make additional recommendations based on her clinical course. Overall conservative course of cardiac care is anticipated. Bradford Lambert MD MTDAlycia
[2017-07-16] MEDS: ARIPIPRAZOLE 2 MG PO SCH (22:35)
[2017-07-17] MEDS: Pantoprazole 40 mg EC Tab PO SCH (06:10)
--- NOTE | 2017-07-17 09:32 | PN ---
DATE: 07/17/2017 SUBJECTIVE: The patient has no complaints of any chest pain. No shortness of breath. She says her breathing is a bit better. PHYSICAL EXAMINATION: VITAL SIGNS: Temperature is 98.1, pulse of 67, blood pressure 132/51, respirations 20. GENERAL: The patient is lying in bed, flat, comfortable. HEENT: No oral lesion. Anicteric sclerae. Moist mucosa. NECK: No JVD, adenopathy, or thyromegaly. CARDIOVASCULAR: S1 and S2, regular. No murmurs, rubs, or gallops. LUNGS: Clear to auscultation bilaterally. No wheeze, rales, or rhonchi. ABDOMEN: Bowel sounds are positive, soft, nontender and nondistended. EXTREMITIES: No cyanosis, clubbing or edema. ASSESSMENT: 1. Dizziness, improved. 2. Congestive heart failure secondary to diastolic dysfunction, stable. 3. Chronic kidney disease stage 3. 4. Hypothyroidism. 5. Hypertension. 6. Obesity with a body mass index of 37. PLAN: The patient continues to be on Lasix twice a day. She is on Protonix. She is on Synthroid for hypothyroidism. She is on a heart-healthy diet. She was seen by Physical Therapy. The patient was deemed not a candidate for skilled physical therapy and should be discharged home. Wil Phillips MD
[2017-07-17] MEDS: Metoprolol Succinate 50 mg XL Tab PO SCH (09:53)
[2017-07-17] MEDS: Levothyroxine 25 MCG TAB PO SCH (09:54)
[2017-07-17 09:56] VITALS: BP 150/70; PULSE 63
[2017-07-17 13:15] VITALS: RESP 18; TEMP 97.4; O2SAT 96
--- NOTE | 2017-07-17 22:12 | PN ---
DATE: 07/17/2017 SUBJECTIVE: The patient is feeling somewhat better. She is seen on telemetry. She denies any chest pain. She has had no dizziness this morning. No significant dysrhythmias have been noted on the monitor. CURRENT MEDICATIONS: Include Lasix 40 mg b.i.d., Protonix 40 mg daily, Synthroid 25 mcg daily, and metoprolol 50 mg daily. OBJECTIVE: GENERAL: She is a very elderly woman who appears comfortable at the present time. VITAL SIGNS: Blood pressure is 150/70 with a pulse of 62 and sinus, respirations are 16. She is afebrile. HEENT: No JVD. CHEST: Few scattered rhonchi. HEART: PMI displaced laterally with systolic murmur in left sternal border. ABDOMEN: Soft, nontender with normoactive bowel sounds. EXTREMITIES: No edema. DIAGNOSTIC DATA: No blood work pending from this morning. IMPRESSION: 1. Dizziness, clinically improved, etiology uncertain. 2. Chronic diastolic congestive heart failure, stable at present. 3. Chronic renal insufficiency. 4. History of hypertension. 5. Obesity. RECOMMENDATIONS: Current medications should continue for now. Room fall precautions were reviewed. Outpatient followup will be arranged. Bud Jack MD
== END 2017-07-17 14:18 | disposition home health service (06) | DRG 149 ==
LOC: ED 07:49 → ERH 11:09 → 3RSO 14:02 → OBSVTOIN 07-16 20:30
PROVIDERS: ADMIT Internal Medicine Nephrology; ATTEND Internal Medicine Nephrology
DX: R42 Dizziness and giddiness (principal); I13.0 Hypertensive heart and chronic kidney disease with heart failure and stage 1 through stage 4 chronic kidney disease, or unspecified chronic kidney disease; I50.32 Chronic diastolic (congestive) heart failure; N18.3 Chronic kidney disease, stage 3 (moderate); K21.9 Gastro-esophageal reflux disease without esophagitis; R06.02 Shortness of breath; E03.9 Hypothyroidism, unspecified; E78.5 Hyperlipidemia, unspecified; E66.9 Obesity, unspecified; Z68.37 Body mass index [BMI] 37.0-37.9, adult; Z85.828 Personal history of other malignant neoplasm of skin; Z88.2 Allergy status to sulfonamides; Z88.0 Allergy status to penicillin

== ENCOUNTER 2017-09-10 05:18 | Emergency (ER) | payer MEDICARE, BC ==
[2017-09-10 05:25] VITALS: RESP 18
[2017-09-10 05:31] VITALS: BMI 37.3
--- NOTE | 2017-09-10 06:03 | ED PDOC ---
Arrival/HPI - General Historian: Patient - History of Present Illness Time/Duration: < week Symptom Onset: Gradual Symptom Course: Unchanged Quality: Burning <Gigi Magdaleno - Last Filed: 09/10/17 05:59> <Reji Black - Last Filed: 09/10/17 06:11> - General Chief Complaint: Abnormal Skin Integrity Time Seen by Provider: 09/10/17 05:26 - History of Present Illness Narrative History of Present Illness (Text): 09/10/17 05:59 Patient is an 87 yo F with PMH of HTN, CKD, OA, CHF, and Fe-def anemia presents to the ED due to yeast infection and nausea. Patient states that her rash is itchy and is under her breasts, pannus, groin and vaginal folds. Patient saw her deposition reporter who gave her an rx for Diflucan and topical ketoconazole. Patient used those therpaies for 3 days, but stated that it did not get better. Patient also states that she feels nauseous after taking the Diflucan and does not want to take it anymore even though she only has one more dose. Patient denies CP, SOB, n/v/d, abdominal pain, fever, chills, TOLBERT, or dizziness. PMD: Black (Gigi Magdaleno) Past Medical History - Provider Review Nursing Documentation Reviewed: Yes - Past History Past History: Non-Contributing - Infectious Disease Hx of Infectious Diseases: None - Tetanus Immunization Tetanus Immunization: Unknown - Cardiac Hx Cardiac Disorders: Yes Hx Congestive Heart Failure: Yes Hx Hypertension: Yes - Pulmonary Hx Respiratory Disorders: No - Neurological Hx Neurological Disorder: Yes - HEENT Hx HEENT Disorder: Yes Other/Comment: hard of hearing - Renal Hx Renal Disorder: Yes - Endocrine/Metabolic Hx Hypothyroidism: Yes - Hematological/Oncological Hx Blood Disorders: No - Integumentary Hx Dermatological Disorder: Yes Hx Basal Cell Carcinoma: Yes Other/Comment: herpes zoster - Musculoskeletal/Rheumatological Hx Musculoskeletal Disorders: Yes Hx Falls: Yes (tripped on sidewalk 30 yrs ago, arthritis) Hx Osteoarthritis: Yes - Gastrointestinal Hx Gastrointestinal Disorders: No - Genitourinary/Gynecological Hx Genitourinary Disorders: No - Psychiatric Hx Psychophysiologic Disorder: Yes Hx Anxiety: Yes Hx Depression: Yes Hx Substance Use: No - Past Surgical History Past Surgical History: Non-Contributing - Surgical History Other/Comment: breast lump - calcification benign, hemorrhoids - Anesthesia Hx Anesthesia: No Hx Anesthesia Reactions: No Hx Malignant Hyperthermia: No - Suicidal Assessment Feels Threatened In Home Enviroment: No <Gigi Magdaleno - Last Filed: 09/10/17 05:59> Family/Social History - Physician Review Nursing Documentation Reviewed: Yes Family/Social History: No Known Family HX Smoking Status: Former Smoker Hx Alcohol Use: No Hx Substance Use: No Hx Substance Use Treatment: No <Gigi Magdaleno - Last Filed: 09/10/17 05:59> Allergies/Home Meds <Gigi Magdaleno - Last Filed: 09/10/17 05:59> <Reji Black - Last Filed: 09/10/17 06:11> Allergies/Adverse Reactions: Allergies ciprofloxacin [From Cipro] Allergy (Verified 09/10/17 05:35) .unknown ciprofloxacin HCl [From Cipro] Allergy (Verified 09/10/17 05:35) RASH pneumococcal vaccine Allergy (Verified 09/10/17 05:35) RASH sulfamethoxazole [From Bactrim] Allergy (Verified 09/10/17 05:35) RASH trimethoprim [From Bactrim] Allergy (Verified 09/10/17 05:35) RASH nitrofurantoin Adverse Reaction (Verified 09/10/17 05:35) RASH Penicillins Adverse Reaction (Verified 09/10/17 05:35) SWELLING Home Medications: Home Meds Medication Instructions Recorded Confirmed ARIPiprazole [Abilify] 1 mg PO HS 01/01/17 09/10/17 Fluconazole [Diflucan] 150 mg PO DAILY 09/10/17 09/10/17 Ketoconazole 2% Cr [Nizoral] 15 applic TOP BID 09/10/17 09/10/17 Review of Systems - Physician Review All systems were reviewed & negative as marked: Yes (12 point ROS reviewed and is negative other than what is stated in HPI.) <Gigi Magdaleno - Last Filed: 09/10/17 05:59> Physical Exam Vital Signs Reviewed: Yes Temperature: Afebrile Blood Pressure: Normal Pulse: Regular Respiratory Rate: Normal Appearance: Positive for: Non-Toxic Pain Distress: None Mental Status: Positive for: Alert and Oriented X 3 - Systems Exam Head: Present: Atraumatic, Normocephalic Pupils: Present: PERRL Extroacular Muscles: Present: EOMI Conjunctiva: Present: Normal Mouth: Present: Moist Mucous Membranes Neck: Present: Normal Range of Motion Respiratory/Chest: Present: Clear to Auscultation, Good Air Exchange. No: Respiratory Distress, Accessory Muscle Use Cardiovascular: Present: Regular Rate and Rhythm, Normal S1, S2. No: Murmurs Abdomen: No: Tenderness, Distention, Peritoneal Signs Back: Present: Normal Inspection Upper Extremity: Present: Normal Inspection. No: Cyanosis, Edema Lower Extremity: Present: Normal Inspection. No: Edema Neurological: Present: GCS=15, CN II-XII Intact, Speech Normal Skin: Present: Warm, Rashes (under b/l breasts, under skin pannus, b/l groins, vaginal folds), Normal Color. No: Dry (moist in skin folds) Psychiatric: Present: Alert, Oriented x 3, Normal Insight, Normal Concentration <Gigi Magdaleno - Last Filed: 09/10/17 05:59> Vital Signs Temp Pulse Resp BP Pulse Ox 09/10/17 05:27 182/72 H 09/10/17 05:24 97.7 F 79 18 165/105 H 96 Medical Decision Making <Gigi Magdaleno - Last Filed: 09/10/17 05:59> <Reji Black - Last Filed: 09/10/17 06:11> ED Course and Treatment: 09/10/17 06:05 87 yo F presents with yeast infection and nausea Plan: - Nystatin cream - Reglan - Discontinue Diflucan - Recommend d/c Ketoconazole if using nystatin cream - Discharge - Advise follow up with PMD (Gigi Magdaleno) Impression: Pt seen and evaluated with medical policy specialist. Pt, whose past medical history includes hypertension, chronic kidney disease, osteoarthitis, CHF, and anemia, presented for yeast infection under her breast, pannus, groin, and vagina. Pt also complaining of nausea after taking Diflucan. Aware and agree with HPI, clinical findings, plan, and management. Plan: -- Reglan -- Reassess and disposition (Reji Black) - Medication Orders Current Medication Orders: Discontinued Medications Metoclopramide HCl (Reglan) 10 mg PO STAT STA Stop: 09/10/17 05:47 Last Admin: 09/10/17 05:58 Dose: 10 mg - PA / BOX FEEDER / Resident Statement / has reviewed & agrees with the documentation as recorded. / has examined the patient and agrees with the treatment plan. <Reji Black - Last Filed: 09/10/17 06:11> Disposition/Present on Arrival - Present on Arrival Any Indicators Present on Arrival: No History of DVT/PE: No History of Uncontrolled Diabetes: No Urinary Catheter: No History of Decub. Ulcer: No History Surgical Site Infection Following: None - Disposition Have Diagnosis and Disposition been Completed?: Yes Disposition Time: 06:07 Patient Plan: Discharge <Obinna MagdalenoGigi - Last Filed: 09/10/17 05:59> <Reji Black - Last Filed: 09/10/17 06:11> - Disposition Diagnosis: Yeast infection Disposition: HOME/ ROUTINE Condition: STABLE Discharge Instructions (ExitCare): Yeast Infection (DC) Additional Instructions: 1. Apply Nystatin cream to rash three times a day 2. Keep affected areas clean and dry 3. Do not use Ketoconazole cream if using Nystatin 4. Use Reglan as needed for nausea every 6 hours 5. Follow up with your primary doctor within 1 week GONSALO DEMARCO, thank you for letting us take care of you today. Your provider was Reji Black MD and you were treated for medical clearance. The emergency medical care you received today was directed at your acute symptoms. If you were prescribed any medication, please fill it and take as directed. It may take several days for your symptoms to resolve. Return to the Emergency Department if your symptoms worsen, do not improve, or if you have any other problems. Please contact your doctor or call one of the physicians/clinics you have been referred to that are listed on the Patient Visit Information form that is included in your discharge packet. Bring any paperwork you were given at discharge with you along with any medications you are taking to your follow up visit. Our treatment cannot replace ongoing medical care by a primary care provider outside of the emergency department. Thank you for allowing the [facility] team to be part of your care today. Prescriptions: Metoclopramide HCl [Reglan] 10 mg PO Q6H PRN #15 tablet PRN Reason: Nausea/Vomiting Nystatin [Nystatin Cream] 1 appl TP TID #1 tube Forms: [employer] ([place]ish)
[2017-09-10 06:15] VITALS: BP 188/7; PULSE 75; TEMP 98.1; O2SAT 97
== END 2017-09-10 06:15 | disposition home or self-care (01) ==
LOC: ED 05:18
DX: B37.9 Candidiasis, unspecified (principal)

== ENCOUNTER 2017-10-05 08:32 | Inpatient (IN) | payer MEDICARE, BC ==
--- NOTE | 2017-10-05 08:36 | EDPD ---
HPI Stroke - General Time Seen by Provider: 10/05/17 08:36 Historian: Patient, Caregiver, EMS - History of Present Illness Narrative History of Present Illness (Free Text): 10/05/17 08:40 Patient is an 87 yo female, past medical history of diabetes, presents to the Emergency Department after green energy marketing analyst found that "she was too weak to get out of the bed" at approximately 8 am. Modular Home Crew Member states that prior to this the patient "was fine" and "walked herself to the bathroom" and "everything was fine". Patient reportedly took a vaginal suppository while in the bathroom and symptoms started. EMS personnel states that when patient was initially evaluated she "was very weak" but "as we were transporting her she began to have difficulty speaking". Patient expresses that she feels short of breath and that she is having some difficulty speaking and "talk to my aide". She reports numbness to her hands and feet. States she has "broken out in a rash" but this was prior to this morning. rTPA Inclusion/Exclusion - Refusal of Treatment Patient Refused Treatment: Yes - Inclusion Criteria for Altepase Patient is 18 years or Older: Yes The Clinical Diagnosis of Ischemic Stroke That is Causing a Potentially Disabling Neurological Deficit: Yes Time of Onset is Well Established to be Less Than 270 Minute Before Treatment Would Begin: Yes Risk/Benefit Discussed With Patient/Family Member Present: Yes - Exclusion Criteria for Altepase Uncontrolled Hypertension at Time of Treatment (Systolic BP above 185 or Diastolic BP above 110 mmHg): Yes - Warning to TPA With Conditions Following Conditions Weighed Against Anticipated Benefit: Yes Condition: Rapid Improvement, Age Greater Than 75 years Past Medical History - Past History Past History: Non-Contributing - Infectious Disease Hx of Infectious Diseases: None - Tetanus Immunization Tetanus Immunization: Unknown - Cardiac Hx Cardiac Disorders: Yes Hx Congestive Heart Failure: Yes Hx Hypertension: Yes - Pulmonary Hx Respiratory Disorders: No - Neurological Hx Neurological Disorder: Yes - HEENT Hx HEENT Disorder: Yes Other/Comment: hard of hearing - Renal Hx Renal Disorder: Yes - Endocrine/Metabolic Hx Hypothyroidism: Yes - Hematological/Oncological Hx Blood Disorders: No - Integumentary Hx Dermatological Disorder: Yes Hx Basal Cell Carcinoma: Yes Other/Comment: herpes zoster - Musculoskeletal/Rheumatological Hx Musculoskeletal Disorders: Yes Hx Falls: Yes (tripped on sidewalk 30 yrs ago, arthritis) Hx Osteoarthritis: Yes - Gastrointestinal Hx Gastrointestinal Disorders: No - Genitourinary/Gynecological Hx Genitourinary Disorders: No - Psychiatric Hx Psychophysiologic Disorder: Yes Hx Anxiety: Yes Hx Depression: Yes Hx Substance Use: No - Past Surgical History Past Surgical History: Non-Contributing - Surgical History Other/Comment: breast lump - calcification benign, hemorrhoids - Anesthesia Hx Anesthesia: No Hx Anesthesia Reactions: No Hx Malignant Hyperthermia: No - Suicidal Assessment Feels Threatened In Home Enviroment: No Family/Social History - Family/Social History Family History: Other Allergies/Home Meds Allergies/Adverse Reactions: Allergies ciprofloxacin [From Cipro] Allergy (Verified 10/05/17 08:39) .unknown ciprofloxacin HCl [From Cipro] Allergy (Verified 10/05/17 08:39) RASH pneumococcal vaccine Allergy (Verified 10/05/17 08:39) RASH sulfamethoxazole [From Bactrim] Allergy (Verified 10/05/17 08:39) RASH trimethoprim [From Bactrim] Allergy (Verified 10/05/17 08:39) RASH nitrofurantoin Adverse Reaction (Verified 10/05/17 08:39) RASH Penicillins Adverse Reaction (Verified 10/05/17 08:39) SWELLING Home Medications: Home Meds Medication Instructions Recorded Confirmed ARIPiprazole [Abilify] 2 mg PO HS 01/01/17 10/05/17 ALPRAZolam [Xanax] 0.125 mg PO BID 10/05/17 10/05/17 Clotrimazole/Betamethasone 0 gm TOP BID 10/05/17 10/05/17 [Lotrisone] Furosemide [Lasix] 20 mg PO BID 10/05/17 10/05/17 Terconazole 80 mg VG HS 10/05/17 10/05/17 Review of Systems - Review of Systems Systems not reviewed;Unavailable: Acuity of Condition Constitutional: absent: Fatigue ENT: absent: Sore Throat Respiratory: SOB. absent: Cough Cardiovascular: absent: Chest Pain Gastrointestinal: absent: Abdominal Pain Neurological: Speech Changes. absent: Headache ED Stroke Physical Exam Vital Signs Reviewed: Yes Temperature: Afebrile Appearance: Positive for: Ill-Appearing Mental Status: No: Lethargic - Systems Exam Head: Present: Atraumatic Pupils: Present: PERRL Extroacular Muscles: Present: EOMI Mouth: Present: Dry. No: Drooling Pharnyx: No: ERYTHEMA Neck: Present: Normal Range of Motion. No: Meningeal Signs, MIDLINE TENDERNESS Respiratory/Chest: Present: Clear to Auscultation. No: Respiratory Distress Cardiovascular: Present: Regular Rate and Rhythm, Murmurs Abdomen: No: Tenderness, Distention Back: No: Midline Tenderness Upper Extremity: No: Edema Lower Extremity: No: Edema Neurologic: Present: Speech Normal (slow, mildly slurred speech), Normal Sensory Function, Pronator Drift (pronator drift to both upper extremities and both lower extremities), Other (difficult for patient to perform finger to nose) . No: Facial Droop Skin: Present: Rashes Psychiatric: Present: Alert, Normal Insight, Normal Concentration Medical Decision Making ED Course and Treatment: 10/05/17 08:36 Impression: 87 year old female presents to the Emergency department for generalized weakness and numbness to her extremities. Differential Diagnosis included but are not limited to: CVA vs. TIA Plan: -- CT head -- labs -- EKG -- Chest X-ray -- IV fluids -- Reassess and disposition Prior Visits: Notes and results from previous visits were reviewed. Progress Notes: Patient is an 87 yo female presents with sudden onset of initially generalized weakness at approximately 8 am as per aide. Patient reportedly developed increased slurred speech during transport. 10/05/17 08:36 CODE STROKE ACTIVATED. 10/05/17 09:15 CT of head reviewed by radiologist, shows no acute findings. I discussed initial exam with Mic, patient's son on phone. Patient reportedly has been dealing with rash for several days and recently started vaginal suppository although patient states this was taken last night. On initial exam she is able to move all four extremities but is very weak and extremities will drop down to stretcher. HER SPEECH IS IMPROVED at 0900 on reassessment. There is trend to improvement from initial exam. Initial exam and ct head reviewed with oncall code stroke Dr. Jackson. As there is improvement but persistent symptoms, at this time I updated Mic, her son of patient's current treatment plan. Due to improvement of symptoms, at this time patient not TPA candidate, but requires serial exams. ASA suppository ordered. 10/05/17 09:54 Re-examined. Patient denies dizziness. Denies visual symptoms. Patient states that she still feels too weak to push herself up. Patient is now able to lift both hands up to her nose she is very shaky but is able to do so. No carotid bruits auscultated. No meningeal signs. Denies headache. Denies nausea. Continues to show improvement in exam. 10/05/17 09:56 Patient continues to deny any chest pain or shortness of breath. Denies back or abdominal pain. 10/05/17 10:49 Chest X-Ray reviewed by radiologist, shows no active disease. Patient evaluated by lukasz Lua neurologist in the ED. WIth neuro consultation, patient deemed not to be tpa candidate by neurology as well. Labs reviewed. Patient admitted for monitoring, serial neuro exams. Differential diagnosis reviewed with son and patient. Reassessment Condition: Improving,but remains with symptoms - RAD Interpretation Deputy Chief Executive: Radiologist - EKG Interpretation EKG Interpretation (Text): 10/05/17 09:26 EKG at 0905 normal sinus rhythm rate of [address] elevations Interpreted by ED Physician: Yes Type: 12 lead EKG NIHSS Scale([place]) 2 Time Performed: 10:00 - How Severe is the Stoke Baseline Level of Consciousness: 0=Alert LOC to Questions: 0=Both comments correct LOC to commands: 0=Obeys both correctly Best Gaze: 0=Normal Visual: 0=No visual loss Facial: 0=Normal Motor Arm - Left: 0=No drift Motor Arm - Right: 0=No drift Motor Leg - Left: 0=No drift Motor Leg - Right: 0=No drift Limb Ataxia: 0=Absent Sensory: 0=Normal Best Language: 0=No aphasia Dysarthia: 1=Mild to moderate slurring Extinction & Inattention (Neglect): 0=Normal, no object Score: 1 Risk Level: Minor Stroke Risk NIHSS Scale ([place]) Time Performed: 08:44 - How Severe is the Stoke Baseline Level of Consciousness: 0=Alert LOC to Questions: 0=Both comments correct LOC to commands: 0=Obeys both correctly Best Gaze: 0=Normal Visual: 0=No visual loss Facial: 0=Normal Motor Arm - Left: 1=Drift noted before 10 sec Motor Arm - Right: 1=Drift noted before 10 sec Motor Leg - Left: 1=Drift before 5 sec Motor Leg - Right: 1=Drift before 5 sec Limb Ataxia: 0=Absent Sensory: 0=Normal Best Language: 1=Mild to moderate aphasia Dysarthia: 1=Mild to moderate slurring Extinction & Inattention (Neglect): 0=Normal, no object Score: 6 Risk Level: Mod Stroke Risk Disposition/Present on Arrival - Present on Arrival Any Indicators Present on Arrival: No History of DVT/PE: No History of Uncontrolled Diabetes: No Urinary Catheter: No History Surgical Site Infection Following: None - Disposition Have Diagnosis and Disposition been Completed?: Yes Diagnosis: Weakness, Slurred speech Disposition: HOSPITALIZED Disposition Time: 11:00 Patient Plan: Admission, Telemetry Patient Problems: Current Active Problems Problem Status Onset Slurred speech Acute Weakness Acute Condition: SERIOUS
[2017-10-05 08:39] VITALS: BMI 39.0
[2017-10-05] MEDS ORDERED: Sodium Chloride 0.9% 1,000 ML IV SCH (08:45)
--- NOTE | 2017-10-05 09:04 | CT ---
Date of service: 10/05/2017 PROCEDURE: CT HEAD WITHOUT CONTRAST. HISTORY: Code Stroke COMPARISON: 07/15/2017 TECHNIQUE: Axial computed tomography images were obtained through the head/brain without intravenous contrast. Radiation dose: Total exam DLP = 804 mGy-cm. This CT exam was performed using one or more of the following dose reduction techniques: Automated exposure control, adjustment of the mA and/or kV according to patient size, and/or use of iterative reconstruction technique. FINDINGS: HEMORRHAGE: No intracranial hemorrhage. BRAIN: No mass effect or edema. No atrophy or chronic microvascular ischemic changes. VENTRICLES: Unremarkable. No hydrocephalus. CALVARIUM: Unremarkable. PARANASAL SINUSES: Unremarkable as visualized. No significant inflammatory changes. MASTOID AIR CELLS: Unremarkable as visualized. No inflammatory changes. OTHER FINDINGS: Results were discussed with Dr. Flores at 9 a.m. IMPRESSION: No acute findings
[2017-10-05 09:23] LABS: BASO # 0.03 K/mm3 (0.0-2.0); BASO % 0.3 % (0.0-3.0); EOS # 0.1 (0.0-0.7); EOS % 0.7 % (1.5-5.0); GRAN # 8.05 (1.4-6.5); GRAN % 74.7 % (50.0-68.0); HEMOGLOBIN 12.7 g/dL (12.0-16.0); LYMPH % 18.1 % (22.0-35.0); MEAN CELL VOLUME 90.3 fl (80.0-105.0); MEAN CORPUSCULAR HEMOGLOBIN 29.5 pg (25.0-35.0); MEAN CORPUSCULAR HGB CONC 32.6 g/dl (31.0-37.0); MEAN PLATELET VOLUME 10.7 fl (7.0-11.0); MONO # 0.7 (0.1-0.6); MONO % 6.2 % (1.0-6.0); RBC 4.31 10^6/uL (3.5-6.1); RED CELL DISTRIBUTION WIDTH 14.4 % (11.5-14.5); WHITE BLOOD COUNT 10.8 10^3/ul (4.5-11.0)
[2017-10-05 09:32] LABS: INR 0.98 (0.93-1.08); PARTIAL THROMBOPLASTIN TIME 27.2 Seconds (25.1-36.5); PROTHROMBIN TIME 11.3 SECONDS (9.4-12.5)
[2017-10-05 09:34] LABS: ALB/GLOB RATIO 1.3 (1.1-1.8); ALBUMIN 4.1 g/dL (3.0-4.8); ALT/SGPT 38 U/L (7-56); AST/SGOT 32 U/L (14-36); BLOOD UREA NITROGEN 33 mg/dL (7-21); CALCIUM 9.4 mg/dL (8.4-10.5); GFR AFRICAN-AMERICAN > 60; GFR NON-AFRICAN AMERICAN 53; HDL CHOLESTEROL 80 mg/dL (29-60)
[2017-10-05 09:45] LABS: LDL CHOLESTEROL 69 mg/dL (0-129)
[2017-10-05 09:48] LABS: TROPONIN I < 0.01 ng/mL
--- NOTE | 2017-10-05 10:38 | RAD ---
Date of service: 10/05/2017 HISTORY: Code Stroke COMPARISON: 07/15/2017 FINDINGS: LUNGS: No active pulmonary disease. PLEURA: No significant pleural effusion identified, no pneumothorax apparent. CARDIOVASCULAR: Normal. OSSEOUS STRUCTURES: No significant abnormalities. VISUALIZED UPPER ABDOMEN: Normal. OTHER FINDINGS: None. IMPRESSION: No active disease.
[2017-10-05 13:16] LABS: URINE BILIRUBIN NEGATIVE (NEGATIVE); URINE BLOOD NEGATIVE (NEGATIVE); URINE GLUCOSE (UA) NEGATIVE (NEGATIVE); URINE LEUKOCYTE ESTERASE TRACE Leu/uL (NEGATIVE); URINE PROTEIN NEGATIVE mg/dL (<30 mg/dL); URINE UROBILINOGEN 0.2 E.U./dL (<1 E.U./dL)
[2017-10-05 13:17] LABS: URINE APPEARANCE CLEAR (CLEAR); URINE COLOR LIGHT YELLOW (YELLOW)
[2017-10-05 13:25] LABS: URINE BACTERIA TRACE (NEG); URINE EPITHELIAL CELLS 0 - 2 /hpf (0-5); URINE RBC NEGATIVE /hpf (0-2)
[2017-10-05] MEDS: Nystatin 100,000 Units/gm Cream(15 gm) TOP SCH ×2 (16:42→18:18)
[2017-10-05] MEDS: Sodium Chloride 0.9% 1,000 ML IV SCH (18:20)
--- NOTE | 2017-10-05 20:57 | CARD ---
APPROVED REPORT Date of service: 10/05/2017 EKG Measurement Heart [id number] <Conclusion> Normal sinus rhythm Septal infarct, age undetermined Abnormal ECG
--- NOTE | 2017-10-06 00:45 | HP ---
HISTORY OF PRESENT ILLNESS: Patient is 87 years old who was seen and examined while she was in the emergency room. Her property insurance inspector by the bedside and family friend by the bedside. According to property insurance inspector, she went to the bathroom, when she came back, she had episode of generalized weakness, could not move, did not lose consciousness, however, she was found to have slurred speech when she came to emergency room. Aircraft Machinist Helper states she was in the bathroom when she yelled out I feel weak, I feel weak. When she came out, she was complaining of generalized weakness. She was having difficulty getting out of bed. Patient stated she had yeast infection and probably she is feeling weak because of that. Complaining of feeling anxious. PAST MEDICAL HISTORY: Significant for: 1. Hypertension. 2. Hyperlipidemia. 3. Generalized osteoarthritis. 4. Hypothyroidism. 5. History of diastolic dysfunction. ALLERGIES: SHE IS ALLERGIC TO CIPRO, PNEUMOCOCCAL VACCINE, PENICILLIN, NITROFURANTOIN, TRIMETHOPRIM, SULFAMETHOXAZOLE. MEDICATIONS AT HOME: She is on Protonix, nystatin cream, metoprolol, Reglan, levothyroxine, ketoconazole, Lasix, Diflucan and Abilify. SOCIAL HISTORY: She lives by herself with her property insurance inspector. She used to be a heavy smoker. REVIEW OF SYSTEMS: Complaining of generalized weakness, difficulty getting out of bed or walk. PHYSICAL EXAMINATION: GENERAL: She is awake, alert, oriented, communicative. VITAL SIGNS: She is afebrile. Pulse 70, respirations 20, blood pressure 190/63. LUNGS: Bilateral good airflow. No rhonchi or crackle. HEART: S1, S2, audible. ABDOMEN: Obese, soft, nontender, no rebound, no guarding. NEUROLOGIC: She is awake, alert, oriented. Able to move upper and lower extremities. Does not seem to be having focal deficits. LABORATORY DATA: WBC 10.8, hemoglobin 12.7, hematocrit 38.9, platelets 245. PT 11.3, INR 0.9. He had chemistry: Sodium 140, potassium 4.8, chloride 101, CO2 30, BUN 33, creatinine 1.0, blood sugar of 128. LFTs are within normal limits. HDL is 80. CT scan of the head is negative. X-ray of the chest is unremarkable. ASSESSMENT AND PLAN: 1. Generalized weakness, doubt cerebrovascular accident. 2. Generalized osteoarthritis. 3. Uncontrolled hypertension. 4. Hypothyroidism. 5. Anxiety disorder. PLAN: Patient will be placed on observation. We will resume her medication . Ordered for Carotid Doppler. CT scan is negative. Awaiting neuro evaluation. We will also schedule for physical therapy evaluation. Kayli Corona MD
[2017-10-06] MEDS: Sodium Chloride 0.9% 1,000 ML IV SCH ×3 (05:52→21:39)
[2017-10-06] MEDS: Pantoprazole 40 mg EC Tab PO SCH (05:52)
[2017-10-06] MEDS: Nystatin 100,000 Units/gm Cream(15 gm) TOP SCH ×3 (09:46→17:42)
[2017-10-06] MEDS: Levothyroxine 25 MCG TAB PO SCH (09:47)
--- NOTE | 2017-10-06 20:32 | PN ---
DATE: 10/06/2017 HISTORY OF PRESENT ILLNESS: Ms. Jama is 87-year-old female well known to me from office. She is being followed in office for iron-deficiency anemia. She received several doses of IV iron in the past. She presented to ED with weakness of lower extremity and slurring of speech. Stroke code was called. She was not found to be a candidate for TPA. CAT scan of the head was unremarkable. She was found to be hypertensive with systolic blood pressure more than 85. Slurring of speech has improved since admission. She does not have any problem speaking. Now, she is complaining of difficulty swallowing and she does not feel any obstruction in the throat. While she swallows, she stated that food feels very dry. She cannot swallow easily. Urine culture showed gram-negative rods. Denies any fevers, still complaining of weakness in the lower extremity, unable to ambulate. No fever, no cough with expectoration. She also has some skin lesions under the breast, for which she is getting nystatin. PAST MEDICAL HISTORY: Congestive cardiac failure, hypertension, difficulty hearing, chronic kidney disease, chronic anemia, basal cell carcinoma, history of zoster, history of fall, osteoarthritis. PAST SURGICAL HISTORY: None. FAMILY HISTORY: Noncontributory. PERSONAL HISTORY: She lives at home alone. ALLERGIES: SHE HAS MULTIPLE ALLERGIES: CIPROFLOXACIN, NITROFURANTOIN, BACTRIM, AND PENICILLIN. HOME MEDICATIONS: Abilify 1 mg p.o. at bedtime, Diflucan 150 daily, ketoconazole topical application, Norvasc 10 mg daily. REVIEW OF SYSTEMS: As per HPI. Rest of 12-point review of systems is reviewed and negative. PHYSICAL EXAMINATION: GENERAL: Comfortable in bed, in no acute distress. VITAL SIGNS: Temperature of 98.7, heart rate 80 per minute, blood pressure 130/70. HEENT: No pallor. NECK: No lymphadenopathy. CHEST: Air entry present equal and bilateral. No added sounds. CARDIOVASCULAR: S1, S2 normal. No murmur. No gallop. ABDOMEN: Soft, nontender. No hepatosplenomegaly. EXTREMITIES: No edema. CRIMINAL RESEARCHER: Moving all the limbs. No focal sensory motor deficit. No cranial nerve palsy. SPINE: Nontender. IMAGING: As per HPI. LABORATORY DATA: White count 10.8, hemoglobin 12.7, hematocrit 38.9, and platelet count 245. Granulocyte 74%, lymphocyte 18%. UA positive. Sodium 140, potassium 4.8. Creatinine 1. Urine culture, Gram-negative rods. ASSESSMENT: 1. Urinary tract infection. 2. Bilateral lower extremity weakness. 3. Chronic anemia, iron deficiency. 3. History of hemorrhoids. 5. Gait dysfunction. PLAN: We will get ID consultation for UTI. She has multiple allergies to a lot of antibiotics as per ID. We will get the Neurology consultation, Dr. Rosales. She was seen by the stroke team in the ED. Continue Norvasc 10 mg daily, Synthroid 25 mcg daily, Reglan every 6 hours p.r.n., nystatin topical application. She is on IV hydration 50 mL an hour normal saline. We will continue to monitor renal functions and electrolytes. Kaci Hawk MD
[2017-10-07] MEDS: Pantoprazole 40 mg EC Tab PO SCH (05:32)
[2017-10-07] MEDS: Sodium Chloride 0.9% 1,000 ML IV SCH (05:32)
[2017-10-07] MEDS ORDERED: Miconazole 100 MG Vaginal Supp VG SCH ×2 (07:48→22:00)
[2017-10-07] MEDS: Aztreonam 1 Gm in NS 100mL 100 ML IVPB SCH ×3 (09:28→21:30)
--- NOTE | 2017-10-07 09:28 | CP.PCM.PN ---
<Poppy Washington - Last Filed: 10/07/17 10:31> Subjective - Date & Time of Evaluation Date of Evaluation: 10/07/17 Time of Evaluation: 07:00 - Subjective Subjective: Medicine Progress Note for Margarito Shrestha PGY3 Patient seen and examined at bedside. There were no acute overnight events as per nursing staff. Patient had multiple complaints this morning. She was concerned about her dry eye and usually takes artificial tears at home 4 times per day in both eyes. She also complained of globus sensation in throat. She was evaluated by speech/swallow in hospital which showed no evidence of dysphagia. Patient also complained of her vaginal yeast infection that she was diagnosed with the day before she was admitted and would like to continue her vaginal suppository. Patient also complains of peripheral neuropathy on her feet that she has had for many years. Otherwise, she denies weakness, chest pain , shortness of breath, nausea/vomiting/diarrhea, dysuria/hematuria, fever/chills , headache, slurred speech or vision changes. Objective - Vital Signs/Intake and Output Vital Signs (last 24 hours): Temp Pulse Resp BP Pulse Ox 97.7 F 71 20 173/71 H 98 10/07/17 06:00 10/07/17 06:00 10/07/17 06:00 10/07/17 06:00 10/07/17 06:00 Intake and Output: 10/07/17 10/07/17 06:59 18:59 Intake Total 2390 Output Total 1460 Balance 930 - Medications Medications: Current Medications Alprazolam (Xanax) 0.125 mg PO BID [facility] PRN Reason: Protocol Last Admin: 10/06/17 17:41 Dose: 0.125 mg Amlodipine Besylate (Norvasc) 10 mg PO DAILY [facility] Last Admin: 10/06/17 09:46 Dose: 10 mg Artificial Tears (Refresh Opth Soln) 0.3 ml OU Q6H [facility] Home Med (Home Med) 0 unit PO HS [facility] Aztreonam (Azactam 1 Gm) 100 mls @ 100 mls/hr IVPB Q8 [facility] PRN Reason: Protocol Stop: 10/14/17 07:01 Levothyroxine Sodium (Synthroid) 25 mcg PO DAILY [facility] Last Admin: 10/06/17 09:47 Dose: 25 mcg Lisinopril (Zestril) 10 mg PO DAILY [facility] Metoclopramide HCl (Reglan) 10 mg PO Q6H PRN PRN Reason: Nausea/Vomiting Miconazole (Monistat 7 Vag Suppository) 100 mg VG HS [facility] Nystatin (Nystop Topical Powder) 1 gm TOP BID [facility] Pantoprazole Sodium (Protonix Ec Tab) 40 mg PO 0600 [facility] Last Admin: 10/07/17 05:32 Dose: 40 mg - Labs Labs: PT 11.3 SECONDS (9.4-12.5) 10/05/17 09:16 INR 0.98 (0.93-1.08) 10/05/17 09:16 APTT 27.2 Seconds (25.1-36.5) 10/05/17 09:16 - Constitutional Appears: No Acute Distress - Head Exam Head Exam: ATRAUMATIC, NORMAL INSPECTION, NORMOCEPHALIC - Eye Exam Eye Exam: EOMI, Normal appearance, PERRL Pupil Exam: NORMAL ACCOMODATION, PERRL - ENT Exam ENT Exam: Mucous Membranes Moist - Neck Exam Neck Exam: Normal Inspection - Respiratory Exam Respiratory Exam: Clear to Ausculation Bilateral, NORMAL BREATHING PATTERN. absent: Rales, Rhonchi, Wheezes - Cardiovascular Exam Cardiovascular Exam: REGULAR RHYTHM, +S1, +S2. absent: Gallop, Rubs, Murmur - GI/Abdominal Exam GI & Abdominal Exam: Soft, Normal Bowel Sounds. absent: Rigid, Tenderness, Mass , Rebound - Extremities Exam Extremities Exam: Normal Capillary Refill, Normal Inspection. absent: Calf Tenderness, Pedal Edema - Neurological Exam Neurological Exam: Alert, Awake, CN II-XII Intact, Oriented x3. absent: Motor Sensory Deficit Neuro motor strength exam: Left Upper Extremity: 5, Right Upper Extremity: 5, Left Lower Extremity: 5, Right Lower Extremity: 5 - Psychiatric Exam Psychiatric exam: Anxious, Normal Affect, Normal Mood - Skin Skin Exam: Dry, Intact, Rash (in skin folds ), Warm Assessment and Plan - Assessment and Plan (Free Text) Assessment: This is an 87yo female with past medical history of HTN, diastolic CHF, CKD IIIA , anxiety, hypothyroidism, OA who was admitted for 1. Hypertensive urgency (resolved) - BP elevated (SBP 190) with slurred speech in ED - Code stroke was called, but NIHSS was 0- no stroke like symptoms or focal neurologic deficits 2. UTI - Urine culture + for E.coli and Group B Strep - Allergic to multiple antibiotics 3. Vaginal yeast infection 4. HTN 5. Diastolic CHF - not in fluid overload 6. Hypothroidism 7. Anxiety 8. CKD Stage IIIA 9. OA - walks with walker at home Plan: Labs and imaging reviewed. Continue Azactam and Miconazole. ID is on consult, recommendations are appreciated. Continue Metoprolol and Norvasc for HTN. Will continue synthroid for hypothyroidism. Patient is on Abilify and Xanax at home for anxiety and we will continue. Patient is on GI and DVT prophylaxis. We will have TCU eval for patient. Plan is possible DC to TCU tomorrow. Case seen, discussed and reviewed with Dr. Phillips. Margarito Washington PGY3 <Wil Phillips S - Last Filed: 10/07/17 19:37> Objective - Vital Signs/Intake and Output Vital Signs (last 24 hours): Temp Pulse Resp BP Pulse Ox 98 F 72 18 131/54 L 98 10/07/17 14:00 10/07/17 14:00 10/07/17 14:00 10/07/17 14:00 10/07/17 14:00 Intake and Output: 10/07/17 10/08/17 18:59 06:59 Intake Total 710 Balance 710 - Medications Medications: Current Medications Alprazolam (Xanax) 0.125 mg PO BID [facility] PRN Reason: Protocol Last Admin: 10/07/17 17:13 Dose: 0.125 mg Amlodipine Besylate (Norvasc) 10 mg PO DAILY [facility] Last Admin: 10/07/17 09:29 Dose: 10 mg Artificial Tears (Refresh Opth Soln) 0.3 ml OU Q6H [facility] Last Admin: 10/07/17 17:14 Dose: 0.3 ml Heparin Sodium (Porcine) (Heparin) 5,000 units SC Q12 [facility] PRN Reason: Protocol Home Med (Home Med) 0 unit PO HS [facility] Aztreonam (Azactam 1 Gm) 100 mls @ 100 mls/hr IVPB Q8 [facility] PRN Reason: Protocol Stop: 10/14/17 07:01 Last Admin: 10/07/17 13:54 Dose: 100 mls/hr Vancomycin HCl (Vancomycin 1gm) 1 gm in 250 mls @ 167 mls/hr IVPB DAILY [facility] PRN Reason: Protocol Last Admin: 10/07/17 12:29 Dose: 167 mls/hr Levothyroxine Sodium (Synthroid) 25 mcg PO DAILY [facility] Last Admin: 10/07/17 09:29 Dose: 25 mcg Metoclopramide HCl (Reglan) 5 mg PO Q6H PRN PRN Reason: Nausea/Vomiting Metoprolol Succinate (Toprol Xl) 50 mg PO DAILY [facility] Last Admin: 10/07/17 11:06 Dose: 50 mg Miconazole (Monistat 7 Vag Suppository) 100 mg VG HS [facility] Nystatin (Nystop Topical Powder) 0 gm TOP BID [facility] Last Admin: 10/07/17 11:19 Dose: 1 applic Pantoprazole Sodium (Protonix Ec Tab) 40 mg PO 0600 [facility] Last Admin: 10/07/17 05:32 Dose: 40 mg - Labs Labs: PT 11.3 SECONDS (9.4-12.5) 10/05/17 09:16 INR 0.98 (0.93-1.08) 10/05/17 09:16 APTT 27.2 Seconds (25.1-36.5) 10/05/17 09:16 Assessment and Plan - Assessment and Plan (Free Text) Assessment: Pt with HTN emergency. Symptoms resolved after BP improved. Plan: Pt seen and examined. I have reviewed the note of the medical office assistant instructor and agree with it. I have discussed the assessment and plan with the resident. I have reviewed the patient's labs and medications. Pt may need TCU. She does not have LE edema. Will D/C tele. She is on Synthroid for hypothyroidism. Continue with [facility] for HTN.
[2017-10-07] MEDS: Levothyroxine 25 MCG TAB PO SCH (09:29)
[2017-10-07] MEDS: Lubricant Eye Drops UD OU SCH ×2 (11:06→17:14)
[2017-10-07] MEDS: Metoprolol Succinate 50 mg XL Tab PO SCH (11:06)
[2017-10-07] MEDS: Nystatin 100,000 Units/gm Topical Pow(15 gm) TOP SCH (11:19)
[2017-10-07] MEDS: Vancomycin 1gm in NS 250ml 1 GM/250 ML BAG IVPB SCH (12:29)
--- NOTE | 2017-10-07 14:19 | CP.PCM.CON ---
History of Present Illness - History of Present Illness History of Present Illness: 87 year old female with PMH of chronic CHF, HTN, chronic renal failure, hypothyroidism, obesity with BMI 36 was brought in to [facility] after her womens health nurse practitioner noticed her to be weak and unable to get out of bed. The patient is complaining of some urinary frequency, no dysuria or hematuria. She denies flank pain, no suprapubic pain, no nausea or vomiting, no fever or chills, no headache or dizziness, no chest pain, no SOB, no cough or rhinorrhea, no sore throat, no abdominal pain, no diarrhea. Urinalysis showed trace leukocyte esterase and urine cx are showing E. coli and Group B Strep. Infectious Diseases consult is requested to further evaluate and manage. Review of Systems - Review of Systems All systems: reviewed and no additional remarkable complaints except Past Patient History - Infectious Disease Hx of Infectious Diseases: None - Tetanus Immunizations Tetanus Immunization: Unknown - Past Social History Smoking Status: Former Smoker - CARDIAC Hx Cardiac Disorders: Yes Hx Congestive Heart Failure: Yes Hx Hypertension: Yes - PULMONARY Hx Respiratory Disorders: Yes Hx Pneumonia: Yes - NEUROLOGICAL Hx Neurological Disorder: Yes (near syncope) Hx Dizziness: Yes (vertigo) - HEENT Hx HEENT Problems: Yes (pt denies [place]) Other/Comment: c/o "burning all over my body, my mouth is burning and dry, my gums hurt, my tongue zaldivar, my eyes are burning, my sides are burning for about 3 weeks." pt stated - RENAL Hx Chronic Kidney Disease: Yes - ENDOCRINE/METABOLIC Hx Hypothyroidism: Yes - HEMATOLOGICAL/ONCOLOGICAL Hx Blood Disorders: Yes Hx Anemia: Yes (iron deficiency hx iron infusions) Hx Cancer: Yes (basal cell left arm) Hx Shingles: Yes - INTEGUMENTARY Hx Dermatological Problems: Yes Hx Basil Cell: Yes (left arm) Other/Comment: fading red rash under abd folds, groin, under breasts, multiple age spots both arms - MUSCULOSKELETAL/RHEUMATOLOGICAL Hx Arthritis: Yes - GASTROINTESTINAL Hx Gastroesophageal Reflux: Yes - GENITOURINARY/GYNECOLOGICAL Hx Genitourinary Disorders: Yes Hx Incontinence: Yes (at times) Hx Urinary Tract Infection: Yes (frequent) Other/Comment: currently has vaginal yeast infection c/o burning feeling inside - PSYCHIATRIC Hx Psychophysiologic Disorder: Yes Hx Anxiety: Yes Hx Depression: Yes Hx Substance Use: No - SURGICAL HISTORY Hx Surgeries: Yes Other/Comment: breast lump - calcification benign, hemorrhoids - ANESTHESIA Hx Anesthesia: No Hx Anesthesia Reactions: No Hx Malignant Hyperthermia: No Meds Allergies/Adverse Reactions: Allergies Allergy/AdvReac Type Severity Reaction Status Date / Time ciprofloxacin [From Cipro] Allergy .unknown Verified 10/05/17 08:39 ciprofloxacin HCl Allergy RASH Verified 10/05/17 08:39 [From Cipro] pneumococcal vaccine Allergy RASH Verified 10/05/17 08:39 sulfamethoxazole Allergy RASH Verified 10/05/17 08:39 [From Bactrim] trimethoprim [From Bactrim] Allergy RASH Verified 10/05/17 08:39 nitrofurantoin AdvReac RASH Verified 10/05/17 08:39 Penicillins AdvReac SWELLING Verified 10/05/17 08:39 - Medications Medications: Current Medications Alprazolam (Xanax) 0.125 mg PO BID [facility] PRN Reason: Protocol Last Admin: 10/06/17 17:41 Dose: 0.125 mg Amlodipine Besylate (Norvasc) 10 mg PO DAILY [facility] Last Admin: 10/06/17 09:46 Dose: 10 mg Home Med (Home Med) 0 unit PO HS [facility] Levothyroxine Sodium (Synthroid) 25 mcg PO DAILY [facility] Last Admin: 10/06/17 09:47 Dose: 25 mcg Metoclopramide HCl (Reglan) 10 mg PO Q6H PRN PRN Reason: Nausea/Vomiting Nystatin (Mycostatin Cream) 0 ea TOP TID [facility] Last Admin: 10/06/17 17:42 Dose: 3 applic Pantoprazole Sodium (Protonix Ec Tab) 40 mg PO 0600 [facility] Last Admin: 10/07/17 05:32 Dose: 40 mg Physical Exam - Constitutional Appears: Chronically Ill - Head Exam Head Exam: NORMAL INSPECTION - Neck Exam Neck exam: Negative for: Meningismus - Respiratory Exam Respiratory Exam: Decreased Breath Sounds - Cardiovascular Exam Cardiovascular Exam: +S1, +S2 - GI/Abdominal Exam GI & Abdominal Exam: Soft. absent: Tenderness Results - Vital Signs Recent Vital Signs: Last Vital Signs Temp 97.7 F 10/07/17 06:00 Pulse 71 10/07/17 06:00 Resp 20 10/07/17 06:00 BP 173/71 H 10/07/17 06:00 Pulse Ox 98 10/07/17 06:00 - Labs Result Diagrams: 10/05/17 09:16 10/05/17 09:16 Labs: Laboratory Results - last 24 hr 10/06/17 10/06/17 10/06/17 06:25 07:11 10:57 POC Glucose (mg/dL) 82 103 Blood Type Confirm O POSITIVE 10/06/17 15:55 POC Glucose (mg/dL) 106 Blood Type Confirm Assessment & Plan - Assessment and Plan (Free Text) Plan: Assessment consider lower tract UTI with Group B Strep and E. coli chronic CHF HTN chronic renal failure hypothyroidism obesity with BMI 39 Plan started Vancomycin and Azactam and will monitor clinically - target 5-7 days
--- NOTE | 2017-10-07 20:21 | CON ---
DATE: 10/07/2017 NEUROLOGY CONSULTATION CHIEF COMPLAINT: Generalized weakness, questionable slurred speech. HISTORY OF PRESENT ILLNESS: This is an 87-year-old woman with past medical history of hypertension, diastolic CHF, chronic kidney disease stage IIIA, anxiety, hypothyroidism, osteoarthritis, who was admitted for generalized weakness and transient slurred speech. She is found to have urine culture positive for E. coli and group B strep. She is on antibiotics per ID. She has had transient hypertensive episode in terms of elevated systolic and diastolic blood pressures. Currently, she no longer has slurred speech and her NIH stroke scale was 0. She has right flat affect and has numbness in the toes which could be secondary to underlying neuropathy which would be evaluated in our office. She uses a walker at home due to her generalized and osteoarthritis. REVIEW OF SYSTEMS: Fourteen-point review of systems negative except as per the HPI. ALLERGIES: CIPROFLOXACIN AND PNEUMOCOCCAL VACCINE . PAST MEDICAL HISTORY: As above. SOCIAL HISTORY: No illicit drug use, smoking or EtOH abuse. MEDICATIONS: Reviewed by nurse's per reconciliation sheet. FAMILY HISTORY: Noncontributory. LABORATORY DATA: Blood sugar today is 95, A1c is 6.3. PHYSICAL EXAMINATION VITAL SIGNS: Temperature 98, pulse rate 72, blood pressure 131/54, respiratory rate of 18, oxygen saturation 98% by room air. GENERAL: The patient is sitting up in bed, in no acute distress. HEENT: Atraumatic, normocephalic. PERRLA. Extraocular muscles intact. NECK: Supple. No JVD. No adenopathy noted. LUNGS: Clear to auscultation. No adventitious sounds. HEART: S1, S2. Normal rate and rhythm. No murmurs, rubs or gallops. ABDOMEN: Soft, nontender and nondistended. Bowel sounds are present. EXTREMITIES: No clubbing. No cyanosis. Peripheral pulses 2+ felt bilaterally. NEUROLOGIC: The patient is alert and oriented to person, place, month and year. Speech is fluent without any errors. Cranial nerves II through XII intact. Motor exam: Moves all extremities equally. No pronator drift seen. Sensory exam: Decreased light touch and pinprick up to the calves bilaterally, decreased vibration of the toes. DTRs are 2+ throughout, 1 at both knees and absent at the ankles. Coordination: [id number]-[id number] intact. No dysmetria noted. ASSESSMENT AND PLAN: This is an 87-year-old woman with past medical history of hypertension, diastolic congestive heart failure, chronic kidney disease stage III, anxiety, hypothyroidism, osteoarthritis who was admitted for generalized weakness, questionable slurred speech, NIH stroke scale was 0 and no focal neurological deficits were seen. Her transient slurred speech and generalized weakness secondary to underlying hypertensive urgency, superimposed underlying urinary tract infection with growing Escherichia coli and group B strep on antibiotics. She is also deconditioned and has some neuropathy in her lower extremities which will be assessed in outpatient setting. At this time, we recommend; 1. Keep her systolic blood pressure between 130s-140s and diastolic 70s-80s. 2. Continue with treatment for underlying urinary tract infection, she is on aztreonam. 3. She is on nystatin for underlying yeast infection in the vaginal area. 4. Aspirin 81, Lipitor 20 for stroke prevention. 5. Continue with levothyroxine 25 mcg for underlying hypothyroidism. 6. PT/OT assessment. Thank you for this consult. Nam Rosales MD
[2017-10-08] MEDS: Aztreonam 1 Gm in NS 100mL 100 ML IVPB SCH ×2 (05:33→13:14)
[2017-10-08] MEDS: Pantoprazole 40 mg EC Tab PO SCH (05:34)
[2017-10-08 07:56] VITALS: BP 144/63; PULSE 74; RESP 20; TEMP 98.4; O2SAT 100
[2017-10-08] MEDS: ABILIFY PO SCH ×2 (08:08→08:09)
[2017-10-08] MEDS: Nystatin 100,000 Units/gm Topical Pow(15 gm) TOP SCH ×2 (08:09→09:38)
[2017-10-08] MEDS: Lubricant Eye Drops UD OU SCH ×4 (08:10→13:14)
[2017-10-08] MEDS: Levothyroxine 25 MCG TAB PO SCH (09:34)
--- NOTE | 2017-10-08 09:36 | CP.PCM.DIS ---
<PadminiPoppy - Last Filed: 10/08/17 13:13> Provider - Provider Date of Admission: 10/05/17 10:57 Attending physician: Wil Phillips MD Primary care physician: Padmini Smith MD Consults: ID: [id number] Neuro: Connie Time Spent in preparation of Discharge (in minutes): 35 Hospital Course - Lab Results Lab Results: Micro Results 10/05/17 11:10 Urine,Clean Catch Urine Culture - Final Escherichia Coli Beta Hemolytic Strep Group B Most Recent Lab Values WBC 10.8 10^3/ul (4.5-11.0) D 10/05/17 09:16 RBC 4.31 10^6/uL (3.5-6.1) 10/05/17 09:16 Hgb 12.7 g/dL (12.0-16.0) 10/05/17 09:16 Hct 38.9 % (36.0-48.0) 10/05/17 09:16 MCV 90.3 fl (80.0-105.0) 10/05/17 09:16 MCH 29.5 pg (25.0-35.0) 10/05/17 09:16 MCHC 32.6 g/dl (31.0-37.0) 10/05/17 09:16 RDW 14.4 % (11.5-14.5) 10/05/17 09:16 Plt Count 245 10^3/uL (120.0-450.0) 10/05/17 09:16 MPV 10.7 fl (7.0-11.0) 10/05/17 09:16 Gran % 74.7 % (50.0-68.0) H 10/05/17 09:16 Lymph % (Auto) 18.1 % (22.0-35.0) L 10/05/17 09:16 [place] % (Auto) 6.2 % (1.0-6.0) H 10/05/17 09:16 Eos % (Auto) 0.7 % (1.5-5.0) L 10/05/17 09:16 Baso % (Auto) 0.3 % (0.0-3.0) 10/05/17 09:16 Gran # 8.05 (1.4-6.5) H 10/05/17 09:16 Lymph # (Auto) 2.0 (1.2-3.4) 10/05/17 09:16 [place] # (Auto) 0.7 (0.1-0.6) H 10/05/17 09:16 Eos # (Auto) 0.1 (0.0-0.7) 10/05/17 09:16 Baso # (Auto) 0.03 K/mm3 (0.0-2.0) 10/05/17 09:16 PT 11.3 SECONDS (9.4-12.5) 10/05/17 09:16 INR 0.98 (0.93-1.08) 10/05/17 09:16 APTT 27.2 Seconds (25.1-36.5) 10/05/17 09:16 Sodium 140 mmol/L (132-148) 10/05/17 09:16 Potassium 4.8 mmol/L (3.6-5.0) 10/05/17 09:16 Chloride 101 mmol/L (98-107) 10/05/17 09:16 Carbon Dioxide 30 mmol/L (21-33) 10/05/17 09:16 Anion Gap 14 (10-20) 10/05/17 09:16 BUN 33 mg/dL (7-21) H 10/05/17 09:16 Creatinine 1.0 mg/dl (0.7-1.2) 10/05/17 09:16 Est GFR ( Amer) > 60 10/05/17 09:16 Est GFR (Non-Af Amer) 53 10/05/17 09:16 POC Glucose (mg/dL) 95 mg/dL (65-110) 10/07/17 11:16 Random Glucose 128 mg/dL (70-110) H 10/05/17 09:16 Hemoglobin A1c 6.3 % (4.2-6.5) 10/05/17 09:16 Calcium 9.4 mg/dL (8.4-10.5) 10/05/17 09:16 Total Bilirubin 0.4 mg/dL (0.2-1.3) 10/05/17 09:16 AST 32 U/L (14-36) 10/05/17 09:16 ALT 38 U/L (7-56) 10/05/17 09:16 Alkaline Phosphatase 108 U/L (38-126) 10/05/17 09:16 Troponin I < 0.01 ng/mL 10/05/17 09:16 Total Protein 7.1 g/dL (5.8-8.3) 10/05/17 09:16 Albumin 4.1 g/dL (3.0-4.8) 10/05/17 09:16 Globulin 3.1 gm/dL 10/05/17 09:16 Albumin/Globulin Ratio 1.3 (1.1-1.8) 10/05/17 09:16 Triglycerides 144 mg/dL (35-160) 10/05/17 09:16 Cholesterol 187 mg/dL (130-200) 10/05/17 09:16 LDL Cholesterol Direct 69 mg/dL (0-129) 10/05/17 09:16 HDL Cholesterol 80 mg/dL (29-60) H 10/05/17 09:16 Urine Color Light yellow (YELLOW) 10/05/17 12:50 Urine Appearance Clear (CLEAR) 10/05/17 12:50 Urine pH 8.0 (4.7-8.0) 10/05/17 12:50 Ur Specific [place] 1.010 (1.005-1.035) 10/05/17 12:50 Urine Protein Negative mg/dL (<30 mg/dL) 10/05/17 12:50 Urine Glucose (UA) Negative mg/dL (NEGATIVE) 10/05/17 12:50 Urine Ketones Negative mg/dL (NEGATIVE) 10/05/17 12:50 Urine Blood Negative (NEGATIVE) 10/05/17 12:50 Urine Nitrate Negative (NEGATIVE) 10/05/17 12:50 Urine Bilirubin Negative (NEGATIVE) 10/05/17 12:50 Urine Urobilinogen 0.2 E.U./dL (<1 E.U./dL) 10/05/17 12:50 Ur Leukocyte Esterase Trace [place]/uL (NEGATIVE) H 10/05/17 12:50 Urine RBC Negative /hpf (0-2) 10/05/17 12:50 Urine WBC 1 - 3 /hpf (0-6) 10/05/17 12:50 Ur Epithelial Cells 0 - 2 /hpf (0-5) 10/05/17 12:50 Urine Bacteria Trace (NEG) 10/05/17 12:50 Blood Type O POSITIVE 10/05/17 09:11 Blood Type Confirm O POSITIVE 10/06/17 06:25 Antibody Screen Negative 10/05/17 09:11 BBK History Checked No verified bt 10/05/17 09:11 - Hospital Course Hospital Course: This is an 87yo female with past medical history of HTN, diastolic CHF, CKD IIIA , anxiety, hypothyroidism, OA who was admitted for hypertensive urgency and slurred speech. Code stroke called. NIHSS scale 0 without focal neurological deficits. HTN improved. Neuro consulted. Recommendations appreciated. Patient placed on Norvasc and Metoprolol. Patient found to have UTI positive for E.coli and group B strep. ID was consulted. Patient has allergies to multiple antibiotics. ID was consulted and recommendations were appreciated. She will need to complete 5-7 days of Azactam and Vancomycin. Patient has had 2 days thus far. She also was noted to have a vaginal yeast infection prior to admission. She completed 3 day course of Monistat suppository. Patient has history of diastolic CHF and is not in fluid overload without evidence of leg edema. We will continue her home dose of Xanax as well as her synthroid. Patient will be sent to TCU for further rehabilitation. Patient verbalized and agreed with discharge planning. - Date & Time of H&P Date of H&P: 10/05/17 Time of H&P: 11:00 Discharge Exam - Head Exam Head Exam: NORMAL INSPECTION - Eye Exam Eye Exam: Normal appearance, PERRL Pupil Exam: NORMAL ACCOMODATION - ENT Exam ENT Exam: Mucous Membranes Moist - Respiratory Exam Respiratory Exam: Clear to PA & Lateral, NORMAL BREATHING PATTERN, UNREMARKABLE. absent: Rales, Rhonchi - Cardiovascular Exam Cardiovascular Exam: REGULAR RHYTHM, +S1, +S2. absent: Gallop, Rubs, Systolic Murmur - GI/Abdominal Exam GI & Abdominal Exam: Normal Bowel Sounds, Soft, Unremarkable. absent: Rebound, Rigid - Exam External exam: Erythema - Extremities Exam Extremities exam: normal inspection - Neurological Exam Neurological exam: Alert, CN II-XII Intact, Oriented x3 - Psychiatric Exam Psychiatric exam: Normal Affect, Normal Mood - Skin Skin Exam: Dry, Warm Discharge Plan - Follow Up Plan Condition: SERIOUS Disposition: TRANSF TO SNF Instructions: Fatigue (DC), Urinary Tract Infection, Adult (DC), Generalized Weakness (DC) Additional Instructions: 1 Patient will be discharged to TCU. 2 Continue heart healthy diet (soft). 3 Continue medication as per medication reconciliation form. 4 Follow up PMD tomorrow. 5 Report to the ER if underlying signs and symptoms worsen. Referrals: Padmini Smith MD [Primary Care Provider] - <Wil Phillips - Last Filed: 10/08/17 17:27> Provider - Provider Date of Admission: 10/05/17 10:57 Attending physician: Wil Phillips MD Primary care physician: Padmini Smith MD Hospital Course - Lab Results Lab Results: Micro Results 10/05/17 11:10 Urine,Clean Catch Urine Culture - Final Escherichia Coli Beta Hemolytic Strep Group B Most Recent Lab Values WBC 10.8 10^3/ul (4.5-11.0) D 10/05/17 09:16 RBC 4.31 10^6/uL (3.5-6.1) 10/05/17 09:16 Hgb 12.7 g/dL (12.0-16.0) 10/05/17 09:16 Hct 38.9 % (36.0-48.0) 10/05/17 09:16 MCV 90.3 fl (80.0-105.0) 10/05/17 09:16 MCH 29.5 pg (25.0-35.0) 10/05/17 09:16 MCHC 32.6 g/dl (31.0-37.0) 10/05/17 09:16 RDW 14.4 % (11.5-14.5) 10/05/17 09:16 Plt Count 245 10^3/uL (120.0-450.0) 10/05/17 09:16 MPV 10.7 fl (7.0-11.0) 10/05/17 09:16 Gran % 74.7 % (50.0-68.0) H 10/05/17 09:16 Lymph % (Auto) 18.1 % (22.0-35.0) L 10/05/17 09:16 [place] % (Auto) 6.2 % (1.0-6.0) H 10/05/17 09:16 Eos % (Auto) 0.7 % (1.5-5.0) L 10/05/17 09:16 Baso % (Auto) 0.3 % (0.0-3.0) 10/05/17 09:16 Gran # 8.05 (1.4-6.5) H 10/05/17 09:16 Lymph # (Auto) 2.0 (1.2-3.4) 10/05/17 09:16 [place] # (Auto) 0.7 (0.1-0.6) H 10/05/17 09:16 Eos # (Auto) 0.1 (0.0-0.7) 10/05/17 09:16 Baso # (Auto) 0.03 K/mm3 (0.0-2.0) 10/05/17 09:16 PT 11.3 SECONDS (9.4-12.5) 10/05/17 09:16 INR 0.98 (0.93-1.08) 10/05/17 09:16 APTT 27.2 Seconds (25.1-36.5) 10/05/17 09:16 Sodium 140 mmol/L (132-148) 10/05/17 09:16 Potassium 4.8 mmol/L (3.6-5.0) 10/05/17 09:16 Chloride 101 mmol/L (98-107) 10/05/17 09:16 Carbon Dioxide 30 mmol/L (21-33) 10/05/17 09:16 Anion Gap 14 (10-20) 10/05/17 09:16 BUN 33 mg/dL (7-21) H 10/05/17 09:16 Creatinine 1.0 mg/dl (0.7-1.2) 10/05/17 09:16 Est GFR ( Amer) > 60 10/05/17 09:16 Est GFR (Non-Af Amer) 53 10/05/17 09:16 POC Glucose (mg/dL) 95 mg/dL (65-110) 10/07/17 11:16 Random Glucose 128 mg/dL (70-110) H 10/05/17 09:16 Hemoglobin A1c 6.3 % (4.2-6.5) 10/05/17 09:16 Calcium 9.4 mg/dL (8.4-10.5) 10/05/17 09:16 Total Bilirubin 0.4 mg/dL (0.2-1.3) 10/05/17 09:16 AST 32 U/L (14-36) 10/05/17 09:16 ALT 38 U/L (7-56) 10/05/17 09:16 Alkaline Phosphatase 108 U/L (38-126) 10/05/17 09:16 Troponin I < 0.01 ng/mL 10/05/17 09:16 Total Protein 7.1 g/dL (5.8-8.3) 10/05/17 09:16 Albumin 4.1 g/dL (3.0-4.8) 10/05/17 09:16 Globulin 3.1 gm/dL 10/05/17 09:16 Albumin/Globulin Ratio 1.3 (1.1-1.8) 10/05/17 09:16 Triglycerides 144 mg/dL (35-160) 10/05/17 09:16 Cholesterol 187 mg/dL (130-200) 10/05/17 09:16 LDL Cholesterol Direct 69 mg/dL (0-129) 10/05/17 09:16 HDL Cholesterol 80 mg/dL (29-60) H 10/05/17 09:16 Urine Color Light yellow (YELLOW) 10/05/17 12:50 Urine Appearance Clear (CLEAR) 10/05/17 12:50 Urine pH 8.0 (4.7-8.0) 10/05/17 12:50 Ur Specific [place] 1.010 (1.005-1.035) 10/05/17 12:50 Urine Protein Negative mg/dL (<30 mg/dL) 10/05/17 12:50 Urine Glucose (UA) Negative mg/dL (NEGATIVE) 10/05/17 12:50 Urine Ketones Negative mg/dL (NEGATIVE) 10/05/17 12:50 Urine Blood Negative (NEGATIVE) 10/05/17 12:50 Urine Nitrate Negative (NEGATIVE) 10/05/17 12:50 Urine Bilirubin Negative (NEGATIVE) 10/05/17 12:50 Urine Urobilinogen 0.2 E.U./dL (<1 E.U./dL) 10/05/17 12:50 Ur Leukocyte Esterase Trace [place]/uL (NEGATIVE) H 10/05/17 12:50 Urine RBC Negative /hpf (0-2) 10/05/17 12:50 Urine WBC 1 - 3 /hpf (0-6) 10/05/17 12:50 Ur Epithelial Cells 0 - 2 /hpf (0-5) 10/05/17 12:50 Urine Bacteria Trace (NEG) 10/05/17 12:50 Blood Type O POSITIVE 10/05/17 09:11 Blood Type Confirm O POSITIVE 10/06/17 06:25 Antibody Screen Negative 10/05/17 09:11 BBK History Checked No verified bt 10/05/17 09:11 - Hospital Course Hospital Course: Pt seen and examined. I have reviewed the note of the medical historian and agree with it. I have discussed the assessment and plan with the resident. I have reviewed the patient's labs and medications. Pt on Abx and going to TCU today. She has BP that is controlled. She is on Monistat. LE edema is minimal.
[2017-10-08] MEDS: Metoprolol Succinate 50 mg XL Tab PO SCH (09:37)
[2017-10-08] MEDS: Vancomycin 1gm in NS 250ml 1 GM/250 ML BAG IVPB SCH (09:37)
--- NOTE | 2017-10-09 08:34 | PN ---
DATE: 10/08/2017 SUBJECTIVE: The patient is in bed, in no acute distress, nontoxic, was seen early this morning in room 567, bed 2. PHYSICAL EXAMINATION: VITAL SIGNS: Temperature is 98, blood pressure is 140/60, respiratory rate 20, heart rate is 74. HEENT: Unremarkable. NECK: Supple. LUNGS: Have decreased breath sounds. HEART: Normal S1 and S2. ABDOMEN: Soft, nontender. LABORATORY DATA: Reveals a white count of 10.8, hemoglobin 12.7. Chemistry reveals creatinine is 1. Urinalysis is noted. Microbiology is reviewed, E. coli and group B strep. ASSESSMENT AND PLAN: This is an 87-year-old female seen early this morning with urinary tract infection Escherichia coli and group B strep, chronic congestive heart failure, hypertension, allergies, chronic renal failure, hypothyroidism, currently on vancomycin and aztreonam. Patient was transferred to Transitional Care with monitoring of her liver function. We will follow with you. Wes Motta MD
== END 2017-10-08 14:35 | DRG 690 ==
LOC: ED 08:32 → ERH 10:57 → 2RNO 13:46 → 5RNO 10-07 14:18
PROVIDERS: ADMIT Internal Medicine Nephrology; ATTEND Internal Medicine Nephrology
DX: N39.0 Urinary tract infection, site not specified (principal); I50.32 Chronic diastolic (congestive) heart failure; I13.0 Hypertensive heart and chronic kidney disease with heart failure and stage 1 through stage 4 chronic kidney disease, or unspecified chronic kidney disease; I16.0 Hypertensive urgency; R47.81 Slurred speech; B96.20 Unspecified Escherichia coli [E. coli] as the cause of diseases classified elsewhere; N18.3 Chronic kidney disease, stage 3 (moderate); E03.9 Hypothyroidism, unspecified; B37.3 Candidiasis of vulva and vagina; D50.9 Iron deficiency anemia, unspecified; H91.90 Unspecified hearing loss, unspecified ear; G62.9 Polyneuropathy, unspecified; M15.9 Polyosteoarthritis, unspecified; E78.5 Hyperlipidemia, unspecified; F41.9 Anxiety disorder, unspecified; R26.9 Unspecified abnormalities of gait and mobility; K64.9 Unspecified hemorrhoids; E66.9 Obesity, unspecified; Z68.36 Body mass index [BMI] 36.0-36.9, adult; Z85.828 Personal history of other malignant neoplasm of skin; Z87.891 Personal history of nicotine dependence

== ENCOUNTER 2017-10-08 14:36 | Inpatient (IN) | payer OTHER, BC ==
[2017-10-08 14:54] VITALS: BMI 36.1
[2017-10-08] MEDS: Aztreonam 1 Gm in NS 100mL 100 ML IVPB SCH (22:00)
[2017-10-08] MEDS: Lubricant Eye Drops UD OU SCH (22:00)
[2017-10-08] MEDS ORDERED: Miconazole 100 MG Vaginal Supp VG SCH (22:00)
[2017-10-09] MEDS: Lubricant Eye Drops UD OU SCH ×4 (03:00→21:42)
[2017-10-09] MEDS: Aztreonam 1 Gm in NS 100mL 100 ML IVPB SCH ×3 (05:19→21:41)
[2017-10-09] MEDS: Vancomycin 1gm in NS 250ml 1 GM/250 ML BAG IVPB SCH (05:19)
[2017-10-09] MEDS: Levothyroxine 25 MCG TAB PO SCH (05:19)
[2017-10-09] MEDS: Pantoprazole 40 mg EC Tab PO SCH (05:19)
[2017-10-09] MEDS ORDERED: Vancomycin 1gm in NS 250ml 1 GM/250 ML BAG IVPB SCH (06:00)
[2017-10-09] MEDS ORDERED: Levothyroxine 25 MCG TAB PO SCH (06:00)
--- NOTE | 2017-10-09 08:00 | CP.PCM.HP ---
<Poppy Washington - Last Filed: 10/09/17 10:45> History of Present Illness - History of Present Illness History of Present Illness: H&P for Margarito Shrestha PGY3 This is an 87yo F with HTN, diastolic CHF, CKD IIIA, anxiety, hypothyroidism, OA who was admitted for HTN and UTI. Patient was placed on BP medication and on antibiotics. Patient was also complaining of some back pain and generalized weakness. She was transferred to TCU for further rehabilitation. This morning patient is doing well and tolerating her diet. She denies chest pain, shortness of breath, nausea/vomiting/diarrhea, fever/chills, numbness/tingling, dysuria or hematuria. Past medical history: HTN, diastolic CHF, CKD IIIA, anxiety, hypothyroidism, OA Medications: Reviewed Allergies: Reviewed. Patient has multiple allergies to antibiotics including cipro, PCN and bactrim Social history: Denies EtOH, drug or tobacco use. Lives alone, but has a day care home mother. Uses walker at home. Family history: Non-contributory Present on Admission - Present on Admission Any Indicators Present on Admission: No Review of Systems - Review of Systems All systems: reviewed and no additional remarkable complaints except Review of Systems: 12 point ROS reviewed as per HPI Past Patient History - Infectious Disease Hx of Infectious Diseases: None - Tetanus Immunizations Tetanus Immunization: Unknown - Past Social History Smoking Status: Former Smoker - CARDIAC Hx Cardiac Disorders: Yes Hx Congestive Heart Failure: Yes Hx Hypertension: Yes - PULMONARY Hx Respiratory Disorders: Yes Hx Pneumonia: Yes - NEUROLOGICAL Hx Neurological Disorder: Yes (near syncope) Hx Dizziness: Yes (vertigo) - HEENT Hx HEENT Problems: Yes (pt denies [place]) Other/Comment: c/o "burning all over my body, my mouth is burning and dry, my gums hurt, my tongue zaldivar, my eyes are burning, my sides are burning for about 3 weeks." pt stated - RENAL Hx Renal Failure: Yes (CKD) - ENDOCRINE/METABOLIC Hx Hypothyroidism: Yes - HEMATOLOGICAL/ONCOLOGICAL Hx Blood Disorders: Yes Hx Anemia: Yes (iron deficiency hx iron infusions) Hx Cancer: Yes (basal cell left arm) Hx Shingles: Yes - INTEGUMENTARY Hx Dermatological Problems: Yes Hx Basil Cell: Yes (left arm) Other/Comment: fading red rash under abd folds, groin, under breasts, multiple age spots both arms - MUSCULOSKELETAL/RHEUMATOLOGICAL Hx Arthritis: Yes (OA) - GASTROINTESTINAL Hx Gastrointestinal Disorders: Yes (DYSPHAGIA,COLON POLYPS,DIVERTICULITIS) - GENITOURINARY/GYNECOLOGICAL Hx Genitourinary Disorders: Yes (URINARY FREQUENCY,WEARS DEPENDS) Hx Reproductive Disorders: No - PSYCHIATRIC Hx Psychophysiologic Disorder: Yes Hx Anxiety: Yes Hx Depression: Yes Hx Substance Use: No - SURGICAL HISTORY Hx Surgeries: Yes Other/Comment: breast lump - calcification benign, hemorrhoids - ANESTHESIA Hx Anesthesia: No Hx Anesthesia Reactions: No Hx Malignant Hyperthermia: No Meds Allergies/Adverse Reactions: Allergies Allergy/AdvReac Type Severity Reaction Status Date / Time ciprofloxacin [From Cipro] Allergy .unknown Verified 10/08/17 14:57 ciprofloxacin HCl Allergy RASH Verified 10/08/17 14:57 [From Cipro] pneumococcal vaccine Allergy RASH Verified 10/08/17 14:57 sulfamethoxazole Allergy RASH Verified 10/08/17 14:57 [From Bactrim] trimethoprim [From Bactrim] Allergy RASH Verified 10/08/17 14:57 nitrofurantoin AdvReac RASH Verified 10/08/17 14:57 Penicillins AdvReac SWELLING Verified 10/08/17 14:57 Physical Exam - Constitutional Appears: No Acute Distress - Head Exam Head Exam: ATRAUMATIC, NORMAL INSPECTION, NORMOCEPHALIC - Eye Exam Eye Exam: Normal appearance, PERRL Pupil Exam: NORMAL ACCOMODATION, PERRL - ENT Exam ENT Exam: Mucous Membranes Moist - Respiratory Exam Respiratory Exam: Clear to Auscultation Bilateral, NORMAL BREATHING PATTERN. absent: Rales, Rhonchi, Wheezes - Cardiovascular Exam Cardiovascular Exam: REGULAR RHYTHM, +S1, +S2. absent: Gallop, Rubs, Systolic Murmur - GI/Abdominal Exam GI & Abdominal Exam: Normal Bowel Sounds, Soft. absent: Mass, Rebound, Rigid, Tenderness - Extremities Exam Extremities exam: Positive for: normal inspection. Negative for: calf tenderness, pedal edema - Neurological Exam Neurological exam: Alert, CN II-XII Intact, Oriented x3 - Psychiatric Exam Psychiatric exam: Normal Affect, Normal Mood - Skin Skin Exam: Dry, Warm Results - Vital Signs Recent Vital Signs: Last Vital Signs Temp 98.4 F 10/08/17 16:00 Pulse 74 07/17/18 16:00 Resp 20 10/08/17 16:00 BP 134/55 L 10/08/17 16:00 Pulse Ox 95 10/08/17 16:00 Assessment & Plan - Assessment and Plan (Free Text) Assessment: This is an 87yo female with past medical history of HTN, diastolic CHF, CKD IIIA , anxiety, hypothyroidism, OA who was admitted for 1. UTI - Urine culture + for E.coli and Group B Strep - Allergic to multiple antibiotics 2. Vaginal yeast infection - finished 3 days of Monostat suppository 3. HTN 4. Diastolic CHF - not in fluid overload 5. Hypothroidism 6. Anxiety 7. CKD Stage IIIA 8. OA - walks with walker at home Plan: ID is on consult. Continue Azactam and Vancomycin day # 3 out of 7. Continue Synthroid, Metoprolol and Norvasc. Xanax for anxiety. Continue physical therapy. Patient is on GI and DVT prophylaxis. Case seen, discussed and reviewed with Dr. Phillips. Margarito Washington PGY3 - Date & Time Date: 10/09/17 Time: 11:04 <Wil Phillips S - Last Filed: 10/09/17 21:11> Results - Vital Signs Recent Vital Signs: Last Vital Signs Temp 98.2 F 10/09/17 16:00 Pulse 75 10/09/17 16:00 Resp 18 10/09/17 16:00 BP 140/66 10/09/17 16:00 Pulse Ox 94 L 10/09/17 16:00 Assessment & Plan - Assessment and Plan (Free Text) Plan: Pt seen and examined. I have reviewed the note of the medical support specialist and agree with it. I have discussed the assessment and plan with the resident. I have reviewed the patient's labs and medications. Pt is going to continue with IV Abx. She is on TCU for rehab. Pt is on Norvasc for HTN. She will continue with Xanax for anxiety. On Synthroid for hypothyroidism.
[2017-10-09] MEDS: Nystatin 100,000 Units/gm Topical Pow(15 gm) TOP SCH ×2 (10:17→17:55)
[2017-10-09] MEDS: Metoprolol Succinate 50 mg XL Tab PO SCH (10:19)
--- NOTE | 2017-10-09 14:12 | CP.PCM.CON ---
History of Present Illness - History of Present Illness History of Present Illness: 87 year old female with PMH of chronic CHF, HTN, chronic renal failure, hypothyroidism, obesity with BMI 36 was [place] [facility] and urinary frequency and was found to have bacteria in the urine and probable UTI. She is now transferred to [facility] for physical rehab and continued medical care. She has no fevers, no vomiting, no diarrhea, no dysuria. Infectious Diseases consult is requested to continue her antibiotics. Review of Systems - Review of Systems All systems: reviewed and no additional remarkable complaints except (as per HPI ) Past Patient History - Infectious Disease Hx of Infectious Diseases: None - Tetanus Immunizations Tetanus Immunization: Unknown - Past Social History Smoking Status: Former Smoker - CARDIAC Hx Cardiac Disorders: Yes Hx Congestive Heart Failure: Yes Hx Hypertension: Yes - PULMONARY Hx Respiratory Disorders: Yes Hx Pneumonia: Yes - NEUROLOGICAL Hx Neurological Disorder: Yes (near syncope) Hx Dizziness: Yes (vertigo) - HEENT Hx HEENT Problems: Yes (pt denies [place]) Other/Comment: c/o "burning all over my body, my mouth is burning and dry, my gums hurt, my tongue zaldivar, my eyes are burning, my sides are burning for about 3 weeks." pt stated - RENAL Hx Renal Failure: Yes (CKD) - ENDOCRINE/METABOLIC Hx Hypothyroidism: Yes - HEMATOLOGICAL/ONCOLOGICAL Hx Blood Disorders: Yes Hx Anemia: Yes (iron deficiency hx iron infusions) Hx Cancer: Yes (basal cell left arm) Hx Shingles: Yes - INTEGUMENTARY Hx Dermatological Problems: Yes Hx Basil Cell: Yes (left arm) Other/Comment: fading red rash under abd folds, groin, under breasts, multiple age spots both arms - MUSCULOSKELETAL/RHEUMATOLOGICAL Hx Arthritis: Yes (OA) - GASTROINTESTINAL Hx Gastrointestinal Disorders: Yes (DYSPHAGIA,COLON POLYPS,DIVERTICULITIS) - GENITOURINARY/GYNECOLOGICAL Hx Genitourinary Disorders: Yes (URINARY FREQUENCY,WEARS DEPENDS) Hx Reproductive Disorders: No - PSYCHIATRIC Hx Psychophysiologic Disorder: Yes Hx Anxiety: Yes Hx Depression: Yes Hx Substance Use: No - SURGICAL HISTORY Hx Surgeries: Yes Other/Comment: breast lump - calcification benign, hemorrhoids - ANESTHESIA Hx Anesthesia: No Hx Anesthesia Reactions: No Hx Malignant Hyperthermia: No Meds Allergies/Adverse Reactions: Allergies Allergy/AdvReac Type Severity Reaction Status Date / Time ciprofloxacin [From Cipro] Allergy .unknown Verified 10/08/17 14:57 ciprofloxacin HCl Allergy RASH Verified 10/08/17 14:57 [From Cipro] pneumococcal vaccine Allergy RASH Verified 10/08/17 14:57 sulfamethoxazole Allergy RASH Verified 10/08/17 14:57 [From Bactrim] trimethoprim [From Bactrim] Allergy RASH Verified 10/08/17 14:57 nitrofurantoin AdvReac RASH Verified 10/08/17 14:57 Penicillins AdvReac SWELLING Verified 10/08/17 14:57 - Medications Medications: Current Medications Alprazolam (Xanax) 0.125 mg PO BID GALA PRN Reason: Protocol Stop: 10/15/17 18:01 Amlodipine Besylate (Norvasc) 10 mg PO DAILY GALA PRN Reason: Protocol Artificial Tears (Refresh Opth Soln) 0.3 ml OU Q6H GALA PRN Reason: Protocol Last Admin: 10/08/17 22:00 Dose: 0.3 ml Heparin Sodium (Porcine) (Heparin) 5,000 units SC 0600,1800 GALA PRN Reason: Protocol Last Admin: 10/09/17 05:20 Dose: 5,000 units Aztreonam (Azactam 1 Gm) 100 mls @ 100 mls/hr IVPB Q8 GALA PRN Reason: Protocol Stop: 10/14/17 22:59 Last Admin: 10/09/17 05:19 Dose: 100 mls/hr Vancomycin HCl (Vancomycin 1gm) 1 gm in 250 mls @ 167 mls/hr IVPB 0600 GALA PRN Reason: Protocol Last Admin: 10/09/17 05:19 Dose: 167 mls/hr Levothyroxine Sodium (Synthroid) 25 mcg PO 0600 GALA PRN Reason: Protocol Last Admin: 10/09/17 05:19 Dose: 25 mcg Metoclopramide HCl (Reglan) 5 mg PO Q6H PRN; Protocol PRN Reason: Nausea/Vomiting Metoprolol Succinate (Toprol Xl) 50 mg PO DAILY GALA PRN Reason: Protocol Miconazole (Monistat 7 Vag Suppository) 100 mg VG HS GALA PRN Reason: Protocol Stop: 10/14/17 22:01 Last Admin: 10/08/17 22:04 Dose: 100 mg Nystatin (Nystop Topical Powder) 0 gm TOP BID GALA PRN Reason: Protocol Pantoprazole Sodium (Protonix Ec Tab) 40 mg PO 0600 GALA PRN Reason: Protocol Last Admin: 10/09/17 05:19 Dose: 40 mg Physical Exam - Constitutional Appears: Chronically Ill - Head Exam Head Exam: NORMAL INSPECTION - Respiratory Exam Respiratory Exam: Decreased Breath Sounds - Cardiovascular Exam Cardiovascular Exam: +S1, +S2 - GI/Abdominal Exam GI & Abdominal Exam: Soft. absent: Tenderness Results - Vital Signs Recent Vital Signs: Last Vital Signs Temp 98.4 F 10/08/17 16:00 Pulse 74 10/08/17 16:00 Resp 20 10/08/17 16:00 BP 134/55 L 10/08/17 16:00 Pulse Ox 95 10/08/17 16:00 Assessment & Plan - Assessment and Plan (Free Text) Plan: Assessment consider lower tract UTI with Group B Strep and E. coli chronic CHF HTN chronic renal failure hypothyroidism obesity with BMI 39 Plan continue Vancomycin and Azactam and will continue to monitor clinically for 3-5 more days
[2017-10-10] MEDS: Lubricant Eye Drops UD OU SCH ×4 (02:00→21:08)
[2017-10-10] MEDS: Aztreonam 1 Gm in NS 100mL 100 ML IVPB SCH ×3 (05:28→21:07)
[2017-10-10] MEDS: Vancomycin 1gm in NS 250ml 1 GM/250 ML BAG IVPB SCH (05:29)
[2017-10-10] MEDS: Levothyroxine 25 MCG TAB PO SCH (05:30)
[2017-10-10] MEDS: Pantoprazole 40 mg EC Tab PO SCH (05:30)
[2017-10-10] MEDS: Metoprolol Succinate 50 mg XL Tab PO SCH (10:03)
--- NOTE | 2017-10-10 13:06 | CP.PCM.PN ---
Subjective - Date & Time of Evaluation Date of Evaluation: 10/10/17 Time of Evaluation: 11:10 - Subjective Subjective: No fevers, not in distress, no dysuria currently. Complaining of itching under her breasts associated with sweating. Objective - Vital Signs/Intake and Output Vital Signs (last 24 hours): Temp Pulse Resp BP Pulse Ox 98.2 F 75 18 140/66 94 L 10/09/17 16:00 10/09/17 16:00 10/09/17 16:00 10/09/17 16:00 10/09/17 16:00 - Medications Medications: Current Medications Alprazolam (Xanax) 0.125 mg PO BID GALA PRN Reason: Protocol Stop: 10/15/17 18:01 Last Admin: 10/09/17 18:00 Dose: 0.125 mg Amlodipine Besylate (Norvasc) 10 mg PO DAILY GALA PRN Reason: Protocol Last Admin: 10/09/17 10:16 Dose: 10 mg Artificial Tears (Refresh Opth Soln) 0.3 ml OU Q6H GALA PRN Reason: Protocol Last Admin: 10/10/17 02:00 Dose: Not Given Heparin Sodium (Porcine) (Heparin) 5,000 units SC 0600,1800 GALA PRN Reason: Protocol Last Admin: 10/10/17 05:29 Dose: 5,000 units Aztreonam (Azactam 1 Gm) 100 mls @ 100 mls/hr IVPB Q8 GALA PRN Reason: Protocol Stop: 10/13/17 22:01 Last Admin: 10/10/17 05:28 Dose: 100 mls/hr Vancomycin HCl (Vancomycin 1gm) 1 gm in 250 mls @ 167 mls/hr IVPB 0600 GALA PRN Reason: Protocol Last Admin: 10/10/17 05:29 Dose: 167 mls/hr Levothyroxine Sodium (Synthroid) 25 mcg PO 0600 GALA PRN Reason: Protocol Last Admin: 10/10/17 05:30 Dose: 25 mcg Metoprolol Succinate (Toprol Xl) 50 mg PO DAILY GALA PRN Reason: Protocol Last Admin: 10/09/17 10:19 Dose: 50 mg Nystatin (Nystop Topical Powder) 0 gm TOP BID GALA PRN Reason: Protocol Last Admin: 10/09/17 17:55 Dose: 1 pow Pantoprazole Sodium (Protonix Ec Tab) 40 mg PO 0600 GALA PRN Reason: Protocol Last Admin: 10/10/17 05:30 Dose: 40 mg - Constitutional Appears: Non-toxic, Chronically Ill - Head Exam Head Exam: NORMAL INSPECTION - Respiratory Exam Respiratory Exam: Decreased Breath Sounds - Cardiovascular Exam Cardiovascular Exam: +S1, +S2 - GI/Abdominal Exam GI & Abdominal Exam: Soft. absent: Tenderness Assessment and Plan - Assessment and Plan (Free Text) Plan: Assessment consider lower tract UTI with Group B Strep and E. coli chronic CHF HTN chronic renal failure hypothyroidism obesity with BMI 39 Plan continue Vancomycin and Azactam and will continue to monitor clinically for 2-4 more days continue Nystatin powder
[2017-10-10] MEDS: Nystatin 100,000 Units/gm Topical Pow(15 gm) TOP SCH ×2 (17:29)
[2017-10-11] MEDS: Lubricant Eye Drops UD OU SCH ×4 (03:00→21:24)
[2017-10-11] MEDS: Aztreonam 1 Gm in NS 100mL 100 ML IVPB SCH ×3 (05:03→21:22)
[2017-10-11] MEDS: Vancomycin 1gm in NS 250ml 1 GM/250 ML BAG IVPB SCH (05:04)
[2017-10-11] MEDS: Levothyroxine 25 MCG TAB PO SCH (05:05)
[2017-10-11] MEDS: Pantoprazole 40 mg EC Tab PO SCH (05:05)
--- NOTE | 2017-10-11 05:36 | CP.PCM.PN ---
<Poppy Washington - Last Filed: 10/11/17 09:08> Subjective - Date & Time of Evaluation Date of Evaluation: 10/11/17 Time of Evaluation: 07:00 - Subjective Subjective: Medicine Progress Note for Margarito Shrestha PGY3 Patient seen and examined at bedside. As per nursing staff there were no acute overnight events. Patient reports having some vaginal burning this AM. She thinks her yeast infection has not resolved yet. She denies chest pain, shortness of breath, nausea/vomiting/diarrhea, fever/chills, numbness/tingling, dysuria or hematuria. She said she walked well with the walker yesterday. Objective - Vital Signs/Intake and Output Vital Signs (last 24 hours): Temp Pulse Resp BP Pulse Ox 97.8 F 76 20 130/52 L 96 10/10/17 16:00 10/10/17 16:00 10/10/17 16:00 10/10/17 16:00 10/10/17 16:00 - Medications Medications: Current Medications Alprazolam (Xanax) 0.125 mg PO BID GLAA PRN Reason: Protocol Stop: 10/15/17 18:01 Last Admin: 10/10/17 17:35 Dose: Not Given Amlodipine Besylate (Norvasc) 10 mg PO DAILY GALA PRN Reason: Protocol Last Admin: 10/10/17 10:03 Dose: 10 mg Artificial Tears (Refresh Opth Soln) 0.3 ml OU Q6H GALA PRN Reason: Protocol Last Admin: 10/11/17 03:00 Dose: Not Given Heparin Sodium (Porcine) (Heparin) 5,000 units SC 0600,1800 GALA PRN Reason: Protocol Last Admin: 10/11/17 05:04 Dose: 5,000 units Aztreonam (Azactam 1 Gm) 100 mls @ 100 mls/hr IVPB Q8 GALA PRN Reason: Protocol Stop: 10/13/17 22:01 Last Admin: 10/11/17 05:03 Dose: 100 mls/hr Vancomycin HCl (Vancomycin 1gm) 1 gm in 250 mls @ 167 mls/hr IVPB 0600 GALA PRN Reason: Protocol Last Admin: 10/11/17 05:04 Dose: 167 mls/hr Levothyroxine Sodium (Synthroid) 25 mcg PO 0600 GALA PRN Reason: Protocol Last Admin: 10/11/17 05:05 Dose: 25 mcg Metoprolol Succinate (Toprol Xl) 50 mg PO DAILY GALA PRN Reason: Protocol Last Admin: 10/10/17 10:03 Dose: 50 mg Nystatin (Nystop Topical Powder) 0 gm TOP BID GALA PRN Reason: Protocol Last Admin: 10/10/17 17:29 Dose: 1 pow Pantoprazole Sodium (Protonix Ec Tab) 40 mg PO 0600 GALA PRN Reason: Protocol Last Admin: 10/11/17 05:05 Dose: 40 mg - Constitutional Appears: No Acute Distress - Head Exam Head Exam: ATRAUMATIC, NORMAL INSPECTION, NORMOCEPHALIC - Eye Exam Eye Exam: Normal appearance, PERRL Pupil Exam: NORMAL ACCOMODATION - ENT Exam ENT Exam: Mucous Membranes Moist - Respiratory Exam Respiratory Exam: Clear to Ausculation Bilateral, NORMAL BREATHING PATTERN. absent: Rales, Rhonchi, Wheezes - Cardiovascular Exam Cardiovascular Exam: REGULAR RHYTHM, +S1, +S2. absent: Gallop, Rubs, Murmur - GI/Abdominal Exam GI & Abdominal Exam: Soft. absent: Rigid, Tenderness, Mass, Normal Bowel Sounds , Rebound - Extremities Exam Extremities Exam: Normal Inspection. absent: Calf Tenderness, Pedal Edema - Neurological Exam Neurological Exam: Alert, Awake, CN II-XII Intact, Oriented x3 - Psychiatric Exam Psychiatric exam: Normal Affect, Normal Mood - Skin Skin Exam: Dry, Warm Assessment and Plan - Assessment and Plan (Free Text) Assessment: This is an 87yo female with past medical history of HTN, diastolic CHF, CKD IIIA , anxiety, hypothyroidism, OA who was admitted for 1. UTI - Urine culture + for E.coli and Group B Strep - Allergic to multiple antibiotics 2. Vaginal yeast infection 3. HTN 4. Diastolic CHF - not in fluid overload 5. Hypothroidism 6. Anxiety 7. CKD Stage IIIA 8. OA Plan: Will restart Monostat suppository. Continue Azactam and Vancomycin day #5 out of 7. Continue Nystatin powder. Continue Metoprolol and Norvasx for HTN. Synthroid for Hypothyroidism. Xanax for Anxiety. I spoke with son and updated him on patient's progress. Patient will continue physical therapy. She is on GI and DVT prophylaxis. Case seen, discussed and reviewed with Dr. Phillips. Margarito Washington PGY3 <Wil Phillips S - Last Filed: 10/13/17 15:24> Objective - Vital Signs/Intake and Output Vital Signs (last 24 hours): Temp Pulse Resp BP Pulse Ox 97.5 F L 89 16 106/67 98 10/13/17 13:07 10/13/17 13:07 10/13/17 13:07 10/13/17 13:07 10/13/17 13:07 - Medications Medications: Current Medications Alprazolam (Xanax) 0.125 mg PO BID GALA PRN Reason: Protocol Stop: 10/15/17 18:01 Last Admin: 10/13/17 10:58 Dose: Not Given Amlodipine Besylate (Norvasc) 10 mg PO DAILY GALA PRN Reason: Protocol Last Admin: 10/13/17 10:59 Dose: 10 mg Artificial Tears (Refresh Opth Soln) 0.3 ml OU Q6H GALA PRN Reason: Protocol Last Admin: 10/13/17 10:58 Dose: 0.3 ml Furosemide (Lasix) 20 mg PO DAILY GALA Last Admin: 10/13/17 10:58 Dose: Not Given Heparin Sodium (Porcine) (Heparin) 5,000 units SC 0600,1800 GALA PRN Reason: Protocol Last Admin: 10/13/17 05:26 Dose: 5,000 units Aztreonam (Azactam 1 Gm) 100 mls @ 100 mls/hr IVPB Q8 GALA PRN Reason: Protocol Stop: 10/13/17 22:01 Last Admin: 10/13/17 15:09 Dose: 100 mls/hr Levothyroxine Sodium (Synthroid) 25 mcg PO 0600 GALA PRN Reason: Protocol Last Admin: 10/13/17 05:27 Dose: 25 mcg Metoprolol Succinate (Toprol Xl) 50 mg PO DAILY GALA PRN Reason: Protocol Last Admin: 10/13/17 11:00 Dose: 50 mg Miconazole (Monistat 7 Vag Suppository) 100 mg VG DAILY GALA Last Admin: 10/13/17 10:58 Dose: 100 mg Nystatin (Nystop Topical Powder) 0 gm TOP BID GALA PRN Reason: Protocol Last Admin: 10/13/17 10:58 Dose: 1 pow Pantoprazole Sodium (Protonix Ec Tab) 40 mg PO 0600 GALA PRN Reason: Protocol Last Admin: 10/13/17 05:27 Dose: 40 mg - Labs Labs: 10/12/17 08:30 10/12/17 08:30 Assessment and Plan - Assessment and Plan (Free Text) Plan: Pt seen and examined. This is a late entry. I have reviewed the note of the medical assistant dermatology and agree with it. I have discussed the assessment and plan with the resident. I have reviewed the patient's labs and medications. Pt is on Abx for her UTI. She is obsessed with her Nystatin. She is getting PT. On Synthroid for Hypothyroidism.
[2017-10-11] MEDS: Miconazole 100 MG Vaginal Supp VG SCH (11:07)
[2017-10-11] MEDS: Nystatin 100,000 Units/gm Topical Pow(15 gm) TOP SCH ×2 (11:09→21:23)
[2017-10-11] MEDS: Metoprolol Succinate 50 mg XL Tab PO SCH (11:10)
--- NOTE | 2017-10-11 14:26 | CP.PCM.PN ---
Subjective - Date & Time of Evaluation Date of Evaluation: 10/11/17 Time of Evaluation: 11:55 - Subjective Subjective: No fevers, no nausea, not in distress. Objective - Vital Signs/Intake and Output Vital Signs (last 24 hours): Temp Pulse Resp BP Pulse Ox 97.8 F 79 20 127/62 96 10/10/17 16:00 10/11/17 11:10 10/10/17 16:00 10/11/17 11:10 10/10/17 16:00 - Medications Medications: Current Medications Alprazolam (Xanax) 0.125 mg PO BID GALA PRN Reason: Protocol Stop: 10/15/17 18:01 Last Admin: 10/11/17 11:18 Dose: 0.125 mg Amlodipine Besylate (Norvasc) 10 mg PO DAILY GALA PRN Reason: Protocol Last Admin: 10/11/17 11:08 Dose: 10 mg Artificial Tears (Refresh Opth Soln) 0.3 ml OU Q6H GALA PRN Reason: Protocol Last Admin: 10/11/17 11:09 Dose: 0.3 ml Furosemide (Lasix) 20 mg PO DAILY [facility] Heparin Sodium (Porcine) (Heparin) 5,000 units SC 0600,1800 GALA PRN Reason: Protocol Last Admin: 10/11/17 05:04 Dose: 5,000 units Aztreonam (Azactam 1 Gm) 100 mls @ 100 mls/hr IVPB Q8 GALA PRN Reason: Protocol Stop: 10/13/17 22:01 Last Admin: 10/11/17 05:03 Dose: 100 mls/hr Vancomycin HCl (Vancomycin 1gm) 1 gm in 250 mls @ 167 mls/hr IVPB 0600 GALA PRN Reason: Protocol Last Admin: 10/11/17 05:04 Dose: 167 mls/hr Levothyroxine Sodium (Synthroid) 25 mcg PO 0600 GALA PRN Reason: Protocol Last Admin: 10/11/17 05:05 Dose: 25 mcg Metoprolol Succinate (Toprol Xl) 50 mg PO DAILY GALA PRN Reason: Protocol Last Admin: 10/11/17 11:10 Dose: 50 mg Miconazole (Monistat 7 Vag Suppository) 100 mg VG DAILY [facility] Last Admin: 10/11/17 11:07 Dose: 100 mg Nystatin (Nystop Topical Powder) 0 gm TOP BID GALA PRN Reason: Protocol Last Admin: 10/11/17 11:09 Dose: 4 pow Pantoprazole Sodium (Protonix Ec Tab) 40 mg PO 0600 GALA PRN Reason: Protocol Last Admin: 10/11/17 05:05 Dose: 40 mg - Constitutional Appears: Non-toxic, Chronically Ill - Head Exam Head Exam: NORMAL INSPECTION - Respiratory Exam Respiratory Exam: Decreased Breath Sounds - Cardiovascular Exam Cardiovascular Exam: +S1, +S2 - GI/Abdominal Exam GI & Abdominal Exam: Soft. absent: Tenderness Assessment and Plan - Assessment and Plan (Free Text) Plan: Assessment consider lower tract UTI with Group B Strep and E. coli chronic CHF HTN chronic renal failure hypothyroidism obesity with BMI 39 Plan continue Vancomycin and Azactam and will continue to monitor clinically for 1-3 more days continue Nystatin powder (under the breasts)
[2017-10-12] MEDS: Pantoprazole 40 mg EC Tab PO SCH (05:24)
[2017-10-12] MEDS: Vancomycin 1gm in NS 250ml 1 GM/250 ML BAG IVPB SCH (05:24)
[2017-10-12] MEDS: Levothyroxine 25 MCG TAB PO SCH (05:24)
[2017-10-12] MEDS: Aztreonam 1 Gm in NS 100mL 100 ML IVPB SCH ×3 (05:24→21:28)
[2017-10-12 08:50] LABS: HEMOGLOBIN 11.7 g/dL (12.0-16.0); MEAN CELL VOLUME 88.2 fl (80.0-105.0); MEAN CORPUSCULAR HEMOGLOBIN 29.9 pg (25.0-35.0); MEAN CORPUSCULAR HGB CONC 33.9 g/dl (31.0-37.0); MEAN PLATELET VOLUME 10.3 fl (7.0-11.0); RBC 3.91 10^6/uL (3.5-6.1); RED CELL DISTRIBUTION WIDTH 14.8 % (11.5-14.5)
[2017-10-12 09:18] LABS: ALB/GLOB RATIO 1.2 (1.1-1.8); ALBUMIN 3.5 g/dL (3.0-4.8); ALT/SGPT 118 U/L (7-56); AST/SGOT 80 U/L (14-36); BLOOD UREA NITROGEN 24 mg/dL (7-21); GFR AFRICAN-AMERICAN 52; GFR NON-AFRICAN AMERICAN 43
--- NOTE | 2017-10-12 09:32 | PN ---
DATE: 10/12/2017 SUBJECTIVE: The patient is seen earlier today in room 322. She states she is feeling better. No fevers. No chills. Tolerating the antibiotics. She has frequency, but no dysuria. PHYSICAL EXAMINATION: VITAL SIGNS: Temperature is 97, blood pressure is 150/60, respiratory rate of 20, heart rate of 76. HEENT: Examination of HEENT is unremarkable. NECK: Supple. LUNGS: Have decreased breath sounds. HEART: Normal S1 and S2. ABDOMEN: Soft, nontender. LABORATORY DATA: Laboratory examination reveals a white count of 6 and hemoglobin of 11, platelets are noted. Glucose 93. Microbiology reveals the patient's urine culture has E. coli and beta hemolytic group B Strep and E. coli is pansensitive. Beta hemolytic group B Strep is resistant to clindamycin and sensitive to the penicillin, vancomycin, ampicillin. MEDICATIONS: Review of the medications reveals the patient to be on IV vancomycin and Azactam. ASSESSMENT AND PLAN: This is an 87-year-old with a lower tract urinary tract infection with group B Streptococcus and Escherichia coli, chronic congestive heart failure, hypertension, chronic renal failure, hypothyroidism, obesity. Currently on vancomycin and Azactam. The patient is also receiving nystatin on her breast. The patient has 1-2 more days of treatment with the antibiotics. We will follow with you. The patient's last creatinine was on 10/05/2017. Order a vancomycin trough level. The patient receives vancomycin at 6:00 a.m. We will order a vancomycin trough level for tomorrow at 5:00 a.m., an hour before tomorrow's dose. Wes Motta MD
[2017-10-12] MEDS: Lubricant Eye Drops UD OU SCH ×3 (10:05→21:29)
[2017-10-12] MEDS: Miconazole 100 MG Vaginal Supp VG SCH (10:07)
[2017-10-12] MEDS: Nystatin 100,000 Units/gm Topical Pow(15 gm) TOP SCH ×2 (10:09→17:36)
[2017-10-12] MEDS: Metoprolol Succinate 50 mg XL Tab PO SCH (10:10)
[2017-10-12 10:27] LABS: ALB/GLOB RATIO 1.2 (1.1-1.8); ALBUMIN 3.3 g/dL (3.0-4.8); CALCIUM 9.4 mg/dL (8.4-10.5)
[2017-10-12 12:28] LABS: FOLATE > 20.0 ng/mL
[2017-10-13] MEDS: Aztreonam 1 Gm in NS 100mL 100 ML IVPB SCH ×3 (05:26→22:02)
[2017-10-13] MEDS: Vancomycin 1gm in NS 250ml 1 GM/250 ML BAG IVPB SCH (05:27)
[2017-10-13] MEDS: Levothyroxine 25 MCG TAB PO SCH (05:27)
[2017-10-13] MEDS: Pantoprazole 40 mg EC Tab PO SCH (05:27)
[2017-10-13] MEDS: Lubricant Eye Drops UD OU SCH ×4 (05:27→22:01)
[2017-10-13] MEDS: Nystatin 100,000 Units/gm Topical Pow(15 gm) TOP SCH ×2 (10:58→17:56)
[2017-10-13] MEDS: Miconazole 100 MG Vaginal Supp VG SCH (10:58)
[2017-10-13] MEDS: Metoprolol Succinate 50 mg XL Tab PO SCH (11:00)
--- NOTE | 2017-10-13 14:29 | PN ---
DATE: 10/13/2017 SUBJECTIVE: The patient is in bed, in no acute distress, nontoxic. OBJECTIVE: VITAL SIGNS: On exam, temperature is 98, blood pressure is 106/60, respiratory rate of 18. HEENT: Examination is unremarkable. NECK: Supple. LUNGS: Have decreased breath sounds. HEART: Normal S1, S2. ABDOMEN: Soft, nontender. DATA: Laboratory examination reveals a white count of 6000, hemoglobin of 11 and platelets of 194. Chemistries reveal results are reviewed. ASSESSMENT AND PLAN: This is an 87-year-old female who was seen earlier this morning in room 322. Uneventful night with MULTIPLE ALLERGIES INCLUDING CIPRO, SULFA, TRIMETHOPRIM, NITROFURANTOIN, PNEUMOCOCCAL VACCINE and currently doing well and improving slowly, although continues to be weak and we will continue present course and follow closely with you. The patient is at risk for developing nosocomial infection in a patient normal white count. Chemistries are noted and remains on aztreonam, we will renew the aztreonam. The patient is also on vancomycin, the patient's vancomycin trough level was 14.9. This is a patient with group B strep and Escherichia coli, urinary tract infection and chronic congestive heart failure, hypertension, renal disease, hypothyroidism and obesity. We will discontinue the vancomycin and the patient's aztreonam would also be discontinued within the next 24 hours. We will repeat urinalysis and urine culture. Wes Motta MD
[2017-10-13 16:43] LABS: URINE BILIRUBIN NEGATIVE (NEGATIVE); URINE BLOOD TRACE-INTACT (NEGATIVE); URINE GLUCOSE (UA) NEGATIVE (NEGATIVE); URINE LEUKOCYTE ESTERASE TRACE Leu/uL (NEGATIVE); URINE PROTEIN NEGATIVE mg/dL (<30 mg/dL); URINE UROBILINOGEN 0.2 E.U./dL (<1 E.U./dL)
[2017-10-13 16:55] LABS: URINE APPEARANCE CLEAR (CLEAR); URINE COLOR YELLOW (YELLOW)
[2017-10-13 17:14] LABS: URINE BACTERIA FEW (NEG); URINE RBC NEGATIVE /hpf (0-2)
--- NOTE | 2017-10-13 21:30 | PN ---
DATE: 10/12/2017 HISTORY OF PRESENT ILLNESS: Ms. Amairani Jama is 87-year-old female transferred from the regular floor where she was admitted for UTI. She has complaints of generalized weakness, osteoarthritis. She also has history of iron deficiency anemia status post IV iron last year. She has history of CHF, chronic kidney disease stage III. Anxiety and hypertension. She is complaining of generalized weakness. She said she is not able to move. She participated in physical therapy yesterday. PAST MEDICAL HISTORY: Hypertension, CHF, iron deficiency anemia, chronic kidney disease, anxiety, hypothyroidism, osteoarthritis. ALLERGIES: TO CIPRO, PENICILLIN, BACTRIM. PAST SURGICAL HISTORY: None. SOCIAL HISTORY: No history of alcohol abuse. Nonsmoker. FAMILY HISTORY: Noncontributory. REVIEW OF SYSTEMS: As per HPI. Rest of 12-point review of systems reviewed negative. PHYSICAL EXAMINATION: GENERAL: Comfortable in bed, in no acute distress. VITAL SIGNS: Temperature 98.4, heart rate 74 per minute, respiratory rate 20 per minute, blood pressure 130/55, pulse ox 95% on room air. HEENT: Pallor positive. NECK: No lymphadenopathy. CHEST: Air entry present equal bilaterally. No added sound. CARDIOVASCULAR: S1 and S2 normal. No murmur. No gallop. ABDOMEN: Soft, nontender. No hepatosplenomegaly. EXTREMITY: No edema. DIRECT MAIL MANAGER: Alert and oriented x3. No focal sensorimotor deficit. ASSESSMENT/PLAN: 1. Urinary tract infection status post intravenous antibiotics.. 2. Iron-deficiency anemia and also anemia related to chronic kidney disease. Hemoglobin/hematocrit stable. 3. Anxiety. Currently stable. 4. Hypothyroidism, controlled with current medications. 5. Osteoarthritis, currently undergoing physical therapy. Kaci Hawk MD
--- NOTE | 2017-10-13 21:42 | PN ---
DATE: 10/13/2017 SUBJECTIVE: She is comfortable in bed, in no acute distress. Complaining of generalized aches and pains, unable to participate much in physical therapy. She is saying she feels very weak. She had rash under both the breasts which has improved. She is currently being treated with IV antibiotics for UTI. She has multiple UTI in the past. REVIEW OF SYSTEM: As per HPI. Rest of 12-point review of systems reviewed negative. PHYSICAL EXAMINATION: GENERAL: Comfortable in bed, in no acute distress. VITAL SIGNS: Temperature 98, blood pressure 106/70, respiratory rate 15 per minute, oxygen saturation 98% on room air. HEENT: Pallor positive. NECK: No lymphadenopathy. CHEST: Air entry present and equal bilaterally. No added sound. CARDIOVASCULAR: S1, S2 normal. No murmur, no gallop. ABDOMEN: Soft, nontender. No hepatosplenomegaly. EXTREMITIES: No edema. CONSTRUCTION EQUIPMENT MECHANIC HELPER: Alert and oriented x3. No focal, sensory or motor deficit. LABORATORY DATA White count 6000, hemoglobin 11, platelet 194. BUN and creatinine normal. MEDICATIONS: Xanax 0.125 mg p.o. b.i.d., Norvasc 10 mg daily, aztreonam every 8 hours, Lasix 20 mg daily, heparin for DVT prophylaxis, Synthroid 25 mcg daily, Toprol 50 mg daily, nystatin, Protonix daily. ASSESSMENT AND PLAN: 1. Urinary tract infection. Currently on IV antibiotic as per Dr. Motta. Dr. Motta's note reviewed. 2. Hypertension, currently, blood pressure controlled with current medication Norvasc 10 mg daily. 3. Hypothyroidism, currently on Synthroid 25 mcg daily. 4. Gastric prophylaxis, Protonix 40 mg daily to continue. Encouraged participation in physical therapy. Labs reviewed. Mild anemia. She has history of iron deficiency status post IV iron last year. Hemoglobin is 11 gm/dL, stable. Discussed at length with the patient. She is stating that she might need placement soon. She lives alone at home. We will discuss with Dr. Fortune. Kaci Hawk MD [facility] # [id number]
[2017-10-14] MEDS: Lubricant Eye Drops UD OU SCH ×4 (03:03→21:25)
[2017-10-14] MEDS: Pantoprazole 40 mg EC Tab PO SCH (05:17)
[2017-10-14] MEDS: Levothyroxine 25 MCG TAB PO SCH (05:18)
[2017-10-14] MEDS: Metoprolol Succinate 50 mg XL Tab PO SCH (09:52)
[2017-10-14] MEDS: Miconazole 100 MG Vaginal Supp VG SCH (09:53)
[2017-10-14] MEDS: Nystatin 100,000 Units/gm Topical Pow(15 gm) TOP SCH ×2 (09:54→17:21)
--- NOTE | 2017-10-14 14:21 | CP.PCM.PN ---
Subjective - Date & Time of Evaluation Date of Evaluation: 10/14/17 Time of Evaluation: 11:40 - Subjective Subjective: Comfortable on a chair, no fevers. Objective - Vital Signs/Intake and Output Vital Signs (last 24 hours): Temp Pulse Resp BP Pulse Ox 97.6 F 97 H 18 139/60 96 10/13/17 16:56 10/14/17 09:52 10/13/17 16:56 10/14/17 09:54 10/13/17 16:56 - Medications Medications: Current Medications Alprazolam (Xanax) 0.125 mg PO BID [facility] PRN Reason: Protocol Stop: 10/15/17 18:01 Last Admin: 10/14/17 09:58 Dose: Not Given Amlodipine Besylate (Norvasc) 10 mg PO DAILY [facility] PRN Reason: Protocol Last Admin: 10/14/17 09:54 Dose: 10 mg Artificial Tears (Refresh Opth Soln) 0.3 ml OU Q6H [facility] PRN Reason: Protocol Last Admin: 10/14/17 09:53 Dose: Not Given Furosemide (Lasix) 20 mg PO DAILY [facility] Last Admin: 10/14/17 09:53 Dose: 20 mg Gabapentin (Neurontin) 100 mg PO DAILY [facility] PRN Reason: Protocol Heparin Sodium (Porcine) (Heparin) 5,000 units SC 0600,1800 [facility] PRN Reason: Protocol Last Admin: 10/14/17 05:18 Dose: 5,000 units Levothyroxine Sodium (Synthroid) 25 mcg PO 0600 [facility] PRN Reason: Protocol Last Admin: 10/14/17 05:18 Dose: 25 mcg Metoprolol Succinate (Toprol Xl) 50 mg PO DAILY [facility] PRN Reason: Protocol Last Admin: 10/14/17 09:52 Dose: 50 mg Miconazole (Monistat 7 Vag Suppository) 100 mg VG DAILY [facility] Last Admin: 10/14/17 09:53 Dose: Not Given Nystatin (Nystop Topical Powder) 0 gm TOP BID [facility] PRN Reason: Protocol Last Admin: 10/14/17 09:54 Dose: 1 pow Pantoprazole Sodium (Protonix Ec Tab) 40 mg PO 0600 [facility] PRN Reason: Protocol Last Admin: 10/14/17 05:17 Dose: 40 mg - Labs Labs: 10/12/17 08:30 10/12/17 08:30 - Constitutional Appears: Non-toxic, Chronically Ill - Head Exam Head Exam: NORMAL INSPECTION - Respiratory Exam Respiratory Exam: Decreased Breath Sounds - Cardiovascular Exam Cardiovascular Exam: +S1, +S2 - GI/Abdominal Exam GI & Abdominal Exam: Soft. absent: Tenderness Assessment and Plan - Assessment and Plan (Free Text) Plan: Assessment S/P lower tract UTI with Group B Strep and E. coli chronic CHF HTN chronic renal failure hypothyroidism obesity with BMI 39 Plan continue to monitor clinically off antibiotics since she is at risk for nosocomial infections
--- NOTE | 2017-10-15 05:27 | CP.PCM.PN ---
<Poppy Washington - Last Filed: 10/15/17 14:19> Subjective - Date & Time of Evaluation Date of Evaluation: 10/15/17 Time of Evaluation: 07:00 - Subjective Subjective: Medicine Progress Note for Margarito Shrestha PGY3 Patient seen and examined at bedside. There were no acute overnight events as per nursing staff. Patient reports feeling well today. She complains of neuropathy that comes and goes and is better with ambulating. She denies chest pain, shortness of breath, nausea/vomiting/diarrhea, fever/chills, dysuria/ hematuria, itching. Objective - Vital Signs/Intake and Output Vital Signs (last 24 hours): Temp Pulse Resp BP Pulse Ox 97 F L 97 H 18 139/60 94 L 10/14/17 10:00 10/14/17 10:00 10/14/17 10:00 10/14/17 10:00 10/14/17 10:00 - Medications Medications: Current Medications Alprazolam (Xanax) 0.125 mg PO BID [facility] PRN Reason: Protocol Stop: 10/15/17 18:01 Last Admin: 10/14/17 17:22 Dose: Not Given Amlodipine Besylate (Norvasc) 10 mg PO DAILY [facility] PRN Reason: Protocol Last Admin: 10/14/17 09:54 Dose: 10 mg Artificial Tears (Refresh Opth Soln) 0.3 ml OU Q6H [facility] PRN Reason: Protocol Last Admin: 10/14/17 21:25 Dose: Not Given Furosemide (Lasix) 20 mg PO DAILY [facility] Last Admin: 10/14/17 09:53 Dose: 20 mg Gabapentin (Neurontin) 100 mg PO DAILY [facility] PRN Reason: Protocol Last Admin: 10/14/17 11:43 Dose: Not Given Heparin Sodium (Porcine) (Heparin) 5,000 units SC 0600,1800 [facility] PRN Reason: Protocol Last Admin: 10/14/17 17:21 Dose: 5,000 units Levothyroxine Sodium (Synthroid) 25 mcg PO 0600 [facility] PRN Reason: Protocol Last Admin: 10/14/17 05:18 Dose: 25 mcg Metoprolol Succinate (Toprol Xl) 50 mg PO DAILY [facility] PRN Reason: Protocol Last Admin: 10/14/17 09:52 Dose: 50 mg Miconazole (Monistat 7 Vag Suppository) 100 mg VG DAILY [facility] Last Admin: 10/14/17 09:53 Dose: Not Given Nystatin (Nystop Topical Powder) 0 gm TOP BID [facility] PRN Reason: Protocol Last Admin: 10/14/17 17:21 Dose: 1 applic Pantoprazole Sodium (Protonix Ec Tab) 40 mg PO 0600 [facility] PRN Reason: Protocol Last Admin: 10/14/17 05:17 Dose: 40 mg - Labs Labs: 10/12/17 08:30 10/12/17 08:30 - Constitutional Appears: No Acute Distress - Head Exam Head Exam: ATRAUMATIC, NORMAL INSPECTION, NORMOCEPHALIC - Eye Exam Eye Exam: Normal appearance, PERRL Pupil Exam: NORMAL ACCOMODATION, PERRL - ENT Exam ENT Exam: Mucous Membranes Moist - Respiratory Exam Respiratory Exam: Clear to Ausculation Bilateral, NORMAL BREATHING PATTERN. absent: Rales, Rhonchi, Wheezes - Cardiovascular Exam Cardiovascular Exam: REGULAR RHYTHM, +S1, +S2. absent: Gallop, Rubs, Murmur - GI/Abdominal Exam GI & Abdominal Exam: Soft, Normal Bowel Sounds. absent: Rigid, Tenderness, Mass , Rebound - Extremities Exam Extremities Exam: Normal Inspection. absent: Pedal Edema - Neurological Exam Neurological Exam: Alert, Awake, CN II-XII Intact - Psychiatric Exam Psychiatric exam: Normal Affect, Normal Mood - Skin Skin Exam: Dry, Intact, Warm Assessment and Plan - Assessment and Plan (Free Text) Assessment: This is an 87yo female with past medical history of HTN, diastolic CHF, CKD IIIA , anxiety, hypothyroidism, OA who was admitted for 1. UTI (resolved) - Urine culture + for E.coli and Group B Strep - Completed course of antibiotics 2. Vaginal yeast infection 3. HTN 4. Diastolic CHF - not in fluid overload 5. Hypothyroidism 6. Anxiety 7. CKD Stage IIIA 8. OA Plan: Labs reviewed. Physical therapy notes reviewed. Continue Monostat suppository. Will d/c upon discharge tomorrow. Continue Nystatin powder as needed. Metoprolol , Lasix, and Norvasc for HTN. Synthroid for Hypothyroidism. Xanax for Anxiety. Patient will continue physical therapy and is doing well with PT. She is on gabapentin for neuropathy. She will be discharged home tomorrow. Case seen, discussed and reviewed with Dr. Phillips. Margarito Washington PGY3 <Wil Phillips S - Last Filed: 10/15/17 17:26> Objective - Vital Signs/Intake and Output Vital Signs (last 24 hours): Temp Pulse Resp BP Pulse Ox 97.6 F 75 18 142/60 96 10/15/17 16:18 10/15/17 16:18 10/15/17 16:18 10/15/17 16:18 10/15/17 10:00 - Medications Medications: Current Medications Alprazolam (Xanax) 0.125 mg PO BID [facility] PRN Reason: Protocol Stop: 10/15/17 18:01 Last Admin: 10/15/17 10:25 Dose: Not Given Amlodipine Besylate (Norvasc) 10 mg PO DAILY [facility] PRN Reason: Protocol Last Admin: 10/15/17 10:22 Dose: 10 mg Artificial Tears (Refresh Opth Soln) 0.3 ml OU Q6H [facility] PRN Reason: Protocol Last Admin: 10/15/17 15:14 Dose: 0.3 ml Furosemide (Lasix) 20 mg PO DAILY [facility] Last Admin: 10/15/17 10:22 Dose: 20 mg Gabapentin (Neurontin) 100 mg PO DAILY [facility] PRN Reason: Protocol Last Admin: 10/15/17 10:25 Dose: Not Given Levothyroxine Sodium (Synthroid) 25 mcg PO 0600 [facility] PRN Reason: Protocol Last Admin: 10/15/17 05:36 Dose: 25 mcg Metoprolol Succinate (Toprol Xl) 50 mg PO DAILY [facility] PRN Reason: Protocol Last Admin: 10/15/17 10:23 Dose: 50 mg Miconazole (Monistat 7 Vag Suppository) 100 mg VG DAILY [facility] Last Admin: 10/15/17 10:22 Dose: Not Given Nystatin (Nystop Topical Powder) 0 gm TOP BID [facility] PRN Reason: Protocol Last Admin: 10/15/17 10:23 Dose: 1 applic Pantoprazole Sodium (Protonix Ec Tab) 40 mg PO 0600 [facility] PRN Reason: Protocol Last Admin: 10/15/17 05:36 Dose: 40 mg - Labs Labs: 10/12/17 08:30 10/12/17 08:30 Assessment and Plan - Assessment and Plan (Free Text) Plan: Pt seen and examined. I have reviewed the note of the certified medical dosimetrist and agree with it. I have discussed the assessment and plan with the resident. I have reviewed the patient's labs and medications. Pt will need to stay until so she can go to assisted living. Spoike to SW about the case. She is getting PT.
[2017-10-15] MEDS: Levothyroxine 25 MCG TAB PO SCH (05:36)
[2017-10-15] MEDS: Lubricant Eye Drops UD OU SCH ×4 (05:36→22:11)
[2017-10-15] MEDS: Pantoprazole 40 mg EC Tab PO SCH (05:36)
[2017-10-15] MEDS: Miconazole 100 MG Vaginal Supp VG SCH (10:22)
[2017-10-15] MEDS: Metoprolol Succinate 50 mg XL Tab PO SCH (10:23)
[2017-10-15] MEDS: Nystatin 100,000 Units/gm Topical Pow(15 gm) TOP SCH ×2 (10:23→17:33)
[2017-10-15] MEDS ORDERED: ALPRAZOLAM 0.125 MG PO PRN (23:06)
[2017-10-16] MEDS: Lubricant Eye Drops UD OU SCH ×4 (05:32→21:22)
[2017-10-16] MEDS: Levothyroxine 25 MCG TAB PO SCH (06:45)
[2017-10-16] MEDS: Pantoprazole 40 mg EC Tab PO SCH (06:45)
[2017-10-16] MEDS ORDERED: ALPRAZOLAM 0.125 MG PO PRN (07:05)
[2017-10-16] MEDS: Nystatin 100,000 Units/gm Topical Pow(15 gm) TOP SCH ×2 (09:32→17:14)
[2017-10-16] MEDS: Metoprolol Succinate 50 mg XL Tab PO SCH (09:33)
[2017-10-16] MEDS: Miconazole 100 MG Vaginal Supp VG SCH (13:15)
--- NOTE | 2017-10-16 13:45 | PN ---
DATE: 10/16/2017 SUBJECTIVE: The patient is in bed, in no acute distress, nontoxic. PHYSICAL EXAMINATION: VITAL SIGNS: Temperature is 97, blood pressure is 112/70, respiratory rate of 16. HEENT: Examination of HEENT is unremarkable. NECK: Supple. LUNGS: Have decreased breath sounds. HEART: Normal S1 and S2. ABDOMEN: Soft, nontender. LABORATORY DATA: Laboratory examination reveals a white count of 6, hemoglobin of 11. Chemistries reveals a BUN of 26, creatinine of 1.2. Urinalysis is noted. Vancomycin trough is 14. Microbiology is noted. ASSESSMENT AND PLAN: An 87-year-old female with status post lower urinary tract infection with group B Streptococcus and Escherichia coli, chronic congestive heart failure, hypertension, chronic renal failure, hypothyroidism. Review of orders reveals the patient to be off of antibiotics, afebrile. The patient is at risk for developing nosocomial infections. Wes Motta MD
--- NOTE | 2017-10-16 22:21 | PN ---
DATE: 10/15/2017 SUBJECTIVE: The patient was seen yesterday in room 322. No fevers and no chills. PHYSICAL EXAMINATION: VITAL SIGNS: Temperature is 98, blood pressure is 120/70, respiratory rate 16. HEENT: Unremarkable. LUNGS: Have decreased breath sounds. HEART: Normal S1 and S2. ABDOMEN: Soft. LABORATORY EXAMINATION: Noted. ASSESSMENT AND PLAN: This is an 87-year-old female who was seen yesterday, 10/15/2017 with status post lower urinary tract infection with group B strep and Escherichia coli, chronic congestive heart failure, hypertension, renal disease and the patient was off of antibiotics yesterday. No fevers and no chills, at risk for developing nosocomial infection. Wes Motta MD
[2017-10-17] MEDS: Lubricant Eye Drops UD OU SCH ×2 (02:54→09:08)
--- NOTE | 2017-10-17 05:06 | CP.PCM.DIS ---
<PadminiPoppy - Last Filed: 10/17/17 06:49> Provider - Provider Date of Admission: 10/08/17 14:36 Attending physician: Wil Phillips MD Primary care physician: Padmini Smith MD Consults: ID: [id number] Time Spent in preparation of Discharge (in minutes): 35 Hospital Course - Lab Results Lab Results: Micro Results 10/13/17 16:36 Urine Urine Culture - Final No Growth (<1,000 CFU/ML) Most Recent Lab Values WBC 6.0 10^3/ul (4.5-11.0) D 10/12/17 08:30 RBC 3.91 10^6/uL (3.5-6.1) 10/12/17 08:30 Hgb 11.7 g/dL (12.0-16.0) L 10/12/17 08:30 Hct 34.5 % (36.0-48.0) L 10/12/17 08:30 MCV 88.2 fl (80.0-105.0) 10/12/17 08:30 MCH 29.9 pg (25.0-35.0) 10/12/17 08:30 MCHC 33.9 g/dl (31.0-37.0) 10/12/17 08:30 RDW 14.8 % (11.5-14.5) H 10/12/17 08:30 Plt Count 194 10^3/uL (120.0-450.0) 10/12/17 08:30 MPV 10.3 fl (7.0-11.0) 10/12/17 08:30 Sodium 144 mmol/L (132-148) 10/12/17 08:30 Potassium 4.4 mmol/L (3.6-5.0) 10/12/17 08:30 Chloride 112 mmol/L (98-107) H 10/12/17 08:30 Carbon Dioxide 21 mmol/L (21-33) 10/12/17 08:30 Anion Gap 16 (10-20) 10/12/17 08:30 BUN 26 mg/dL (7-21) H 10/12/17 08:30 Creatinine 1.2 mg/dl (0.7-1.2) 10/12/17 08:30 Est GFR ( Amer) 52 10/12/17 08:30 Est GFR (Non-Af Amer) 43 10/12/17 08:30 POC Glucose (mg/dL) 93 mg/dL (65-110) 10/11/17 11:50 Random Glucose 159 mg/dL (70-110) H 10/12/17 08:30 Calcium 9.4 mg/dL (8.4-10.5) 10/12/17 08:30 Phosphorus 3.1 mg/dL (2.5-4.5) 10/12/17 08:30 Magnesium 1.5 mg/dL (1.7-2.2) L 10/12/17 08:30 Total Bilirubin 0.4 mg/dL (0.2-1.3) 10/12/17 08:30 AST 81 U/L (14-36) H 10/12/17 08:30 ALT 127 U/L (7-56) H 10/12/17 08:30 Alkaline Phosphatase 221 U/L (38-126) H 10/12/17 08:30 Total Protein 6.1 g/dL (5.8-8.3) 10/12/17 08:30 Albumin 3.3 g/dL (3.0-4.8) 10/12/17 08:30 Globulin 2.7 gm/dL 10/12/17 08:30 Albumin/Globulin Ratio 1.2 (1.1-1.8) 10/12/17 08:30 Vitamin B12 742 pg/mL (239-931) 10/12/17 08:30 Folate > 20.0 ng/mL 10/12/17 08:30 TSH 3rd Generation 2.55 mIU/mL (0.46-4.68) 10/12/17 08:30 Urine Color Yellow (YELLOW) 10/13/17 16:36 Urine Appearance Clear (CLEAR) 10/13/17 16:36 Urine pH 6.0 (4.7-8.0) 10/13/17 16:36 Ur Specific Huddleston 1.010 (1.005-1.035) 10/13/17 16:36 Urine Protein Negative mg/dL (<30 mg/dL) 10/13/17 16:36 Urine Glucose (UA) Negative mg/dL (NEGATIVE) 10/13/17 16:36 Urine Ketones Negative mg/dL (NEGATIVE) 10/13/17 16:36 Urine Blood Trace-intact (NEGATIVE) H 10/13/17 16:36 Urine Nitrate Negative (NEGATIVE) 10/13/17 16:36 Urine Bilirubin Negative (NEGATIVE) 10/13/17 16:36 Urine Urobilinogen 0.2 E.U./dL (<1 E.U./dL) 10/13/17 16:36 Ur Leukocyte Esterase Trace Idania/uL (NEGATIVE) H 10/13/17 16:36 Urine RBC Negative /hpf (0-2) 10/13/17 16:36 Urine WBC 1 - 3 /hpf (0-6) 10/13/17 16:36 Ur Epithelial Cells 10 - 12 /hpf (0-5) 10/13/17 16:36 Urine Bacteria Few (NEG) 10/13/17 16:36 Vancomycin Trough 14.9 ug/mL (5.0-10.0) H 10/13/17 06:30 - Hospital Course Hospital Course: This is an 87yo F with HTN, diastolic CHF, CKD IIIA, anxiety, hypothyroidism, OA who was admitted for UTI secondary to E.coli and Group B strep. She completed course of antibiotics. She also completed treatment for vaginal yeast infection. Patient was in rehab facility for physical therapy. She was continued on her home medications. She was placed on Nystatin powder as needed for fungal skin rash. [facility] where she will continue physical therapy and continue her home medications. She follows up with Dr. Smith as outpatient. Discussed discharge plan with son. Family and patient verbalized and agreed with discharge plan. - Date & Time of H&P Date of H&P: 10/09/17 Time of H&P: 10:00 Discharge Exam - Head Exam Head Exam: ATRAUMATIC, NORMAL INSPECTION, NORMOCEPHALIC - Eye Exam Eye Exam: Normal appearance, PERRL Pupil Exam: NORMAL ACCOMODATION - ENT Exam ENT Exam: Mucous Membranes Moist - Respiratory Exam Respiratory Exam: Clear to PA & Lateral, NORMAL BREATHING PATTERN, UNREMARKABLE. absent: Rhonchi, Wheezes, Respiratory Distress - GI/Abdominal Exam GI & Abdominal Exam: Normal Bowel Sounds, Soft, Unremarkable. absent: Rigid, Tenderness - Neurological Exam Neurological exam: Alert, CN II-XII Intact - Psychiatric Exam Psychiatric exam: Normal Affect, Normal Mood - Skin Skin Exam: Dry, Intact, Warm Discharge Plan - Discharge Medications Prescriptions: Nystatin [Nystop Topical Powder] 1 gm TOP BID PRN #1 bottle PRN Reason: Rash - Follow Up Plan Condition: GOOD Disposition: HOME/ ROUTINE Instructions: Urinary Tract Infection, Adult (DC), Generalized Weakness (DC) Additional Instructions: 1. Continue home medications as prescribed. 2. Follow up with Dr. Smith Referrals: Padmini Smith MD [Primary Care Provider] - <Wil Phillips - Last Filed: 10/17/17 22:23> Provider - Provider Date of Admission: 10/08/17 14:36 Attending physician: Wil Phillips MD Primary care physician: Padmini Smith MD Hospital Course - Lab Results Lab Results: Micro Results 10/13/17 16:36 Urine Urine Culture - Final No Growth (<1,000 CFU/ML) Most Recent Lab Values WBC 6.0 10^3/ul (4.5-11.0) D 10/12/17 08:30 RBC 3.91 10^6/uL (3.5-6.1) 10/12/17 08:30 Hgb 11.7 g/dL (12.0-16.0) L 10/12/17 08:30 Hct 34.5 % (36.0-48.0) L 10/12/17 08:30 MCV 88.2 fl (80.0-105.0) 10/12/17 08:30 MCH 29.9 pg (25.0-35.0) 10/12/17 08:30 MCHC 33.9 g/dl (31.0-37.0) 10/12/17 08:30 RDW 14.8 % (11.5-14.5) H 10/12/17 08:30 Plt Count 194 10^3/uL (120.0-450.0) 10/12/17 08:30 MPV 10.3 fl (7.0-11.0) 10/12/17 08:30 Sodium 144 mmol/L (132-148) 10/12/17 08:30 Potassium 4.4 mmol/L (3.6-5.0) 10/12/17 08:30 Chloride 112 mmol/L (98-107) H 10/12/17 08:30 Carbon Dioxide 21 mmol/L (21-33) 10/12/17 08:30 Anion Gap 16 (10-20) 10/12/17 08:30 BUN 26 mg/dL (7-21) H 10/12/17 08:30 Creatinine 1.2 mg/dl (0.7-1.2) 10/12/17 08:30 Est GFR ( Amer) 52 10/12/17 08:30 Est GFR (Non-Af Amer) 43 10/12/17 08:30 POC Glucose (mg/dL) 93 mg/dL (65-110) 10/11/17 11:50 Random Glucose 159 mg/dL (70-110) H 10/12/17 08:30 Calcium 9.4 mg/dL (8.4-10.5) 10/12/17 08:30 Phosphorus 3.1 mg/dL (2.5-4.5) 10/12/17 08:30 Magnesium 1.5 mg/dL (1.7-2.2) L 10/12/17 08:30 Total Bilirubin 0.4 mg/dL (0.2-1.3) 10/12/17 08:30 AST 81 U/L (14-36) H 10/12/17 08:30 ALT 127 U/L (7-56) H 10/12/17 08:30 Alkaline Phosphatase 221 U/L (38-126) H 10/12/17 08:30 Total Protein 6.1 g/dL (5.8-8.3) 10/12/17 08:30 Albumin 3.3 g/dL (3.0-4.8) 10/12/17 08:30 Globulin 2.7 gm/dL 10/12/17 08:30 Albumin/Globulin Ratio 1.2 (1.1-1.8) 10/12/17 08:30 Vitamin B12 742 pg/mL (239-931) 10/12/17 08:30 Folate > 20.0 ng/mL 10/12/17 08:30 TSH 3rd Generation 2.55 mIU/mL (0.46-4.68) 10/12/17 08:30 Urine Color Yellow (YELLOW) 10/13/17 16:36 Urine Appearance Clear (CLEAR) 10/13/17 16:36 Urine pH 6.0 (4.7-8.0) 10/13/17 16:36 Ur Specific Hudd[place] 1.010 (1.005-1.035) 10/13/17 16:36 Urine Protein Negative mg/dL (<30 mg/dL) 10/13/17 16:36 Urine Glucose (UA) Negative mg/dL (NEGATIVE) 10/13/17 16:36 Urine Ketones Negative mg/dL (NEGATIVE) 10/13/17 16:36 Urine Blood Trace-intact (NEGATIVE) H 10/13/17 16:36 Urine Nitrate Negative (NEGATIVE) 10/13/17 16:36 Urine Bilirubin Negative (NEGATIVE) 10/13/17 16:36 Urine Urobilinogen 0.2 E.U./dL (<1 E.U./dL) 10/13/17 16:36 Ur Leukocyte Esterase Trace Idania/uL (NEGATIVE) H 10/13/17 16:36 Urine RBC Negative /hpf (0-2) 10/13/17 16:36 Urine WBC 1 - 3 /hpf (0-6) 10/13/17 16:36 Ur Epithelial Cells 10 - 12 /hpf (0-5) 10/13/17 16:36 Urine Bacteria Few (NEG) 10/13/17 16:36 Vancomycin Trough 14.9 ug/mL (5.0-10.0) H 10/13/17 06:30 - Hospital Course Hospital Course: Pt seen and examined. I have reviewed the note of the spanish medical interpreter and agree with it. I have discussed the assessment and plan with the resident. I have reviewed the patient's labs and medications. Pt is going to be discharged. She was given Xanax prn for her anxiety. She is going to a be discharged today. She has improved with PT.
[2017-10-17] MEDS: Levothyroxine 25 MCG TAB PO SCH (05:31)
[2017-10-17] MEDS: Pantoprazole 40 mg EC Tab PO SCH (05:31)
[2017-10-17] MEDS: Miconazole 100 MG Vaginal Supp VG SCH (09:07)
[2017-10-17] MEDS: Metoprolol Succinate 50 mg XL Tab PO SCH (09:08)
[2017-10-17] MEDS: Nystatin 100,000 Units/gm Topical Pow(15 gm) TOP SCH (09:10)
[2017-10-17 10:09] VITALS: BP 126/59; PULSE 75; RESP 20; O2SAT 96
--- NOTE | 2017-10-17 11:59 | CP.PCM.PN ---
Subjective - Date & Time of Evaluation Date of Evaluation: 10/17/17 Time of Evaluation: 10:20 - Subjective Subjective: No dysuria, itching underneath her breasts have improved, no fevers. Objective - Vital Signs/Intake and Output Vital Signs (last 24 hours): Temp Pulse Resp BP Pulse Ox 98.7 F 71 18 131/65 99 10/16/17 10:00 10/17/17 09:08 10/16/17 10:00 10/17/17 09:09 10/16/17 10:00 - Medications Medications: Current Medications Alprazolam (Xanax) 0.25 mg PO DAILY PRN; Protocol PRN Reason: Anxiety Amlodipine Besylate (Norvasc) 10 mg PO DAILY GALA PRN Reason: Protocol Last Admin: 10/17/17 09:08 Dose: 10 mg Artificial Tears (Refresh Opth Soln) 0.3 ml OU Q6H GALA PRN Reason: Protocol Last Admin: 10/17/17 09:08 Dose: 0.3 ml Furosemide (Lasix) 20 mg PO DAILY GALA Last Admin: 10/17/17 09:09 Dose: 20 mg Gabapentin (Neurontin) 100 mg PO DAILY GALA PRN Reason: Protocol Last Admin: 10/17/17 09:08 Dose: 100 mg Levothyroxine Sodium (Synthroid) 25 mcg PO 0600 GALA PRN Reason: Protocol Last Admin: 10/17/17 05:31 Dose: 25 mcg Metoprolol Succinate (Toprol Xl) 50 mg PO DAILY GALA PRN Reason: Protocol Last Admin: 10/17/17 09:08 Dose: 50 mg Miconazole (Monistat 7 Vag Suppository) 100 mg VG DAILY GALA Last Admin: 10/17/17 09:07 Dose: 100 mg Nystatin (Nystop Topical Powder) 0 gm TOP BID GALA PRN Reason: Protocol Last Admin: 10/17/17 09:10 Dose: 1 applic Pantoprazole Sodium (Protonix Ec Tab) 40 mg PO 0600 GALA PRN Reason: Protocol Last Admin: 10/17/17 05:31 Dose: 40 mg - Labs Labs: 10/12/17 08:30 10/12/17 08:30 - Constitutional Appears: Chronically Ill - Head Exam Head Exam: NORMAL INSPECTION - ENT Exam ENT Exam: Mucous Membranes Moist - Neck Exam Neck Exam: absent: Lymphadenopathy, Meningismus - Respiratory Exam Respiratory Exam: Decreased Breath Sounds - Cardiovascular Exam Cardiovascular Exam: +S1, +S2 - GI/Abdominal Exam GI & Abdominal Exam: Soft. absent: Tenderness Assessment and Plan - Assessment and Plan (Free Text) Plan: Assessment S/P lower tract UTI with Group B Strep and E. coli chronic CHF HTN chronic renal failure hypothyroidism obesity with BMI 39 Plan continue to monitor clinically off antibiotics since she is at risk for hospital -acquired infections
[2017-10-17 14:39] VITALS: TEMP 97.6
== END 2017-10-17 12:00 | disposition home or self-care (01) | DRG 690 ==
LOC: TRCU 14:36
PROVIDERS: ADMIT Internal Medicine Nephrology; ATTEND Internal Medicine Nephrology
PROC: F07Z9FZ Gait Training/Functional Ambulation Treatment using Assistive, Adaptive, Supportive or Protective Equipment (ICD-10-PCS; principal; 2017-10-08)
PROC: F07M6ZZ Therapeutic Exercise Treatment of Musculoskeletal System - Whole Body (ICD-10-PCS; 2017-10-08)
PROC: F08Z1ZZ Dressing Techniques Treatment (ICD-10-PCS; 2017-10-08)
PROC: F08Z2ZZ Grooming/Personal Hygiene Treatment (ICD-10-PCS; 2017-10-08)
PROC: F08Z0ZZ Bathing/Showering Techniques Treatment (ICD-10-PCS; 2017-10-08)
DX: N39.0 Urinary tract infection, site not specified (principal); I13.0 Hypertensive heart and chronic kidney disease with heart failure and stage 1 through stage 4 chronic kidney disease, or unspecified chronic kidney disease; I50.32 Chronic diastolic (congestive) heart failure; M19.90 Unspecified osteoarthritis, unspecified site; E03.9 Hypothyroidism, unspecified; N18.3 Chronic kidney disease, stage 3 (moderate); B37.3 Candidiasis of vulva and vagina; B96.20 Unspecified Escherichia coli [E. coli] as the cause of diseases classified elsewhere; B95.1 Streptococcus, group B, as the cause of diseases classified elsewhere; D50.9 Iron deficiency anemia, unspecified; D63.1 Anemia in chronic kidney disease; E66.9 Obesity, unspecified; F41.9 Anxiety disorder, unspecified; G62.9 Polyneuropathy, unspecified; L29.9 Pruritus, unspecified; Z68.39 Body mass index [BMI] 39.0-39.9, adult; Z79.899 Other long term (current) drug therapy; Z86.010 Personal history of colon polyps; Z87.01 Personal history of pneumonia (recurrent); Z87.440 Personal history of urinary (tract) infections; Z87.891 Personal history of nicotine dependence; Z88.1 Allergy status to other antibiotic agents; Z88.7 Allergy status to serum and vaccine; Z88.8 Allergy status to other drugs, medicaments and biological substances; Z88.2 Allergy status to sulfonamides

== ENCOUNTER 2018-03-11 09:14 | Observation (INO) | payer MEDICARE, BC ==
[2018-03-11 09:34] VITALS: BMI 34.9
[2018-03-11] MEDS ORDERED: Sodium Chloride 0.9% 500 ML IV STA (09:34)
--- NOTE | 2018-03-11 09:39 | ED PDOC ---
Arrival/HPI - General Chief Complaint: Syncope Time Seen by Provider: 03/11/18 09:17 Historian: Patient - History of Present Illness Time/Duration: 1 week Symptom Onset: Sudden Symptom Course: Improving Severity Level: Moderate Activities at Onset: Rest Associated Symptoms (Text): 03/11/18 09:36 patient reports a syncopal episode 1 week ago today with an injury to her left elbow. She's been dizzy with nausea since that time. No abdominal pain or vomiting. No chest pain palpitations or dyspnea. No fever or chills. No other injury or trauma. She has never experienced this previously. She states her dizziness and nausea have not improved, and therefore she came to the hospital. Past Medical History - Provider Review Nursing Documentation Reviewed: Yes - Past History Past History: Non-Contributing - Infectious Disease Hx of Infectious Diseases: None - Tetanus Immunization Tetanus Immunization: Unknown - Cardiac Hx Cardiac Disorders: Yes Hx Congestive Heart Failure: Yes Hx Hypertension: Yes - Pulmonary Hx Respiratory Disorders: Yes Hx Pneumonia: Yes - Neurological Hx Neurological Disorder: Yes (near syncope) Hx Dizziness: Yes (vertigo) - HEENT Hx HEENT Disorder: Yes (pt denies rincon) Other/Comment: c/o "burning all over my body, my mouth is burning and dry, my gums hurt, my tongue zaldivar, my eyes are burning, my sides are burning for about 3 weeks." pt stated - Renal Hx Renal Failure: Yes (CKD) - Endocrine/Metabolic Hx Hypothyroidism: Yes - Hematological/Oncological Hx Blood Disorders: Yes Hx Anemia: Yes (iron deficiency hx iron infusions) Hx Cancer: Yes (basal cell left arm) Hx Shingles: Yes - Integumentary Hx Dermatological Disorder: Yes Hx Basal Cell Carcinoma: Yes (left arm) Other/Comment: fading red rash under abd folds, groin, under breasts, multiple age spots both arms - Musculoskeletal/Rheumatological Hx Arthritis: Yes (OA) - Gastrointestinal Hx Gastrointestinal Disorders: Yes (DYSPHAGIA,COLON POLYPS,DIVERTICULITIS) - Genitourinary/Gynecological Hx Genitourinary Disorders: Yes (URINARY FREQUENCY,WEARS DEPENDS) Hx Reproductive Disorders: No - Psychiatric Hx Psychophysiologic Disorder: Yes Hx Anxiety: Yes Hx Depression: Yes Hx Substance Use: No - Past Surgical History Past Surgical History: Non-Contributing - Surgical History Other/Comment: breast lump - calcification benign, hemorrhoids - Anesthesia Hx Anesthesia: No Hx Anesthesia Reactions: No Hx Malignant Hyperthermia: No - Suicidal Assessment Feels Threatened In Home Enviroment: No Family/Social History - Physician Review Nursing Documentation Reviewed: Yes Family/Social History: Unknown Family HX Smoking Status: Former Smoker Hx Alcohol Use: No Hx Substance Use: No Hx Substance Use Treatment: No Allergies/Home Meds Allergies/Adverse Reactions: Allergies ciprofloxacin [From Cipro] Allergy (Verified 03/11/18 09:26) .unknown ciprofloxacin HCl [From Cipro] Allergy (Verified 03/11/18 09:26) RASH pneumococcal vaccine Allergy (Verified 03/11/18 09:26) RASH sulfamethoxazole [From Bactrim] Allergy (Verified 03/11/18 09:26) RASH trimethoprim [From Bactrim] Allergy (Verified 03/11/18 09:26) RASH nitrofurantoin Adverse Reaction (Verified 03/11/18 09:26) RASH Penicillins Adverse Reaction (Verified 03/11/18 09:26) SWELLING Home Medications: Home Meds Medication Instructions Recorded Confirmed Furosemide [Lasix] 20 mg PO BID 10/05/17 03/11/18 Ondansetron HCl [Zofran] 1 tab PO Q6 PRN 03/11/18 03/11/18 Review of Systems - Physician Review All systems were reviewed & negative as marked: Yes - Review of Systems Constitutional: absent: Fatigue, Fevers Respiratory: absent: SOB, Cough, Wheezing Cardiovascular: Syncope. absent: Chest Pain, Palpitations Gastrointestinal: Nausea. absent: Abdominal Pain, Diarrhea, Vomiting Genitourinary Female: absent: Dysuria, Frequency, Hematuria Neurological: Dizziness. absent: Headache, Focal Weakness, Gait Changes, Speech Changes, Facial Droop, Disequilibrium, Seizure Physical Exam Vital Signs Reviewed: Yes Temperature: Afebrile Blood Pressure: Hypertensive Pulse: Regular Respiratory Rate: Normal Appearance: Positive for: Well-Appearing, Non-Toxic, Comfortable, Uncomfortable Pain Distress: None Mental Status: Positive for: Alert and Oriented X 3 - Systems Exam Head: Present: Atraumatic, Normocephalic Pupils: Present: PERRL Extroacular Muscles: Present: EOMI Conjunctiva: Present: Normal Ears: Present: NORMAL TM, Normal Canal. No: Erythema, TM Bulging Mouth: Present: Moist Mucous Membranes Pharnyx: No: ERYTHEMA, EXUDATE, TONSILS ENLARGED Neck: Present: Normal Range of Motion Respiratory/Chest: Present: Clear to Auscultation, Good Air Exchange, Decreased Breath Sounds. No: Respiratory Distress, Accessory Muscle Use Cardiovascular: Present: Regular Rate and Rhythm, Normal S1, S2. No: Murmurs Abdomen: No: Tenderness, Distention, Peritoneal Signs, Rebound, Guarding Back: Present: Normal Inspection Upper Extremity: Present: Normal ROM, NORMAL PULSES, Neurovascularly Intact, Other (left elbow ecchymosis and abrasion. Full range of motion and nontender.). No: Normal Inspection, Edema, Tenderness, Swelling, Erythema, Deformity Lower Extremity: Present: Normal Inspection. No: Edema Neurological: Present: GCS=15, CN II-XII Intact, Speech Normal, Motor Func Grossly Intact, Normal Sensory Function, Normal Cerebellar Funct Skin: Present: Warm, Dry, Normal Color. No: Rashes Psychiatric: Present: Alert, Oriented x 3, Normal Insight, Normal Concentration Medical Decision Making ED Course and Treatment: 03/11/18 09:39 EKG shows normal sinus rhythm rate approximately 65 with poor R-wave progression and no acute ST or T-wave changes. 03/11/18 10:33 Chest X-ray reviewed by radiologist, shows: IMPRESSION: No active disease. 03/11/18 11:11 Dr Phillips is here. 03/11/18 11:[address] reviewed by radiologist, shows: IMPRESSION: No acute findings. - Lab Interpretations Lab Results: Lab Results 03/11/18 09:26: POC Glucose (mg/dL) 167 H - RAD Interpretation Radiology Orders: 03/11/18 09:34 HEAD W/O CONTRAST [CT] Stat CHEST PORTABLE [RAD] Stat CT scan of the head as read by the radiologist shows no acute findings. Water Safety Teacher: Radiologist - Scribe Statement The provider has reviewed the documentation as recorded by the Joseibtalita Cosme Provider Scribe Attestation: All medical record entries made by the Scribe were at my direction and personally dictated by me. I have reviewed the chart and agree that the record accurately reflects my personal performance of the history, physical exam, medical decision making, and the department course for this patient. I have also personally directed, reviewed, and agree with the discharge instructions and disposition. Disposition/Present on Arrival - Present on Arrival Any Indicators Present on Arrival: No History of DVT/PE: No History of Uncontrolled Diabetes: No Urinary Catheter: No History of Decub. Ulcer: No History Surgical Site Infection Following: None - Disposition Have Diagnosis and Disposition been Completed?: Yes Diagnosis: Dizziness, Light-headed, Syncope, Nausea, Dehydration, Left elbow contusion Disposition: HOSPITALIZED Disposition Time: 11:09 Patient Plan: Observation, Telemetry Patient Problems: Current Active Problems Problem Status Onset Dehydration Acute Dizziness Acute Left elbow contusion Acute Light-headed Acute Nausea Acute Syncope Acute Condition: GOOD Discharge Instructions (ExitCare): Syncope (ED) Referrals: Padmini Smith MD [Primary Care Provider] - Follow up with primary Forms: [employer] (Lithuanian)
--- NOTE | 2018-03-11 10:25 | RAD ---
Date of service: 03/11/2018 HISTORY: syncope COMPARISON: 10/05/2017 FINDINGS: LUNGS: No active pulmonary disease. PLEURA: No significant pleural effusion identified, no pneumothorax apparent. CARDIOVASCULAR: No aortic atherosclerotic calcification present. Normal cardiac size. No pulmonary vascular congestion. OSSEOUS STRUCTURES: No significant abnormalities. VISUALIZED UPPER ABDOMEN: Normal. OTHER FINDINGS: None. IMPRESSION: No active disease.
[2018-03-11 10:34] LABS: BASO # 0.03 K/mm3 (0.0-2.0); BASO % 0.4 % (0.0-3.0); EOS # 0.2 (0.0-0.7); EOS % 2.2 % (1.5-5.0); GRAN # 5.21 (1.4-6.5); GRAN % 70.3 % (50.0-68.0); HEMOGLOBIN 11.4 g/dL (12.0-16.0); LYMPH # 1.5 (1.2-3.4); LYMPH % 19.9 % (22.0-35.0); MEAN CORPUSCULAR HEMOGLOBIN 29.5 pg (25.0-35.0); MEAN PLATELET VOLUME 10.3 fl (7.0-11.0); MONO # 0.5 (0.1-0.6); MONO % 7.2 % (1.0-6.0); RBC 3.87 10^6/uL (3.5-6.1); RED CELL DISTRIBUTION WIDTH 14.3 % (11.5-14.5); WHITE BLOOD COUNT 7.4 10^3/uL (4.5-11.0)
[2018-03-11 10:42] LABS: INR 1.05; PARTIAL THROMBOPLASTIN TIME 31.7 Seconds (25.1-36.5); PROTHROMBIN TIME 12.1 SECONDS (9.4-12.5)
[2018-03-11 10:43] LABS: ALB/GLOB RATIO 1.3 (1.1-1.8); ALT/SGPT 29 U/L (7-56); AST/SGOT 32 U/L (14-36); BLOOD UREA NITROGEN 28 mg/dL (7-21); CALCIUM 9.4 mg/dL (8.4-10.5); GFR NON-AFRICAN AMERICAN 36
[2018-03-11 10:54] LABS: TROPONIN I < 0.01 ng/mL
[2018-03-11 11:36] LABS: URINE BILIRUBIN NEGATIVE (NEGATIVE); URINE BLOOD NEGATIVE (NEGATIVE); URINE GLUCOSE (UA) NEGATIVE (NEGATIVE); URINE LEUKOCYTE ESTERASE NEGATIVE Leu/uL (NEGATIVE); URINE PROTEIN NEGATIVE mg/dL (<30 mg/dL); URINE UROBILINOGEN 0.2 E.U./dL (<1 E.U./dL)
[2018-03-11 11:39] LABS: URINE APPEARANCE CLEAR (CLEAR); URINE COLOR LIGHT YELLOW (YELLOW)
--- NOTE | 2018-03-11 11:52 | CT ---
Date of service: 03/11/2018 PROCEDURE: CT HEAD WITHOUT CONTRAST. HISTORY: syncope COMPARISON: 10/05/2017 TECHNIQUE: Axial computed tomography images were obtained through the head/brain without intravenous contrast. Radiation dose: Total exam DLP = 767.49 mGy-cm. This CT exam was performed using one or more of the following dose reduction techniques: Automated exposure control, adjustment of the mA and/or kV according to patient size, and/or use of iterative reconstruction technique. FINDINGS: HEMORRHAGE: No intracranial hemorrhage. BRAIN: No mass effect or edema. Mild atrophy. VENTRICLES: Unremarkable. No hydrocephalus. CALVARIUM: Unremarkable. PARANASAL SINUSES: Unremarkable as visualized. No significant inflammatory changes. MASTOID AIR CELLS: Unremarkable as visualized. No inflammatory changes. OTHER FINDINGS: None. IMPRESSION: No acute findings
[2018-03-11] MEDS ORDERED: Levothyroxine 25 MCG TAB PO SCH (16:30)
[2018-03-12] MEDS ORDERED: Pantoprazole 40 mg EC Tab PO SCH (06:00)
[2018-03-12 06:41] VITALS: RESP 19; O2SAT 100
[2018-03-12 07:14] LABS: HEMOGLOBIN 11.1 g/dL (12.0-16.0); MEAN CORPUSCULAR HEMOGLOBIN 28.7 pg (25.0-35.0); MEAN CORPUSCULAR HGB CONC 31.2 g/dl (31.0-37.0); MEAN PLATELET VOLUME 10.6 fl (7.0-11.0); RBC 3.87 10^6/uL (3.5-6.1); RED CELL DISTRIBUTION WIDTH 14.4 % (11.5-14.5)
[2018-03-12] MEDS ORDERED: Levothyroxine 25 MCG TAB PO SCH (07:30)
[2018-03-12 07:39] LABS: ALB/GLOB RATIO 1.2 (1.1-1.8); ALBUMIN 3.5 g/dL (3.0-4.8); CALCIUM 9.2 mg/dL (8.4-10.5)
--- NOTE | 2018-03-12 07:49 | CARD ---
APPROVED REPORT Date of service: 03/11/2018 EKG Measurement Heart [id number] [id number] <Conclusion> Normal sinus rhythm LVH by voltage Septal infarct,old
--- NOTE | 2018-03-12 10:17 | HP ---
DATE OF EXAM: 03/12/2018 CHIEF COMPLAINT AND HISTORY OF PRESENT ILLNESS: This is an 87-year-old female who is coming to the hospital because she states she had a syncopal episode about 1 week ago. She said she had injured her left elbow. She has been complaining of dizziness and nausea. She says that it might be related to the citalopram that she is on. The patient denies any headaches or dizziness. She then come into the emergency room for evaluation. She says she has been experiencing dizziness and that is why she came in. She denies any chest pain or palpitations. No abdominal pain, no back pain, no dysuria, no frequency, no nocturia. No blurred vision. No weakness in the arms or the legs. She has no fevers or chills. All other review of symptoms are within normal limits except as mentioned. She says she does not have dizziness at this time. MEDICATIONS: Has been reviewed on her medical reconciliation form. PAST MEDICAL HISTORY: 1. Hypertension. 2. 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 3. CKD, stage IIIA. 4. Anxiety. 5. Hypothyroidism. 6. Osteoarthritis. SOCIAL HISTORY: She does not smoke, drink or use drugs. She does have a home health aide, a sister at home. She uses a walker. FAMILY HISTORY: Noncontributory. PHYSICAL EXAMINATION: VITAL SIGNS: Temperature is 98.2, pulse of 72, blood pressure is 134/54, respiration is 19, O2 saturation 100%. Height is 4 feet 11 inches, weight is 173 pounds, BMI is 35. GENERAL: The patient is lying in bed, comfortable, and in no acute distress. HEENT: Atraumatic and normocephalic. Anicteric sclerae. Moist mucosa. Echo conjunctivae. No oral lesions. NECK: No JVD, anterior and posterior adenopathy, thyromegaly, or bruits. CARDIOVASCULAR: S1 and S2 regular. No murmurs, rubs or gallops. LUNGS: Clear to auscultation bilaterally. No wheezes, rales, or rhonchi. ABDOMEN: Bowel sounds are positive. Soft, nontender and nondistended. No hepatosplenomegaly. No rebound and no guarding EXTREMITIES: No cyanosis, clubbing, or edema. NEUROLOGIC: No facial asymmetry. Tongue is midline. No uvula deviation. Power is 5/5 upper extremities and lower extremities. Sensation intact in upper extremities and lower extremities. PSYCHIATRIC: She is awake, alert and oriented x3. No anxiety or depression. She has normal affect. GENITOURINARY: No CVA tenderness. VASCULAR: 2+ pulses in the carotid pulses and pedal pulses. SKIN: No erythema or nodules SPINE: Shows normal curvature. LABORATORY DATA: White count of 7.4, hemoglobin 11.4, platelet count is 215. She has an INR 1.05. Chemistry shows sodium is 139, potassium 4.3, creatinine is 1.4. She has AST, ALT of 32 and 29. Albumin is 4.0. Urine shows UA that is negative. Her EKG shows heart rate of 66, sinus rhythm, no ST-T changes. CT head done shows no acute findings. Chest x-ray done shows no infiltrates. ASSESSMENT: 1. Syncope, resolved. 2. Dizziness, improved. 3. Chronic kidney disease, stage IIIA. 4. Congestive heart failure secondary to diastolic dysfunction, chronic, stable. 5. Hypothyroidism. 6. Osteoarthritis. 7. Hypertension. 8. Anxiety. PLAN: The patient is currently observation. She was given meclizine in the emergency room. She was given IV fluids with normal saline. She is also given a dose of Zofran. She says she does feel better. She is on Synthroid for hypothyroidism. The patient is placed on Protonix. She is on a regular diet. We will have Dr. Rosales and Dr. Lambert evaluate the patient. She does not wish to go to subacute rehab. If she is cleared by the consultants to go home, I will discharge her home. The patient's head CT did not show any acute abnormalities. I advised her to discontinue her anxiety medications until she sees a psychiatrist. Wil Phillips MD
[2018-03-12 12:39] VITALS: BP 164/63; TEMP 97.1
--- NOTE | 2018-03-12 14:42 | CP.PCM.PCO ---
Physician Communication Note - Physician Communication Note Physician Communication Note: Dr. Goodson cleared patient for D/C home
--- NOTE | 2018-03-12 15:33 | CP.PCM.PCO ---
Physician Communication Note - Physician Communication Note Physician Communication Note: syncope-vasovagsal component/med effect. recommend fluids and outpt PT.
[2018-03-12 16:09] VITALS: PULSE 67
--- NOTE | 2018-03-12 20:19 | CON ---
DATE OF CONSULTATION: 03/12/2018 REQUESTING PHYSICIAN: Wil Phillips MD REASON FOR CONSULTATION: Syncope. HISTORY: This is an 87-year-old woman, well known to us with a history of hypertension, diastolic heart failure, chronic renal insufficiency, and prior syncope, who presents to the emergency room for evaluation. She states she had a syncopal episode approximately 1 week ago, but did not seek medical attention at that time. Earlier today, she felt weak and lightheaded and decided to come to the emergency room. Initial evaluation has been unremarkable. She denies any chest pain. She is unaware of any palpitations. Prior cardiac workup has revealed evidence of left ventricular hypertrophy with normal LV systolic function. She had a stress test in the past, which was unremarkable. PAST MEDICAL HISTORY: As mentioned, she has a history of profound anxiety, hypothyroidism and osteoarthritis. MEDICATIONS: Her current medications include Protonix and Synthroid. She had also been placed on Lexapro several months ago. She takes Lasix intermittently. ALLERGIES: SHE HAS REPORTED ALLERGIES TO CIPROFLOXACIN AND REACTION TO PNEUMOCOCCAL VACCINE IN THE PAST. FAMILY HISTORY: Both parents with age-related illness. SOCIAL HISTORY: She does not smoke or drink. She is , lives at home, does have a home health aide. She uses a walker. REVIEW OF SYSTEMS: A 10-point review of systems is notable mainly for the problems as in HPI. PHYSICAL EXAMINATION: GENERAL: She is an obese, very elderly woman. VITAL SIGNS: Her blood pressure is 130/70 with a pulse of 70 and sinus. Respirations are 16. She is afebrile. HEENT: Normocephalic and atraumatic. NECK: Supple. No JVD noted. CHEST: Few scattered rhonchi heard. HEART: PMI in normal position. No pathological gallops noted. ABDOMEN: Soft, obese, nontender with bowel sounds. EXTREMITIES: Mild bilateral lipedema present. SKIN: Warm and dry. PSYCHIATRIC: Normal mood and affect. NEUROLOGIC: No gross motor or sensory deficits appreciable. She is alert and oriented x3. DIAGNOSTIC DATA: Potassium 4.2, BUN and creatinine 24 and 1.3. White count 8.0, hemoglobin and hematocrit 11.1 and 35.6 with platelet count of 222,000. Electrocardiogram reveals sinus rhythm with LVH. Chest x-ray was reportedly unremarkable. CT of the head was also reportedly unremarkable. IMPRESSION AND PLAN: Recent syncope, etiology unclear. Workup in the past has been unremarkable. May have some component of transient orthostasis versus vasovagal events. At this time, I would not repeat an aggressive workup. Diuretics may need to be withheld. Compression stocking use would be advisable. Addition of either midodrine or Florinef may need to be considered if her episodes recur. From a cardiac standpoint, she appears stable for discharge home with outpatient followup. Thank you for this consultation. Bud Jack MD
--- NOTE | 2018-03-12 21:20 | CON ---
DATE: 03/12/2018 HISTORY OF PRESENT ILLNESS: This is an 87-year-old white female, with past medical history of hypertension, chronic kidney disease, CHF, anxiety, hypothyroidism, came to the hospital. The patient had a syncopal episode a week ago and injured her left elbow. The patient has been complaining of dizzy and nausea and came to the emergency room for evaluation, and the patient was experiencing dizziness when she came to the hospital. No abdominal pain. No back pain. No blurring of vision. No weakness. MEDICATIONS: Reviewed. PAST MEDICAL HISTORY: Hypertension, CHF, chronic kidney disease, anxiety, hypothyroidism, and arthritis. PHYSICAL EXAMINATION: VITAL SIGNS: Blood pressure 134/54. HEENT: Normocephalic, atraumatic. NECK: Supple. NEUROLOGIC: Awake, alert, and oriented to self. Cranial nerves II through XII are tested. No aphasia. Pupils reactive. EOM intact. Visual [place] full. No facial asymmetry. Tongue midline. Motor examination: Moves all extremities spontaneously. Deep tendon reflexes 1+. Both plantars are downgoing. Sensory appears intact. Cerebellar gait normal. IMPRESSION AND PLAN: Syncope, resolved. Dizziness improving. CAT scan of the head was normal. Continue present management. We will follow up. Tom Rosales MD
== END 2018-03-12 19:19 | disposition home or self-care (01) ==
LOC: ED 09:14 → ERH 11:31 → 2RNO 14:26
PROVIDERS: ADMIT Internal Medicine Nephrology; ATTEND Internal Medicine Nephrology
DX: R55 Syncope and collapse (principal); I13.0 Hypertensive heart and chronic kidney disease with heart failure and stage 1 through stage 4 chronic kidney disease, or unspecified chronic kidney disease; I50.32 Chronic diastolic (congestive) heart failure; N18.3 Chronic kidney disease, stage 3 (moderate); S50.02XA Contusion of left elbow, initial encounter; E03.9 Hypothyroidism, unspecified; E86.0 Dehydration; F41.9 Anxiety disorder, unspecified; M19.90 Unspecified osteoarthritis, unspecified site; Z86.010 Personal history of colon polyps
CPT/HCPCS: 36415; 70450; 71045; 80053; 81003; 82550; 82948; 83615; 83735; 84484; 85025; 85027; 85610; 85730; 87086; 93005; 96374; 97116; 97161; 99285; G0378; G8978; G8979; G8980; J2405; J7040

== ENCOUNTER 2018-03-28 12:40 | Inpatient (IN) | payer MEDICARE, BC ==
[2018-03-28 12:50] VITALS: BMI 35.3
[2018-03-28] MEDS ORDERED: Morphine 4 mg/ml ISec IVP STA (14:14)
--- NOTE | 2018-03-28 14:15 | ED PDOC ---
Arrival/HPI - General Chief Complaint: Back Pain Time Seen by Provider: 03/28/18 13:24 Historian: Patient - History of Present Illness Narrative History of Present Illness (Text): 03/28/18 14:15 A 87 year old female, whose past medical history includes diabetes, presents to the emergency department complaining of back pain and dizziness since earlier today. Patient reports pain radiates down her right leg, nausea, and admits to taking Tylenol for pain to some relief. Patient denies any fever, chills, shortness of breath, chest pain, diarrhea, vomiting, urinary symptoms, neck pain, headache, or any other complaints. PMD: Dr. Smith Time/Duration: 4-6 hours (earlier today) Symptom Onset: Gradual Symptom Course: Unchanged Activities at Onset: Light Context: Home Past Medical History - Provider Review Nursing Documentation Reviewed: Yes - Past History Past History: Non-Contributing - Infectious Disease Hx of Infectious Diseases: None - Tetanus Immunization Tetanus Immunization: Unknown - Cardiac Hx Congestive Heart Failure: Yes Hx Hypertension: Yes - Pulmonary Hx Respiratory Disorders: Yes Hx Pneumonia: Yes - Neurological Hx Neurological Disorder: Yes (near syncope) Hx Dizziness: Yes (vertigo) - HEENT Hx HEENT Disorder: Yes (pt denies makah) Other/Comment: c/o "burning all over my body, my mouth is burning and dry, my gums hurt, my tongue zaldivar, my eyes are burning, my sides are burning for about 3 weeks." pt stated - Renal Hx Renal Failure: Yes (CKD) - Endocrine/Metabolic Hx Hypothyroidism: Yes - Hematological/Oncological Hx Blood Disorders: Yes Hx Anemia: Yes (iron deficiency hx iron infusions) Hx Cancer: Yes (basal cell left arm) Hx Shingles: Yes - Integumentary Hx Dermatological Disorder: Yes Hx Basal Cell Carcinoma: Yes (left arm) Other/Comment: fading red rash under abd folds, groin, under breasts, multiple age spots both arms - Musculoskeletal/Rheumatological Hx Arthritis: Yes - Gastrointestinal Hx Gastrointestinal Disorders: Yes (DYSPHAGIA,COLON POLYPS,DIVERTICULITIS) - Genitourinary/Gynecological Hx Genitourinary Disorders: Yes (URINARY FREQUENCY,WEARS DEPENDS) Hx Reproductive Disorders: No - Psychiatric Hx Psychophysiologic Disorder: Yes Hx Anxiety: Yes Hx Depression: Yes Hx Substance Use: No - Past Surgical History Past Surgical History: Non-Contributing - Surgical History Other/Comment: breast lump - calcification benign, hemorrhoids - Anesthesia Hx Anesthesia: No Hx Anesthesia Reactions: No Hx Malignant Hyperthermia: No - Suicidal Assessment Feels Threatened In Home Enviroment: No Family/Social History - Physician Review Nursing Documentation Reviewed: Yes Family/Social History: No Known Family HX Smoking Status: Never Smoked Hx Alcohol Use: No Hx Substance Use: No Hx Substance Use Treatment: No Allergies/Home Meds Allergies/Adverse Reactions: Allergies ciprofloxacin [From Cipro] Allergy (Verified 03/28/18 12:47) .unknown ciprofloxacin HCl [From Cipro] Allergy (Verified 03/28/18 12:47) RASH pneumococcal vaccine Allergy (Verified 03/28/18 12:47) RASH sulfamethoxazole [From Bactrim] Allergy (Verified 03/28/18 12:47) RASH trimethoprim [From Bactrim] Allergy (Verified 03/28/18 12:47) RASH nitrofurantoin Adverse Reaction (Verified 03/28/18 12:47) RASH Penicillins Adverse Reaction (Verified 03/28/18 12:47) SWELLING Home Medications: Home Meds Medication Instructions Recorded Confirmed Ondansetron HCl [Zofran] 1 tab PO Q6 PRN 03/11/18 03/28/18 Review of Systems - Physician Review All systems were reviewed & negative as marked: Yes - Review of Systems Constitutional: absent: Fevers, Night Sweats Respiratory: absent: SOB Cardiovascular: absent: Chest Pain Gastrointestinal: Nausea. absent: Diarrhea Musculoskeletal: Back Pain. absent: Neck Pain Neurological: Dizziness. absent: Headache Physical Exam - Physical Exam Narrative Physical Exam (Text): 03/28/18 14:20 Gen: VS reviewed, alert, well developed, well nourished, nontoxic, mild distress. ENT: normal pharynx. Eye: EOMI, PERRL. Neck: no JVD, supple, no adenopathy. CV: regular rate, regular rhythm, no rubs, no murmur, no gallops, S1, S2, pulses equal and strong. Pulm: no distress, clear to auscultation, no wheeze, no rhonchi, breath sounds equal, no rales. Abd: soft, nontender, no guarding, no rebound, no rigidity, normal bowel sounds. Ext: edema to bilateral lower extremities. Limited range of motion at right hip. Moderate distress secondary to pain. Back: non tender to lumbar or paraspinal lumbar area, no cva tenderness. Skin: good color, no rash, no cyanosis. Psych: responds appropriately to questions, normal affect. Neuro: oriented x 3, CN2-12 intact grossly, motor intact, sensation intact. Vital Signs Reviewed: Yes Vital Signs Temp Pulse Resp BP Pulse Ox 03/28/18 13:02 97.4 F L 98 H 18 146/60 98 Temperature: Hypothermic Blood Pressure: Normal Pulse: Tachycardic Respiratory Rate: Normal Medical Decision Making ED Course and Treatment: 03/28/18 14:25 Impression: 87 year old female presenting with back pain and dizziness. Plan: -- CT of Head without contrast -- CT of Lumbar spine -- Labs -- CBC -- COAGs -- Chest X-ray -- Morphine -- Zofran -- Urinalysis -- Reassess and disposition Prior Visits: Notes and results from previous visits were reviewed. Progress Notes: 03/28/18 19:[address] cuellar. patient to be admitted for severe ambulatory dysfunction, uses a walker presented with severe left LS radiculopathy, high risk for fall, CT was done to rule out fx but found to have multiple issues which would surely cause radicular pain. patient had a secondary complaint of feeling a nonspecific dizziness which she describes a "falling feelin" but she could not be more specific. For this reason Ct of the head was performed. Consult requested to dr. avila. - RAD Interpretation Narrative RAD Interpretations (Text): 03/28/18 15:00 Procedure: Chest X-ray Impression: No active disease. Dictator: Pastor Ruggiero 03/28/18 19:13 Procedure: CT Lumbar Spine without IV contrast Dictator: Dr. Haim Mena MD FINDINGS: There is diffuse advanced hypertrophic and degenerative change with disc space narrowing at all levels within the lumbar spine. There is mild retrolisthesis at the L5-S1 level. L1-L2 level no disc herniation. Chronic disc disease present. Hypertrophic change involving the vertebral bodies. L2-L3 level no disc herniation. Disc space narrowing. Hypertrophic change involving vertebral bodies. L3-L4 level posterior disc bulge and bony spurring. Hypertrophic and degenerative change within the apophyseal joints. Narrowing of the neural foramina and evidence of mild spinal canal stenosis. L4-L5 level posterior disc bulge. Hypertrophic and degenerative change apophyseal joints are narrowing the neural foramina. L5-S1 level mild retrolisthesis. Disc space narrowing. Prominent hypertrophic change involving posterior aspect of the vertebral bodies. A mild spinal canal stenosis. Impression: Diffuse advanced hypertrophic and degenerative changes. Mild retrolisthesis L5-S1 level. Posterior bulging disc mainly at the L3-L4 and L4- L5 levels. Narrowing of the neural foramina and spinal canal stenosis mainly at the L3-L4 and L5-S1 levels. Clinical correlation advised. Radiology Orders: 03/28/18 14:13 HEAD W/O CONTRAST [CT] Stat LUMBAR SPINE W/O CONTRAST [CT] Stat CHEST PORTABLE [RAD] Stat Cytopathology Technologist: Radiologist - Scribe Statement The provider has reviewed the documentation as recorded by the Elvie Sterling All medical record entries made by the Joseibe were at my direction and personally dictated by me. I have reviewed the chart and agree that the record accurately reflects my personal performance of the history, physical exam, medical decision making, and the department course for this patient. I have also personally directed, reviewed, and agree with the discharge instructions and disposition. Disposition/Present on Arrival - Present on Arrival Any Indicators Present on Arrival: No History of DVT/PE: No History of Uncontrolled Diabetes: No Urinary Catheter: No History of Decub. Ulcer: No History Surgical Site Infection Following: None - Disposition Have Diagnosis and Disposition been Completed?: Yes Diagnosis: Radiculopathy, Ambulatory dysfunction Disposition: HOSPITALIZED Disposition Time: 19:24 Patient Plan: Admission Patient Problems: Current Active Problems Problem Status Onset Radiculopathy Acute Ambulatory dysfunction Acute Condition: STABLE Referrals: Padmini Smith MD [Primary Care Provider] - Follow up with primary Forms: [employer] (Thai)
--- NOTE | 2018-03-28 15:01 | RAD ---
Date of service: 03/28/2018 HISTORY: chest pain COMPARISON: 03/11/2018 FINDINGS: LUNGS: No active pulmonary disease. PLEURA: No significant pleural effusion identified, no pneumothorax apparent. CARDIOVASCULAR: Minimal aortic calcification Normal cardiac size. No pulmonary vascular congestion. OSSEOUS STRUCTURES: No significant abnormalities. VISUALIZED UPPER ABDOMEN: Normal. OTHER FINDINGS: None. IMPRESSION: No active disease.
[2018-03-28 15:08] LABS: BASO # 0.04 K/mm3 (0.0-2.0); BASO % 0.4 % (0.0-3.0); EOS # 0.2 (0.0-0.7); EOS % 1.9 % (1.5-5.0); GRAN # 7.08 (1.4-6.5); GRAN % 70.7 % (50.0-68.0); HEMOGLOBIN 11.6 g/dL (12.0-16.0); LYMPH # 1.8 (1.2-3.4); LYMPH % 17.8 % (22.0-35.0); MEAN CELL VOLUME 90.6 fl (80.0-105.0); MEAN CORPUSCULAR HEMOGLOBIN 29.5 pg (25.0-35.0); MEAN CORPUSCULAR HGB CONC 32.6 g/dl (31.0-37.0); MEAN PLATELET VOLUME 10.3 fl (7.0-11.0); MONO # 0.9 (0.1-0.6); MONO % 9.2 % (1.0-6.0); RBC 3.93 10^6/uL (3.5-6.1); RED CELL DISTRIBUTION WIDTH 14.5 % (11.5-14.5)
[2018-03-28 15:09] LABS: PH,URINE 6.5 (4.7-8.0); URINE BILIRUBIN NEGATIVE (NEGATIVE); URINE BLOOD MODERATE (NEGATIVE); URINE GLUCOSE (UA) NEGATIVE (NEGATIVE); URINE LEUKOCYTE ESTERASE NEGATIVE Leu/uL (NEGATIVE); URINE PROTEIN NEGATIVE mg/dL (<30 mg/dL); URINE UROBILINOGEN 0.2 E.U./dL (<1 E.U./dL)
[2018-03-28 15:10] LABS: URINE APPEARANCE CLEAR (CLEAR); URINE COLOR YELLOW (YELLOW)
[2018-03-28 15:17] LABS: URINE RBC 0 - 2 /hpf (0-2); URINE WBC NEGATIVE /hpf (0-6)
[2018-03-28 15:18] LABS: INR 1.03; PARTIAL THROMBOPLASTIN TIME 34.5 Seconds (25.1-36.5); PROTHROMBIN TIME 11.8 SECONDS (9.4-12.5)
[2018-03-28 15:20] LABS: BLOOD UREA NITROGEN 31 mg/dL (7-21); CALCIUM 9.6 mg/dL (8.4-10.5); GFR NON-AFRICAN AMERICAN 33
[2018-03-28 15:31] LABS: TROPONIN I < 0.01 ng/mL
--- NOTE | 2018-03-28 18:17 | CT ---
Date of service: 03/28/2018 PROCEDURE: CT HEAD WITHOUT CONTRAST. HISTORY: Back pain and dizziness. COMPARISON: 03/11/2018. CT head TECHNIQUE: Axial computed tomography images were obtained through the head/brain without intravenous contrast. Supplemental Coronal and Sagittal projections created and reviewed. Radiation dose: Total exam DLP = <inf_radiation_dlp> mGy-cm. This CT exam was performed using one or more of the following dose reduction techniques: Automated exposure control, adjustment of the mA and/or kV according to patient size, and/or use of iterative reconstruction technique. FINDINGS: HEMORRHAGE: No intracranial hemorrhage. BRAIN: No mass effect or edema. Cortical atrophy and chronic microvascular ischemic change. VENTRICLES: Unremarkable. No hydrocephalus. CALVARIUM: Unremarkable. PARANASAL SINUSES: Unremarkable as visualized. No significant inflammatory changes. MASTOID AIR CELLS: Unremarkable as visualized. No inflammatory changes. OTHER FINDINGS: None. IMPRESSION: No acute intracranial abnormalities. No significant findings to account for the clinical presentation. No significant interval change compared to the prior examination(s).
[2018-03-28] MEDS: Oxycodone/Acetaminophen 5/325 mg Tab PO PRN (22:59)
--- NOTE | 2018-03-29 09:29 | CT ---
Date of service: 03/28/2018 PROCEDURE: CT Lumbar Spine without contrast HISTORY: left leg radicular pain COMPARISON: None available. TECHNIQUE: Axial computed tomography images were obtained of the lumbar spine without the use of intravenous contrast. Coronal and sagittal reformatted images were created and reviewed. Radiation dose: Total exam DLP = 1967.46 mGy-cm. This CT exam was performed using one or more of the following dose reduction techniques: Automated exposure control, adjustment of the mA and/or kV according to patient size, and/or use of iterative reconstruction technique. FINDINGS: VERTEBRAE: Unremarkable. No fracture. Normal alignment. DISCS/SPINAL CANAL/NEURAL FORAMINA: L1-2: Severe disc degeneration with vacuum disc and loss of disc height. L2-3: Mild disc degeneration L3-4: Diffuse disc bulge and facet arthropathy with moderate central stenosis L4-5: Diffuse disc bulge and facet arthropathy with moderate to severe stenosis L5-S1: Severe disc degeneration and osteophyte formation. PARASPINAL SOFT TISSUES: Foraminal stenosis at L3-4 and L4-5 OTHER FINDINGS: The report concurs with the preliminary [facility] report IMPRESSION: Multilevel degenerative changes most severe at L3-4 and L4-5
--- NOTE | 2018-03-29 10:08 | CARD ---
APPROVED REPORT Date of service: 03/28/2018 EKG Measurement Heart [id number] CO 130P20 [id number] <Conclusion> Normal sinus rhythm Septal infarct, age undetermined Abnormal ECG
[2018-03-29] MEDS ORDERED: Levothyroxine 25 MCG TAB PO SCH (11:00)
[2018-03-29] MEDS ORDERED: HYDROmorphone 0.5 mg/0.5 ml ISec IVP STA (11:03)
[2018-03-29] MEDS ORDERED: HYDROmorphone 2 mg/ml ISec IVP PRN (18:36)
--- NOTE | 2018-03-29 20:57 | CON ---
DATE: 03/29/2018 HISTORY OF PRESENT ILLNESS: This is an 87-year-old white female with past medical history of diabetes and came to the emergency room with back pain and dizziness, and low back pain radiating to the right leg and took Tylenol, gave some relief. I called to evaluate the patient. PAST MEDICAL HISTORY: As above; hypertension, congestive heart failure, syncope, COPD. PHYSICAL EXAMINATION HEENT: Normocephalic, atraumatic. NECK: Supple. NEUROLOGIC: Alert, awake and oriented x3. No aphasia. Cranial nerves II through XII were tested. Pupils reactive. EOM intact. Visual field full. No facial asymmetry. Tongue midline. Motor examination: Moves all the extremities equally. Tone normal. Deep tendon reflexes 1+. Both plantars are downgoing. Sensory appears intact. Cerebellar gait deferred. IMPRESSION: An 87-year-old female with low back pain and dizziness. CAT scan of the head was negative and lumbosacral spine only degenerative changes. PLAN: Continue present management. We will follow up. Tom Rosales MD
--- NOTE | 2018-03-29 21:28 | HP ---
DATE OF EXAM: 03/29/2018 SUBJECTIVE: The patient is an 87-year-old, patient of being covered by Dr. Phillips, she came to emergency room because of increasing back pain, son by the bedside. According to her son, she has been complaining of back pain since yesterday, got worse this morning, so he brought her to emergency room for further evaluation. Complaining of feeling weak and dizzy along with pain, pain radiating toward her legs. Denies any numbness. No history of fever or chills. No urinary symptoms. No nausea or vomiting. No diarrhea. Does have decreased appetite. PAST MEDICAL HISTORY: Significant for: 1. Degenerative disk disease. 2. Hypertension. 3. Congestive heart failure. 4. Chronic kidney disease. 5. Anxiety disorder. 6. Hypothyroidism. 7. Generalized osteoarthritis. 8. Degenerative disk disease with lumbosacral radiculopathy. ALLERGIES: THE PATIENT IS ALLERGIC TO MULTIPLE MEDICATIONS INCLUDING, 1. CIPRO. 2. PNEUMOCOCCAL VACCINE. 3. SULFAMETHOXAZOLE. MEDICATIONS AT HOME: She is on Protonix 40 daily, Zofran as needed, and levothyroxine 25 mcg daily. SOCIAL HISTORY: Denies smoking, drinking, or alcohol use. The patient lives at home with her sister and has home health aide and she also states she usually ambulate with the help of walker. PHYSICAL EXAMINATION: GENERAL: She is awake and alert, oriented, and complaining of pain in the lower back. VITAL SIGNS: She is afebrile, pulse 71, respirations , and blood pressure 131/56. LUNGS: Bilateral fair airflow. No rhonchi or crackle. HEART: S1 and S2 audible. ABDOMEN: Soft and nontender. No rebound. No guarding. NEUROLOGIC: She is awake, alert, oriented, and communicative. Moves all extremities. LABORATORY DATA: WBC is 10, hemoglobin 11.6, hematocrit 35.6, and platelets 233. PT 11.8 and INR 1.03. Chemistry; sodium 139, potassium 4.3, chloride 103, CO2 of 28, BUN 31, and creatinine 1.5. Blood sugar of 86. Urine has blood. ASSESSMENT: 1. Intractable back pain. 2. Renal insufficiency. 3. Degenerative disk disease. 4. Anxiety disorder. 5. Hypertension. 6. Hyperlipidemia. PLAN: The patient will be admitted. We will give her analgesics and started her on antiinflammatory for 3-4 days and started on muscle relaxers. Neuro consult has been requested. Request for physical therapy evaluation in a.m. We will reevaluate the patient in a.m. Layne Ortiz MD
[2018-03-30] MEDS: Levothyroxine 25 MCG TAB PO SCH (06:17)
[2018-03-30 08:02] LABS: BASO # 0.03 K/mm3 (0.0-2.0); BASO % 0.4 % (0.0-3.0); EOS # 0.3 (0.0-0.7); EOS % 4.1 % (1.5-5.0); GRAN # 3.94 (1.4-6.5); GRAN % 58.2 % (50.0-68.0); HEMOGLOBIN 11.4 g/dL (12.0-16.0); LYMPH # 1.8 (1.2-3.4); LYMPH % 26.8 % (22.0-35.0); MEAN CELL VOLUME 91.9 fl (80.0-105.0); MEAN CORPUSCULAR HEMOGLOBIN 28.9 pg (25.0-35.0); MEAN CORPUSCULAR HGB CONC 31.5 g/dl (31.0-37.0); MEAN PLATELET VOLUME 10.9 fl (7.0-11.0); MONO # 0.7 (0.1-0.6); MONO % 10.5 % (1.0-6.0); RBC 3.94 10^6/uL (3.5-6.1); RED CELL DISTRIBUTION WIDTH 14.5 % (11.5-14.5); WHITE BLOOD COUNT 6.8 10^3/uL (4.5-11.0)
[2018-03-30] MEDS: Pantoprazole 40 mg EC Tab PO SCH (08:07)
[2018-03-30 08:12] LABS: ALB/GLOB RATIO 1.3 (1.1-1.8); ALBUMIN 3.7 g/dL (3.0-4.8); CALCIUM 9.5 mg/dL (8.4-10.5)
--- NOTE | 2018-03-30 20:26 | PN ---
DATE: 03/30/2018 SUBJECTIVE: The patient is 87-year-old, seen and examined, looks much better as compared to yesterday, back pain is better and complaint of feeling weak and dizzy. Awaiting physical therapy evaluation. PHYSICAL EXAMINATION: GENERAL: She is awake, alert and oriented, communicative. VITAL SIGNS: She is afebrile, pulse 72, respirations 20, and blood pressure 142/66. LUNGS: Bilateral fair airflow. No rhonchi or crackle. HEART: S1 and S2 audible. ABDOMEN: Soft, obese, nontender. No rebound. No guarding. NEUROLOGICAL: She is awake, alert, oriented, able to communicate, moves all extremities, has generalized weakness. LABORATORY DATA: WBC is 6.8, hemoglobin 11.4, hematocrit 36.2, and platelets 223. Chemistry: Sodium 139, potassium 4.4, chloride 101, CO2 of 30, BUN 25, creatinine 1.4, and blood sugar of 121. Urine shows moderate blood. CT scan of the lumbar spine shows multilevel degenerative disk disease, severe at L3-L4 and L4-L5. ASSESSMENT: 1. Lumbosacral radiculopathy. 2. Deconditioning and difficulty walking. 3. Hypertension. 4. Hyperlipidemia. 5. Chronic kidney disease. PLAN: We will continue on current medication and decrease of Flexeril just for the night time, since she is complaining of feeling dizzy. She is on Xanax as needed. The patient has live-in home health aid. After we have physical therapy evaluation, make disposition plan in a.m. if she will be able to get home therapy and she need to be on subacute rehab or TCU. Kayli Corona MD
[2018-03-30 23:16] VITALS: RESP 18
[2018-03-31] MEDS: Pantoprazole 40 mg EC Tab PO SCH (05:30)
[2018-03-31] MEDS: Levothyroxine 25 MCG TAB PO SCH (05:30)
--- NOTE | 2018-03-31 10:36 | DS ---
HISTORY OF PRESENT ILLNESS: The patient has no complaints of any chest pain or shortness of breath or headaches. She does have dizziness at times when she sits from the lying position. PHYSICAL EXAMINATION: VITAL SIGNS: Temperature is 97.5, pulse of 72, blood pressure 166/73 and respirations 18. GENERAL: The patient is lying in bed, flat, comfortable. HEENT: No oral lesion. Anicteric sclerae. Moist mucosa. NECK: No JVD, adenopathy, or thyromegaly. CARDIOVASCULAR: S1 and S2, regular. No murmurs, rubs, or gallops. LUNGS: Clear to auscultation bilaterally. No wheeze, rales, or rhonchi. ABDOMEN: Bowel sounds are positive, soft, nontender and nondistended. EXTREMITIES: No cyanosis, clubbing or edema. LABORATORY DATA: White count of 6.8 and . Creatinine is 1.4. Lumbar spine CT done shows multilevel degenerative changes severe between L3-L4 and L4-L5. ASSESSMENT: 1. Chronic back pain secondary to degenerative joint disease. 2. Gait dysfunction. 3. Hypertension. 4. Dyslipidemia. 5. Chronic kidney disease stage III PLAN: The patient is currently comfortable. She was given pain medication with Dilaudid. She is on Norvasc for hypertension. She is receiving Percocet as needed for pain. The patient is going to be on Synthroid for hypothyroidism. She is on Xanax as needed. She is going to be seen by Dr. Rosales. PT will see her as well. I will see if she qualifies for the Transitional Care Unit. She will be discharged to the Transitional Care Unit. Condition stable. Activities increase as tolerated. Wil Phillips MD
--- NOTE | 2018-03-31 11:58 | PQF ---
PROVIDER RESPONSE TEXT: CKD STAGE 3 REVIEWER QUERY TEXT: Kidney Disease, Chronic CKD Stage Chronic Kidney Disease (CKD) is documented in the Medical Record. Please specify the disease stage ( includes probable or suspected) Such as: -- Chronic kidney disease Stage 1 -- Chronic kidney disease Stage 2 -- Chronic kidney disease Stage 3 -- Chronic kidney disease Stage 4 -- Chronic kidney disease Stage 5 -- Chronic kidney disease Stage 5, requiring dialysis -- End Stage Renal Disease -- Other, please specify Stages are defined by the [employer] as follows: CKD Stage I GFR >= 90 ml / min per 1.73 m2 and persistent albuminuria CKD Stage 2 GFR between 60 and 89 with persistent albuminuria CKD Stage 3 GFR between 30 and 59 CKD Stage 4 GFR between 15 and 29 CKD Stage 5 GFR between <15 or End Stage Renal Disease The patient's Clinical Indicators include: Query created by: Harleen Coe on 03/31/2018 7:44 AM Electronically signed by: Kayli Corona MD 03/31/2018 11:55 AM
[2018-03-31] MEDS: Oxycodone/Acetaminophen 5/325 mg Tab PO PRN (13:28)
[2018-03-31] MEDS: POLYETHYLENE GLYCOL 3350 17 GM/Dose PACKET PO SCH (17:46)
--- NOTE | 2018-03-31 18:22 | PN ---
DATE: 03/31/2018 CHIEF COMPLIANT: Followup for back pain. SUBJECTIVE: The patient was seen and examined at bedside. Her back pain is slightly much better. She is on meloxicam, Percocet and Flexeril. We will recommend that TCU evaluation for possible physical therapy especially lumbosacral therapeutic exercises and also outpatient physical therapy as well . PAST MEDICAL HISTORY: Degenerative disc disease, hypertension, congestive heart failure, chronic kidney disease, anxiety, hypothyroidism, generalized osteoarthritis, and lumbosacral radiculopathy. ALLERGIES: CIPRO, PNEUMOCOCCAL VACCINE, AND SULFAMETHOXAZOLE. MEDICATIONS: Reviewed by nurse's per reconciliation sheet. REVIEW OF SYSTEMS: A 14-point review of systems negative except as per the HPI. SOCIAL HISTORY: No illicit drug use, smoking, or ETOH abuse LABORATORY DATA: No new labs done today. PHYSICAL EXAMINATION: GENERAL: The patient was seen in bed and in no acute distress. VITAL SIGNS: Temperature 97.5, pulse rate 72, blood pressure 166/73, respiratory rate 18 and oxygen saturation 95% on room air. HEENT: Atraumatic and normocephalic. PERRLA. Extraocular muscles intact. NECK: Supple. No JVD. No adenopathy noted. LUNGS: Clear to auscultation. No adventitious sounds. CARDIOVASCULAR: S1 and S2. Normal rate and rhythm. No murmurs, rubs or gallops. ABDOMEN: Soft, nontender, and nondistended. Bowel sounds are present. EXTREMITIES: No clubbing and no cyanosis. Peripheral pulses 2+ felt bilaterally. NEUROLOGIC: The patient is alert and oriented to person, place, month and year. Speech is fluent without any errors. Cranial nerves II through XII intact. Motor exam; moves all extremities equally. Toes are downgoing bilaterally. Sensory; decreased light touch and pinprick up to the calves bilaterally. vibration to toes. DTRs are 2+ throughout, 1 at both knees and absent at the ankles. Coordination; [id number] intact. No dysmetria noted. Gait is deferred for now. IMPRESSION: Back pain secondary to lumbosacral neuritis chronic in nature from severe discogenic disease especially in L2, L3, L4, and L5. RECOMMENDATIONS: 1. Outpatient physical therapy or TCU for lumbosacral stretching therapeutic exercere techniques. 2. Continue meloxicam and Flexeril for pain relief and continue . Thank you for this consult. Nam Rosales MD
[2018-04-01] MEDS: Pantoprazole 40 mg EC Tab PO SCH (05:13)
[2018-04-01] MEDS: Levothyroxine 25 MCG TAB PO SCH (05:13)
[2018-04-01] MEDS: POLYETHYLENE GLYCOL 3350 17 GM/Dose PACKET PO SCH ×2 (09:59→17:58)
[2018-04-01 14:22] VITALS: BP 141/59; PULSE 88; TEMP 97.3; O2SAT 97
--- NOTE | 2018-04-01 14:31 | PN ---
CHIEF COMPLAINT AND HISTORY OF PRESENT ILLNESS: The patient was initially admitted to the hospital, she was having back pain. She had a CAT scan done that showed degenerative changes in her back and arthritis. She says she does get dizzy at times as well. She has no complaints of any headaches. No abdominal pain, no dysuria, or frequency. PHYSICAL EXAMINATION: VITAL SIGNS: Temperature is 97.8, pulse is 75, blood pressure 168/73, respirations 18. GENERAL: The patient is lying in bed, comfortable, and in no acute distress. HEENT: Atraumatic and normocephalic. Anicteric sclerae. Moist mucosa. Hydro conjunctivae. No oral lesions. NECK: No JVD, anterior and posterior adenopathy, thyromegaly, or bruits. CARDIOVASCULAR: S1 and S2 regular. No murmurs, rubs or gallops. LUNGS: Clear to auscultation bilaterally. No wheezes, rales, or rhonchi. ABDOMEN: Bowel sounds are positive. Soft, nontender, and nondistended. No hepatosplenomegaly. No rebound and no guarding. EXTREMITIES: No cyanosis, clubbing, or edema. NEUROLOGIC: No facial asymmetry. Tongue is midline. No uvula deviation. Power is 5/5 upper extremities and lower extremities. Sensation intact in upper extremities and lower extremities. PSYCHIATRIC: She is awake, alert and oriented x3. No anxiety or depression. She has normal affect. GENITOURINARY: No CVA tenderness. VASCULAR: 2+ pulses in the carotid pulses and pedal pulses. SKIN: No erythema or nodules. SPINE: Shows normal curvature. LABORATORY DATA: White count of 6.8, hemoglobin of 11.4. Creatinine is 1.4. ASSESSMENT: 1. Anxiety. 2. Gait dysfunction. 3. Chronic back pain secondary to degenerative joint disease. 4. Hypertension. 5. Dyslipidemia. 6. Chronic kidney disease stage III. PLAN: The patient had been on anxiety medications, but she discontinued her medications for the last month. The patient had Norvasc for hypertension, is on Synthroid for hypothyroidism. She was given lactulose for constipation. She is also on MiraLax daily. She is on a heart healthy diet. She is awaiting to go to the transitional care unit. Wil Phillips MD [facility] # [id number]
== END 2018-04-01 19:00 | DRG 552 ==
LOC: ED 12:40 → ERH 19:29 → 5RNO 22:22
PROVIDERS: ADMIT Internal Medicine Nephrology; ATTEND Internal Medicine Nephrology
DX: M54.17 Radiculopathy, lumbosacral region (principal); M48.061 Spinal stenosis, lumbar region without neurogenic claudication; I13.0 Hypertensive heart and chronic kidney disease with heart failure and stage 1 through stage 4 chronic kidney disease, or unspecified chronic kidney disease; I50.9 Heart failure, unspecified; N18.3 Chronic kidney disease, stage 3 (moderate); E11.22 Type 2 diabetes mellitus with diabetic chronic kidney disease; J44.9 Chronic obstructive pulmonary disease, unspecified; E78.5 Hyperlipidemia, unspecified; G89.29 Other chronic pain; M15.9 Polyosteoarthritis, unspecified; R26.2 Difficulty in walking, not elsewhere classified; F41.9 Anxiety disorder, unspecified; E03.9 Hypothyroidism, unspecified; Z85.828 Personal history of other malignant neoplasm of skin

== ENCOUNTER 2018-04-01 19:00 | Inpatient (IN) | payer OTHER, BC ==
[2018-04-01] MEDS ORDERED: HYDROmorphone 0.5 mg/0.5 ml ISec IVP PRN (20:06)
[2018-04-01 23:30] VITALS: BMI 36.2
[2018-04-02] MEDS: Levothyroxine 25 MCG TAB PO SCH (05:45)
[2018-04-02] MEDS: Pantoprazole 40 mg EC Tab PO SCH (05:45)
[2018-04-02] MEDS: POLYETHYLENE GLYCOL 3350 17 GM/Dose PACKET PO SCH ×2 (09:07→17:32)
--- NOTE | 2018-04-02 10:37 | HP ---
DATE OF EXAM: 04/02/2018 CHIEF COMPLAINT AND HISTORY OF PRESENT ILLNESS: This is an 87-year-old female who has come into the hospital because of back pain. She is also having dizziness. The patient was seen in the acute side of the hospital and evaluated. The patient was seen by Neurology and then the patient was sent to Transitional Care Unit for rehab. She has no complaints of any chest pain. No shortness of breath. No headaches. She says that dizziness is better compared to before. She had her checked and no significant was seen by the nurse practitioner. She has no complaints of any abdominal pain. No back pain. No dysuria or frequency. No nocturia. ALLERGIES: TO CIPRO, PNEUMOCOCCAL VACCINE, AND SULFAMETHOXAZOLE. MEDICATIONS: The patient is on Protonix, Zofran and levothyroxine. PAST MEDICAL HISTORY: 1. Degenerative disk disease. 2. Hypertension. 3. Congestive heart failure, secondary to diastolic dysfunction. 4. Chronic kidney disease stage III. 5. Hypothyroidism. 6. Anxiety disorder. 7. Osteoarthritis. SOCIAL HISTORY: She does not smoke, drink or use drugs. She lives at home with her sister. 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 She uses walker to ambulate. FAMILY HISTORY: Noncontributory. PHYSICAL EXAMINATION: VITAL SIGNS: Temperature is 97.9, pulse is 74, blood pressure 156/63 and respirations 18. Height is 4 feet and 11 inches. Weight is 179 pounds. BMI is 36.2. GENERAL: The patient is lying in bed, comfortable, and in no acute distress. HEENT: Atraumatic and normocephalic. Anicteric sclerae. Moist mucosa. [place] conjunctivae. No oral lesions. NECK: No JVD, anterior and posterior adenopathy, thyromegaly, or bruits. CARDIOVASCULAR: S1 and S2 regular. No murmurs, rubs or gallops. LUNGS: Clear to auscultation bilaterally. No wheezes, rales, or rhonchi. ABDOMEN: Bowel sounds are positive. Soft, nontender and nondistended. No hepatosplenomegaly. No rebound and no guarding. EXTREMITIES: No cyanosis, clubbing, or edema. NEUROLOGIC: No facial asymmetry. Tongue is midline. No uvula deviation. Power is 5/5 upper extremities and lower extremities. Sensation intact in upper extremities and lower extremities. PSYCHIATRIC: She is awake, alert and oriented x3. No anxiety or depression. She has normal affect. GENITOURINARY: No CVA tenderness. VASCULAR: 2+ pulses in the carotid pulses and pedal pulses. SKIN: No erythema or nodules. SPINE: Shows normal curvature. LABORATORY DATA: She has a glucose of 94. ASSESSMENT: 1. Chronic back pain, secondary to degenerative joint disease. 2. Vertigo. 3. Gait dysfunction. 4. Hypertension. 5. Dyslipidemia. 6. Chronic kidney disease stage III. 7. Anxiety. 8. Hypothyroidism. PLAN: The patient is currently comfortable. She is getting Flexeril for her back pain. She is on Dilaudid, I will discontinue the patient's Dilaudid at this point. She is on Percocet for pain. She is on amlodipine for hypertension. She is on Synthroid for hypothyroidism. I did review the patient's medical records. She had a lumbar CT that was done, that showed degenerative changes in her back. She also had a CT of the head which showed no acute abnormalities. Her labs shows that her hemoglobin was 11.4 on 03/30/2018. She also had a creatinine of 1.4. The patient is on heart healthy diet. She is getting physical therapy. She is going to remain in the Transitional Care Unit. I did speak to the patient's son yesterday and gave an update on the patient's diagnosis and plan of care. Wil Phillips MD
[2018-04-02] MEDS: Tetrahydrozoline Opht 0.05% Sol (15 ml) OU PRN (14:05)
[2018-04-02] MEDS: Oxycodone/Acetaminophen 5/325 mg Tab PO PRN (14:10)
[2018-04-03] MEDS: Tetrahydrozoline Opht 0.05% Sol (15 ml) OU PRN ×3 (02:59→21:15)
[2018-04-03] MEDS: Levothyroxine 25 MCG TAB PO SCH (05:54)
[2018-04-03] MEDS: Pantoprazole 40 mg EC Tab PO SCH (05:54)
[2018-04-03] MEDS: POLYETHYLENE GLYCOL 3350 17 GM/Dose PACKET PO SCH ×2 (10:14→17:20)
[2018-04-03] MEDS: Oxycodone/Acetaminophen 5/325 mg Tab PO PRN (15:01)
--- NOTE | 2018-04-04 00:55 | PN ---
DATE: 04/03/2018 SUBJECTIVE: The patient has no complaints of any chest pain, no shortness of breath, no headaches. PHYSICAL EXAMINATION: VITAL SIGNS: Temperature is 97.4, pulse is 74, blood pressure 130/66, respirations 18. GENERAL: The patient is lying in bed, flat, comfortable. HEENT: No oral lesion. Anicteric sclerae. Moist mucosa. NECK: No JVD, adenopathy, or thyromegaly. CARDIOVASCULAR: S1 and S2, regular. No murmurs, rubs, or gallops. LUNGS: Clear to auscultation bilaterally. No wheeze, rales, or rhonchi. ABDOMEN: Bowel sounds are positive, soft, nontender and nondistended. EXTREMITIES: No cyanosis, clubbing or edema. ASSESSMENT: 1. Vertigo. 2. Chronic back pain secondary to degenerative joint disease. 3. Gait dysfunction. 4. Hypertension. 5. Dyslipidemia. 6. Chronic kidney disease stage 3. 7. Anxiety. 8. Hypothyroidism. PLAN: The patient is currently on amlodipine for hypertension. She is on Percocet for pain. The patient is on Protonix daily. She is on levothyroxine for hypothyroidism. The patient is on Xanax as needed. The patient is receiving a heart-healthy diet. She is on Flexeril. She is getting physical therapy. I will order blood works for tomorrow. . Wil Phillips MD
[2018-04-04] MEDS: Levothyroxine 25 MCG TAB PO SCH (05:53)
[2018-04-04] MEDS: Pantoprazole 40 mg EC Tab PO SCH (05:53)
[2018-04-04 07:06] LABS: HEMOGLOBIN 11.9 g/dL (12.0-16.0); MEAN CORPUSCULAR HGB CONC 32.2 g/dl (31.0-37.0); MEAN PLATELET VOLUME 10.3 fl (7.0-11.0); RBC 4.11 10^6/uL (3.5-6.1); RED CELL DISTRIBUTION WIDTH 14.5 % (11.5-14.5); WHITE BLOOD COUNT 8.3 10^3/uL (4.5-11.0)
[2018-04-04 07:35] LABS: ALB/GLOB RATIO 1.3 (1.1-1.8); CALCIUM 9.6 mg/dL (8.4-10.5)
[2018-04-04] MEDS: Tetrahydrozoline Opht 0.05% Sol (15 ml) OU PRN (09:54)
[2018-04-04] MEDS: POLYETHYLENE GLYCOL 3350 17 GM/Dose PACKET PO SCH ×2 (09:54→17:20)
--- NOTE | 2018-04-04 11:13 | PN ---
DATE: 04/04/2018 SUBJECTIVE: The patient has no complaints of chest pain or shortness of breath or headaches. PHYSICAL EXAMINATION: GENERAL: The patient is lying in bed, flat, comfortable. VITAL SIGNS: Temperature is 97.4, pulse is 74, blood pressure 130/66, respirations 18. HEENT: No oral lesion. Anicteric sclerae. Moist mucosa. NECK: No JVD, adenopathy, or thyromegaly. CARDIOVASCULAR: S1 and S2, regular. No murmurs, rubs, or gallops. LUNGS: Clear to auscultation bilaterally. No wheeze, rales, or rhonchi. ABDOMEN: Bowel sounds are positive, soft, nontender and nondistended. EXTREMITIES: No cyanosis, clubbing or edema. LABS: White count of 8.3, hemoglobin is 11.9. Creatinine is 2, potassium is 5.2. ASSESSMENT: 1. Vertigo. 2. Chronic back pain secondary to degenerative joint disease. 3. Gait dysfunction. 4. Hypertension. 5. Dyslipidemia. 6. Chronic kidney disease stage 3. 7. Anxiety. 8. Hypothyroidism. PLAN: The patient is on Norvasc for hypertension. She is on Meloxicam for pain. She is on MiraLax for constipation. The patient is on Synthroid for hypothyroidism. The patient is on pain medications with Percocet. The patient is on Xanax as needed. She is on a heart healthy diet. She is getting physical therapy. We will continue. Wil Phillips MD
[2018-04-05] MEDS: Pantoprazole 40 mg EC Tab PO SCH (06:07)
[2018-04-05] MEDS: Levothyroxine 25 MCG TAB PO SCH (06:11)
[2018-04-05] MEDS: POLYETHYLENE GLYCOL 3350 17 GM/Dose PACKET PO SCH ×2 (10:04→17:36)
--- NOTE | 2018-04-05 11:34 | PN ---
DATE: 04/05/2018 SUBJECTIVE: The patient has no complaints of any chest pain or shortness of breath. No headache or dizziness. PHYSICAL EXAMINATION: VITAL SIGNS: Temperature is 97.8, pulse of 89, blood pressure of 125/64, and respirations 20. GENERAL: The patient is lying in bed, flat, comfortable. HEENT: No oral lesion. Anicteric sclerae. Moist mucosa. NECK: No JVD, adenopathy, or thyromegaly. CARDIOVASCULAR: S1 and S2, regular. No murmurs, rubs, or gallops. LUNGS: Clear to auscultation bilaterally. No wheeze, rales, or rhonchi. ABDOMEN: Bowel sounds are positive, soft, nontender and nondistended. EXTREMITIES: No cyanosis, clubbing or edema. LABS: White count of 8.3, hemoglobin of 8.9, creatinine is 2. ASSESSMENT: 1. Vertigo. 2. Chronic back pain secondary to degenerative joint disease. 3. Gait dysfunction. 4. Hypertension. 5. Dyslipidemia. 6. Chronic kidney disease, stage 3. 7. Anxiety. 8. Hypothyroidism. PLAN: The patient is currently on meloxicam for pain. The patient is on amlodipine for hypertension. She is on Protonix daily. She is on Synthroid for hypothyroidism. The patient is on Xanax as needed. She is on a heart healthy diet. She is improving with physical therapy. She will continue to be on the transitional care unit to get physical therapy. Wil Phillips MD
[2018-04-06] MEDS: Levothyroxine 25 MCG TAB PO SCH (05:38)
[2018-04-06] MEDS: Pantoprazole 40 mg EC Tab PO SCH (05:38)
[2018-04-06] MEDS: POLYETHYLENE GLYCOL 3350 17 GM/Dose PACKET PO SCH ×2 (09:32→17:40)
[2018-04-06] MEDS: Tetrahydrozoline Opht 0.05% Sol (15 ml) OU PRN (09:33)
--- NOTE | 2018-04-06 12:35 | PN ---
DATE: 04/06/2018 SUBJECTIVE: The patient has no complaints of any chest pain. No shortness of breath or headache. PHYSICAL EXAMINATION VITAL SIGNS: Temperature is 97.5, pulse of 80, blood pressure 148/66 and respirations 18. GENERAL: The patient is lying in bed, flat, comfortable. HEENT: No oral lesion. Anicteric sclerae. Moist mucosa. NECK: No JVD, adenopathy, or thyromegaly. CARDIOVASCULAR: S1 and S2, regular. No murmurs, rubs, or gallops. LUNGS: Clear to auscultation bilaterally. No wheeze, rales, or rhonchi. ABDOMEN: Bowel sounds are positive, soft, nontender and nondistended. EXTREMITIES: No cyanosis, clubbing or edema. LABORATORY DATA: White count of 8.3 and hemoglobin 11.9. Creatinine is 2.0. ASSESSMENT: 1. Vertigo, improved. 2. Chronic back pain secondary to degenerative joint disease. 3. Gait dysfunction. 4. Hypertension. 5. Dyslipidemia. 6. Chronic kidney disease, stage III. 7. Anxiety. 8. Hypothyroidism. PLAN: The patient is currently on MiraLax for constipation. She is on Meloxicam. She is on Norvasc for hypertension. She is on Synthroid for hypothyroidism. The patient is on Xanax as needed. She is also receiving heart healthy diet. Wil Phillips MD
[2018-04-07] MEDS: Levothyroxine 25 MCG TAB PO SCH (06:10)
[2018-04-07] MEDS: Pantoprazole 40 mg EC Tab PO SCH (06:10)
--- NOTE | 2018-04-07 06:50 | CP.PCM.PN ---
Objective - Vital Signs/Intake and Output Vital Signs (last 24 hours): Temp Pulse Resp BP Pulse Ox 98.4 F 80 18 129/64 97 04/06/18 16:29 04/06/18 16:29 04/06/18 16:29 04/06/18 16:29 04/06/18 16:29 - Medications Medications: Current Medications Acetaminophen (Tylenol 325mg Tab) 650 mg PO Q4H PRN PRN Reason: mild pain- 1-4 Last Admin: 04/04/18 15:38 Dose: 650 mg Alprazolam (Xanax) 0.25 mg PO BID PRN; Protocol PRN Reason: Anxiety Stop: 04/09/18 10:01 Amlodipine Besylate (Norvasc) 10 mg PO DAILY GALA; Protocol Last Admin: 04/06/18 09:32 Dose: 10 mg Cyclobenzaprine HCl (Flexeril) 5 mg PO DAILY GALA Last Admin: 04/06/18 09:32 Dose: 5 mg Levothyroxine Sodium (Synthroid) 25 mcg PO 0600 GALA; Protocol Last Admin: 04/07/18 06:10 Dose: 25 mcg Meloxicam (Mobic) 15 mg PO DAILY GALA; Protocol Last Admin: 04/06/18 09:32 Dose: 15 mg Pantoprazole Sodium (Protonix Ec Tab) 40 mg PO 0600 GALA; Protocol Last Admin: 04/07/18 06:10 Dose: 40 mg Polyethylene Glycol (Miralax) 17 gm PO BID GALA; Protocol Last Admin: 04/06/18 17:40 Dose: Not Given Tetrahydrozoline HCl/Zinc Sulfate (Visine 0.05% Opht Soln) 1 ml OU Q4H PRN; Protocol PRN Reason: Dry eyes Last Admin: 04/06/18 09:33 Dose: 1 ml - Labs Labs: 04/04/18 06:30 04/04/18 06:30
[2018-04-07] MEDS: POLYETHYLENE GLYCOL 3350 17 GM/Dose PACKET PO SCH ×2 (10:46→17:36)
--- NOTE | 2018-04-07 13:14 | PN ---
DATE: 04/07/2018 SUBJECTIVE: The patient has no complaints of any chest pain or shortness of breath. She is able to ambulate better. PHYSICAL EXAMINATION: VITAL SIGNS: Temperature is 98.4, pulse of 80, blood pressure of 129/64, respirations 18. GENERAL: The patient is lying in bed, flat, comfortable. HEENT: No oral lesion. Anicteric sclerae. Moist mucosa. NECK: No JVD, adenopathy, or thyromegaly. CARDIOVASCULAR: S1 and S2, regular. No murmurs, rubs, or gallops. LUNGS: Clear to auscultation bilaterally. No wheeze, rales, or rhonchi. ABDOMEN: Bowel sounds are positive. Soft, nontender, and nondistended. EXTREMITIES: No cyanosis, clubbing, or edema. LABORATORY DATA: White count of 8.3, hemoglobin 11. Creatinine is 2. ASSESSMENT: 1. Vertigo, improved. 2. Chronic back pain secondary to degenerative joint disease. 3. Hypertension. 4. Dyslipidemia. 5. Gait dysfunction. 6. Chronic kidney disease, stage 3. 7. Anxiety. 8. Hypothyroidism. PLAN: The patient is currently comfortable. She does have CKD stage 3. She is going to get physical therapy. She is asking about going home tomorrow. I will discharge her in the morning. She will be allowed to take a shower, as she is requested. Wil Phillips MD
[2018-04-08] MEDS: Levothyroxine 25 MCG TAB PO SCH (05:18)
[2018-04-08] MEDS: Pantoprazole 40 mg EC Tab PO SCH (05:18)
[2018-04-08 07:15] LABS: MEAN CELL VOLUME 89.4 fl (80.0-105.0); MEAN CORPUSCULAR HEMOGLOBIN 28.6 pg (25.0-35.0); MEAN PLATELET VOLUME 10.4 fl (7.0-11.0); RBC 3.85 10^6/uL (3.5-6.1); RED CELL DISTRIBUTION WIDTH 14.6 % (11.5-14.5); WHITE BLOOD COUNT 5.8 10^3/uL (4.5-11.0)
[2018-04-08 07:56] LABS: ALB/GLOB RATIO 1.4 (1.1-1.8); ALBUMIN 3.9 g/dL (3.0-4.8); CALCIUM 9.3 mg/dL (8.4-10.5)
[2018-04-08] MEDS ORDERED: Sod Polystyrene Sulf 15 gm/60 ml Susp PO ONE (08:04)
[2018-04-08 10:57] VITALS: BP 170/65; RESP 18; TEMP 97.1; O2SAT 96
[2018-04-08] MEDS: POLYETHYLENE GLYCOL 3350 17 GM/Dose PACKET PO SCH (11:12)
[2018-04-08 13:57] VITALS: PULSE 89
--- NOTE | 2018-04-08 20:36 | DS ---
HISTORY OF PRESENT ILLNESS: The patient is an 87-year-old female who had come into the Transitional Care Unit for rehabilitation. She was having difficulty in ambulating. She was having episodes of dizziness. The dizziness has improved. She does have a lower back issue. She does have lower back pain secondary to arthritis and degenerative joint disease. She had been working better with physical therapy. She has no lower extremity edema. She is able to ambulate with assistance. The pain is controlled. She has no complaints of any chest pain. No shortness of breath. No headache or dizziness. She is eating well. PHYSICAL EXAMINATION: VITAL SIGNS: Temperature is 98.4, pulse of 84, blood pressure 173/75 and respiration is 20. GENERAL: The patient is lying in bed, flat, comfortable. HEENT: No oral lesion. Anicteric sclerae. Moist mucosa. NECK: No JVD, adenopathy, or thyromegaly. CARDIOVASCULAR: S1 and S2, regular. No murmurs, rubs, or gallops. LUNGS: Clear to auscultation bilaterally. No wheeze, rales, or rhonchi. ABDOMEN: Bowel sounds are positive, soft, nontender and nondistended. EXTREMITIES: No cyanosis, clubbing or edema. ASSESSMENT: 1. Back pain secondary to degenerative joint disease. 2. Vertigo, improved. 3. . 4. Dyslipidemia. 5. Gait dysfunction. 6. Chronic kidney disease, stage III. 7. Anxiety. 8. Hypothyroidism. PLAN: The patient is currently comfortable. She is on Flexeril for her back pain. She is on MiraLax for constipation. She is Mobic. She is going to continue Norvasc for hypertension. She is on Synthroid for hypothyroidism. She is on a heart-healthy diet. She is going to be discharge home today. CONDITION: Stable. ACTIVITIES: Increase as tolerated. She will followup with a primary care doctor in 1 to 2 weeks. She is advised to take [id number] pain medications like Aleve to help with her back. Wil Phillips MD
== END 2018-04-08 15:19 | disposition home or self-care (01) | DRG 556 ==
LOC: TRCU 19:00
PROVIDERS: ADMIT Internal Medicine Nephrology; ATTEND Internal Medicine Nephrology
PROC: F07Z9FZ Gait Training/Functional Ambulation Treatment using Assistive, Adaptive, Supportive or Protective Equipment (ICD-10-PCS; principal; 2018-04-03)
PROC: F07Z8FZ Transfer Training Treatment using Assistive, Adaptive, Supportive or Protective Equipment (ICD-10-PCS; 2018-04-03)
PROC: F08Z1FZ Dressing Techniques Treatment using Assistive, Adaptive, Supportive or Protective Equipment (ICD-10-PCS; 2018-04-03)
PROC: F08Z2ZZ Grooming/Personal Hygiene Treatment (ICD-10-PCS; 2018-04-03)
PROC: F07L6YZ Therapeutic Exercise Treatment of Musculoskeletal System - Lower Back / Lower Extremity using Other Equipment (ICD-10-PCS; 2018-04-04)
DX: R26.2 Difficulty in walking, not elsewhere classified (principal); I50.32 Chronic diastolic (congestive) heart failure; I13.0 Hypertensive heart and chronic kidney disease with heart failure and stage 1 through stage 4 chronic kidney disease, or unspecified chronic kidney disease; N18.3 Chronic kidney disease, stage 3 (moderate); M47.9 Spondylosis, unspecified; R42 Dizziness and giddiness; E03.9 Hypothyroidism, unspecified; E78.5 Hyperlipidemia, unspecified; F41.9 Anxiety disorder, unspecified; G89.29 Other chronic pain; K59.00 Constipation, unspecified

== ENCOUNTER 2018-04-10 14:50 | Observation (INO) | payer MEDICARE, BC ==
[2018-04-10 15:44] VITALS: BMI 34.3
[2018-04-10] MEDS ORDERED: Morphine 4 mg/ml ISec IVP STA (15:54)
--- NOTE | 2018-04-10 16:00 | ED PDOC ---
Arrival/HPI - General Time Seen by Provider: 04/10/18 15:44 Historian: Patient, Family, Caregiver - History of Present Illness Narrative History of Present Illness (Text): 04/10/18 15:45 87 year old female, whose past medical history includes diabetes, "bad right knee," who presents to the emergency department complaining of swollen legs and weakness. Patient states "Dr. Eason was worried about blood clots and kidney." Patient notes shortness of breath, back pain, numbness of toes and difficulty breathing. Patient reports she was here 1 week ago for back pain and dizziness, states she was given Morphine, and was discharged on 04/08/18. Patient states Dr. Cast told her she has hemorrhoids that she was bleeding from. Pt denies chest pain, abdominal pain, or any other complaints. Family and caregiver at bedside confirm patient's symptoms. Raw Mill Operator: Dr. Ivory Time/Duration: Prior to Arrival Symptom Onset: Sudden Symptom Course: Unchanged Activities at Onset: Light Past Medical History - Provider Review Nursing Documentation Reviewed: Yes - Past History Past History: Non-Contributing - Infectious Disease Hx of Infectious Diseases: None - Tetanus Immunization Tetanus Immunization: Unknown - Cardiac Hx Congestive Heart Failure: Yes Hx Hypertension: Yes - Pulmonary Hx Respiratory Disorders: Yes Other/Comment: SOB - Neurological Hx Neurological Disorder: Yes (near syncope) Hx Dizziness: Yes (vertigo) - HEENT Hx HEENT Disorder: Yes (pt denies [place]) Other/Comment: c/o "burning all over my body, my mouth is burning and dry, my gums hurt, my tongue zaldivar, my eyes are burning, my sides are burning for about 3 weeks." pt stated - Renal Hx Renal Failure: Yes (CKD) - Endocrine/Metabolic Hx Diabetes Mellitus Type 2: Yes Hx Hypothyroidism: Yes - Hematological/Oncological Hx Anemia: Yes Hx Cancer: Yes - Integumentary Other/Comment: Skin [place] - Musculoskeletal/Rheumatological Hx Falls: Yes - Gastrointestinal Hx Gastrointestinal Disorders: Yes (DYSPHAGIA,COLON POLYPS,DIVERTICULITIS) - Genitourinary/Gynecological Hx Reproductive Disorders: No - Psychiatric Hx Anxiety: Yes Hx Depression: Yes Hx Substance Use: No - Past Surgical History Past Surgical History: Non-Contributing - Surgical History Hx Orthopedic Surgery: Yes (right knee) - Anesthesia Hx Anesthesia: No Hx Anesthesia Reactions: No Hx Malignant Hyperthermia: No - Suicidal Assessment Feels Threatened In Home Enviroment: No Family/Social History - Physician Review Nursing Documentation Reviewed: Yes Family/Social History: No Known Family HX Smoking Status: Never Smoked Hx Alcohol Use: No Hx Substance Use: No Hx Substance Use Treatment: No Allergies/Home Meds Allergies/Adverse Reactions: Allergies ciprofloxacin [From Cipro] Allergy (Verified 04/10/18 17:58) .unknown ciprofloxacin HCl [From Cipro] Allergy (Verified 04/10/18 17:58) RASH pneumococcal vaccine Allergy (Verified 04/10/18 17:58) RASH sulfamethoxazole [From Bactrim] Allergy (Verified 04/10/18 17:58) RASH trimethoprim [From Bactrim] Allergy (Verified 04/10/18 17:58) RASH nitrofurantoin Adverse Reaction (Verified 04/10/18 17:58) RASH Penicillins Adverse Reaction (Verified 04/10/18 17:58) SWELLING Home Medications: Home Meds Medication Instructions Recorded Confirmed Ondansetron HCl [Zofran] 1 tab PO Q6 PRN 03/11/18 03/28/18 Review of Systems - Physician Review All systems were reviewed & negative as marked: Yes - Review of Systems Respiratory: SOB. absent: Normal Cardiovascular: Normal. absent: Chest Pain Gastrointestinal: Normal. absent: Abdominal Pain Musculoskeletal: Back Pain. absent: Normal Neurological: Dizziness. absent: Normal Physical Exam Vital Signs Reviewed: Yes Temperature: Afebrile Blood Pressure: Hypertensive Pulse: Regular Respiratory Rate: Normal Appearance: Positive for: Well-Appearing, Non-Toxic Pain Distress: Mild Mental Status: Positive for: Alert and Oriented X 3 - Systems Exam Head: Present: Atraumatic, Normocephalic Pupils: Present: PERRL Extroacular Muscles: Present: EOMI Conjunctiva: Present: Normal Mouth: Present: Moist Mucous Membranes Pharnyx: Present: Normal. No: ERYTHEMA, EXUDATE, Uvular Deviation Neck: Present: Normal Range of Motion. No: JVD Respiratory/Chest: Present: Clear to Auscultation, Good Air Exchange. No: Respiratory Distress, Accessory Muscle Use Cardiovascular: Present: Regular Rate and Rhythm, Normal S1, S2. No: Murmurs Abdomen: Present: Normal Bowel Sounds. No: Tenderness, Distention, Rebound, Guarding Back: Present: Normal Inspection Upper Extremity: Present: Normal Inspection. No: Cyanosis, Edema Lower Extremity: Present: Edema (bilateral leg edema noted ). No: Normal Inspection Neurological: Present: GCS=15, CN II-XII Intact, Speech Normal Skin: Present: Warm, Dry, Normal Color. No: Rashes Psychiatric: Present: Alert, Oriented x 3, Normal Insight, Normal Concentration Medical Decision Making ED Course and Treatment: 04/10/18 15:45 Impression: 87 year old female presents to the Emergency department: Bilateral leg swelling, possible CHF, also arthritic back pain. pain control. Plan: -- Labs -- EKG -- X-Ray of chest -- Morphine -- Urine culture -- Urinalysis -- Reassess and disposition Prior Visits: Notes and results from previous visits were reviewed. Patient was last seen in the emergency department on 03/28/18 back pain and dizziness since earlier that day. Pt was hospitalized with diagnosis of radiculopathy and ambulatory dysfunction. Progress Notes: - RAD Interpretation Radiology Orders: 04/10/18 15:53 CHEST PORTABLE [RAD] Stat - Medication Orders Current Medication Orders: Discontinued Medications Morphine Sulfate (Morphine) 4 mg IVP STAT STA Stop: 04/10/18 15:55 - Scribe Statement The provider has reviewed the documentation as recorded by the Scribe Lisa Hernandez All medical record entries made by the Scribe were at my direction and personally dictated by me. I have reviewed the chart and agree that the record accurately reflects my personal performance of the history, physical exam, medical decision making, and the department course for this patient. I have also personally directed, reviewed, and agree with the discharge instructions and disposition. Disposition/Present on Arrival - Present on Arrival Any Indicators Present on Arrival: No History of DVT/PE: No History of Uncontrolled Diabetes: No Urinary Catheter: No History Surgical Site Infection Following: None - Disposition Have Diagnosis and Disposition been Completed?: Yes Diagnosis: Intractable back pain, Leg swelling Disposition: HOSPITALIZED Disposition Time: 17:04 Condition: GOOD
[2018-04-10 16:16] LABS: VENOUS BLOOD GAS BASE EXCESS 0.8 mmol/L (0.0-2.0); VENOUS BLOOD GAS PO2 152 mm/Hg (30-55); VENOUS BLOOD PH 7.37 (7.32-7.43)
[2018-04-10 16:17] VITALS: RESP 18
[2018-04-10 16:24] LABS: BASO # 0.02 K/mm3 (0.0-2.0); BASO % 0.2 % (0.0-3.0); EOS # 0.3 (0.0-0.7); EOS % 3.3 % (1.5-5.0); GRAN # 6.5 (1.4-6.5); HEMOGLOBIN 11.1 g/dL (12.0-16.0); LYMPH # 1.6 (1.2-3.4); LYMPH % 17.4 % (22.0-35.0); MEAN CELL VOLUME 88.9 fl (80.0-105.0); MEAN CORPUSCULAR HEMOGLOBIN 29.3 pg (25.0-35.0); MEAN CORPUSCULAR HGB CONC 32.9 g/dl (31.0-37.0); MEAN PLATELET VOLUME 10.1 fl (7.0-11.0); MONO # 0.7 (0.1-0.6); MONO % 8.1 % (1.0-6.0); RBC 3.79 10^6/uL (3.5-6.1); RED CELL DISTRIBUTION WIDTH 14.4 % (11.5-14.5); WHITE BLOOD COUNT 9.2 10^3/uL (4.5-11.0)
[2018-04-10 16:28] LABS: ALB/GLOB RATIO 1.3 (1.1-1.8); ALBUMIN 4.4 g/dL (3.0-4.8); ALT/SGPT 70 U/L (7-56); AST/SGOT 93 U/L (14-36); BLOOD UREA NITROGEN 52 mg/dL (7-21); CALCIUM 9.1 mg/dL (8.4-10.5); GFR NON-AFRICAN AMERICAN 19
[2018-04-10 16:37] LABS: TROPONIN I < 0.01 ng/mL
[2018-04-10 17:41] LABS: URINE BILIRUBIN NEGATIVE (NEGATIVE); URINE BLOOD TRACE-INTACT (NEGATIVE); URINE GLUCOSE (UA) NEGATIVE (NEGATIVE); URINE LEUKOCYTE ESTERASE TRACE Leu/uL (NEGATIVE); URINE PROTEIN NEGATIVE mg/dL (<30 mg/dL); URINE UROBILINOGEN 0.2 E.U./dL (<1 E.U./dL)
[2018-04-10 17:42] LABS: URINE APPEARANCE CLEAR (CLEAR); URINE COLOR LIGHT YELLOW (YELLOW)
[2018-04-10 17:47] LABS: URINE RBC 0 - 2 /hpf (0-2); URINE WBC 0 - 2 /hpf (0-6)
--- NOTE | 2018-04-10 17:52 | RAD ---
HISTORY: r/o infiltrate COMPARISON: Chest x-ray performed 03/28/18 TECHNIQUE: Chest, one view. FINDINGS: LUNGS: Hypoinflation. No focal consolidation. Please note that chest x-ray has limited sensitivity for the detection of pulmonary masses. PLEURA: No significant pleural effusion identified. No definite pneumothorax . CARDIOVASCULAR: Borderline cardiomegaly. Atherosclerotic calcifications of the aorta. OSSEOUS STRUCTURES: Scoliosis. VISUALIZED UPPER ABDOMEN: Unremarkable. OTHER FINDINGS: None. IMPRESSION: No focal consolidation.
--- NOTE | 2018-04-11 00:13 | HP ---
DATE OF EXAM: 04/10/2018 HISTORY OF PRESENT ILLNESS: This is an 87-year-old female who is coming in to the hospital with complaints of lower extremity swelling. The patient was seen by Dr. Hawk, who sent the patient to the ER for evaluation. She was having lower extremity edema. The patient had a history of diabetes and osteoarthritis. She was discharged from [facility] Unit two days ago. The patient said she has been having back pain. She had a CT of the back and showed degenerative changes and arthritis. The patient was on TCU for rehab. She was given the dose of morphine, had improvement in her symptoms. She does have episode of dizziness at times. She has a history of hemorrhoids that was told to her by Dr. Mckee. She has a history of CKD and sees . The patient has no complaints. No abdominal pain. No back pain. No dysuria, frequency, or nocturia. No shortness of breath. ALLERGIES: TO CIPRO, PNEUMOCOCCAL VACCINE AND SULFAMETHOXAZOLE. MEDICATIONS: She has been on Protonix, Zofran, and levothyroxine. PAST MEDICAL HISTORY: 1. DJD. 2. Hypertension. 3. CKD stage III. 4. CHF secondary to diastolic dysfunction. 5. Hypothyroidism. 6. Anxiety. 7. Osteoarthritis. SOCIAL HISTORY: She does not smoke, drink, or use drugs. She lives at home. She has home-health aid. She uses a walker to ambulate. FAMILY HISTORY: Noncontributory. PHYSICAL EXAMINATION: VITAL SIGNS: Temperature is 98.7, pulse of 90, blood pressure is 145/54, respirations 18, O2 saturation 98%, height is 4 feet 11 inches, weight is 170 pounds. GENERAL: The patient is lying in bed, comfortable, and in no acute distress. HEENT: Atraumatic and normocephalic. Anicteric sclerae. Moist mucosa. [place] conjunctivae. No oral lesions. NECK: No JVD, anterior and posterior adenopathy, thyromegaly, or bruits. CARDIOVASCULAR: S1 and S2 regular. No murmurs, rubs or gallops. LUNGS: Clear to auscultation bilaterally. No wheezes, rales, or rhonchi. ABDOMEN: Bowel sounds are positive. Soft, nontender and nondistended. No hepatosplenomegaly. No rebound and no guarding EXTREMITIES: No cyanosis, clubbing. Lower extremity 1+ edema. NEUROLOGIC: No facial asymmetry. Tongue is midline. No uvula deviation. Power is 5/5 upper extremities and lower extremities. Sensation intact in upper extremities and lower extremities. PSYCHIATRIC: She is awake, alert and oriented x3. No anxiety or depression. She has normal affect. GENITOURINARY: No CVA tenderness. VASCULAR: 2+ pulses in the carotid pulses and pedal pulses. SKIN: No erythema or nodules SPINE: Shows normal curvature. LABORATORY DATA: White count 9.2, hemoglobin 11.1, platelet count is 216. Chemistry showed sodium 134, potassium is 4.8, creatinine is 2.4. The patient's baseline creatinine is 2. AST is 93, ALT is 90, alk phos is 281, LDH is 7.2. Urine shows proteins are negative, blood is trace, nitrites are negative. Chest x-ray done shows no focal consolidation. Lower extremity Dopplers are pending. EKG shows heart rate of 100, sinus rhythm. Normal axis. No ST-T changes. ASSESSMENT: 1. LE Edema 2. Hypertension. 3. CKD stage III. 4. CHF secondary to diastolic dysfunction. 5. Hypothyroidism. 6. Anxiety. 7. Osteoarthritis. PLAN: The patient is going to be admitted to the hospital. She had lower extremity Dopplers that were done and pending. She has been on Norvasc for her hypertension. This will be continued. I will continue her Protonix. She is on Synthroid for hypothyroidism. I did advise her to use Tylenol instead of NSAIDs to help with her pain. She has chronic kidney disease and this may worsen with NSAID use. The patient's boyfriend was at the bedside. He also listened to our conversation and regarding the patient's diagnosis and plan of care, she is going to be brought in to the hospital. She will get another dose of diuretics. We will try to help improve her lower extremity edema. She will be placed on heart-healthy diet. Wil Phillips MD [facility]
--- NOTE | 2018-04-11 05:23 | CP.PCM.HP ---
Past Patient History - Infectious Disease Hx of Infectious Diseases: None - Tetanus Immunizations Tetanus Immunization: Unknown - Past Social History Smoking Status: Former Smoker - CARDIAC Hx Congestive Heart Failure: Yes Hx Hypertension: Yes - PULMONARY Hx Respiratory Disorders: Yes Other/Comment: SOB - NEUROLOGICAL Hx Neurological Disorder: Yes (near syncope) Hx Dizziness: Yes (vertigo) - HEENT Hx HEENT Problems: Yes (pt denies [place]) Other/Comment: c/o "burning all over my body, my mouth is burning and dry, my gums hurt, my tongue [place], my eyes are burning, my sides are burning for about 3 weeks." pt stated - RENAL Hx Renal Failure: Yes (CKD) - ENDOCRINE/METABOLIC Hx Diabetes Mellitus Type 2: Yes Hx Hypothyroidism: Yes - HEMATOLOGICAL/ONCOLOGICAL Hx Anemia: Yes Hx Cancer: Yes - INTEGUMENTARY Other/Comment: Skin [place] - MUSCULOSKELETAL/RHEUMATOLOGICAL Hx Falls: Yes - GASTROINTESTINAL Hx Gastrointestinal Disorders: Yes (DYSPHAGIA,COLON POLYPS,DIVERTICULITIS) - GENITOURINARY/GYNECOLOGICAL Hx Genitourinary Disorders: Yes Hx Incontinence: Yes - PSYCHIATRIC Hx Anxiety: Yes Hx Depression: Yes - SURGICAL HISTORY Hx Orthopedic Surgery: Yes (right knee) - ANESTHESIA Hx Anesthesia: No Hx Anesthesia Reactions: No Hx Malignant Hyperthermia: No Meds Allergies/Adverse Reactions: Allergies Allergy/AdvReac Type Severity Reaction Status Date / Time ciprofloxacin [From Cipro] Allergy .unknown Verified 04/10/18 17:58 ciprofloxacin HCl Allergy RASH Verified 04/10/18 17:58 [From Cipro] pneumococcal vaccine Allergy RASH Verified 04/10/18 17:58 sulfamethoxazole Allergy RASH Verified 04/10/18 17:58 [From Bactrim] trimethoprim [From Bactrim] Allergy RASH Verified 04/10/18 17:58 nitrofurantoin AdvReac RASH Verified 04/10/18 17:58 Penicillins AdvReac SWELLING Verified 04/10/18 17:58 Results - Vital Signs Recent Vital Signs: Last Vital Signs Temp 98.7 F 04/10/18 16:16 Pulse 80 04/11/18 00:38 Resp 18 04/11/18 00:38 BP 151/62 H 04/11/18 00:12 Pulse Ox 100 04/10/18 21:23 - Labs Result Diagrams: 04/10/18 16:10 04/10/18 16:10 Labs: Laboratory Results - last 24 hr 04/10/18 04/10/18 04/10/18 16:10 16:10 16:10 WBC 9.2 D RBC 3.79 Hgb 11.1 L Hct 33.7 L MCV 88.9 MCH 29.3 MCHC 32.9 RDW 14.4 Plt Count 216 MPV 10.1 Gran % 71.0 H Lymph % (Auto) 17.4 L [place] % (Auto) 8.1 H Eos % (Auto) 3.3 Baso % (Auto) 0.2 Gran # 6.50 Lymph # (Auto) 1.6 [place] # (Auto) 0.7 H Eos # (Auto) 0.3 Baso # (Auto) 0.02 pO2 152 H VBG pH 7.37 VBG pCO2 46.0 VBG HCO3 26.6 VBG Total CO2 28.0 VBG O2 Sat (Calc) 99.4 H VBG Base Excess 0.8 VBG Potassium 4.6 Sodium 132.0 134 Chloride 98.0 96 L Glucose 97 Lactate 1.2 FiO2 21.0 Potassium 4.8 Carbon Dioxide 26 Anion Gap 16 BUN 52 H Creatinine 2.4 H Est GFR ( Amer) 23 Est GFR (Non-Af Amer) 19 Random Glucose 99 Calcium 9.1 Magnesium 1.9 Total Bilirubin 0.3 AST 93 H D ALT 70 H Alkaline Phosphatase 281 H D Lactate Dehydrogenase 722 H Total Creatine Kinase 76 Troponin I < 0.01 NT-Pro-B Natriuret Pep Total Protein 7.6 Albumin 4.4 Globulin 3.3 Albumin/Globulin Ratio 1.3 Venous Blood Potassium 4.6 Urine Color Urine Appearance Urine pH Ur Specific [place] Urine Protein Urine Glucose (UA) Urine Ketones Urine Blood Urine Nitrate Urine Bilirubin Urine Urobilinogen Ur Leukocyte Esterase Urine RBC Urine WBC Ur Epithelial Cells 04/10/18 04/10/18 16:10 17:33 WBC RBC Hgb Hct MCV MCH MCHC RDW Plt Count MPV Gran % Lymph % (Auto) [place] % (Auto) Eos % (Auto) Baso % (Auto) Gran # Lymph # (Auto) [place] # (Auto) Eos # (Auto) Baso # (Auto) pO2 VBG pH VBG pCO2 VBG HCO3 VBG Total CO2 VBG O2 Sat (Calc) VBG Base Excess VBG Potassium Sodium Chloride Glucose Lactate FiO2 Potassium Carbon Dioxide Anion Gap BUN Creatinine Est GFR ( Amer) Est GFR (Non-Af Amer) Random Glucose Calcium Magnesium Total Bilirubin AST ALT Alkaline Phosphatase Lactate Dehydrogenase Total Creatine Kinase Troponin I NT-Pro-B Natriuret Pep 482 H Total Protein Albumin Globulin Albumin/Globulin Ratio Venous Blood Potassium Urine Color Light yellow Urine Appearance Clear Urine pH 7.0 Ur Specific [place] [employer] 1.010 Urine Protein Negative Urine Glucose (UA) Negative Urine Ketones Negative Urine Blood Trace-intact H Urine Nitrate Negative Urine Bilirubin Negative Urine Urobilinogen 0.2 Ur Leukocyte Esterase Trace H Urine RBC 0 - 2 Urine WBC 0 - 2 Ur Epithelial Cells None
[2018-04-11] MEDS ORDERED: Levothyroxine 25 MCG TAB PO SCH (06:00)
[2018-04-11] MEDS ORDERED: Pantoprazole 40 mg EC Tab PO SCH (06:00)
--- NOTE | 2018-04-11 09:06 | CARD ---
APPROVED REPORT Date of service: 04/10/2018 EKG Measurement Heart [id number] <Conclusion> Normal sinus rhythm Septal infarct, age undetermined Abnormal ECG
--- NOTE | 2018-04-11 09:18 | US ---
HISTORY: Leg pain and swelling. Evaluate for DVT PHYSICIAN(S): Hernan Delgado MD. TECHNIQUE: Duplex sonography and color-flow Doppler with graded compression were used to evaluate the deep venous systems of both lower extremities. The exam is limited by edema. The tibial veins are not well seen FINDINGS: The visualized deep venous systems of both lower extremities are sonographically normal and compressible. Normal wave forms and augmentation are seen. There is no sonographic evidence for deep venous thrombosis in the visualized segments of both lower extremities. IMPRESSION: No sonographic evidence for deep venous thrombosis in the visualized segments of both lower extremities.
[2018-04-11 12:57] VITALS: BP 174/60; PULSE 83; TEMP 98; O2SAT 98
--- NOTE | 2018-04-11 18:41 | CP.PCM.CON ---
History of Present Illness - History of Present Illness History of Present Illness: Pt. was seen in office. recent discharge from hospital. C/o of increase in leg edema B/L. She was feeling dizziness in office, difficulty in ambulation. She was referred to ER for further evaluation. Renal functions showed stable creatinine. Doppler ordered B/L lower extremities. No SOB. Chronic iron deficiency anemia. s/p IV iron last year. Review of Systems - Constitutional Constitutional: As Per HPI - EENT Eyes: absent: As Per HPI, Blind Spots, Blurred Vision, Change in Vision, Decreased Night Vision, Diplopia, Discharge, Dry Eye, Exophthalmos, Floaters, Irritation, Itchy Eyes, Loss of Peripheral Vision, Pain, Photophobia, Requires Corrective Lenses, Sees Flashes, Spots in Vision, Tunnel Vision, Other Visual Disturbances, Loss of Vision, Other - Cardiovascular Cardiovascular: As Per HPI - Respiratory Respiratory: absent: As Per HPI, Cough, Dyspnea, Hemoptysis, Dyspnea on Exertion, Wheezing, Snoring, Stridor, Pain on Inspiration, Chest Congestion, Excessive Mucous Production, Change in Mucous Color, Pain with Coughing, Other - Gastrointestinal Gastrointestinal: absent: As Per HPI, Abdominal Pain, Belching, Bloating, Change in Bowel Habits, Change in Stool Character, Coffee Ground Emesis, Constipation, Cramping, Diarrhea, Dyspepsia, Dysphagia, Early Satiety, Excessive Flatus, Fecal Incontinence, Heartburn, Hematemesis, Hematochezia, Loose Stools, Melena, Nausea, Odynophagia, Temesmus, Vomiting, Other - Genitourinary Genitourinary: absent: As Per HPI, Change in Urinary Stream, Difficulty Urinating, Dysuria, Flank Pain, Hematuria, Pyuria, Nocturia, Urinary Incontinence, Urinary Frequency, Urinary Hesitance, Urinary Urgency, Voiding Freq/Small Amts, Freq UTI, Hx Renal/Bladder Calculi, Hx /Renal Surgery, Bladder Distension, Other - Musculoskeletal Musculoskeletal: As Per HPI - Neurological Neurological: absent: As Per HPI, Abnormal Gait, Abnormal Hearing, Abnormal Movements, Abnormal Speech, Behavioral Changes, Burning Sensations, Confusion, Convulsions, Disequilibrium, Dizziness, Numbness, Focal Weakness, Frequent Falls, Headaches, Lack of Coordination, Loss of Vision, Memory Loss, Paresthesias, Radicular Pain, Restless Legs, Sensory Deficit, Syncope, Tingling, Tremor, Vertigo, Weakness, Other Visual Disturbances, Other - Endocrine Endocrine: As Per HPI - Hematologic/Lymphatic Hematologic: As Per HPI Past Patient History - Infectious Disease Hx of Infectious Diseases: None - Tetanus Immunizations Tetanus Immunization: Unknown - Past Social History Smoking Status: Former Smoker - CARDIAC Hx Congestive Heart Failure: Yes Hx Hypertension: Yes - PULMONARY Hx Respiratory Disorders: Yes Other/Comment: SOB - NEUROLOGICAL Hx Neurological Disorder: Yes (near syncope) Hx Dizziness: Yes (vertigo) - HEENT Hx HEENT Problems: Yes (pt denies [place]) Other/Comment: c/o "burning all over my body, my mouth is burning and dry, my gums hurt, my tongue [place], my eyes are burning, my sides are burning for about 3 weeks." pt stated - RENAL Hx Renal Failure: Yes (CKD) - ENDOCRINE/METABOLIC Hx Diabetes Mellitus Type 2: Yes Hx Hypothyroidism: Yes - HEMATOLOGICAL/ONCOLOGICAL Hx Anemia: Yes Hx Cancer: Yes - INTEGUMENTARY Other/Comment: Skin [place] - MUSCULOSKELETAL/RHEUMATOLOGICAL Hx Falls: Yes - GASTROINTESTINAL Hx Gastrointestinal Disorders: Yes (DYSPHAGIA,COLON POLYPS,DIVERTICULITIS) - GENITOURINARY/GYNECOLOGICAL Hx Genitourinary Disorders: Yes Hx Incontinence: Yes - PSYCHIATRIC Hx Anxiety: Yes Hx Depression: Yes - SURGICAL HISTORY Hx Orthopedic Surgery: Yes (right knee) - ANESTHESIA Hx Anesthesia: No Hx Anesthesia Reactions: No Hx Malignant Hyperthermia: No Meds Home Medications: Home Medication List Medication Instructions Recorded Confirmed Type Levothyroxine [Synthroid] 50 mcg PO DAILY #0 tab 04/11/18 04/10/18 Rx Allergies/Adverse Reactions: Allergies Allergy/AdvReac Type Severity Reaction Status Date / Time ciprofloxacin [From Cipro] Allergy .unknown Verified 04/10/18 17:58 ciprofloxacin HCl Allergy RASH Verified 04/10/18 17:58 [From Cipro] pneumococcal vaccine Allergy RASH Verified 04/10/18 17:58 sulfamethoxazole Allergy RASH Verified 04/10/18 17:58 [From Bactrim] trimethoprim [From Bactrim] Allergy RASH Verified 04/10/18 17:58 nitrofurantoin AdvReac RASH Verified 04/10/18 17:58 Penicillins AdvReac SWELLING Verified 04/10/18 17:58 - Medications Medications: Current Medications Acetaminophen (Tylenol 325mg Tab) 650 mg PO Q4H PRN PRN Reason: Pain, moderate (4-7) Last Admin: 04/11/18 09:00 Dose: 650 mg Amlodipine Besylate (Norvasc) 10 mg PO DAILY [facility] Last Admin: 04/11/18 09:00 Dose: 10 mg Levothyroxine Sodium (Synthroid) 25 mcg PO 0600 [facility] Last Admin: 04/11/18 05:49 Dose: 25 mcg Pantoprazole Sodium (Protonix Ec Tab) 40 mg PO 0600 [facility] Last Admin: 04/11/18 05:49 Dose: 40 mg Physical Exam - Constitutional Appears: Non-toxic - Head Exam Head Exam: ATRAUMATIC, NORMAL INSPECTION, NORMOCEPHALIC - Eye Exam Eye Exam: absent: Conjunctival injection, EOMI, Normal appearance, Nystagmus, Pe riorbital swelling, Periorbital tenderness, PERRL, Scleral icterus - ENT Exam ENT Exam: absent: Mucous Membranes Dry, Mucous Membranes Moist, Normal Exam, Normal External Ear Exam, Normal Oropharynx, TM's Normal Bilaterally - Neck Exam Neck exam: Negative for: Full Rom, Lymphadenopathy, Meningismus, Normal Inspection, Tenderness, Thyromegaly - Respiratory Exam Respiratory Exam: absent: Accessory Muscle Use, Chest Wall Tenderness, Decreased Breath Sounds, Clear to Auscultation Bilateral, Prolonged Expiratory Phase, Rales, Rhonchi, Wheezes, Respiratory Distress, Stridor, NORMAL BREATHING PATTERN - Cardiovascular Exam Cardiovascular Exam: REGULAR RHYTHM, +S1, +S2 - GI/Abdominal Exam GI & Abdominal Exam: absent: Bruit, Diminished Bowel Sounds, Distended, Firm, Guarding, Hernia, Hyperactive Bowel Sounds, Hypoactive Bowel Sounds, Mass, Normal Bowel Sounds, Organomegaly, Pulsatile Mass, Rebound, Rigid, Soft, Tenderness - Extremities Exam Extremities exam: Positive for: pedal edema - Back Exam Back exam: NORMAL INSPECTION - Neurological Exam Neurological exam: Alert, CN II-XII Intact, Oriented x3 - Skin Skin Exam: Normal Color, Warm Results - Vital Signs Recent Vital Signs: Last Vital Signs Temp 98 F 04/11/18 12:14 Pulse 83 04/11/18 12:14 Resp 18 04/11/18 12:14 BP 174/60 H 04/11/18 12:57 Pulse Ox 98 04/11/18 12:14 - Labs Result Diagrams: 04/10/18 16:10 01/17/19 16:10 Assessment & Plan - Assessment and Plan (Free Text) Assessment: 1. B/L leg edema. r/o DVT. Doppler b/l venous ordered. Discussed with ER attending. 2. Chronic anemia - related to iron deficiency, CKD . Hb/hct stable. 3. renal : functions stable. 4. deconditioning : bedside PT. Discussed with Dr. Phillips, discussed with Dr. Arroyo.
--- NOTE | 2018-04-11 22:56 | DS ---
HISTORY OF PRESENT ILLNESS: The patient has no complaints of any chest pain, shortness of breath or headache. She was admitted to the hospital because she was having lower extremity edema. The edema has improved. She had been given a dose of Lasix yesterday and this morning. She is going to be discharged home today. She has no headaches or dizziness. No nausea, no vomiting. PHYSICAL EXAMINATION: VITAL SIGNS: Temperature is 98, pulse of 83, blood pressure is 165/55, respirations 18, O2 saturation 95%. GENERAL: The patient is lying in bed, flat, comfortable. HEENT: No oral lesion. Anicteric sclerae. Moist mucosa. NECK: No JVD, adenopathy, or thyromegaly. CARDIOVASCULAR: S1 and S2, regular. No murmurs, rubs, or gallops. LUNGS: Clear to auscultation bilaterally. No wheeze, rales, or rhonchi. ABDOMEN: Bowel sounds are positive, soft, nontender and nondistended. EXTREMITIES: No cyanosis or clubbing. Right lower extremity, trace edema. ASSESSMENT: 1. Lower extremity edema. 2. Degenerative joint disease. 3. Hypertension. 4. Chronic kidney disease, stage III. 5. Congestive heart failure secondary to diastolic dysfunction. 6. Hypothyroidism. 7. Anxiety. 8. Osteoarthritis. DISCHARGE PLAN: Follow with Dr. Aiken in one to two weeks. CONDITION: Stable. ACTIVITIES: Increase as tolerated. DISCHARGE INSTRUCTIONS: The patient was advised to come back if symptoms recur. She had lower extremity Dopplers done, that were negative. Wil Phillips MD
== END 2018-04-11 19:00 | disposition home or self-care (01) ==
LOC: ED 14:50 → ERH 17:04 → INTOOBSV 17:04 → ERH 20:49 → 5RSO 21:50
PROVIDERS: ADMIT Internal Medicine Nephrology; ATTEND Internal Medicine Nephrology
DX: R60.0 Localized edema (principal); M19.90 Unspecified osteoarthritis, unspecified site; I13.0 Hypertensive heart and chronic kidney disease with heart failure and stage 1 through stage 4 chronic kidney disease, or unspecified chronic kidney disease; I50.32 Chronic diastolic (congestive) heart failure; E03.9 Hypothyroidism, unspecified; F41.9 Anxiety disorder, unspecified; N18.3 Chronic kidney disease, stage 3 (moderate); E11.22 Type 2 diabetes mellitus with diabetic chronic kidney disease; D50.9 Iron deficiency anemia, unspecified; K64.9 Unspecified hemorrhoids; Z79.890 Hormone replacement therapy; Z86.010 Personal history of colon polyps; Z87.891 Personal history of nicotine dependence; R32 Unspecified urinary incontinence; F32.89 Other specified depressive episodes; Z88.1 Allergy status to other antibiotic agents; Z88.0 Allergy status to penicillin; Z88.2 Allergy status to sulfonamides; Z88.7 Allergy status to serum and vaccine; Z88.8 Allergy status to other drugs, medicaments and biological substances; M54.9 Dorsalgia, unspecified; R42 Dizziness and giddiness
CPT/HCPCS: 71045; 80053; 81001; 82550; 82803; 83615; 83735; 83880; 84484; 85025; 87086; 93005; 93970; 96374; 96375; 96376; 99283; G0378; J1940; J2270

== ENCOUNTER 2018-05-19 03:00 | Inpatient (IN) | payer MEDICARE, BC | END 2018-05-20 18:50 | disposition home health service (06) | DRG 392 | LOC: ED 03:00 → ERH 05:56 → 5RNO 08:19 | DX: K57.32 Diverticulitis of large intestine without perforation or abscess without bleeding (principal); I13.0 Hypertensive heart and chronic kidney disease with heart failure and stage 1 through stage 4 chronic kidney disease, or unspecified chronic kidney disease; I50.32 Chronic diastolic (congestive) heart failure; N18.3 Chronic kidney disease, stage 3 (moderate); E11.22 Type 2 diabetes mellitus with diabetic chronic kidney disease; E03.9 Hypothyroidism, unspecified; F41.9 Anxiety disorder, unspecified; M19.90 Unspecified osteoarthritis, unspecified site; E66.9 Obesity, unspecified; Z68.39 Body mass index [BMI] 39.0-39.9, adult; Z85.048 Personal history of other malignant neoplasm of rectum, rectosigmoid junction, and anus; Z86.010 Personal history of colon polyps; Z88.1 Allergy status to other antibiotic agents; Z88.0 Allergy status to penicillin; Z88.2 Allergy status to sulfonamides; Z88.7 Allergy status to serum and vaccine ==

== ENCOUNTER 2018-06-14 13:05 | Observation (INO) | payer MEDICARE, BC ==
[2018-06-14 13:45] VITALS: BMI 30.7
--- NOTE | 2018-06-14 15:32 | ED PDOC ---
Arrival/HPI - General Chief Complaint: GI Problem Time Seen by Provider: 06/14/18 13:16 Historian: Patient - History of Present Illness Narrative History of Present Illness (Text): 06/14/18 15:26 88-year-old female presents today with decreased urinary output and constipation. Patient states about a month ago she had a band placed on the hemorrhoid. Patient states that she has not had a bowel movement in the past 2 days. Patient states that she feels like she has to go home but she cannot get the stool to come out. Patient is describing a pressure sensation in the rectum. Patient states today she was unable to urinate. Patient states she only got a very small amount of urine to be released. Patient is complaining of abdominal bloating. She denies chest pain or shortness of breath. She is complaining of chronic paresthesias in the feet bilaterally. She denies weakness in the lower extremities. Patient denies back pain. She denies any recent trauma or injury. no fever/chills. Past Medical History - Provider Review Nursing Documentation Reviewed: Yes - Travel History Have you recently traveled outside [place] w/in the past 3 mons?: No - Past History Past History: Non-Contributing - Infectious Disease Hx of Infectious Diseases: None - Tetanus Immunization Tetanus Immunization: Unknown - Cardiac Hx Congestive Heart Failure: Yes Hx Hypertension: Yes - Pulmonary Hx Respiratory Disorders: Yes Other/Comment: SOB - Neurological Hx Neurological Disorder: Yes (near syncope) Hx Dizziness: Yes (vertigo) - HEENT Hx HEENT Disorder: Yes (pt denies samish) - Renal Hx Renal Failure: Yes (CKD) - Endocrine/Metabolic Hx Diabetes Mellitus Type 2: Yes Hx Hypothyroidism: Yes - Hematological/Oncological Hx Anemia: Yes Hx Cancer: Yes - Integumentary Other/Comment: Skin Cadidiassis - Musculoskeletal/Rheumatological Hx Falls: Yes - Gastrointestinal Hx Gastrointestinal Disorders: Yes (DYSPHAGIA,COLON POLYPS,DIVERTICULITIS) Hx Constipation: Yes - Genitourinary/Gynecological Hx Reproductive Disorders: No - Psychiatric Hx Anxiety: Yes Hx Depression: Yes Hx Substance Use: No - Past Surgical History Past Surgical History: Non-Contributing - Surgical History Hx Orthopedic Surgery: Yes (right knee) - Anesthesia Hx Anesthesia: No Hx Anesthesia Reactions: No Hx Malignant Hyperthermia: No - Suicidal Assessment Feels Threatened In Home Enviroment: No Family/Social History - Physician Review Nursing Documentation Reviewed: Yes Family/Social History: Unknown Family HX Smoking Status: Never Smoked Hx Alcohol Use: No Hx Substance Use: No Hx Substance Use Treatment: No Allergies/Home Meds Allergies/Adverse Reactions: Allergies ciprofloxacin [From Cipro] Allergy (Verified 06/14/18 13:45) .unknown ciprofloxacin HCl [From Cipro] Allergy (Verified 06/14/18 13:45) RASH pneumococcal vaccine Allergy (Verified 06/14/18 13:45) RASH sulfamethoxazole [From Bactrim] Allergy (Verified 06/14/18 13:45) RASH trimethoprim [From Bactrim] Allergy (Verified 06/14/18 13:45) RASH nitrofurantoin Adverse Reaction (Verified 06/14/18 13:45) RASH Penicillins Adverse Reaction (Verified 06/14/18 13:45) SWELLING Home Medications: Home Meds Medication Instructions Recorded Confirmed Ondansetron HCl [Zofran] 1 tab PO Q6 PRN 03/11/18 06/14/18 Furosemide [Lasix] 1 tab PO DAILY 06/14/18 06/14/18 diltiaZEM [Cardizem] 1 tab PO DAILY 06/14/18 06/14/18 Review of Systems - Review of Systems Constitutional: absent: Fatigue, Fevers Respiratory: absent: SOB, Cough Cardiovascular: absent: Chest Pain, Palpitations Gastrointestinal: Abdominal Pain. absent: Constipation, Diarrhea, Nausea, Vomiting Genitourinary Female: Urine Output Changes Musculoskeletal: absent: Arthralgias, Back Pain, Neck Pain Skin: absent: Rash, Pruritis Neurological: absent: Headache, Dizziness Psychiatric: absent: Anxiety, Depression Physical Exam Vital Signs Reviewed: Yes Vital Signs Temp Pulse Resp BP Pulse Ox 06/14/18 13:57 97.6 F 70 18 160/53 H 95 Temperature: Afebrile Blood Pressure: Normal Pulse: Regular Respiratory Rate: Normal Appearance: Positive for: Well-Appearing, Non-Toxic, Comfortable Pain Distress: None Mental Status: Positive for: Alert and Oriented X 3 - Systems Exam Head: Present: Atraumatic Neck: Present: Normal Range of Motion Respiratory/Chest: Present: Clear to Auscultation Cardiovascular: Present: Regular Rate and Rhythm Abdomen: Present: Tenderness (+ minimal rlq, suprapubic tenderness), Distention, Normal Bowel Sounds. No: Peritoneal Signs, Rebound, Guarding Rectal: No: Occult Blood, Gross Blood, Melena, Hemorrhoids, Normal Rectal Tone Back: Present: Normal Inspection. No: CVA Tenderness, Midline Tenderness, Paraspinal Tenderness Upper Extremity: Present: Normal Inspection, Normal ROM Lower Extremity: Present: Normal Inspection, NORMAL PULSES, Normal ROM Neurological: Present: GCS=15, Speech Normal Skin: Present: Warm, Dry, Normal Color. No: Rashes Psychiatric: Present: Alert, Oriented x 3 Medical Decision Making ED Course and Treatment: 06/14/18 15:35 88yr old female with abd pain/distension and rectal pain and constipation. pt is non toxic well appearing; no distress. stable vitals. pt found to have no rectal tone; + constipation, stool noted at rectal vault. MRI ordered to r/o cauda equina cbc; wnl cmp; cr; 1.7 MRI lumbar spine: FINDINGS: There is degenerative 5 mm retrolisthesis of L1 on L2, 4 mm anterior listhesis of L3 on L4 and 7 mm anterior listhesis of L5 on S1. There is normal lumbar lordosis. There are advanced multilevel degenerative endplate marrow changes, worse at L5- S1. Bone marrow signal is heterogeneous. No acute fracture. There is bone marrow edema in bilateral L3 pedicles likely stress related changes. The conus medullaris terminates at a normal level. There is multilevel ventral and dorsal indentation of the thecal sac from multilevel spinal canal stenosis. T12-L1: No disc herniation, spinal canal stenosis or neural foraminal narrowing. L1-2: Diffuse posterior disc bulge indents the ventral thecal sac with mild spinal canal stenosis. Mild right and moderate left facet arthropathy contribute to mild right and severe left neural foraminal narrowing. L2-3: Posterior disc bulge without central spinal canal stenosis. Mild right and moderate left facet arthropathy contribute to mild right and moderate left neural foraminal narrowing. L3-4: Diffuse posterior disc bulge in conjunction with severe ligamentum flavum infolding result in moderate to severe spinal canal stenosis. Moderate bilateral facet arthropathy contribute to moderate neural foraminal narrowing, worse on the right. L4-5: Diffuse posterior disc bulge in conjunction with moderate ligamentum flavum infolding result in mild spinal canal stenosis. Moderate bilateral facet arthropathy contribute to mild neural foraminal narrowing. L5-S1: Central annular tear and broad-based central disc protrusion indents the ventral thecal sac and in conjunction with moderate ligamentum flavum infolding result in moderate spinal canal stenosis. Moderate bilateral facet arthropathy contribute to mild neural foraminal narrowing. OTHER FINDINGS: there is fatty atrophy of the paraspinous muscles. Imaged portion of the retroperitoneum and there is a small simple cyst in the right kidney. IMPRESSION: No acute fracture or spondylolysis. Advanced multilevel degenerative disc disease, worse at L3-4 with diffuse posterior disc bulge, moderate to severe spinal canal stenosis and moderate neural foraminal narrowing, worse on the right. bladder scan shows 750ml. pt attempted to urinate; forcefully was able to urinate and repeat bladder scan shows 350cc. blackmon catheter placed for urinary retention. urine; wnl cxr; wnl case discussed with dr. francisco; accepts obs admission for constipation and urinary retention case discussed with surgical aides teacher; pt wants to see dr. chang for hx of hemorrhoids. she was scheduled to see him in the office in 2 days. impression: urinary retention, constipation admit med/surg obs - RAD Interpretation Radiology Orders: 06/14/18 14:48 SPINAL CANAL LUMBAR W/O CONT [MRI] Stat Disposition/Present on Arrival - Present on Arrival Any Indicators Present on Arrival: No History of DVT/PE: No History of Uncontrolled Diabetes: No Urinary Catheter: No History of Decub. Ulcer: No History Surgical Site Infection Following: None - Disposition Have Diagnosis and Disposition been Completed?: Yes Diagnosis: Urinary retention, Constipation Disposition: HOSPITALIZED Disposition Time: 17:00 Patient Plan: Observation Patient Problems: Current Active Problems Problem Status Onset Constipation Acute Urinary retention Acute Condition: FAIR
[2018-06-14 15:33] LABS: BASO # 0.03 K/mm3 (0.0-2.0); BASO % 0.3 % (0.0-3.0); EOS # 0.1 (0.0-0.7); EOS % 0.7 % (1.5-5.0); HEMOGLOBIN 11.8 g/dL (12.0-16.0); LYMPH % 9.9 % (22.0-35.0); MEAN CELL VOLUME 92.9 fl (80.0-105.0); MEAN CORPUSCULAR HEMOGLOBIN 29.9 pg (25.0-35.0); MEAN CORPUSCULAR HGB CONC 32.2 g/dl (31.0-37.0); MEAN PLATELET VOLUME 10.6 fl (7.0-11.0); MONO # 0.9 (0.1-0.6); MONO % 8.8 % (1.0-6.0); RBC 3.94 10^6/uL (3.5-6.1); RED CELL DISTRIBUTION WIDTH 15.1 % (11.5-14.5); WHITE BLOOD COUNT 10.5 10^3/uL (4.5-11.0)
[2018-06-14 15:36] LABS: ALB/GLOB RATIO 1.2 (1.1-1.8); ALBUMIN 4.5 g/dL (3.0-4.8); CALCIUM 10.1 mg/dL (8.4-10.5)
--- NOTE | 2018-06-14 16:20 | MRI ---
Date of service: 06/14/2018 PROCEDURE: MR LUMBAR SPINE WITHOUT CONTRAST HISTORY: decreased UOP,constipation r/o cauda equina COMPARISON: None available. TECHNIQUE: Multiecho multiplanar sequences were performed through the lumbar spine without the use of intravenous contrast. FINDINGS: There is degenerative 5 mm retrolisthesis of L1 on L2, 4 mm anterior listhesis of L3 on L4 and 7 mm anterior listhesis of L5 on S1. There is normal lumbar lordosis. There are advanced multilevel degenerative endplate marrow changes, worse at L5-S1. Bone marrow signal is heterogeneous. No acute fracture. There is bone marrow edema in bilateral L3 pedicles likely stress related changes. The conus medullaris terminates at a normal level. There is multilevel ventral and dorsal indentation of the thecal sac from multilevel spinal canal stenosis. T12-L1: No disc herniation, spinal canal stenosis or neural foraminal narrowing. L1-2: Diffuse posterior disc bulge indents the ventral thecal sac with mild spinal canal stenosis. Mild right and moderate left facet arthropathy contribute to mild right and severe left neural foraminal narrowing. L2-3: Posterior disc bulge without central spinal canal stenosis. Mild right and moderate left facet arthropathy contribute to mild right and moderate left neural foraminal narrowing. L3-4: Diffuse posterior disc bulge in conjunction with severe ligamentum flavum infolding result in moderate to severe spinal canal stenosis. Moderate bilateral facet arthropathy contribute to moderate neural foraminal narrowing, worse on the right. L4-5: Diffuse posterior disc bulge in conjunction with moderate ligamentum flavum infolding result in mild spinal canal stenosis. Moderate bilateral facet arthropathy contribute to mild neural foraminal narrowing. L5-S1: Central annular tear and broad-based central disc protrusion indents the ventral thecal sac and in conjunction with moderate ligamentum flavum infolding result in moderate spinal canal stenosis. Moderate bilateral facet arthropathy contribute to mild neural foraminal narrowing. OTHER FINDINGS: there is fatty atrophy of the paraspinous muscles. Imaged portion of the retroperitoneum and there is a small simple cyst in the right kidney. IMPRESSION: No acute fracture or spondylolysis. Advanced multilevel degenerative disc disease, worse at L3-4 with diffuse posterior disc bulge, moderate to severe spinal canal stenosis and moderate neural foraminal narrowing, worse on the right.
[2018-06-14 17:44] LABS: URINE BILIRUBIN NEGATIVE (NEGATIVE); URINE BLOOD NEGATIVE (NEGATIVE); URINE GLUCOSE (UA) NEGATIVE (NEGATIVE); URINE LEUKOCYTE ESTERASE NEGATIVE Leu/uL (NEGATIVE); URINE PROTEIN NEGATIVE mg/dL (<30 mg/dL); URINE UROBILINOGEN 0.2 E.U./dL (<1 E.U./dL)
[2018-06-14 17:45] LABS: URINE APPEARANCE CLEAR (CLEAR); URINE COLOR YELLOW (YELLOW)
--- NOTE | 2018-06-14 17:54 | RAD ---
Date of service: 06/14/2018 HISTORY: constipation/urinary incontinence COMPARISON: 05/19/2018 FINDINGS: LUNGS: The lungs are well inflated and clear. PLEURA: No pleural effusions or pneumothorax. CARDIOVASCULAR: The heart is normal in size. No aortic atherosclerotic calcifications present. OSSEOUS STRUCTURES: There is moderate levoscoliosis in the thoracic spine. VISUALIZED UPPER ABDOMEN: Normal. OTHER FINDINGS: None. IMPRESSION: No acute findings.
--- NOTE | 2018-06-14 22:12 | CP.PCM.CON ---
History of Present Illness - History of Present Illness History of Present Illness: Surgery Consult Note for Dr. Kwon Consult: Rectal soreness, constipation 88 year old female, past medical history of Hemorrhoids, Diverticulitis, HTN, Hypothyroidism, CKD, and Anxiety, consulted for painful hemorrhoid and const ipation. One month ago patient had rubber band ligation of internal hemorrhoid with Dr. Carvajal without complication. Her hemoglobin has since stabilized and she not longer exhibits rectal bleeding. Recently, she started feeling sore around the rectum and noticed a bump on the outside. She states she has discomfort with passing gas and endorses a pressure-like sensation around the rectum. She took colace and miralax in the morning with no help. Her last bowel movement was two days ago. Denies any active bleeding. Patient did have difficulty urinating in the ED, with retention and blackmon was placed at that time. Denies f/c, n/v/d, rectal bleeding, abdominal pain, SOB, CP, headaches, or dizziness. PMH: See above PSH: Hemorrhoid removal, Rubber band ligation FH: Noncontributory SH: Denies tobacco, alcohol, illicit drug use ALL: Cipro Meds: See MAR Review of Systems - Constitutional Constitutional: absent: Chills, Fever, Weakness - EENT Eyes: absent: Blurred Vision, Change in Vision Nose/Mouth/Throat: absent: Nasal Congestion, Nasal Discharge - Cardiovascular Cardiovascular: absent: Chest Pain, Dyspnea - Respiratory Respiratory: absent: Cough, Dyspnea - Gastrointestinal Gastrointestinal: Abdominal Pain, Change in Bowel Habits, Constipation, Temesmus. absent: Bloating, Diarrhea, Fecal Incontinence, Melena, Nausea, Vomiting - Genitourinary Genitourinary: Difficulty Urinating - Musculoskeletal Musculoskeletal: absent: Back Pain, Neck Pain - Integumentary Integumentary: absent: Bleeding Lesions, Changing Lesions - Neurological Neurological: absent: Confusion, Dizziness, Headaches - Psychiatric Psychiatric: absent: Anxiety, Depression Past Patient History - Infectious Disease Hx of Infectious Diseases: None - Tetanus Immunizations Tetanus Immunization: Unknown - Past Social History Smoking Status: Never Smoked - CARDIAC Hx Congestive Heart Failure: Yes Hx Hypertension: Yes - PULMONARY Hx Respiratory Disorders: Yes Other/Comment: SOB - NEUROLOGICAL Hx Neurological Disorder: Yes (near syncope) Hx Dizziness: Yes (vertigo) - HEENT Hx HEENT Problems: Yes (pt denies eagle) - RENAL Hx Renal Failure: Yes (CKD) - ENDOCRINE/METABOLIC Hx Diabetes Mellitus Type 2: Yes Hx Hypothyroidism: Yes - HEMATOLOGICAL/ONCOLOGICAL Hx Anemia: Yes Hx Cancer: Yes - INTEGUMENTARY Other/Comment: Skin Cadidiassis - MUSCULOSKELETAL/RHEUMATOLOGICAL Hx Falls: Yes - GASTROINTESTINAL Hx Gastrointestinal Disorders: Yes (DYSPHAGIA,COLON POLYPS,DIVERTICULITIS) Hx Constipation: Yes - GENITOURINARY/GYNECOLOGICAL Hx Reproductive Disorders: No - PSYCHIATRIC Hx Anxiety: Yes Hx Depression: Yes Hx Substance Use: No - SURGICAL HISTORY Hx Orthopedic Surgery: Yes (right knee) - ANESTHESIA Hx Anesthesia: No Hx Anesthesia Reactions: No Hx Malignant Hyperthermia: No Meds Allergies/Adverse Reactions: Allergies Allergy/AdvReac Type Severity Reaction Status Date / Time ciprofloxacin [From Cipro] Allergy .unknown Verified 06/14/18 13:45 ciprofloxacin HCl Allergy RASH Verified 06/14/18 13:45 [From Cipro] pneumococcal vaccine Allergy RASH Verified 06/14/18 13:45 sulfamethoxazole Allergy RASH Verified 06/14/18 13:45 [From Bactrim] trimethoprim [From Bactrim] Allergy RASH Verified 06/14/18 13:45 nitrofurantoin AdvReac RASH Verified 06/14/18 13:45 Penicillins AdvReac SWELLING Verified 06/14/18 13:45 - Medications Medications: Current Medications Alprazolam (Xanax) 0.25 mg PO BID PRN; Protocol PRN Reason: Anxiety Stop: 06/21/18 18:28 Diltiazem HCl (Cardizem Cd) 120 mg PO DAILY [facility] Furosemide (Lasix) 20 mg PO DAILY [facility] Levothyroxine Sodium (Synthroid) 50 mcg PO ACB [facility] Pantoprazole Sodium (Protonix Ec Tab) 40 mg PO 0600 [facility] Physical Exam - Constitutional Appears: Well, Non-toxic, No Acute Distress - Head Exam Head Exam: ATRAUMATIC, NORMAL INSPECTION, NORMOCEPHALIC - Eye Exam Eye Exam: EOMI - ENT Exam ENT Exam: Mucous Membranes Moist - Respiratory Exam Respiratory Exam: NORMAL BREATHING PATTERN. absent: Wheezes, Respiratory Distress - Cardiovascular Exam Cardiovascular Exam: REGULAR RHYTHM. absent: Tachycardia - GI/Abdominal Exam GI & Abdominal Exam: Normal Bowel Sounds, Soft. absent: Tenderness - Rectal Exam Rectal Exam: Hemorrhoids Additional comments: Large external hemorrhoid left lateral Stool in rectum - soft, brown, nonbloody - Extremities Exam Extremities exam: Positive for: normal inspection, pedal pulses present - Neurological Exam Neurological exam: Alert, Oriented x3 - Psychiatric Exam Psychiatric exam: Normal Affect, Normal Mood - Skin Skin Exam: Dry, Intact, Normal Color, Warm Results - Vital Signs Recent Vital Signs: Last Vital Signs Temp 97.8 F 06/14/18 19:55 Pulse 78 06/14/18 19:55 Resp 18 06/14/18 19:55 BP 169/54 H 06/14/18 19:55 Pulse Ox 97 06/14/18 19:55 - Labs Result Diagrams: 06/14/18 15:00 06/14/18 15:00 Labs: Laboratory Results - last 24 hr 06/14/18 06/14/18 06/14/18 15:00 15:00 16:30 WBC 10.5 D RBC 3.94 Hgb 11.8 L Hct 36.6 MCV 92.9 MCH 29.9 MCHC 32.2 RDW 15.1 H Plt Count 272 MPV 10.6 Neut % (Auto) 80.3 H Lymph % (Auto) 9.[address] [facility] % (Auto) 8.8 H Eos % (Auto) 0.7 L Baso % (Auto) 0.3 Lymph # (Auto) 1.[address] [facility] # (Auto) 0.9 H Eos # (Auto) 0.1 Baso # (Auto) 0.03 Absolute Neuts (auto) 8.42 H Sodium 138 Potassium 4.5 Chloride 100 Carbon Dioxide 30 Anion Gap 13 BUN 38 H Creatinine 1.7 H Est GFR ( Amer) 34 Est GFR (Non-Af Amer) 28 Random Glucose 95 Calcium 10.1 Total Bilirubin 0.3 AST 36 D ALT 17 Alkaline Phosphatase 165 H Total Protein 8.2 Albumin 4.5 Globulin 3.7 Albumin/Globulin Ratio 1.2 Urine Color Yellow Urine Appearance Clear Urine pH 7.0 Ur Specific Swisher 1.010 Urine Protein Negative Urine Glucose (UA) Negative Urine Ketones Negative Urine Blood Negative Urine Nitrate Negative Urine Bilirubin Negative Urine Urobilinogen 0.2 Ur Leukocyte Esterase Negative Assessment & Plan - Assessment and Plan (Free Text) Assessment: 88F w/ external hemorrhoid and constipation Plan: Manually disimpacted at bedside Miralax and Colace Continue to monitor return of bowel function If symptoms do not improve, recommend GI consult Medical management per primary team D/w Dr. Doyle Taylor PGY1
[2018-06-14] MEDS: POLYETHYLENE GLYCOL 3350 17 GM/Dose PACKET PO SCH (22:21)
[2018-06-15] MEDS: Pantoprazole 40 mg EC Tab PO SCH (05:38)
[2018-06-15] MEDS: Levothyroxine 50 MCG TAB PO SCH (09:02)
[2018-06-15] MEDS: POLYETHYLENE GLYCOL 3350 17 GM/Dose PACKET PO SCH ×2 (09:08→17:35)
[2018-06-15] MEDS ORDERED: DILTIAZEM PO SCH (10:00)
[2018-06-15] MEDS: diltiaZEM 120 mg/24 Hours CD Cap PO SCH (10:10)
--- NOTE | 2018-06-15 16:02 | CP.PCM.PN ---
Subjective - Date & Time of Evaluation Date of Evaluation: 06/15/18 Time of Evaluation: 12:00 - Subjective Subjective: Surgery Progress note. Dr. Kwon Pt seen and examined at bedside. No acute events reported overnight. Patient reports BM this morning. Rectal discomfort improving. No signs of rectal bleeding. No new complaints. Objective - Vital Signs/Intake and Output Vital Signs (last 24 hours): Temp Pulse Resp BP Pulse Ox 97.7 F 67 20 157/65 H 97 06/15/18 06:00 06/15/18 06:00 06/15/18 06:00 06/15/18 06:00 06/15/18 06:00 Intake and Output: 06/15/18 06/15/18 06:59 18:59 Intake Total 240 Output Total 800 Balance -560 - Medications Medications: Current Medications Alprazolam (Xanax) 0.25 mg PO BID PRN; Protocol PRN Reason: Anxiety Stop: 06/21/18 18:28 Last Admin: 06/14/18 22:21 Dose: 0.25 mg Diltiazem HCl (Cardizem Cd) 120 mg PO DAILY [facility] Docusate Sodium (Colace) 100 mg PO DAILY [facility] Furosemide (Lasix) 20 mg PO DAILY [facility] Levothyroxine Sodium (Synthroid) 50 mcg PO ACB [facility] Last Admin: 06/15/18 09:02 Dose: 50 mcg Pantoprazole Sodium (Protonix Ec Tab) 40 mg PO 0600 [facility] Last Admin: 06/15/18 05:38 Dose: 40 mg Polyethylene Glycol (Miralax) 17 gm PO BID [facility] Last Admin: 06/15/18 09:08 Dose: 17 gm - Labs Labs: 06/14/18 15:00 06/14/18 15:00 - Constitutional Appears: Well, Non-toxic, No Acute Distress - Head Exam Head Exam: ATRAUMATIC, NORMAL INSPECTION, NORMOCEPHALIC - Eye Exam Eye Exam: EOMI, Normal appearance. absent: Scleral icterus - ENT Exam ENT Exam: Mucous Membranes Moist - Respiratory Exam Respiratory Exam: NORMAL BREATHING PATTERN. absent: Accessory Muscle Use, Respiratory Distress - Cardiovascular Exam Cardiovascular Exam: RRR. absent: JVD - GI/Abdominal Exam GI & Abdominal Exam: Soft. absent: Distended, Firm, Guarding, Rigid, Tenderness , Rebound - Rectal Exam Rectal Exam: NORMAL INSPECTION Additional comments: No external hemorrhoids noted. No protruding masses noted. - Neurological Exam Neurological Exam: Alert, Awake, Oriented x3 - Psychiatric Exam Psychiatric exam: Normal Affect, Normal Mood - Skin Skin Exam: Dry, Intact, Normal Color, Warm Assessment and Plan - Assessment and Plan (Free Text) Assessment: 88yo F with constipation and hemorrhoid disease Plan: - Continue stool softeners. Recommended increasing fiber in diet or adding fiber supplements - No surgical intervention warranted at this time - Consider GI evaluation if symptoms recurr/persist Further recs as per Dr. Doyle Charles PGY2 Surgery
[2018-06-15] MEDS: Hemorrohoidal Ointment (2 oz) TOP SCH (18:46)
--- NOTE | 2018-06-15 20:49 | HP ---
DATE OF EXAM: 06/15/2018 HISTORY OF PRESENT ILLNESS: The patient is 88 years old who came to emergency room because of her intractable back pain and abdominal discomfort, having difficulty defecating and having difficulty urinating. The patient stated almost a month ago and she had band ligation done of her hemorrhoids by . Since then, she has been feeling better and she was not having that much rectal discomfort and bleeding, but recently because of discomfort and having difficulty passing urine and bowel, so she came to emergency room. She was evaluated by ER nurse practitioner. She was found to have patulous rectal tone so she ended up having MRI of lumbosacral spine to rule out cauda equina syndrome, but MRI was unremarkable. PAST MEDICAL HISTORY: She has significant past medical history of; 1. Hypertension. 2. Hypothyroidism. 3. Chronic kidney disease. 4. History of hemorrhoids, status post band ligation. 5. History of diverticulitis. 6. Chronic anemia. 7. Chronic back pain. 8. Degenerative disc disease. ALLERGIES: SHE IS ALLERGIC TO; 1. CIPRO. 2. PNEUMOCOCCAL VACCINE. 3. SULFAS. 4. NITROFURANTOIN. 5. PENICILLIN. HOME MEDICATION: She is on; 1. Diazepam. 2. Protonix 40 mg daily. 3. Zofran. 4. Xanax 0.25 mg. 5. Levothyroxine 50 mcg daily. 6. Lasix 40 mg daily. SOCIAL HISTORY: She lives with her son. Denies smoking, drinking or alcohol use. PHYSICAL EXAMINATION GENERAL: She is awake, alert and able to communicate. VITAL SIGNS: She is afebrile. Pulse 67, respirations 20 and blood pressure 157/65. LUNGS: Bilateral fair airflow. No rhonchi or crackle. HEART: S1 and S2, audible. ABDOMEN: Soft and nontender. No rebound. No guarding. NEUROLOGIC: She is awake, alert and able to communicate. Moves all extremities. No paresthesia. No focal deficit noticed. She has generalized weakness, but no focal deficit. LABORATORY DATA: WBC 10.5, hemoglobin 11.8, hematocrit 36.6 and platelets 272. Chemistry; sodium 138, potassium 4.5, chloride 100, CO2 of 30, BUN 38, creatinine 1.7 and blood sugar of 95. LFT's are within normal limits. Urinalysis is unremarkable. She had x-ray of chest done that is negative and she has MRI of lumbosacral spine done that shows normal, no acute fracture, multilevel degenerative disc disease worse at L3 and L4 with diffuse posterior disc bulge, [id number] spinal stenosis and moderate neural foramen narrowing worse on the right. ASSESSMENT 1. Chronic back pain. 2. Rectal discomfort and constipation. 3. Spinal stenosis. 4. Multilevel disc degeneration disease. 5. Hypothyroidism. 6. Anxiety disorder. PLAN: The patient is started on Cardizem. She is on Colace. Continue her on p.o. Lasix. She is on the MiraLax and continue her on Protonix and levothyroxine. Currently she has Butcher catheter. We will order her CBC and CMP for a.m. Kayli Corona MD
[2018-06-16] MEDS: Pantoprazole 40 mg EC Tab PO SCH (05:46)
[2018-06-16 07:18] LABS: BASO # 0.05 K/mm3 (0.0-2.0); BASO % 0.6 % (0.0-3.0); EOS # 0.3 (0.0-0.7); EOS % 3.5 % (1.5-5.0); HEMOGLOBIN 11.8 g/dL (12.0-16.0); LYMPH # 2.3 (1.2-3.4); MEAN CELL VOLUME 91.6 fl (80.0-105.0); MEAN CORPUSCULAR HEMOGLOBIN 29.1 pg (25.0-35.0); MEAN CORPUSCULAR HGB CONC 31.7 g/dl (31.0-37.0); MEAN PLATELET VOLUME 10.4 fl (7.0-11.0); MONO # 0.7 (0.1-0.6); MONO % 8.5 % (1.0-6.0); RBC 4.06 10^6/uL (3.5-6.1); RED CELL DISTRIBUTION WIDTH 15.3 % (11.5-14.5); WHITE BLOOD COUNT 7.9 10^3/uL (4.5-11.0)
[2018-06-16 07:21] VITALS: RESP 20; O2SAT 96
[2018-06-16 07:37] LABS: ALB/GLOB RATIO 1.2 (1.1-1.8); ALBUMIN 4.2 g/dL (3.0-4.8); CALCIUM 9.8 mg/dL (8.4-10.5)
[2018-06-16] MEDS: Levothyroxine 50 MCG TAB PO SCH (08:25)
--- NOTE | 2018-06-16 08:52 | CP.PCM.DIS ---
<AlessiakarlieElis jalloh - Last Filed: 06/16/18 17:37> Provider - Provider Date of Admission: 06/14/18 16:34 Attending physician: Wil Phillips MD Primary care physician: Padmini Smith MD Consults: 06/14/18 17:40 Physician Consult Stat Comment: Consulting Provider: Blu Kwon Consulting Physician: Blu Kwon Reason for Consult: constipation; hx of hemorrhoids . 06/15/18 12:43 Consult [Physician Consult] Routine Comment: Consulting Provider: Blu Kwon Consulting Physician: Blu Kwon Reason for Consult: rectal discomfort Time Spent in preparation of Discharge (in minutes): 45 Diagnosis - Discharge Diagnosis (1) Constipation Status: Resolved (2) Urinary retention Status: Resolved (3) Hypertension Status: Chronic (4) Hypothyroid Status: Chronic (5) CKD (chronic kidney disease) Status: Chronic Hospital Course - Lab Results Lab Results: Micro Results 06/14/18 16:30 Urine Random Urine Culture - Final No Growth (<1,000 CFU/ML) Most Recent Lab Values WBC 7.9 10^3/uL (4.5-11.0) D 06/16/18 07:00 RBC 4.06 10^6/uL (3.5-6.1) 06/16/18 07:00 Hgb 11.8 g/dL (12.0-16.0) L 06/16/18 07:00 Hct 37.2 % (36.0-48.0) 06/16/18 07:00 MCV 91.6 fl (80.0-105.0) 06/16/18 07:00 MCH 29.1 pg (25.0-35.0) 06/16/18 07:00 MCHC 31.7 g/dl (31.0-37.0) 06/16/18 07:00 RDW 15.3 % (11.5-14.5) H 06/16/18 07:00 Plt Count 265 10^3/uL (120.0-450.0) 06/16/18 07:00 MPV 10.4 fl (7.0-11.0) 06/16/18 07:00 Neut % (Auto) 58.4 % (50.0-68.0) 06/16/18 07:00 Lymph % (Auto) 29.0 % (22.0-35.0) 06/16/18 07:00 [place] % (Auto) 8.5 % (1.0-6.0) H 06/16/18 07:00 Eos % (Auto) 3.5 % (1.5-5.0) 06/16/18 07:00 Baso % (Auto) 0.6 % (0.0-3.0) 06/16/18 07:00 Lymph # (Auto) 2.3 (1.2-3.4) 06/16/18 07:00 [place] # (Auto) 0.7 (0.1-0.6) H 06/16/18 07:00 Eos # (Auto) 0.3 (0.0-0.7) 06/16/18 07:00 Baso # (Auto) 0.05 K/mm3 (0.0-2.0) 06/16/18 07:00 Absolute Neuts (auto) 4.60 (1.4-6.5) 06/16/18 07:00 Sodium 139 mmol/L (132-148) 06/16/18 07:00 Potassium 4.5 mmol/L (3.6-5.0) 06/16/18 07:00 Chloride 102 mmol/L (98-107) 06/16/18 07:00 Carbon Dioxide 29 mmol/L (21-33) 06/16/18 07:00 Anion Gap 13 (10-20) 06/16/18 07:00 BUN 27 mg/dL (7-21) H 06/16/18 07:00 Creatinine 1.7 mg/dl (0.7-1.2) H 06/16/18 07:00 Est GFR ( Amer) 34 06/16/18 07:00 Est GFR (Non-Af Amer) 28 06/16/18 07:00 Random Glucose 91 mg/dL (70-110) 06/16/18 07:00 Calcium 9.8 mg/dL (8.4-10.5) 06/16/18 07:00 Total Bilirubin 0.3 mg/dL (0.2-1.3) 06/16/18 07:00 AST 34 U/L (14-36) 06/16/18 07:00 ALT 11 U/L (7-56) 06/16/18 07:00 Alkaline Phosphatase 156 U/L (38-126) H 06/16/18 07:00 Total Protein 7.7 g/dL (5.8-8.3) 06/16/18 07:00 Albumin 4.2 g/dL (3.0-4.8) 06/16/18 07:00 Globulin 3.5 gm/dL 06/16/18 07:00 Albumin/Globulin Ratio 1.2 (1.1-1.8) 06/16/18 07:00 Urine Color Yellow (YELLOW) 06/14/18 16:30 Urine Appearance Clear (CLEAR) 06/14/18 16:30 Urine pH 7.0 (4.7-8.0) 06/14/18 16:30 Ur Specific [place] 1.010 (1.005-1.035) 06/14/18 16:30 Urine Protein Negative mg/dL (<30 mg/dL) 06/14/18 16:30 Urine Glucose (UA) Negative mg/dL (NEGATIVE) 06/14/18 16:30 Urine Ketones Negative mg/dL (NEGATIVE) 06/14/18 16:30 Urine Blood Negative (NEGATIVE) 06/14/18 16:30 Urine Nitrate Negative (NEGATIVE) 06/14/18 16:30 Urine Bilirubin Negative (NEGATIVE) 06/14/18 16:30 Urine Urobilinogen 0.2 E.U./dL (<1 E.U./dL) 06/14/18 16:30 Ur Leukocyte Esterase Negative Idania/uL (NEGATIVE) 06/14/18 16:30 - Hospital Course Hospital Course: Patient is an 88 y/o with pmh of htn, hypothyrodism, scoliosis, h/o diverticulitis, hemorrhoid who present to the ED with inability to void and constipation for 2 days. Patient states a month ago, she underwent hemorrhoidectomy, and since then she's been having change in bowel habits. Patient was found to be impacted in the emergency room, and had to be manually disimpacted. Patient was also found to be retaining urine thus Butcher catheter was inserted. Blood work with mild anemia, and creatinine was around her baseline. Ua was normal. 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 Patient was evaluated by PT and recommended discharge home. Patient to be discharged and to continue with bowel regiment. Diet: high fiber, low residue diet, 2 gram sodium Activity: resume baseline activity - Date & Time of H&P Date of H&P: 06/15/18 Time of H&P: 13:37 Discharge Exam - Head Exam Head Exam: ATRAUMATIC, NORMAL INSPECTION, NORMOCEPHALIC - Eye Exam Eye Exam: EOMI, Normal appearance, PERRL. absent: Scleral icterus Pupil Exam: NORMAL ACCOMODATION - ENT Exam ENT Exam: Mucous Membranes Moist - Neck Exam Neck exam: Normal Inspection - Respiratory Exam Respiratory Exam: Clear to PA & Lateral, NORMAL BREATHING PATTERN, UNREMARKABLE. absent: Prolonged Expiratory Phase, Rales, Rhonchi, Wheezes, Respiratory Distress, Stridor - Cardiovascular Exam Cardiovascular Exam: REGULAR RHYTHM, RRR, +S1, +S2. absent: Bradycardia, Tachycardia, Gallop, JVD, Rubs, Systolic Murmur - GI/Abdominal Exam GI & Abdominal Exam: Normal Bowel Sounds, Unremarkable. absent: Diminished Bowel Sounds, Distended, Hyperactive Bowel Sounds, Rebound, Rigid, Soft, Tenderness - Extremities Exam Extremities exam: normal inspection - Back Exam Back exam: NORMAL INSPECTION - Psychiatric Exam Psychiatric exam: Normal Affect, Normal Mood - Skin Skin Exam: Dry, Intact, Normal Color, Warm Discharge Plan - Discharge Medications Prescriptions: Docusate [Colace] 100 mg PO DAILY PRN 30 Days #30 cap PRN Reason: Constipation Hemorrohoidal Ointment [Prep-Hem] 1 ea TOP BID PRN #1 tube PRN Reason: Pain, Moderate (4-7) Polyethylene Glycol 3350 [Miralax] 17 gm PO BID PRN #60 packet PRN Reason: Constipation - Follow Up Plan Condition: FAIR Disposition: HOME/ ROUTINE Instructions: Constipation in Adults, High Fiber Diet, Smoking: Not Just Harmful to Your Lungs and Heart Additional Instructions: Please take the miralax and colace as needed for the constipation. Continue with the rest of your home medications. Please follow up with your primary care doctor in 5-7 days. Please return if the symptoms returns or call 911. Referrals: Padmini Smith MD [Primary Care Provider] - <Wil Phillips - Last Filed: 06/16/18 18:11> Provider - Provider Date of Admission: 06/14/18 16:34 Attending physician: Wil Phillips MD Primary care physician: Padmini Smith MD Consults: 06/14/18 17:40 Physician Consult Stat Comment: Consulting Provider: Blu Kwon Consulting Physician: Blu Kwon Reason for Consult: constipation; hx of hemorrhoids . 06/15/18 12:43 Consult [Physician Consult] Routine Comment: Consulting Provider: Blu Kwon Consulting Physician: Blu Kwon Reason for Consult: rectal discomfort Hospital Course - Lab Results Lab Results: Micro Results 06/14/18 16:30 Urine Random Urine Culture - Final No Growth (<1,000 CFU/ML) Most Recent Lab Values WBC 7.9 10^3/uL (4.5-11.0) D 06/16/18 07:00 RBC 4.06 10^6/uL (3.5-6.1) 06/16/18 07:00 Hgb 11.8 g/dL (12.0-16.0) L 06/16/18 07:00 Hct 37.2 % (36.0-48.0) 06/16/18 07:00 MCV 91.6 fl (80.0-105.0) 06/16/18 07:00 MCH 29.1 pg (25.0-35.0) 06/16/18 07:00 MCHC 31.7 g/dl (31.0-37.0) 06/16/18 07:00 RDW 15.3 % (11.5-14.5) H 06/16/18 07:00 Plt Count 265 10^3/uL (120.0-450.0) 06/16/18 07:00 MPV 10.4 fl (7.0-11.0) 06/16/18 07:00 Neut % (Auto) 58.4 % (50.0-68.0) 06/16/18 07:00 Lymph % (Auto) 29.0 % (22.0-35.0) 06/16/18 07:00 [place] % (Auto) 8.5 % (1.0-6.0) H 06/16/18 07:00 Eos % (Auto) 3.5 % (1.5-5.0) 06/16/18 07:00 Baso % (Auto) 0.6 % (0.0-3.0) 06/16/18 07:00 Lymph # (Auto) 2.3 (1.2-3.4) 06/16/18 07:00 [place] # (Auto) 0.7 (0.1-0.6) H 06/16/18 07:00 Eos # (Auto) 0.3 (0.0-0.7) 06/16/18 07:00 Baso # (Auto) 0.05 K/mm3 (0.0-2.0) 06/16/18 07:00 Absolute Neuts (auto) 4.60 (1.4-6.5) 06/16/18 07:00 Sodium 139 mmol/L (132-148) 06/16/18 07:00 Potassium 4.5 mmol/L (3.6-5.0) 06/16/18 07:00 Chloride 102 mmol/L (98-107) 06/16/18 07:00 Carbon Dioxide 29 mmol/L (21-33) 06/16/18 07:00 Anion Gap 13 (10-20) 06/16/18 07:00 BUN 27 mg/dL (7-21) H 06/16/18 07:00 Creatinine 1.7 mg/dl (0.7-1.2) H 06/16/18 07:00 Est GFR ( Amer) 34 06/16/18 07:00 Est GFR (Non-Af Amer) 28 06/16/18 07:00 Random Glucose 91 mg/dL (70-110) 06/16/18 07:00 Calcium 9.8 mg/dL (8.4-10.5) 06/16/18 07:00 Total Bilirubin 0.3 mg/dL (0.2-1.3) 06/16/18 07:00 AST 34 U/L (14-36) 06/16/18 07:00 ALT 11 U/L (7-56) 06/16/18 07:00 Alkaline Phosphatase 156 U/L (38-126) H 06/16/18 07:00 Total Protein 7.7 g/dL (5.8-8.3) 06/16/18 07:00 Albumin 4.2 g/dL (3.0-4.8) 06/16/18 07:00 Globulin 3.5 gm/dL 06/16/18 07:00 Albumin/Globulin Ratio 1.2 (1.1-1.8) 06/16/18 07:00 Urine Color Yellow (YELLOW) 06/14/18 16:30 Urine Appearance Clear (CLEAR) 06/14/18 16:30 Urine pH 7.0 (4.7-8.0) 06/14/18 16:30 Ur Specific [place] 1.010 (1.005-1.035) 06/14/18 16:30 Urine Protein Negative mg/dL (<30 mg/dL) 06/14/18 16:30 Urine Glucose (UA) Negative mg/dL (NEGATIVE) 06/14/18 16:30 Urine Ketones Negative mg/dL (NEGATIVE) 06/14/18 16:30 Urine Blood Negative (NEGATIVE) 06/14/18 16:30 Urine Nitrate Negative (NEGATIVE) 06/14/18 16:30 Urine Bilirubin Negative (NEGATIVE) 06/14/18 16:30 Urine Urobilinogen 0.2 E.U./dL (<1 E.U./dL) 06/14/18 16:30 Ur Leukocyte Esterase Negative [place]/uL (NEGATIVE) 06/14/18 16:30 - Hospital Course Hospital Course: Pt seen and examined by me. I have reviewed the note of the medical equipment sales and I agree with it. I have discussed the assessment and plan with the resident. I have reviewed the medications and the last labs.
[2018-06-16] MEDS: POLYETHYLENE GLYCOL 3350 17 GM/Dose PACKET PO SCH (10:45)
[2018-06-16] MEDS: diltiaZEM 120 mg/24 Hours CD Cap PO SCH (10:45)
[2018-06-16] MEDS: Hemorrohoidal Ointment (2 oz) TOP SCH (10:46)
[2018-06-16 15:02] VITALS: BP 138/68; PULSE 71; TEMP 97.2
--- NOTE | 2018-06-17 03:07 | DS ---
HISTORY OF PRESENT ILLNESS: The patient was seen and examined. I do agree with the note of the medical education coordinator. I was involved in the plan of care. The patient had come to the hospital because she had urinary retention secondary to constipation. She was given laxatives and she had improvement of her symptoms. Her Butcher that was placed because of the urinary retention will be taken out today, able to urinate, and she will be discharged home. The patient has hypothyroidism and is going to be on her Synthroid. The patient has CKD stage 3-4. She is on MiraLax for her constipation. She is on her regular diet. She is obese with a BMI of 30. She has hypertension that is controlled on Cardizem. She will be discharged to follow up with her primary care doctor, . CONDITION: Stable. ACTIVITIES: Increase as tolerated. Wil Phillips MD
== END 2018-06-16 19:39 | disposition home health service (06) ==
LOC: ED 13:05 → ERH 16:34 → 5RNO 19:07
PROVIDERS: ADMIT Internal Medicine Nephrology; ATTEND Internal Medicine Nephrology
DX: K59.00 Constipation, unspecified (principal); R33.9 Retention of urine, unspecified; I13.0 Hypertensive heart and chronic kidney disease with heart failure and stage 1 through stage 4 chronic kidney disease, or unspecified chronic kidney disease; I50.9 Heart failure, unspecified; N18.4 Chronic kidney disease, stage 4 (severe); E11.22 Type 2 diabetes mellitus with diabetic chronic kidney disease; M48.061 Spinal stenosis, lumbar region without neurogenic claudication; M47.896 Other spondylosis, lumbar region; E03.9 Hypothyroidism, unspecified; D64.9 Anemia, unspecified; F41.9 Anxiety disorder, unspecified; G89.29 Other chronic pain; K64.4 Residual hemorrhoidal skin tags; M41.9 Scoliosis, unspecified; E66.9 Obesity, unspecified; Z68.30 Body mass index [BMI] 30.0-30.9, adult; Z86.010 Personal history of colon polyps; Z88.0 Allergy status to penicillin; Z88.2 Allergy status to sulfonamides
CPT/HCPCS: 36415; 71045; 72148; 80053; 81003; 85025; 87086; 97116; 97161; 99285; G0378; G8978; G8979

== ENCOUNTER 2018-07-15 17:19 | Emergency (ER) | payer MEDICARE, BC | END 2018-07-15 21:11 | disposition home or self-care (01) | LOC: ED 17:19 ==

== ENCOUNTER 2018-07-19 17:26 | Inpatient (IN) | payer MEDICARE, BC ==
[2018-07-19 18:07] LABS: VENOUS BLOOD GAS BASE EXCESS 1.7 mmol/L (0.0-2.0); VENOUS BLOOD GAS PO2 31 mm/Hg (30-55); VENOUS BLOOD PH 7.39 (7.32-7.43)
[2018-07-19 18:16] LABS: BASO # 0.04 {null, K/mm3} (0.0-2.0); BASO % 0.5 % (0.0-3.0); EOS # 0.1 (0.0-0.7); EOS % 1.2 % (1.5-5.0); HEMOGLOBIN 12.4 g/dL (12.0-16.0); LYMPH # 1.3 (1.2-3.4); LYMPH % 16.2 % (22.0-35.0); MEAN CELL VOLUME 90.3 fl (80.0-105.0); MEAN CORPUSCULAR HGB CONC 33.2 g/dl (31.0-37.0); MEAN PLATELET VOLUME 10.6 fl (7.0-11.0); MONO # 0.6 (0.1-0.6); MONO % 7.6 % (1.0-6.0); RBC 4.13 {null, 10^6/uL} (3.5-6.1); RED CELL DISTRIBUTION WIDTH 14.2 % (11.5-14.5); WHITE BLOOD COUNT 8.1 {null, 10^3/uL} (4.5-11.0)
[2018-07-19 18:19] LABS: ALB/GLOB RATIO 1.4 (1.1-1.8); ALBUMIN 4.6 g/dL (3.0-4.8); ALT/SGPT 56 U/L (7-56); AST/SGOT 35 U/L (14-36); BLOOD UREA NITROGEN 35 mg/dL (7-21); CALCIUM 9.7 mg/dL (8.4-10.5); GFR NON-AFRICAN AMERICAN 28; LIPASE 94 U/L (23-300)
--- NOTE | 2018-07-19 18:21 | ED PDOC ---
Arrival/HPI - General Historian: Patient - History of Present Illness Narrative History of Present Illness (Text): 07/19/18 18:21 88yr old female presents today c/o vaginal rash and feeling short of breath. Patient's kier boiler states that the patient was not complaining of anything this morning and was eating. The kier boiler states that around 1 hour prior to coming into the hospital the patient came out into the room dressed up saying that she wanted to go to the hospital. Patient is complaining of shortness of breath but denies chest pain. Patient states she has a rash throughout her body and states that she has a fungal infection and she believes that the infection has spread to her whole body. The patient is complaining of burning in the vaginal area as well as burning underneath the axilla. Patient denies abdominal pain. She denies back pain. Patient's kier boiler denies fevers at home. No other complaints. <Virginia Chatterjee - Last Filed: 07/19/18 19:11> <Marleny Hernandez PA-C - Last Filed: 07/19/18 20:44> - General Chief Complaint: Shortness Of Breath Time Seen by Provider: 07/19/18 17:40 Past Medical History - Provider Review Nursing Documentation Reviewed: Yes - Travel History Have you recently traveled outside [place] w/in the past 3 mons?: No - Past History Past History: Non-Contributing - Infectious Disease Hx of Infectious Diseases: None - Tetanus Immunization Tetanus Immunization: Unknown - Reproductive Menopause: Yes - Cardiac Hx Congestive Heart Failure: Yes Hx Hypertension: Yes - Pulmonary Hx Respiratory Disorders: Yes Other/Comment: SOB - Neurological Hx Neurological Disorder: Yes (near syncope) Hx Dizziness: Yes (vertigo) - HEENT Hx HEENT Disorder: Yes (pt denies [place]) - Renal Hx Renal Failure: Yes (CKD) - Endocrine/Metabolic Hx Diabetes Mellitus Type 2: Yes Hx Hypothyroidism: Yes - Hematological/Oncological Hx Anemia: Yes Hx Cancer: Yes - Integumentary Other/Comment: Skin Cad[place] - Musculoskeletal/Rheumatological Hx Falls: Yes - Gastrointestinal Hx Gastrointestinal Disorders: Yes (DYSPHAGIA,COLON POLYPS,DIVERTICULITIS) Hx Constipation: Yes - Genitourinary/Gynecological Hx Reproductive Disorders: No - Psychiatric Hx Anxiety: Yes Hx Depression: Yes Hx Substance Use: No - Past Surgical History Past Surgical History: Non-Contributing - Surgical History Hx Orthopedic Surgery: Yes (right knee) - Anesthesia Hx Anesthesia: Yes Hx Anesthesia Reactions: No Hx Malignant Hyperthermia: No - Suicidal Assessment Feels Threatened In Home Enviroment: No <Virginia Chatterjee - Last Filed: 07/19/18 19:11> Family/Social History - Physician Review Nursing Documentation Reviewed: Yes Family/Social History: Unknown Family HX Smoking Status: Never Smoked Hx Alcohol Use: No Hx Substance Use: No Hx Substance Use Treatment: No <Virginia Chatterjee - Last Filed: 07/19/18 19:11> Allergies/Home Meds <Virginia Chatterjee - Last Filed: 07/19/18 19:11> <Marleny Hernandez PA-C - Last Filed: 07/19/18 20:44> Allergies/Adverse Reactions: Allergies ciprofloxacin [From Cipro] Allergy (Verified 07/19/18 20:16) .unknown ciprofloxacin HCl [From Cipro] Allergy (Verified 07/19/18 20:16) RASH pneumococcal vaccine Allergy (Verified 07/19/18 20:16) RASH sulfamethoxazole [From Bactrim] Allergy (Verified 07/19/18 20:16) RASH trimethoprim [From Bactrim] Allergy (Verified 07/19/18 20:16) RASH nitrofurantoin Adverse Reaction (Verified 07/19/18 20:16) RASH Penicillins Adverse Reaction (Verified 07/19/18 20:16) SWELLING Home Medications: Home Meds Medication Instructions Recorded Confirmed Ondansetron HCl [Zofran] 1 tab PO Q6 PRN 03/11/18 06/14/18 Furosemide [Lasix] 1 tab PO DAILY 06/14/18 06/14/18 diltiaZEM [Cardizem] 1 tab PO DAILY 06/14/18 06/14/18 Review of Systems - Review of Systems Constitutional: Fatigue. absent: Fevers ENT: absent: Sore Throat, Sinus Congestion Respiratory: SOB. absent: Cough Cardiovascular: absent: Chest Pain, Palpitations Gastrointestinal: absent: Abdominal Pain, Diarrhea, Vomiting Genitourinary Female: Dysuria, Other (vaginal irritation). absent: Frequency Musculoskeletal: absent: Arthralgias, Back Pain, Neck Pain Skin: Rash Neurological: absent: Headache <Virginia Chatterjee - Last Filed: 07/19/18 19:11> Physical Exam Vital Signs Reviewed: Yes Vital Signs Temp Pulse Resp BP Pulse Ox 07/19/18 17:55 85 18 99 07/19/18 17:41 97.4 F L 102 H 20 197/77 H 97 Temperature: Afebrile Blood Pressure: Hypertensive Pulse: Regular Respiratory Rate: Normal Appearance: Positive for: Well-Appearing, Non-Toxic, Comfortable Pain Distress: None Mental Status: Positive for: Alert and Oriented X 3 - Systems Exam Head: Present: Atraumatic Mouth: Present: Moist Mucous Membranes Neck: Present: Normal Range of Motion Respiratory/Chest: Present: Clear to Auscultation, Good Air Exchange. No: Respiratory Distress, Accessory Muscle Use Cardiovascular: Present: Regular Rate and Rhythm, Normal S1, S2. No: Murmurs Abdomen: No: Tenderness, Distention, Peritoneal Signs, Rebound, Guarding Genitourinary/Pelvic Exam: Present: Normal External Genitalia, Other (no erythema. no rash) Back: Present: Normal Inspection, Other (no rash) Upper Extremity: Present: Normal ROM Lower Extremity: Present: Normal ROM Neurological: Present: GCS=15 Skin: Present: Warm, Dry, Normal Color Psychiatric: Present: Alert, Oriented x 3 <Virginia Chatterjee T - Last Filed: 07/19/18 19:11> Vital Signs Temp Pulse Resp BP Pulse Ox 07/19/18 19:27 77 18 154/80 H 96 07/19/18 17:55 85 18 99 07/19/18 17:41 97.4 F L 102 H 20 197/77 H 97 <Marleny Hernandez PA-C - Last Filed: 07/19/18 20:44> Medical Decision Making ED Course and Treatment: 07/19/18 18:25 88yr old female with sob and c/o "infection throughtout body" pt seen and evaluated by dr. Chacon. cbc; wnl cmp BUN: 35 CR; 1.7 INR; wnl lactate; 0.6 trop: wnl bnp WNL Dimer; elevated at 972 ekg; normal sinus rhythm at 77 bpm normal axis no ST elevations QTC 430 Chest x-ray:no infiltrate, no effusion UA; wnl pt with elevated D-dimer; vq ordered. VQ: case signed out to Marleny FELDMAN pending VQ scan results. case discussed with dr. Phillips; will admit obs to tele. impression; Shortness of breath, renal insufficiency tele obs. Reassessment Condition: Re-examined, Improved - Lab Interpretations Lab Results: pO2 31 mm/Hg (30-55) 07/19/18 18:00 VBG pH 7.39 (7.32-7.43) 07/19/18 18:00 VBG pCO2 45.0 (40-60) 07/19/18 18:00 VBG HCO3 27.2 mmol/l (21-28) 07/19/18 18:00 VBG Total CO2 28.6 mmol.L (22-28) H 07/19/18 18:00 VBG O2 Sat (Calc) 69.9 % (40-65) H 07/19/18 18:00 VBG Base Excess 1.7 mmol/L (0.0-2.0) 07/19/18 18:00 VBG Potassium 4.5 mmol/L (3.6-5.2) 07/19/18 18:00 Sodium 128.0 mmol/L (132-148) L 07/19/18 18:00 Chloride 92.0 mmol/L (98-107) L 07/19/18 18:00 Glucose 108 mg/dl (65-105) H 07/19/18 18:00 Lactate 0.7 mmol/L (0.7-2.1) 07/19/18 18:00 FiO2 21.0 % 07/19/18 18:00 - RAD Interpretation Radiology Orders: 07/19/18 17:49 CHEST PORTABLE [RAD] Stat <Virginia Chatterjee T - Last Filed: 07/19/18 19:11> - Lab Interpretations Lab Results: pO2 31 mm/Hg (30-55) 07/19/18 18:00 VBG pH 7.39 (7.32-7.43) 07/19/18 18:00 VBG pCO2 45.0 (40-60) 07/19/18 18:00 VBG HCO3 27.2 mmol/l (21-28) 07/19/18 18:00 VBG Total CO2 28.6 mmol.L (22-28) H 07/19/18 18:00 VBG O2 Sat (Calc) 69.9 % (40-65) H 07/19/18 18:00 VBG Base Excess 1.7 mmol/L (0.0-2.0) 07/19/18 18:00 VBG Potassium 4.5 mmol/L (3.6-5.2) 07/19/18 18:00 Sodium 128.0 mmol/L (132-148) L 07/19/18 18:00 Chloride 92.0 mmol/L (98-107) L 07/19/18 18:00 Glucose 108 mg/dl (65-105) H 07/19/18 18:00 Lactate 0.7 mmol/L (0.7-2.1) 07/19/18 18:00 FiO2 21.0 % 07/19/18 18:00 PT 11.2 SECONDS (9.4-12.5) 07/19/18 18:15 INR 1.01 07/19/18 18:15 APTT 42.3 Seconds (26.9-38.3) H 07/19/18 18:15 D-Dimer, Quantitative 972 ng/mlDDU (0-243) H 07/19/18 18:00 Troponin I < 0.01 ng/mL 07/19/18 18:00 NT-Pro-B Natriuret Pep 279 pg/mL (0-450) 07/19/18 18:00 Total Bilirubin 0.3 mg/dL (0.2-1.3) 07/19/18 18:00 AST 35 U/L (14-36) 07/19/18 18:00 ALT 56 U/L (7-56) 07/19/18 18:00 Alkaline Phosphatase 211 U/L (38-126) H D 07/19/18 18:00 Total Protein 8.0 g/dL (5.8-8.3) 07/19/18 18:00 Albumin 4.6 g/dL (3.0-4.8) 07/19/18 18:00 Globulin 3.3 gm/dL 07/19/18 18:00 Albumin/Globulin Ratio 1.4 (1.1-1.8) 07/19/18 18:00 Lipase 94 U/L (23-300) 07/19/18 18:00 Urine Color Yellow (YELLOW) 07/19/18 18:15 Urine Appearance Clear (CLEAR) 07/19/18 18:15 Urine pH 6.0 (4.7-8.0) 07/19/18 18:15 Ur Specific [place] 1.010 (1.005-1.035) 07/19/18 18:15 Urine Protein Negative mg/dL (<30 mg/dL) 07/19/18 18:15 Urine Glucose (UA) Negative mg/dL (NEGATIVE) 07/19/18 18:15 Urine Ketones Negative mg/dL (NEGATIVE) 07/19/18 18:15 Urine Blood Negative (NEGATIVE) 07/19/18 18:15 Urine Nitrate Negative (NEGATIVE) 07/19/18 18:15 Urine Bilirubin Negative (NEGATIVE) 07/19/18 18:15 Urine Urobilinogen 0.2 E.U./dL (<1 E.U./dL) 07/19/18 18:15 Ur Leukocyte Esterase Negative [place]/uL (NEGATIVE) 07/19/18 18:15 - RAD Interpretation Narrative RAD Interpretations (Text): 07/19/18 20:43 VQ scan : Normal ventilation / perfusion study. As read by Gerard Catherine 07/19/2018 20:32. Radiology Orders: 07/19/18 17:49 CHEST PORTABLE [RAD] Stat 07/19/18 18:32 LUNG PERF & VENT SCAN [NM] Stat <Marleny Hernandez PA-C - Last Filed: 07/19/18 20:44> Disposition/Present on Arrival - Present on Arrival Any Indicators Present on Arrival: No History of DVT/PE: No History of Uncontrolled Diabetes: No Urinary Catheter: No History of Decub. Ulcer: No History Surgical Site Infection Following: None - Disposition Have Diagnosis and Disposition been Completed?: Yes Disposition Time: 18:28 Patient Plan: Observation, Telemetry <Virginia Chatterjee - Last Filed: 07/19/18 19:11> <Marleny Hernandze PA-C - Last Filed: 07/19/18 20:44> - Disposition Diagnosis: Shortness of breath, Vaginal irritation, Renal insufficiency Disposition: HOSPITALIZED Patient Problems: Current Active Problems Problem Status Onset SOB (shortness of breath) Acute Vaginal irritation Acute Renal insufficiency Acute Condition: FAIR
[2018-07-19 18:30] LABS: B-TYPE NATRIURETIC PEPTIDE 279 pg/mL (0-450); TROPONIN I < 0.01 ng/mL
[2018-07-19 18:44] LABS: URINE APPEARANCE CLEAR (CLEAR); URINE BILIRUBIN NEGATIVE (NEGATIVE); URINE BLOOD NEGATIVE (NEGATIVE); URINE COLOR YELLOW (YELLOW); URINE GLUCOSE (UA) NEGATIVE (NEGATIVE); URINE LEUKOCYTE ESTERASE NEGATIVE Leu/uL (NEGATIVE); URINE PROTEIN NEGATIVE mg/dL (<30 mg/dL); URINE UROBILINOGEN 0.2 E.U./dL (<1 E.U./dL)
[2018-07-19 18:48] LABS: INR 1.01; PARTIAL THROMBOPLASTIN TIME 42.3 Seconds (26.9-38.3); PROTHROMBIN TIME 11.2 SECONDS (9.4-12.5)
[2018-07-19 21:32] VITALS: BMI 32.3
[2018-07-19] MEDS ORDERED: POLYETHYLENE GLYCOL 3350 17 GM/Dose PACKET PO PRN (21:47)
[2018-07-20] MEDS: Pantoprazole 40 mg EC Tab PO SCH (05:30)
[2018-07-20] MEDS: Levothyroxine 50 MCG TAB PO SCH (07:11)
[2018-07-20] MEDS ORDERED: Sodium Chloride 0.9% 1,000 ML IV SCH (08:30)
--- NOTE | 2018-07-20 09:13 | RAD ---
Date of service: 07/19/2018 HISTORY: sob COMPARISON: Chest radiograph dated 06/14/2018. TECHNIQUE: 1 view obtained. FINDINGS: LUNGS: Stable chronic prominence of the bilateral interstitial markings. No focal consolidation. PLEURA: No significant pleural effusion identified, no pneumothorax apparent. CARDIOVASCULAR: Aortic atherosclerotic calcifications. Cardiomediastinal silhouette stably enlarged OSSEOUS STRUCTURES: Changed. VISUALIZED UPPER ABDOMEN: Normal. OTHER FINDINGS: None. IMPRESSION: No active disease.
[2018-07-20] MEDS: diltiaZEM 120 mg/24 Hours CD Cap PO SCH (09:15)
--- NOTE | 2018-07-20 10:12 | CARD ---
APPROVED REPORT Date of service: 07/19/2018 EKG Measurement Heart [id number] <Conclusion> Poor data quality, interpretation may be adversely affected Normal sinus rhythm Normal ECG
--- NOTE | 2018-07-20 10:53 | CP.PCM.HP ---
<Jose G Nassar - Last Filed: 07/20/18 10:43> History of Present Illness - History of Present Illness History of Present Illness: H&P for Dr. Phillips CC: dizziness, perianal discomfort HPI: 88 F with a PMHx of CKD3-4, CHF, HTN, dyslipidemia, DM2, CVA, hypothyroidism, hemorrhoids s/p hemmroidectomy, GERD and spinal stenosis [place] [facility] with complaints of perianal burning and dizziness and fatigue. Patient had visited her senior major gifts officer and was prescribed diflucan however patient could not tolerate the medication. Patient also visited her alley cleaner, however is not sure if she was given any medications at that time. She states she has bad reactions to many medications. Patient has a home health aid that visits. Patient denied fever, chills, shortness of breath, chest pains, abdominal pains, nausea, vomiting, constipation. Patient has had loose stools recently and noted to exacerbate her perianal discomfort. PMHx: CKD3-4, CHF, hx diverticulitis, HTN, dyslipidemia, DM2, CVA, hypothyroidism, hemorrhoids s/p hemmroidectomy, GERD and spinal stenosis PSHx: Hemmorrhoidectomy SHx: Home health aid at home, denied tobacco eoth or illicit drugs FamHx: HI Meds: MAR reviewed Allergies: List reviewed PMD: Dr. Smith Present on Admission - Present on Admission Any Indicators Present on Admission: No Review of Systems - Review of Systems Review of Systems: as per HPI otherwise negative Past Patient History - Infectious Disease Hx of Infectious Diseases: None - Tetanus Immunizations Tetanus Immunization: Unknown - Past Social History Smoking Status: Never Smoked - CARDIAC Hx Cardiac Disorders: Yes (NSTEMI) Hx Circulatory Problems: Yes Hx Congestive Heart Failure: Yes Hx Hypertension: Yes Hx Peripheral Edema: Yes - PULMONARY Hx Respiratory Disorders: Yes Other/Comment: SOB - NEUROLOGICAL Hx Neurological Disorder: Yes (near syncope) HX Cerebrovascular Accident: Yes Hx Dizziness: Yes (vertigo) - HEENT Hx HEENT Problems: Yes Hx Deafness: Yes ([place]) - RENAL Hx Chronic Kidney Disease: Yes Hx Pyelonephritis: Yes Hx Renal Failure: Yes (CKD) - ENDOCRINE/METABOLIC Hx Endocrine Disorders: Yes Hx Diabetes Mellitus Type 2: Yes Hx Hypothyroidism: Yes - HEMATOLOGICAL/ONCOLOGICAL Hx Blood Disorders: Yes Hx Anemia: Yes Hx Cancer: Yes Hx Shingles: Yes - INTEGUMENTARY Hx Dermatological Problems: Yes Other/Comment: Skin Candidiassis - MUSCULOSKELETAL/RHEUMATOLOGICAL Hx Musculoskeletal Disorders: Yes (RADICULOPATHY) Hx Falls: Yes Hx Osteoarthritis: Yes Hx Unsteady Gait: Yes ([place]ALK[place]) - GASTROINTESTINAL Hx Gastrointestinal Disorders: Yes (DYSPHAGIA,COLON POLYPS,DIVERTICULITIS) Hx Diverticulitis: Yes Hx Gastroesophageal Reflux: Yes Other/Comment: HEMORRHOIDS WITH HEMORRHOIDECTOMY,CONSTIPATION - GENITOURINARY/GYNECOLOGICAL Hx Genitourinary Disorders: Yes Hx Urinary Tract Infection: Yes Other/Comment: DYSURIA - PSYCHIATRIC Hx Psychophysiologic Disorder: Yes Hx Anxiety: Yes Hx Depression: Yes Hx Substance Use: No - SURGICAL HISTORY Hx Surgeries: Yes (HEMORRHOIDECTOMY) Hx Orthopedic Surgery: Yes (right knee) - ANESTHESIA Hx Anesthesia: Yes Hx Anesthesia Reactions: No Hx Malignant Hyperthermia: No Meds Allergies/Adverse Reactions: Allergies Allergy/AdvReac Type Severity Reaction Status Date / Time ciprofloxacin [From Cipro] Allergy .unknown Verified 07/19/18 20:16 ciprofloxacin HCl Allergy RASH Verified 07/19/18 20:16 [From Cipro] pneumococcal vaccine Allergy RASH Verified 07/19/18 20:16 sulfamethoxazole Allergy RASH Verified 07/19/18 20:16 [From Bactrim] trimethoprim [From Bactrim] Allergy RASH Verified 07/19/18 20:16 nitrofurantoin AdvReac RASH Verified 07/19/18 20:16 Penicillins AdvReac SWELLING Verified 07/19/18 20:16 Physical Exam - Constitutional Appears: No Acute Distress - Head Exam Head Exam: ATRAUMATIC, NORMAL INSPECTION, NORMOCEPHALIC - Eye Exam Eye Exam: EOMI, Normal appearance, PERRL - ENT Exam ENT Exam: Mucous Membranes Moist, Normal Exam - Respiratory Exam Respiratory Exam: Clear to Auscultation Bilateral, NORMAL BREATHING PATTERN - Cardiovascular Exam Cardiovascular Exam: REGULAR RHYTHM, +S1, +S2 - GI/Abdominal Exam GI & Abdominal Exam: Normal Bowel Sounds, Soft. absent: Tenderness - Extremities Exam Extremities exam: Positive for: normal inspection - Back Exam Back exam: NORMAL INSPECTION - Neurological Exam Neurological exam: Alert, CN II-XII Intact, Oriented x3, Reflexes Normal - Psychiatric Exam Psychiatric exam: Anxious - Skin Skin Exam: Dry, Intact, Normal Color, Warm Results - Vital Signs Recent Vital Signs: Last Vital Signs Temp 97.3 F L 07/20/18 06:00 Pulse 68 07/20/18 09:15 Resp 18 07/20/18 06:00 BP 164/64 H 07/20/18 09:15 Pulse Ox 98 07/20/18 06:00 - Labs Result Diagrams: 07/19/18 18:00 07/19/18 18:00 Labs: Laboratory Results - last 24 hr 07/19/18 07/19/18 07/19/18 18:00 18:00 18:00 WBC 8.1 RBC 4.13 Hgb 12.4 Hct 37.3 MCV 90.3 MCH 30.0 MCHC 33.2 RDW 14.2 Plt Count 282 MPV 10.6 Neut % (Auto) 74.5 H Lymph % (Auto) 16.2 L [place] % (Auto) 7.6 H Eos % (Auto) 1.2 L Baso % (Auto) 0.5 Lymph # (Auto) 1.3 Sutton # (Auto) 0.6 Eos # (Auto) 0.1 Baso # (Auto) 0.04 Absolute Neuts (auto) 6.06 PT INR APTT D-Dimer, Quantitative pO2 31 VBG pH 7.39 VBG pCO2 45.0 VBG HCO3 27.2 VBG Total CO2 28.6 H VBG O2 Sat (Calc) 69.9 H VBG Base Excess 1.7 VBG Potassium 4.5 Sodium 128.0 L 129 L Chloride 92.0 L 91 L Glucose 108 H Lactate 0.7 FiO2 21.0 Potassium 4.6 Carbon Dioxide 26 Anion Gap 17 BUN 35 H Creatinine 1.7 H Est GFR ( Amer) 34 Est GFR (Non-Af Amer) 28 POC Glucose (mg/dL) Random Glucose 108 Calcium 9.7 Total Bilirubin 0.3 AST 35 ALT 56 Alkaline Phosphatase 211 H D Lactate Dehydrogenase 510 Total Creatine Kinase 56 Troponin I < 0.01 NT-Pro-B Natriuret Pep 279 Total Protein 8.0 Albumin 4.6 Globulin 3.3 Albumin/Globulin Ratio 1.4 Lipase 94 Venous Blood Potassium 4.5 Urine Color Urine Appearance Urine pH Ur Specific [place] Urine Protein Urine Glucose (UA) Urine Ketones Urine Blood Urine Nitrate Urine Bilirubin Urine Urobilinogen Ur Leukocyte Esterase 07/19/18 07/19/18 07/19/18 18:00 18:15 18:15 WBC RBC Hgb Hct MCV MCH MCHC RDW Plt Count MPV Neut % (Auto) Lymph % (Auto) Sutton % (Auto) Eos % (Auto) Baso % (Auto) Lymph # (Auto) [place] # (Auto) Eos # (Auto) Baso # (Auto) Absolute Neuts (auto) PT 11.2 INR 1.01 APTT 42.3 H D-Dimer, Quantitative 972 H pO2 VBG pH VBG pCO2 VBG HCO3 VBG Total CO2 VBG O2 Sat (Calc) VBG Base Excess VBG Potassium Sodium Chloride Glucose Lactate FiO2 Potassium Carbon Dioxide Anion Gap BUN Creatinine Est GFR ( Amer) Est GFR (Non-Af Amer) POC Glucose (mg/dL) Random Glucose Calcium Total Bilirubin AST ALT Alkaline Phosphatase Lactate Dehydrogenase Total Creatine Kinase Troponin I NT-Pro-B Natriuret Pep Total Protein Albumin Globulin Albumin/Globulin Ratio Lipase Venous Blood Potassium Urine Color Yellow Urine Appearance Clear Urine pH 6.0 Ur Specific [place] 1.010 Urine Protein Negative Urine Glucose (UA) Negative Urine Ketones Negative Urine Blood Negative Urine Nitrate Negative Urine Bilirubin Negative Urine Urobilinogen 0.2 Ur Leukocyte Esterase Negative 07/20/18 07:19 WBC RBC Hgb Hct MCV MCH MCHC RDW Plt Count MPV Neut % (Auto) Lymph % (Auto) [place] % (Auto) Eos % (Auto) Baso % (Auto) Lymph # (Auto) [place] # (Auto) Eos # (Auto) Baso # (Auto) Absolute Neuts (auto) PT INR APTT D-Dimer, Quantitative pO2 VBG pH VBG pCO2 VBG HCO3 VBG Total CO2 VBG O2 Sat (Calc) VBG Base Excess VBG Potassium Sodium Chloride Glucose Lactate FiO2 Potassium Carbon Dioxide Anion Gap BUN Creatinine Est GFR ( Amer) Est GFR (Non-Af Amer) POC Glucose (mg/dL) 94 Random Glucose Calcium Total Bilirubin AST ALT Alkaline Phosphatase Lactate Dehydrogenase Total Creatine Kinase Troponin I NT-Pro-B Natriuret Pep Total Protein Albumin Globulin Albumin/Globulin Ratio Lipase Venous Blood Potassium Urine Color Urine Appearance Urine pH Ur Specific [place] Urine Protein Urine Glucose (UA) Urine Ketones Urine Blood Urine Nitrate Urine Bilirubin Urine Urobilinogen Ur Leukocyte Esterase Assessment & Plan - Assessment and Plan (Free Text) Assessment: hyponatremia HTN Perianal discomfort CKD 4 hemmorrhoids s/p hemmorhoidectomy hypothyroidism hx diverticulitis spinal stenosis NIDDM GERD Plan: Patient is comfortable. Will follow up urine osm, na and serum osm for hyponatremia workup, patient is tolerating oral intake at this time. Patient on cardizem for HTN, however in light of HTN and bradycardia will consult Dr. Jack and follow up with recommendations. Patient also has complaints of perianal discmfort, no erythema or suspicious lesions. Will provide supportive t herapy, and consult GI Dr. Ortiz on account of abdominal discomfort and hx of diverticulitis. CKD 4 stable, continue to monitor renal function and electrolytes and supplement as needed. Patient on low iss for hx of dm. pepcid for GERD and heparin for dvt ppx. <Wil Phillips S - Last Filed: 07/20/18 17:54> Results - Vital Signs Recent Vital Signs: Last Vital Signs Temp 97.3 F L 07/20/18 12:00 Pulse 67 07/20/18 14:00 Resp 18 07/20/18 12:00 BP 126/69 07/20/18 12:00 Pulse Ox 98 07/20/18 06:00 - Labs Result Diagrams: 07/20/18 10:30 07/20/18 10:30 Labs: Laboratory Results - last 24 hr 07/19/18 07/19/18 07/19/18 18:00 18:00 18:00 WBC 8.1 RBC 4.13 Hgb 12.4 Hct 37.3 MCV 90.3 MCH 30.0 MCHC 33.2 RDW 14.2 Plt Count 282 MPV 10.6 Neut % (Auto) 74.5 H Lymph % (Auto) 16.2 L [place] % (Auto) 7.6 H Eos % (Auto) 1.2 L Baso % (Auto) 0.5 Lymph # (Auto) 1.3 Sutton # (Auto) 0.6 Eos # (Auto) 0.1 Baso # (Auto) 0.04 Absolute Neuts (auto) 6.06 PT INR APTT D-Dimer, Quantitative pO2 31 VBG pH 7.39 VBG pCO2 45.0 VBG HCO3 27.2 VBG Total CO2 28.6 H VBG O2 Sat (Calc) 69.9 H VBG Base Excess 1.7 VBG Potassium 4.5 Sodium 128.0 L 129 L Chloride 92.0 L 91 L Glucose 108 H Lactate 0.7 FiO2 21.0 Potassium 4.6 Carbon Dioxide 26 Anion Gap 17 BUN 35 H Creatinine 1.7 H Est GFR ( Amer) 34 Est GFR (Non-Af Amer) 28 POC Glucose (mg/dL) Random Glucose 108 Hemoglobin A1c Serum Osmolality Calcium 9.7 Phosphorus Magnesium Total Bilirubin 0.3 AST 35 ALT 56 Alkaline Phosphatase 211 H D Lactate Dehydrogenase 510 Total Creatine Kinase 56 Troponin I < 0.01 NT-Pro-B Natriuret Pep 279 Total Protein 8.0 Albumin 4.6 Globulin 3.3 Albumin/Globulin Ratio 1.4 Lipase 94 Venous Blood Potassium 4.5 Urine Color Urine Appearance Urine pH Ur Specific [place] Urine Protein Urine Glucose (UA) Urine Ketones Urine Blood Urine Nitrate Urine Bilirubin Urine Urobilinogen Ur Leukocyte Esterase Urine Osmolality Ur Random Sodium 07/19/18 07/19/18 07/19/18 18:00 18:15 18:15 WBC RBC Hgb Hct MCV MCH MCHC RDW Plt Count MPV Neut % (Auto) Lymph % (Auto) Sutton % (Auto) Eos % (Auto) Baso % (Auto) Lymph # (Auto) Sutton # (Auto) Eos # (Auto) Baso # (Auto) Absolute Neuts (auto) PT 11.2 INR 1.01 APTT 42.3 H D-Dimer, Quantitative 972 H pO2 VBG pH VBG pCO2 VBG HCO3 VBG Total CO2 VBG O2 Sat (Calc) VBG Base Excess VBG Potassium Sodium Chloride Glucose Lactate FiO2 Potassium Carbon Dioxide Anion Gap BUN Creatinine Est GFR ( Amer) Est GFR (Non-Af Amer) POC Glucose (mg/dL) Random Glucose Hemoglobin A1c Serum Osmolality Calcium Phosphorus Magnesium Total Bilirubin AST ALT Alkaline Phosphatase Lactate Dehydrogenase Total Creatine Kinase Troponin I NT-Pro-B Natriuret Pep Total Protein Albumin Globulin Albumin/Globulin Ratio Lipase Venous Blood Potassium Urine Color Yellow Urine Appearance Clear Urine pH 6.0 Ur Specific [place] 1.010 Urine Protein Negative Urine Glucose (UA) Negative Urine Ketones Negative Urine Blood Negative Urine Nitrate Negative Urine Bilirubin Negative Urine Urobilinogen 0.2 Ur Leukocyte Esterase Negative Urine Osmolality Ur Random Sodium 07/20/18 07/20/18 07/20/18 07:19 09:45 10:30 WBC 6.5 RBC 3.95 Hgb 11.5 L Hct 35.7 L MCV 90.4 MCH 29.1 MCHC 32.2 RDW 14.1 Plt Count 256 MPV 10.5 Neut % (Auto) 64.9 Lymph % (Auto) 22.3 Sutton % (Auto) 10.5 H Eos % (Auto) 1.7 Baso % (Auto) 0.6 Lymph # (Auto) 1.4 Sutton # (Auto) 0.7 H Eos # (Auto) 0.1 Baso # (Auto) 0.04 Absolute Neuts (auto) 4.18 PT INR APTT D-Dimer, Quantitative pO2 VBG pH VBG pCO2 VBG HCO3 VBG Total CO2 VBG O2 Sat (Calc) VBG Base Excess VBG Potassium Sodium Chloride Glucose Lactate FiO2 Potassium Carbon Dioxide Anion Gap BUN Creatinine Est GFR ( Amer) Est GFR (Non-Af Amer) POC Glucose (mg/dL) 94 Random Glucose Hemoglobin A1c 6.1 Serum Osmolality Calcium Phosphorus Magnesium Total Bilirubin AST ALT Alkaline Phosphatase Lactate Dehydrogenase Total Creatine Kinase Troponin I NT-Pro-B Natriuret Pep Total Protein Albumin Globulin Albumin/Globulin Ratio Lipase Venous Blood Potassium Urine Color Urine Appearance Urine pH Ur Specific [place] Urine Protein Urine Glucose (UA) Urine Ketones Urine Blood Urine Nitrate Urine Bilirubin Urine Urobilinogen Ur Leukocyte Esterase Urine Osmolality Ur Random Sodium 07/20/18 07/20/18 07/20/18 10:30 10:30 10:50 WBC RBC Hgb Hct MCV MCH MCHC RDW Plt Count MPV Neut % (Auto) Lymph % (Auto) [place] % (Auto) Eos % (Auto) Baso % (Auto) Lymph # (Auto) [place] # (Auto) Eos # (Auto) Baso # (Auto) Absolute Neuts (auto) PT INR APTT D-Dimer, Quantitative pO2 VBG pH VBG pCO2 VBG HCO3 VBG Total CO2 VBG O2 Sat (Calc) VBG Base Excess VBG Potassium Sodium 133 Chloride 96 L Glucose Lactate FiO2 Potassium 4.7 Carbon Dioxide 30 Anion Gap 12 BUN 29 H Creatinine 1.5 H Est GFR ( Amer) 40 Est GFR (Non-Af Amer) 33 POC Glucose (mg/dL) Random Glucose 101 Hemoglobin A1c Serum Osmolality 284 Calcium 9.4 Phosphorus 4.2 Magnesium 1.8 Total Bilirubin 0.3 AST 29 ALT 41 Alkaline Phosphatase 167 H D Lactate Dehydrogenase Total Creatine Kinase Troponin I NT-Pro-B Natriuret Pep Total Protein 7.1 Albumin 4.1 Globulin 3.1 Albumin/Globulin Ratio 1.3 Lipase Venous Blood Potassium Urine Color Urine Appearance Urine pH Ur Specific [place] Urine Protein Urine Glucose (UA) Urine Ketones Urine Blood Urine Nitrate Urine Bilirubin Urine Urobilinogen Ur Leukocyte Esterase Urine Osmolality 198 L Ur Random Sodium 16 07/20/18 07/20/18 11:12 16:26 WBC RBC Hgb Hct MCV MCH MCHC RDW Plt Count MPV Neut % (Auto) Lymph % (Auto) [place] % (Auto) Eos % (Auto) Baso % (Auto) Lymph # (Auto) [place] # (Auto) Eos # (Auto) Baso # (Auto) Absolute Neuts (auto) PT INR APTT D-Dimer, Quantitative pO2 VBG pH VBG pCO2 VBG HCO3 VBG Total CO2 VBG O2 Sat (Calc) VBG Base Excess VBG Potassium Sodium Chloride Glucose Lactate FiO2 Potassium Carbon Dioxide Anion Gap BUN Creatinine Est GFR ( Amer) Est GFR (Non-Af Amer) POC Glucose (mg/dL) 87 131 H Random Glucose Hemoglobin A1c Serum Osmolality Calcium Phosphorus Magnesium Total Bilirubin AST ALT Alkaline Phosphatase Lactate Dehydrogenase Total Creatine Kinase Troponin I NT-Pro-B Natriuret Pep Total Protein Albumin Globulin Albumin/Globulin Ratio Lipase Venous Blood Potassium Urine Color Urine Appearance Urine pH Ur Specific [place] Urine Protein Urine Glucose (UA) Urine Ketones Urine Blood Urine Nitrate Urine Bilirubin Urine Urobilinogen Ur Leukocyte Esterase Urine Osmolality Ur Random Sodium Assessment & Plan - Assessment and Plan (Free Text) Assessment: Pt seen and examined by me. I have reviewed the note of the medical pathology teacher and I agree with it. I have discussed the assessment and plan with the resident. I have reviewed the medications and the last labs.
[2018-07-20 10:55] LABS: BASO # 0.04 {null, K/mm3} (0.0-2.0); BASO % 0.6 % (0.0-3.0); EOS # 0.1 (0.0-0.7); EOS % 1.7 % (1.5-5.0); HEMOGLOBIN 11.5 g/dL (12.0-16.0); LYMPH # 1.4 (1.2-3.4); LYMPH % 22.3 % (22.0-35.0); MEAN CELL VOLUME 90.4 fl (80.0-105.0); MEAN CORPUSCULAR HEMOGLOBIN 29.1 pg (25.0-35.0); MEAN CORPUSCULAR HGB CONC 32.2 g/dl (31.0-37.0); MEAN PLATELET VOLUME 10.5 fl (7.0-11.0); MONO # 0.7 (0.1-0.6); MONO % 10.5 % (1.0-6.0); RBC 3.95 {null, 10^6/uL} (3.5-6.1); RED CELL DISTRIBUTION WIDTH 14.1 % (11.5-14.5); WHITE BLOOD COUNT 6.5 {null, 10^3/uL} (4.5-11.0)
[2018-07-20 11:07] LABS: ALB/GLOB RATIO 1.3 (1.1-1.8); ALBUMIN 4.1 g/dL (3.0-4.8); CALCIUM 9.4 mg/dL (8.4-10.5)
[2018-07-20 11:25] LABS: OSMOLALITY,URINE 198 mosm/kg (300-1000)
[2018-07-20] MEDS: Hemorrohoidal Ointment (2 oz) TOP SCH ×2 (12:12→18:11)
--- NOTE | 2018-07-20 17:39 | NM ---
Date of service: 07/19/2018 COMPARISON: Chest radiograph performed approximately 2 hours prior TECHNIQUE: 40.6 mCi technetium 99-m DPTA 5.1 mCI technetium 99-m MAA administered intravenously. FINDINGS: VENTILATION COMPONENT: Normal. PERFUSION COMPONENT: Normal. IMPRESSION: Lowprobability ventilation perfusion scan for pulmonary embolism.
[2018-07-20 18:29] VITALS: O2SAT 97
--- NOTE | 2018-07-21 01:51 | HP ---
DATE OF EXAM: 07/20/2018 HOSPITAL COURSE: Patient was seen and examined. I do agree with the note of the medical scribe. I was involved in the plan of care. The patient is currently comfortable. She is complaining of burning when she goes to urinate. She is also complaining of rectal discomfort. She has a history of hemorrhoids. She is going to be seen by GI because of nausea. She has hyponatremia. I will give her IV fluids and check her urine osmolality and sodium. She has diabetes type 2. She is going to be on insulin sliding scale. She is on Cardizem for her hypertension. I will get Dr. Jack to evaluate the bradycardia. The patient is going to have repeat blood work tomorrow. She is on hydralazine p.r.n. She is on heparin for DVT prophylaxis. She is on Synthroid for hypothyroidism. She was given a dose of Zofran. She is on a heart-healthy diet. She has urine cultures and blood cultures that have been ordered and the results are pending. She has CKD, stage 3. We will wait for further input from the consultants. The patient was seeing Dr. Mckee, but is requesting to see Dr. Ortiz. Wil Phillips MD
--- NOTE | 2018-07-21 02:04 | CON ---
DATE: 07/20/2018 REASON FOR CONSULTATION: Rectal discomfort. HISTORY OF PRESENT ILLNESS: This is an 88-year-old patient with a past medical history of colonic polyp, gastroesophageal reflux disease, history of hemorrhoids status post band ligation done by Dr. Carvajal at least about a month ago, was admitted with complaints of rectal discomfort. She experiences no longer rectal bleeding. The patient is being followed by Dr. Bj Mckee for a longer time. The patient did want to seek another gastroenterological opinion. Hence, she was seen today by me. I did review Dr. Bj Mckee's consults done in the past. He also has mentioned history of renal carcinoma. The patient could not fully explain about the diagnosis. PAST MEDICAL HISTORY: Significant as above, chronic kidney disease, hypertension, hypothyroidism, anxiety. FAMILY HISTORY: Noncontributory. SOCIAL HISTORY: Denies smoking or alcohol. ALLERGIES: CIPRO. REVIEW OF SYSTEMS: Positive as above. Other systems reviewed. PHYSICAL EXAMINATION VITAL SIGNS: Temperature 97.3, blood pressure 126/69, pulse 60, respirations 18. HEENT: Atraumatic, anicteric. NECK: Supple. HEART: S1 and S2 heard. LUNGS: Bilateral air entry present. ABDOMEN: Soft. There is no mass palpable. No tenderness. EXTREMITIES: No cyanosis or clubbing. NEUROLOGICAL: She is alert, oriented. Moves all the extremities. RECTAL: Rectal examination was done, appeared to have a reduced anal tone. LABORATORY DATA: Hemoglobin 11.5, hematocrit 35.7, WBC 6.5, platelets 256. Chemistry is essentially unremarkable. Alkaline phosphatase 167,BUN 29, creatinine 1.5. The patient did have a CT done in 04/2018, which was reviewed. IMPRESSION AND PLAN: This is an 88-year-old patient with history of colon polyp and gastroesophageal reflux disease, last colonoscopy was more than 4 years ago, admitted with rectal discomfort and dizziness. The patient did have a binding of the hemorrhoids done in the past, questionable history of anal cancer noted in Dr. Mckee's consult before. Rectal examination was done, showed some reduced anal sphincter tone. The constipation could be due to multifactorial, but this may be related to reduced sphincter tone to low motility function. At the present time, we will keep the patient on a stool softener. It is a reasonable thing to order for MiraLax and Dulcolax suppositories to keep the rectum empty, which can sometimes improve the discomfort symptoms. If the patient remains symptomatic, we will consider further evaluation including a repeat CT. Layne Ortiz MD
[2018-07-21] MEDS: Pantoprazole 40 mg EC Tab PO SCH (05:12)
[2018-07-21 07:16] LABS: BASO # 0.05 {null, K/mm3} (0.0-2.0); BASO % 0.7 % (0.0-3.0); EOS # 0.2 (0.0-0.7); EOS % 2.4 % (1.5-5.0); HEMOGLOBIN 11.7 g/dL (12.0-16.0); LYMPH # 1.9 (1.2-3.4); MEAN CELL VOLUME 91.2 fl (80.0-105.0); MEAN CORPUSCULAR HEMOGLOBIN 29.4 pg (25.0-35.0); MEAN CORPUSCULAR HGB CONC 32.2 g/dl (31.0-37.0); MEAN PLATELET VOLUME 10.6 fl (7.0-11.0); MONO # 0.7 (0.1-0.6); MONO % 9.6 % (1.0-6.0); RBC 3.98 {null, 10^6/uL} (3.5-6.1); RED CELL DISTRIBUTION WIDTH 14.3 % (11.5-14.5); WHITE BLOOD COUNT 7.2 {null, 10^3/uL} (4.5-11.0)
[2018-07-21 07:29] LABS: ALB/GLOB RATIO 1.3 (1.1-1.8); CALCIUM 9.4 mg/dL (8.4-10.5)
[2018-07-21] MEDS: Levothyroxine 50 MCG TAB PO SCH (08:39)
--- NOTE | 2018-07-21 08:54 | CON ---
DATE OF CONSULTATION: 07/21/2018 REQUESTING PHYSICIAN: Dr. Phillips. REASON FOR CONSULTATION: Accelerated hypertension, weakness. HISTORY: This is an 88-year-old woman, well-known to me with a history of hypertension, chronic renal insufficiency, recurrent urinary tract infections, diastolic heart failure, as well as prior syncope, who presents to the emergency room with complains of weakness and urinary frequency and urgency. She has had multiple admissions in the past for similar complaints. She was recently treated with oral antibiotic. However, she feels she did not receive a full course of therapy. She is complaining of some weakness and was admitted. Her blood pressure was initially elevated. Prior workup has included a stress test, which was negative and an echocardiogram showing evidence of left sternal hypertrophy with normal LV systolic function. PAST MEDICAL HISTORY: Her past history is notable for the problems mentioned above. She also has a history of hypothyroidism, gastroesophageal reflux disease. She has had anxiety and depression in the past. MEDICATIONS: Her current medications included hydralazine p.r.n., Cardizem CD 120 mg daily, subcutaneous heparin, MiraLax, Pepcid, Protonix, Synthroid 50 mcg daily, and Xanax p.r.n. ALLERGIES: SHE HAS HAD A REACTION TO CIPROFLOXACIN IN THE PAST WELL PNEUMOCOCCAL VACCINE. SOCIAL HISTORY: She does not smoke or drink. She is and lives at home. She does have a home health aide. She ambulates with a walker. FAMILY HISTORY: Both parents are from age-related illness. There is no history of premature heart disease. REVIEW OF SYSTEMS: A 12-point review of systems is negative for any recent chest pain or exertional dyspnea. Findings are otherwise unremarkable except for intermittent arthralgias. PHYSICAL EXAMINATION: GENERAL: She is an overweight, very elderly woman. VITAL SIGNS: Her blood pressure is 160/68 with a pulse of 72 and sinus, respirations are 14. She is afebrile. HEENT: Normocephalic, atraumatic. NECK: Supple. No JVD noted. CHEST: Few scattered rhonchi heard. HEART: PMI in normal position. No pathological murmurs or gallops audible. ABDOMEN: Soft, mildly obese, nontender with normoactive bowel sounds. EXTREMITIES: No clubbing, cyanosis, or edema. SKIN: Warm and dry. PSYCHIATRIC: Normal mood and affect. NEUROLOGIC: Alert and oriented x3. No gross motor or sensory deficits notable. DIAGNOSTIC DATA: Potassium 4.1, BUN and creatinine are 25 and 1.4. Glucose is 128. White count 7.2, hemoglobin and hematocrit are 11.7 and 36.3 with a platelet count of 274,000. Troponin was negative. BNP is 279. V/Q scan was low probability for pulmonary embolus. Chest x-ray reveals borderline enlarged cardiac silhouette, which is unchanged and clear lung [place]. Electrocardiogram reveals sinus rhythm with no acute abnormalities. IMPRESSION AND PLAN: 1. Hypertension with suboptimal control, oral antihypertensive therapy adjusted. This can be done as an outpatient. 2. Fatigue and weakness, chronic complaints are likely noncardiac in nature. 3. Partially treated urinary tract infection, advised outpatient followup for this as well. At this present time, no further cardiac workup appears necessary. From a cardiac standpoint, she is stable for discharge home. Continued outpatient followup has been arranged. Bud Jack MD
[2018-07-21] MEDS: diltiaZEM 120 mg/24 Hours CD Cap PO SCH (09:08)
[2018-07-21] MEDS: Hemorrohoidal Ointment (2 oz) TOP SCH (09:09)
[2018-07-21 12:45] VITALS: BP 150/68; PULSE 74; RESP 18; TEMP 97.3
--- NOTE | 2018-07-22 05:19 | DS ---
HOSPITAL COURSE: The patient was seen and examined. I do agree with the note of the medical translator. I was involved in the plan of care. The patient was complaining of dysuria. Her urine cultures have been negative. Her blood cultures have been negative. She has an improvement in her dizziness. She was seen by Dr. Ortiz for nausea. She was seen by Dr. Jack for dizziness that did improve. The patient has history of hemorrhoid and is going to be following up with her outpatient surgeon. She was assured that she has cultures that are negative, but she should finish her Keflex that she was on. She is asking to be seen by Infectious Disease. I advised her that she does not require evaluation. She needs to finish her medications and then follow up with her primary doctor, [facility] for the dysuria that she is complaining about. I did review the patient with the resident and I have reviewed the patient's labs. I spoke to Dr. Jack. The patient was seen and examined. I agree with the note of the medical translator. Wil Phillips MD
== END 2018-07-21 13:11 | disposition home or self-care (01) | DRG 641 ==
LOC: ED 17:26 → ERH 19:10 → 2RSO 21:33 → OBSVTOIN 07-20 08:27
PROVIDERS: ADMIT Internal Medicine Nephrology; ATTEND Internal Medicine Nephrology
DX: E87.1 Hypo-osmolality and hyponatremia (principal); I13.0 Hypertensive heart and chronic kidney disease with heart failure and stage 1 through stage 4 chronic kidney disease, or unspecified chronic kidney disease; N39.0 Urinary tract infection, site not specified; I50.32 Chronic diastolic (congestive) heart failure; N18.3 Chronic kidney disease, stage 3 (moderate); E11.22 Type 2 diabetes mellitus with diabetic chronic kidney disease; N89.8 Other specified noninflammatory disorders of vagina; E03.9 Hypothyroidism, unspecified; K21.9 Gastro-esophageal reflux disease without esophagitis; K64.9 Unspecified hemorrhoids; K59.00 Constipation, unspecified; R00.1 Bradycardia, unspecified; E78.5 Hyperlipidemia, unspecified; M48.00 Spinal stenosis, site unspecified; H91.90 Unspecified hearing loss, unspecified ear; Z86.73 Personal history of transient ischemic attack (TIA), and cerebral infarction without residual deficits; I25.2 Old myocardial infarction; Z79.84 Long term (current) use of oral hypoglycemic drugs; Z86.010 Personal history of colon polyps